=== PATIENT | female | born 1940 | race Caucasian/White ===

== ENCOUNTER 2019-12-07 05:31 | Observation (INO) | payer MEDICARE, BC, OTHER ==
[2019-12-07 06:17] LABS: Mean Corpuscular HGB CONC 30.4 g/dL (32.0-36.0); Mean Corpuscular Hemoglobin 21.5 pg (27.0-31.0); Mean Corpuscular Volume 70.9 fL (78.0-98.0); Mean Platelet Volume 9.7 fL (7.4-10.4); Platelet Count 390 thou/uL (130-400); Red Blood Cell (RBC) Count 4.65 mill/uL (4.20-5.40); White Blood Cell (WBC) Count 13.3 thou/uL (4.8-10.8)
[2019-12-07 06:26] LABS: #Eosinphils 0.1 thou/uL (0.0-0.7); #Lymphocytes 1.8 thou/uL (1.20-3.40); #Monocytes 0.6 thou/uL (0.11-0.59); #Neutrophils 10.7 thou/uL (1.40-6.50); %Basophils 0.3 % (0.0-1.0); %Lymphocytes 13.2 % (21.0-51.0); %Monocytes 4.7 % (0.0-10.0); %Neutrophils 80.8 % (42.0-75.0)
[2019-12-07 06:30] LABS: ALT (SGPT) 22 U/L (8-55); AST (SGOT) 28 U/L (5-34); Albumin 3.8 g/dL (3.4-4.8); Alkaline Phosphatase 87 U/L (40-110); Anion Gap 15 mmol/L (10-20); BUN (Urea Nitrogen) 20 mg/dL (9.8-20.1); Bilirubin, Total 0.4 mg/dL (0.2-1.2); Calc. Creatinine Clearance 0 mL/min (70-130); Carbon Dioxide 20 mmol/L (23-31); Chloride 107 mmol/L (98-107); Estimated GFR-MDRD 56; Globulin 3.4 g/dL (2.4-3.5); Glucose 108 mg/dL (83-110); Potassium 4.2 mmol/L (3.5-5.1); Protein, Total 7.2 g/dL (6.0-8.3); Sodium 138 mmol/L (136-145)
[2019-12-07] MEDS ORDERED: Aspirin 325 MG TAB ONE (06:52)
[2019-12-07 06:57] LABS: CKMB 7.9 ng/mL (0-6.6)
--- NOTE | 2019-12-07 07:49 | PDOC.HHP ---
Hospitalist HPI - History of Present Illness shortness of breath History of Present Illness: PCP: Nikki in [place] The patient is a 79-year-old female past medical history significant for COPD, diabetes and hypertension. She presents to the ER today for shortness of breath that woke her from her sleep at 3 AM. At that time she used her inhaler without any relief and then called 911. She is a current half pack per day smoker but she states she does not inhale. She denies any cough, fever cough chest pain, back pain, abdominal pain, contact with sick persons. She was given additional albuterol and Solu-Medrol by EMS. During her history and assessment she stated she was not able to take a deep breath in but she was able to speak in complete sentences and maintain her O2 saturation. After discussing pursed lip breathing she was able to calm her respirations and stated she felt much better. ED Course: VITAL SIGNS ThuDec 07, 2019 05:32 KITTY Guardado [place] BP: 166/88, MAP: 114, Pulse: 104, Resp: 20, Temp: 98.3 (Oral), Pain: 0, O2 sat: 94 on (Room Air), Time: 12/07/2019 05:32. VITAL SIGNS ThuDec 07, 2019 05:38 KITTY Guardado [place] Pulse: 67, Resp: 17, Pain: 0, O2 sat: 98 on (1L Oxygen), Time: 12/07/2019 05:38. VITAL SIGNS ThuDec 07, 2019 06:06 KITTY Guardado [place] O2 sat: 100 on (Room Air), Time: 12/07/2019 06:06. VITAL SIGNS ThuDec 07, 2019 06:33 KITTY Guardado [place] BP: 159/95, MAP: 116, Pulse: 65, Resp: 18, Temp: 99.2 (Oral), Pain: 2, O2 sat: 97 on (Room Air), Time: 12/07/2019 06:33. Today in the ER she had lab work, and EKG, and a chest x-ray completed. She was given aspirin 325 mg oral. Prior to arrival she had taken 2 puffs of her albuterol inhaler and EMS gave her 125 mg of Solu-Medrol. Hospitalist History - Past Medical History Source: patient Cardiac: reports: HTN Pulmonary: reports: COPD Endocrine: reports: Diabetes - Past Surgical History Past Surgical History: reports: Mastectomy (Left), Tubal Ligation - Family History Family History: reports: no pertinent history - Social History Smoking Status: Current every day smoker Alcohol: reports: None Drugs: reports: none Hospitalist Results - Labs Result Diagrams: 12/07/19 06:08 12/07/19 06:08 Lab results: WBC 13.3 thou/uL (4.8-10.8) H 12/07/19 06:08 Hgb 10.0 g/dL (12.0-16.0) L 12/07/19 06:08 Hct 33.0 % (36.0-47.0) L 12/07/19 06:08 MCV 70.9 fL (78.0-98.0) L 12/07/19 06:08 Plt Count 390 thou/uL (130-400) 12/07/19 06:08 Neutrophils % 80.8 % (42.0-75.0) H 12/07/19 06:08 Sodium 138 mmol/L (136-145) 12/07/19 06:08 Potassium 4.2 mmol/L (3.5-5.1) 12/07/19 06:08 Chloride 107 mmol/L (98-107) 12/07/19 06:08 Carbon Dioxide 20 mmol/L (23-31) L 12/07/19 06:08 BUN 20 mg/dL (9.8-20.1) 12/07/19 06:08 Creatinine 0.97 mg/dL (0.6-1.1) 12/07/19 06:08 Glucose 108 mg/dL (83-110) 12/07/19 06:08 Calcium 9.0 mg/dL (7.8-10.44) 12/07/19 06:08 Total Bilirubin 0.4 mg/dL (0.2-1.2) 12/07/19 06:08 AST 28 U/L (5-34) 12/07/19 06:08 ALT 22 U/L (8-55) 12/07/19 06:08 Alkaline Phosphatase 87 U/L (40-110) 12/07/19 06:08 CK-MB (CK-2) 7.9 ng/mL (0-6.6) H* 12/07/19 06:08 Troponin I 0.035 ng/mL (< 0.028) H 12/07/19 06:08 B-Natriuretic Peptide 273.4 pg/mL (0-100) H 12/07/19 06:08 Serum Total Protein 7.2 g/dL (6.0-8.3) 12/07/19 06:08 Albumin 3.8 g/dL (3.4-4.8) 12/07/19 06:08 - EKG Interpretation EKG: Sinus rhythm 66 bpm with PACs Hospitalist H&P A/P - Plan Plan: COPD exacerbation Scheduled nebs and IV steroids ordered at this time As needed antianxiety medications available if necessary Pursed lip breathing discussed, patient states this helps her greatly Covid swab negative Elevated troponin level Denies chest pain Monitoring on telemetry Continue to trend troponins Hypertension Restart home medications Have as needed antihypertensives available if necessary Leukocytosis No evidence of infection on x-ray, patient afebrile Possibly from steroids that were administered prior to arrival Continue to monitor for signs of infection Diabetes mellitus type 2 Monitor Accu-Cheks AC at bedtime Moderate sliding scale insulin Hyperglycemic currently, possibly exacerbated by steroid use Hyperlipidemia Restart home medications Anemia No reports of blood loss Patient at same hemoglobin and hematocrit level from previous admissions VTE prophylaxis in place with SCDs CODE STATUS: Full Surrogate decision-maker is her son, Artis
--- NOTE | 2019-12-07 08:45 | RAD ---
CHEST 1 VIEW: Date: 12/07/2019 COMPARISON: 09/09/2019, 09/11/2019. HISTORY: Dyspnea. FINDINGS: Cardiomegaly and atherosclerosis. Pulmonary vessels and hilum are normal. Costophrenic angles are wu ar. Chronic changes, without consolidation or mass. There is hyperinflation. No pneumothorax. There a re multiple surgical clips projecting over the left hemithorax. Chronic changes involving the proxima l right humerus. IMPRESSION: 1. Atherosclerosis. 2. Cardiomegaly. 3. No evidence of congestive heart failure. POS: OFF
[2019-12-07 09:09] LABS: SARS-CoV-2 NAA Rapid Test Not Detected (NotDetected)
[2019-12-07 09:50] LABS: Troponin I 0.056 ng/mL (< 0.028)
[2019-12-07] MEDS ORDERED: Dextrose 5% in Water 1,000 ML IV PRN (10:13)
[2019-12-07] MEDS ORDERED: HumaLOG 300 UNITS/3 ML VIAL SC PRN ×2 (10:13)
[2019-12-07] MEDS ORDERED: Acetaminophen 325 MG TAB PO PRN (10:13)
[2019-12-07] MEDS ORDERED: Dextrose 50% Abboject 50 ML SYRINGE SLOW IVP PRN (10:13)
[2019-12-07 10:33] VITALS: BMI 26.9
[2019-12-07] MEDS: methylPREDNISolone Sod Succ 40 MG VIAL IVP SCH ×2 (10:54→17:24)
[2019-12-07] MEDS ORDERED: Albuterol Sulfate 2.5 mg/3 ml Neb NEB PRN (12:20)
[2019-12-07 12:51] LABS: Troponin I 0.044 ng/mL (< 0.028)
[2019-12-07] MEDS: Lorazepam 2 MG/ML VIAL SLOW IVP PRN (13:14)
[2019-12-07] MEDS: metFORMIN 500 MG TAB PO SCH (16:08)
[2019-12-07] MEDS ORDERED: Labetalol HCl 100 MG/20 ML VIAL SLOW IVP PRN (16:16)
[2019-12-07] MEDS ORDERED: Lisinopril 5 MG TAB PO SCH (16:30)
[2019-12-07] MEDS: HumaLOG 300 UNITS/3 ML VIAL SC PRN (17:23)
[2019-12-07] MEDS: Mometasone 200 MCG/Formoterol 5 MCG 120 PUFF INHALER INH SCH (18:21)
[2019-12-07] MEDS: Atorvastatin Calcium 40 MG TAB PO SCH (19:49)
[2019-12-07] MEDS: Insulin Glargine 32 UNITS in Pre-Filled Syringe 1 EACH SC SCH (19:49)
[2019-12-07] MEDS ORDERED: Non-Formulary Item 1 EACH (Insulin Glargine,Hum.Rec.Anlog [Toujeo Solostar] 300 UNIT/ML I SQ SCH (21:00)
[2019-12-08] MEDS: methylPREDNISolone Sod Succ 40 MG VIAL IVP SCH ×3 (00:03→11:51)
[2019-12-08 05:19] LABS: #Lymphocytes 0.7 thou/uL (1.20-3.40); #Monocytes 0.2 thou/uL (0.11-0.59); #Neutrophils 10.6 thou/uL (1.40-6.50); %Basophils 0.3 % (0.0-1.0); %Eosinophils 0.1 % (0.0-10.0); %Lymphocytes 5.7 % (21.0-51.0); Hemoglobin 9.2 g/dL (12.0-16.0); Mean Corpuscular HGB CONC 30.8 g/dL (32.0-36.0); Mean Corpuscular Volume 71.4 fL (78.0-98.0); Platelet Count 384 thou/uL (130-400); RBC Distribution Width 16.9 % (11.5-14.5); Red Blood Cell (RBC) Count 4.19 mill/uL (4.20-5.40); White Blood Cell (WBC) Count 11.5 thou/uL (4.8-10.8)
[2019-12-08 05:40] LABS: Anion Gap 16 mmol/L (10-20); BUN (Urea Nitrogen) 27 mg/dL (9.8-20.1); Calc. Creatinine Clearance 60 mL/min (70-130); Calcium 8.5 mg/dL (7.8-10.44); Carbon Dioxide 24 mmol/L (23-31); Chloride 101 mmol/L (98-107); Estimated GFR-MDRD 56; Glucose 228 mg/dL (83-110); Potassium 4.5 mmol/L (3.5-5.1); Sodium 136 mmol/L (136-145)
[2019-12-08] MEDS: Levothyroxine Sodium 125 MCG TAB PO SCH (05:47)
[2019-12-08] MEDS: HumaLOG 300 UNITS/3 ML VIAL SC PRN ×3 (05:48→17:29)
[2019-12-08] MEDS: Mometasone 200 MCG/Formoterol 5 MCG 120 PUFF INHALER INH SCH ×2 (06:54→18:49)
[2019-12-08] MEDS: Lisinopril 5 MG TAB PO SCH (08:24)
[2019-12-08] MEDS: metFORMIN 500 MG TAB PO SCH ×2 (08:24→17:29)
[2019-12-08] MEDS ORDERED: Cepastat Lozenges 1 LOZ PO PRN (10:21)
--- NOTE | 2019-12-08 10:51 | PDOC.HOSPP ---
- Subjective Encounter Date: 12/08/19 Encounter Time: 10:30 Subjective: Patient is seen for follow-up today for COPD exacerbation and hypertension. Upon entry to room she was sleeping and in no acute distress. Upon awakening she said that she had a good night and was feeling well. When discussing upcoming discharge she stated she was not feeling good and had a new cough along with a headache. Discussed plan of care with her son, Artis. - Objective Vital Signs & Weight: Vital Signs (12 hours) Temp Pulse Resp BP Pulse Ox 12/08/19 08:00 98.1 F 82 23 H 161/75 H 97 12/08/19 04:35 98.3 F 66 23 H 163/72 H 95 Weight Admit Weight 172 lb Weight 172 lb I&O: 12/07/19 12/08/19 12/09/19 06:59 06:59 06:59 Intake Total 1240 Output Total 1950 Balance -710 Result Diagrams: 12/08/19 04:22 12/08/19 04:22 Additional Labs: Accuchecks 12/07/19 12/07/19 19:35 16:34 POC Glucose 291 H 390 H Hospitalist ROS - Medication Medications: Active Medications Generic Name Dose Route Start Last Admin Trade Name Freq PRN Reason Stop Dose Admin Atorvastatin Calcium 40 mg 12/07/19 21:00 12/07/19 19:49 Atorvastatin Calcium 40 Mg Tab PO 40 mg HS CANDY Administration Insulin Glargine 32 units/ 0.32 mls @ 0 mls/hr 12/07/19 21:00 12/07/19 19:49 Miscellaneous Medication SC 0.32 mls HS CANDY Administration Insulin Human Lispro 0 units 12/07/19 11:59 12/08/19 05:48 Humalog 300 Units/3 Ml Vial SC 4 unit .MODERATE SLIDING SC PRN Administration Moderate Correctional Scale Levothyroxine Sodium 125 mcg 12/08/19 06:00 12/08/19 05:47 Levothyroxine Sodium 125 Mcg Tab PO 125 mcg 0600 CANDY Administration Lisinopril 5 mg 12/08/19 09:00 12/08/19 08:24 Lisinopril 5 Mg Tab PO 5 mg DAILY CANDY Administration Lorazepam 0.25 mg 12/07/19 10:45 12/07/19 13:14 Lorazepam 2 Mg/Ml Vial SLOW IVP 0.25 mg Q6H PRN Administration Anxiety/Agitation Metformin HCl 1,000 mg 12/07/19 17:00 12/08/19 08:24 Metformin 500 Mg Tab PO 1,000 mg BID-WM CANDY Administration Methylprednisolone Sodium Succinate 40 mg 12/07/19 12:00 12/08/19 05:49 Methylprednisolone Sod Succ 40 Mg Vial IVP 40 mg Q6HR CANDY Administration Mometasone Furoate/Formoterol Fumar 2 puff 12/07/19 18:30 12/08/19 06:54 Mometasone 200 Mcg/Formoterol 5 Mcg 120 Puff Inhaler INH 2 puff BID-RT CANDY Administration - Exam General Appearance: NAD, awake alert Heart: RRR, no murmur, no gallops, no rubs, normal peripheral pulses Respiratory - other findings: Expiratory wheezes, not as tight sounding as yesterday Gastrointestinal: soft, non-tender, non-distended, normal bowel sounds Extremities: no cyanosis, no edema Psychiatric - other findings: Anxious Hosp A/P - Plan COPD exacerbation Continue home inhalers and IV steroids, will transition to oral steroids soon Only on 1 L O2 nasal cannula, will trial room air today Patient requesting a shower, will see how she maintains her oxygen levels and feels with the increased activity Hypertension Blood pressure slightly elevated throughout the evening however did not require as needed medications Received home dose of lisinopril this morning, we will continue to monitor blood pressures Continue monitor vital signs every 4 hours Leukocytosis Slight decrease in white blood cells, still receiving steroids Remains afebrile Diabetes mellitus type 2 Continue Accu-Cheks and sliding scale insulin Discussed with patient going home soon and she became slightly anxious at that idea. Talked with nursing about trialing patient on room air and seeing how she feels ambulating as she lives independently and is not home oxygen dependent.
[2019-12-08] MEDS: Insulin Glargine 32 UNITS in Pre-Filled Syringe 1 EACH SC SCH (20:43)
[2019-12-08] MEDS: Lorazepam 2 MG/ML VIAL SLOW IVP PRN (20:43)
[2019-12-08] MEDS: Atorvastatin Calcium 40 MG TAB PO SCH (20:43)
[2019-12-09 05:09] LABS: #Lymphocytes 2.2 thou/uL (1.20-3.40); #Monocytes 1.2 thou/uL (0.11-0.59); #Neutrophils 13.9 thou/uL (1.40-6.50); %Basophils 0.2 % (0.0-1.0); %Eosinophils 0.1 % (0.0-10.0); %Lymphocytes 12.5 % (21.0-51.0); %Monocytes 6.9 % (0.0-10.0); %Neutrophils 80.2 % (42.0-75.0); Hemoglobin 9.9 g/dL (12.0-16.0); Mean Corpuscular HGB CONC 30.6 g/dL (32.0-36.0); Mean Corpuscular Hemoglobin 22.1 pg (27.0-31.0); Mean Corpuscular Volume 72.2 fL (78.0-98.0); Mean Platelet Volume 8.9 fL (7.4-10.4); Platelet Count 440 thou/uL (130-400); RBC Distribution Width 16.9 % (11.5-14.5); Red Blood Cell (RBC) Count 4.49 mill/uL (4.20-5.40); White Blood Cell (WBC) Count 17.4 thou/uL (4.8-10.8)
[2019-12-09] MEDS: Levothyroxine Sodium 125 MCG TAB PO SCH (05:28)
[2019-12-09 05:48] LABS: Anion Gap 11 mmol/L (10-20); BUN (Urea Nitrogen) 24 mg/dL (9.8-20.1); Calc. Creatinine Clearance 67 mL/min (70-130); Calcium 8.5 mg/dL (7.8-10.44); Carbon Dioxide 30 mmol/L (23-31); Chloride 103 mmol/L (98-107); Estimated GFR-MDRD 64; Glucose 86 mg/dL (83-110); Potassium 3.7 mmol/L (3.5-5.1); Sodium 140 mmol/L (136-145)
[2019-12-09] MEDS: metFORMIN 500 MG TAB PO SCH (08:12)
[2019-12-09] MEDS: Lisinopril 5 MG TAB PO SCH (08:12)
[2019-12-09] MEDS ORDERED: predniSONE 20 MG TAB PO SCH (09:00)
[2019-12-09] MEDS: HumaLOG 300 UNITS/3 ML VIAL SC PRN (11:28)
[2019-12-09 12:18] VITALS: BP 137/78; TEMP 98.2
[2019-12-09] MEDS: Mometasone 200 MCG/Formoterol 5 MCG 120 PUFF INHALER INH SCH (14:28)
--- NOTE | 2019-12-10 01:55 | DIS ---
DATE OF ADMISSION: 12/07/2019 DATE OF DISCHARGE: 12/09/2019 DISCHARGE DIAGNOSES: 1. Chronic obstructive pulmonary disease exacerbation, improved. 2. Hypertension, stable. 3. Leukocytosis secondary to steroids. 4. Diabetes mellitus type 2, insulin requiring. 5. Anxiety. CONSULTATIONS: None. PERTINENT LABORATORY AND X-RAY FINDINGS: Troponin I ranged between 0.035 to 0.056. BNP 273. CBC showed a white blood cell count ranging between 11.5 to 17.4, hemoglobin ranged between 9.2 to 10.0. COVID-19 PCR not detected, 12/07/2019. Portable chest x-ray dated 12/07/2019 showed no acute cardiopulmonary process. HOSPITAL COURSE: The patient was initially evaluated due to increased shortness of breath in the context of known chronic obstructive pulmonary disease with chest imaging showing no acute infiltrates. The patient was initially treated with bronchodilator therapy and IV Solu-Medrol and placed on oxygen supplementation. The patient received general pulmonary supportive management including bronchodilator therapy and prednisone and clinically stabilized, weaning off oxygen supplementation, maintaining O2 saturations in the upper 90% range on room air. The patient also noted with significant anxiety associated with presentation with initiation of Xanax 0.25 mg daily. I have examined the patient at the time of discharge and discussed followup instructions. The patient verbalized understanding and agreement, ready for discharge on 12/09/2019. DISCHARGE MEDICATIONS: 1. Lipitor 40 mg p.o. at bedtime. 2. Lisinopril 5 mg p.o. daily. 3. Metformin 1000 mg p.o. b.i.d. 4. Levothyroxine 125 mcg p.o. daily. 5. Glargine insulin 40 units subcutaneously at bedtime. 6. Trulicity 1.5 mg subcutaneously q.7 days. 7. Symbicort 160/4.5 two puffs inhaled b.i.d. 8. Prednisone 20 mg take 2 tablets p.o. daily x3 days, followed by 1 tablet p.o. daily x3 days, followed by half a tablet p.o. daily x3 days. 9. Ventolin HFA 2 puffs inhaled q.6 hours p.r.n. 10. Xanax 0.25 mg p.o. daily. FOLLOWUP: The patient will follow up with Dr. Lana Priest. CONDITION ON DISCHARGE: Stable. ACTIVITY: Ad gigi. DIET: ADA. CODE STATUS: Full. DISPOSITION: To home, 12/09/2019. Job ID: [id number]
== END 2019-12-09 16:21 | disposition home or self-care (01) ==
LOC: ERS 05:31 → 2SW 07:17
PROVIDERS: ADMIT Internal Medicine; ATTEND Internal Medicine
DX: J44.1 Chronic obstructive pulmonary disease with (acute) exacerbation (principal); I10 Essential (primary) hypertension; D72.828 Other elevated white blood cell count; T38.0X5A Adverse effect of glucocorticoids and synthetic analogues, initial encounter; E11.9 Type 2 diabetes mellitus without complications; F41.9 Anxiety disorder, unspecified; R77.8 Other specified abnormalities of plasma proteins; E78.5 Hyperlipidemia, unspecified; D64.9 Anemia, unspecified; F17.210 Nicotine dependence, cigarettes, uncomplicated; Z79.4 Long term (current) use of insulin; Z79.899 Other long term (current) drug therapy; Z20.828 Contact with and (suspected) exposure to other viral communicable diseases
CPT/HCPCS: 71045; 80048 ×2; 80053; 82553; 82962 ×3; 83880; 84484 ×2; 85025 ×3; 93005; 94640 ×6; 99285; U0002; 36415; 36416; 96374; 96375; 96376; G0378; J1815; J2060; J2920; J7512; J7611; J7620

== ENCOUNTER 2020-01-09 11:56 | Inpatient (IN) | payer MEDICARE, BC ==
[2020-01-09] MEDS ORDERED: Iopamidol-370 76% 500 ML 1 ML ONE (12:20)
[2020-01-09 12:37] LABS: #Eosinphils 0.1 thou/uL (0.0-0.7); #Lymphocytes 1.1 thou/uL (1.20-3.40); #Monocytes 1.3 thou/uL (0.11-0.59); #Neutrophils 12.9 thou/uL (1.40-6.50); %Basophils 0.3 % (0.0-1.0); %Eosinophils 0.4 % (0.0-10.0); %Lymphocytes 7.2 % (21.0-51.0); %Monocytes 8.4 % (0.0-10.0); %Neutrophils 83.7 % (42.0-75.0); Hemoglobin 10.3 g/dL (12.0-16.0); Mean Corpuscular HGB CONC 30.8 g/dL (32.0-36.0); Mean Corpuscular Volume 71.6 fL (78.0-98.0); Mean Platelet Volume 9.2 fL (7.4-10.4); Platelet Count 354 thou/uL (130-400); RBC Distribution Width 17.7 % (11.5-14.5); Red Blood Cell (RBC) Count 4.66 mill/uL (4.20-5.40); White Blood Cell (WBC) Count 15.5 thou/uL (4.8-10.8)
[2020-01-09 12:52] LABS: ALT (SGPT) 16 U/L (8-55); AST (SGOT) 21 U/L (5-34); Alkaline Phosphatase 77 U/L (40-110); Anion Gap 16 mmol/L (10-20); BUN (Urea Nitrogen) 15 mg/dL (9.8-20.1); Bilirubin, Total 0.6 mg/dL (0.2-1.2); Calc. Creatinine Clearance 0 mL/min (70-130); Calcium 9.4 mg/dL (7.8-10.44); Carbon Dioxide 23 mmol/L (23-31); Chloride 101 mmol/L (98-107); Globulin 3.1 g/dL (2.4-3.5); Glucose 205 mg/dL (83-110); Potassium 4.9 mmol/L (3.5-5.1); Protein, Total 7.1 g/dL (6.0-8.3); Sodium 135 mmol/L (136-145)
[2020-01-09] MEDS ORDERED: Albuterol 200 PUFF (6.7GM INHALER) ONE (13:08)
[2020-01-09 13:14] LABS: CKMB 6.2 ng/mL (0-6.6)
--- NOTE | 2020-01-09 13:29 | RAD ---
PORTABLE CHEST: Date: 01/09/2020 HISTORY: Shortness of breath. Chest pain. COMPARISON: 12/07/2019. FINDINGS: Mild cardiomegaly is stable. Mild vascular engorgement is stable. No focal infiltrate or significant effusion. No interval change. Stranding in the left lung base. IMPRESSION: No acute process. POS: AGW
[2020-01-09] MEDS ORDERED: Morphine 4 MG/ML VIAL ONE (13:47)
--- NOTE | 2020-01-09 14:09 | CT ---
CT ANGIO OF CHEST PERFORMED WITH IV CONTRAST ENHANCEMENT WITH 3D RECONSTRUCTIONS: Date: 01/09/2020 HISTORY: Substernal chest pain that started this morning, worse with inspiration. Nonproductive cough for [place]in[place] ral days. Difficulty breathing. Hypertensive and tachycardic. COMPARISON: 09/09/2019 exam. FINDINGS: The lungs are clear of any infiltrative process. A pleural based left upper lobe pulmonary nodule see n on axial image 54 measuring 7.0 mm in size is a stable finding. There are parenchymal changes in th e left lung base which have an appearance more suggestive of some scarring and atelectasis. Also, lucía e linear scarring in the right base. No significant mediastinal or hilar adenopathy. There is fair pulmonary artery opacification obtained . There is no CT evidence for pulmonary embolus. Right breast implant with calcification and evidence for a capsular rupture is a stable finding. Thoracic aorta is normal in caliber. Visualized liver parenchyma shows no focal findings. IMPRESSION: 1. No CT evidence for pulmonary embolus. 2. Stable left upper lobe pleural based pulmonary nodule. POS: AH
[2020-01-09 15:47] LABS: Troponin I 0.025 ng/mL (< 0.028)
--- NOTE | 2020-01-09 17:16 | PDOC.HHP ---
Hospitalist HPI - History of Present Illness chest pain History of Present Illness: PCP: Dr. Priest The patient is a 79-year-old female with a past medical history significant for COPD, DM 2, HLD, HTN that presents to the emergency department via EMS for the above complaint. Patient was actually discharged from our hospital on 12/10/2019, for a COPD exacerbation. She reports that this morning she awoke, feeling chest pressure that originated in her throat and radiated down to her chest bilaterally, described as chest pressure, constant, exacerbated with inhalation and relieved by nothing. She reports some associated dyspnea on exertion. She denies any heart palpitations, lightheadedness or swelling to her lower extremities. She has a history of COPD. Denies any history of PE/DVT. She denies any cough or wheezing. She denies any illicit drug use. She had no abdominal pain, nausea, vomiting, diarrhea. No dysuria or hematuria. No known sick contacts. Denies any recent illness or fever. EMS was called, upon arrival the patient was found to have stable vital signs. She was given 1 inch of nitro on her chest and a full aspirin along with 3 sublingual sprays of nitroglycerin. She was taken to the hospital for further evaluation. ED Course: VITAL SIGNS ThuJan 09, 2020 12:09 KITTY Franco Brandi BP: 160/81, MAP: 107, Pulse: 103, Resp: 22, Temp: 99.0 (Oral), Pain: 9, O2 sat: 98 on (Room Air), Time: 01/09/2020 12:09. VITAL SIGNS ThuJan 09, 2020 14:06 KITTY Franco Brandi BP: 136/72, MAP: 93, Pulse: 87, Resp: 16, Temp: 98.8 (Oral), Pain: 7, O2 sat: 96 on (Room Air), Time: 01/09/2020 14:06. Medications: DuoNeb 3 mL Nebulize Canceled 13:01 01/09/2020 \ morphine injection 4 mg IV Push Given 14:06 01/09/2020 Proventil HFA 4 puff(s) Inhaler-MDI Given 13:13 01/09/2020 Hospitalist ROS - Review of Systems All other systems reviewed; all pertinent +/- noted in HPI/Subj - Medication Medications: 1. Metformin 1000 mg p.o. twice daily 2. Alprazolam 0.25 mg p.o. daily 3. Atorvastatin 40 mg p.o. nightly 4. Budesonideformoterol 160-4.52 puffs inhaled twice daily 5. Trulicity 0.5 mils subcu q. 7 days 6. Toujeo 40 units subcu at bedtime 7. Levothyroxine 125 mics p.o. every morning 8. Lisinopril 5 mg p.o. daily 9. Prednisone 20 mg p.o. daily 10. Ventolin HFA inhaler 2 puffs inhalation every 6 hours as needed shortness of breath or wheezing Allergies: No Known Drug Allergies Hospitalist History - Past Medical History Source: patient, RN notes reviewed Cardiac: reports: HTN, Hyperlipidemia Pulmonary: reports: COPD Heme/Onc: reports: Other (Breast cancer) Endocrine: reports: Diabetes (Type II) - Past Surgical History Past Surgical History: reports: Mastectomy (Left), Tubal Ligation, Other (Tracheostomy removal greater than 20 years ago) - Family History Family History: reports: cardiac disorder (Mother) - Social History Smoking Status: Current every day smoker (Half pack per day x60 years) Tobacco Type: cigarettes Alcohol: reports: None Drugs: reports: none Living Situation: Alone Occupation: Retired Activity level: independent ambulation - Exam General Appearance: NAD, awake alert. negative: ill appearing Eye: PERRL, anicteric sclera ENT: normocephalic atraumatic Neck: supple, symmetric Heart: RRR, no murmur, no gallops, no rubs, normal peripheral pulses Respiratory: CTAB, no wheezes, no rales, no ronchi, normal chest expansion, no tachypnea Gastrointestinal: soft, non-tender, normal bowel sounds, no guarding, no rigidity Extremities: no cyanosis, no edema Skin: no rashes Neurological: no focal deficits Psychiatric: normal affect, A&O x 3 Hospitalist Results - Labs Result Diagrams: 01/09/20 12:27 01/09/20 12:27 Lab results: WBC 15.5 thou/uL (4.8-10.8) H 01/09/20 12:27 Hgb 10.3 g/dL (12.0-16.0) L 01/09/20 12:27 Hct 33.4 % (36.0-47.0) L 01/09/20 12:27 MCV 71.6 fL (78.0-98.0) L 01/09/20 12:27 Plt Count 354 thou/uL (130-400) 01/09/20 12:27 Neutrophils % 83.7 % (42.0-75.0) H 01/09/20 12:27 Sodium 135 mmol/L (136-145) L 01/09/20 12:27 Potassium 4.9 mmol/L (3.5-5.1) 01/09/20 12:27 Chloride 101 mmol/L (98-107) 01/09/20 12:27 Carbon Dioxide 23 mmol/L (23-31) 01/09/20 12:27 BUN 15 mg/dL (9.8-20.1) 01/09/20 12:27 Creatinine 1.07 mg/dL (0.6-1.1) 01/09/20 12:27 Glucose 205 mg/dL (83-110) H 01/09/20 12:27 Calcium 9.4 mg/dL (7.8-10.44) 01/09/20 12:27 Total Bilirubin 0.6 mg/dL (0.2-1.2) 01/09/20 12: AST 21 U/L (5-34) 01/09/20 12:27 ALT 16 U/L (8-55) 01/09/20 12:27 Alkaline Phosphatase 77 U/L (40-110) 01/09/20 12:27 CK-MB (CK-2) 6.2 ng/mL (0-6.6) 01/09/20 12:27 Troponin I 0.025 ng/mL (< 0.028) 01/09/20 15:21 B-Natriuretic Peptide 225.5 pg/mL (0-100) H 01/09/20 12:27 Serum Total Protein 7.1 g/dL (6.0-8.3) 01/09/20 12:27 Albumin 4.0 g/dL (3.4-4.8) 01/09/20 12:27 - EKG Interpretation EK lead EKG interpreted by Emergency Department Physician at time of study, Heart rate 96, normal sinus rhythm with PVCs and PACs, nonspecific T wave changes, QTc prolonged at 475. - Radiology Interpretation Chest x-ray Status: report reviewed by me Additional Comment: Mild cardiomegaly is stable. Mild vascular engorgement is stable. No focal infiltrate or significant effusion. No interval change. Stranding in the left lung base. CT scan - chest Status: report reviewed by me Additional Comment: IMPRESSION: 1. No CT evidence for pulmonary embolus. 2. Stable left upper lobe pleural based pulmonary nodule Hospitalist H&P A/P - Problem (1) Chest pain Code(s): R07.9 - CHEST PAIN, UNSPECIFIED Status: Acute (2) COPD (chronic obstructive pulmonary disease) Status: Chronic (3) Leukocytosis Code(s): D72.829 - ELEVATED WHITE BLOOD CELL COUNT, UNSPECIFIED Status: Chronic (4) DMII (diabetes mellitus, type 2) Status: Chronic (5) HTN (hypertension) Code(s): I10 - ESSENTIAL (PRIMARY) HYPERTENSION Status: Chronic (6) HLD (hyperlipidemia) Code(s): E78.5 - HYPERLIPIDEMIA, UNSPECIFIED Status: Chronic (7) Breast CA Status: Chronic - Plan Plan: 79/F with PMH COPD, HTN, DM 2, HLD presents for chest pain. Admit to telemetry floor, observation status. Expected length of stay less than 2 midnights. Presented hypertensive, tachycardic, tachypneic, NL SPO2, afebrile. EKG normal sinus rhythm, PACs, PVCs, prolonged QT, no ST elevation. CXR mild vascular engorgement, cardiomegaly. Troponin 0.042, 0.025, CK-MB 6.2, BNP 225, DD 1.02 CTA chest negative for PE WBC 15.5 Given full dose aspirin by EMS. #Chest pain Heart score 4 Trend troponins, check TSH, mag, UA. Continue aspirin and statin and Nitropaste. Echocardiogram N.p.o. at midnight Nuc med cardiac stress test #COPD Appears stable. Takes LABA, Bina, prednisone at home. Restart home medications. #Leukocytosis appears chronic Likely d/t chronic steroid usage. #DM2 Takes Toujeo 45 units daily. Takes Trulicity and metformin at home. Hold Trulicity and metformin. Restart long-acting insulin. Moderate ISS. AC/at bedtime checks #HTN Presented hypertensive. Restart home dose lisinopril. Monitor BP. #HLD Recent FLP profile on 11/25 Continue home dose atorvastatin. #Breast cancer Chronic, stable History left mastectomy. SCDs for DVT prophylaxis. Pepcid for GI prophylaxis. Full code. Contact is Shane Sherwood, son at [phone]. Discussed case with Dr. Burgess
[2020-01-09] MEDS ORDERED: Calcium Carbonate 500 MG ChewTAB PO PRN (17:48)
[2020-01-09] MEDS ORDERED: Dextrose 50% Abboject 50 ML SYRINGE SLOW IVP PRN (17:48)
[2020-01-09] MEDS ORDERED: Dextrose 5% in Water 1,000 ML IV PRN (17:48)
[2020-01-09 18:56] LABS: Troponin I 0.042 ng/mL (< 0.028)
[2020-01-09] MEDS: PROVENTIL INHALER 6.7 G (200 INHALATIONS) INH PRN (20:40)
[2020-01-09] MEDS: Mometasone 200 MCG/Formoterol 5 MCG 120 PUFF INHALER INH SCH (20:41)
[2020-01-09] MEDS ORDERED: Non-Formulary Item 1 EACH (Insulin Glargine,Hum.Rec.Anlog [Toujeo Solostar] 300 UNIT/ML I SQ SCH (21:00)
[2020-01-09] MEDS ORDERED: Insulin Glargine 40 UNITS in Pre-Filled Syringe SC SCH ×2 (21:00→23:30)
[2020-01-09] MEDS ORDERED: Insulin Glargine 40 UNITS in Pre-Filled Syringe 1 EACH SC SCH (21:00)
[2020-01-09] MEDS: Famotidine 20 MG TAB PO SCH (22:25)
[2020-01-09] MEDS: Atorvastatin Calcium 40 MG TAB PO SCH (22:26)
[2020-01-09] MEDS: Nicotine 14 MG PATCH TD SCH (22:26)
[2020-01-09 22:47] VITALS: BMI 26.6
[2020-01-09] MEDS: Nitroglycerin 2% Ointment 1 INCH/1 GM Packet TOP SCH (23:29)
[2020-01-10 00:28] LABS: Bacteria/HPF None Seen HPF (None Seen); Bilirubin Negative (Negative); Blood, Urine Negative (Negative); Clarity Clear (Clear); Glucose, Urine (Dipstick) 300 mg/dL (Negative); Ketone, Urine Negative (Negative); Leukocyte Negative Leu/uL (Negative); Nitrite Negative (Negative); Protein, Urine (Dipstick) 100 mg/dL (Neg-Trace); RBC/HPF 0-3 HPF (0-3); Specific Gravity, Urine 1.038 (1.002-1.036); Squamous Epithelial 0-3 HPF (0-3); Urobilinogen Normal mg/dL (Less than 2); WBC/HPF 0-3 HPF (0-3); pH, Urine 5.5 (5.0-9.0)
[2020-01-10] MEDS ORDERED: Magnesium 2 GM/50 ML 2 GM in Premix Bag 1 BAG IVPB SCH (00:30)
[2020-01-10 04:31] LABS: Anion Gap 16 mmol/L (10-20); BUN (Urea Nitrogen) 19 mg/dL (9.8-20.1); Calc. Creatinine Clearance 48 mL/min (70-130); Calcium 8.8 mg/dL (7.8-10.44); Carbon Dioxide 22 mmol/L (23-31); Chloride 99 mmol/L (98-107); Glucose 286 mg/dL (83-110); Potassium 3.9 mmol/L (3.5-5.1); Sodium 133 mmol/L (136-145)
[2020-01-10 04:49] LABS: #Eosinphils 0.1 thou/uL (0.0-0.7); #Lymphocytes 1.9 thou/uL (1.20-3.40); #Monocytes 1.4 thou/uL (0.11-0.59); #Neutrophils 8.1 thou/uL (1.40-6.50); %Basophils 0.1 % (0.0-1.0); %Eosinophils 1.2 % (0.0-10.0); %Lymphocytes 16.4 % (21.0-51.0); %Monocytes 12.2 % (0.0-10.0); Hemoglobin 9.1 g/dL (12.0-16.0); Mean Corpuscular HGB CONC 31.2 g/dL (32.0-36.0); Mean Corpuscular Hemoglobin 22.2 pg (27.0-31.0); Mean Corpuscular Volume 71.2 fL (78.0-98.0); Mean Platelet Volume 10.3 fL (7.4-10.4); Platelet Count 335 thou/uL (130-400); Red Blood Cell (RBC) Count 4.12 mill/uL (4.20-5.40); White Blood Cell (WBC) Count 11.6 thou/uL (4.8-10.8)
[2020-01-10] MEDS: Levothyroxine Sodium 125 MCG TAB PO SCH (05:27)
[2020-01-10] MEDS: Nitroglycerin 2% Ointment 1 INCH/1 GM Packet TOP SCH ×3 (05:31→21:35)
[2020-01-10] MEDS: Mometasone 200 MCG/Formoterol 5 MCG 120 PUFF INHALER INH SCH ×2 (07:24→19:02)
[2020-01-10 07:39] LABS: SARS-CoV-2 MS2 Positive; SARS-CoV-2 N Gene Negative; SARS-CoV-2 S Gene Negative; SARS-CoV-2 by NAA Not Detected (NotDetected); SARS-CoV-2 orf1ab Negative
[2020-01-10] MEDS ORDERED: FLU VACC QS2020-21(65YR UP)/PF 240 MCG/0.7 ML SYRINGE IM ONE (09:00)
[2020-01-10] MEDS ORDERED: predniSONE 20 MG TAB PO SCH (09:00)
[2020-01-10] MEDS: Aspirin 81 mg Enteric Coated Tablet PO SCH (10:08)
[2020-01-10] MEDS: Famotidine 20 MG TAB PO SCH ×2 (10:08→21:16)
[2020-01-10] MEDS: Lisinopril 5 MG TAB PO SCH (10:08)
[2020-01-10] MEDS: ALPRAZolam 0.25 MG TAB PO SCH (10:09)
[2020-01-10] MEDS ORDERED: Diltiazem HCl 125 MG, Admixture Fee 1 EACH in Sodium Chloride 0.9% 100 ML IVPB SCH (10:15)
--- NOTE | 2020-01-10 12:25 | PDOC.HOSPP ---
- Subjective Encounter Date: 01/10/20 Encounter Time: 12:20 Subjective: This patient is a 79-year-old woman who presented to the hospital with chest pain that she described as a heavy sensation across the chest wall radiating to her neck and jawline. She was admitted due to concern for acute coronary syndrome. She had a troponin that was slightly elevated. Plan was made for her to have a stress test but she went into atrial fibrillation RVR and this was aborted. When I saw her she is chest pain-free. Her major risk factors includes ongoing tobacco dependence and a history of diabetes. She would likely benefit from emergency operator evaluation and I am going to ask our on-call emergency operator to see her - Objective Vital Signs & Weight: Vital Signs (12 hours) Temp Pulse Resp BP Pulse Ox 01/10/20 10:08 92 01/10/20 07:43 98.9 F 92 19 130/70 93 L 01/10/20 07:32 93 L 01/10/20 07:24 83 20 93 L 01/10/20 03:46 98.4 F 84 24 H 137/63 93 L Weight Weight 169 lb 6.4 oz I&O: 01/09/20 01/10/20 01/11/20 06:59 06:59 06:59 Intake Total 190 Output Total 500 Balance -310 Result Diagrams: 01/10/20 03:30 01/10/20 03:30 Additional Labs: Accuchecks 01/10/20 01/10/20 01/10/20 10:52 06:37 00:12 POC Glucose 190 H 157 H 277 H 01/09/20 20:49 POC Glucose 282 H Radiology Reviewed by me: Yes EKG Reviewed by me: Yes Hospitalist ROS - Review of Systems Constitutional: reports: weakness, malaise Cardiovascular: reports: chest pain, palpitations Gastrointestinal: reports: nausea - Medication Medications: Active Medications Generic Name Dose Route Start Last Admin Trade Name Freq PRN Reason Stop Dose Admin Albuterol Sulfate 2 puff 01/09/20 17:50 01/09/20 20:40 Proventil Inhaler 6.7 G (200 Inhalations) INH 2 puff Q6H PRN Administration SOB &/or Wheezing Alprazolam 0.25 mg 01/10/20 09:00 01/10/20 10:09 Alprazolam 0.25 Mg Tab PO 0.25 mg DAILY CANDY Administration Aspirin 81 mg 01/10/20 09:00 01/10/20 10:08 Aspirin 81 Mg Enteric Coated Tablet PO 81 mg DAILY CANDY Administration Atorvastatin Calcium 40 mg 01/09/20 21:00 01/09/20 22:26 Atorvastatin Calcium 40 Mg Tab PO 40 mg HS CANDY Administration Famotidine 20 mg 01/09/20 21:00 01/10/20 10:08 Famotidine 20 Mg Tab PO 20 mg BID CANDY Administration Diltiazem HCl 125 mg/ 125 mls @ 10 mls/hr 01/10/20 10:15 01/10/20 10:39 Miscellaneous Medication 1 IVPB 125 mls each/ Sodium Chloride INF CANDY Administration Protocol As Directed Levothyroxine Sodium 125 mcg 01/10/20 06:00 01/10/20 05:27 Levothyroxine Sodium 125 Mcg Tab PO 125 mcg 0600 CANDY Administration Lisinopril 5 mg 01/10/20 09:00 01/10/20 10:08 Lisinopril 5 Mg Tab PO 5 mg DAILY CANDY Administration Mometasone Furoate/Formoterol Fumar 2 puff 01/09/20 18:30 01/10/20 07:24 Mometasone 200 Mcg/Formoterol 5 Mcg 120 Puff Inhaler INH 2 puff BID-RT CANDY Administration Nicotine 14 mg 01/09/20 18:00 01/09/20 22:26 Nicotine 14 Mg Patch TD 14 mg Q24HR CANDY Administration Nitroglycerin 0.5 inch 01/09/20 22:00 01/10/20 05:31 Nitroglycerin 2% Ointment 1 Inch/1 Gm Packet TOP Not Given Q8HR CANDY - Exam General Appearance: awake alert, ill appearing Eye: PERRL, anicteric sclera ENT: normocephalic atraumatic, no oropharyngeal lesions, moist mucosa Neck: supple, symmetric, no JVD, no thyromegaly, no lymphadenopathy Heart: RRR, no murmur, no gallops, no rubs, normal peripheral pulses Respiratory: CTAB, no wheezes, no rales, no ronchi, normal chest expansion Gastrointestinal: soft, non-tender, non-distended, normal bowel sounds, no palpa ble masses, no bruit, no guarding Neurological: cranial nerve grossly intact, normal sensation to touch Musculoskeletal: normal tone, normal strength, no muscle wasting Psychiatric: normal affect, normal behavior, A&O x 3 Hosp A/P (1) NSTEMI (non-ST elevated myocardial infarction) Code(s): I21.4 - NON-ST ELEVATION (NSTEMI) MYOCARDIAL INFARCTION Status: Acute Plan: She will likely benefit from a emergency operator evaluation. I have some concern that she may really have acute coronary syndrome. Will defer to the car diologist about further recommendations. (2) DMII (diabetes mellitus, type 2) Status: Chronic Qualifiers: Diabetes mellitus jail insulin use: without jail use Diabetes mellitus complication status: with hyperglycemia Qualified Code(s): E11.65 - Type 2 diabetes mellitus with hyperglycemia (3) Tobacco dependence Code(s): F17.200 - NICOTINE DEPENDENCE, UNSPECIFIED, UNCOMPLICATED Status: Acute Plan: I counseled her about tobacco cessation. (4) Paroxysmal atrial fibrillation Code(s): I48.0 - PAROXYSMAL ATRIAL FIBRILLATION Status: Acute Plan: This appears to be a new onset. I have asked cardiology to see her in consult. - Plan plan discussed w/ family
[2020-01-10] MEDS ORDERED: Enoxaparin Sodium 80 MG/0.8 ML SYRINGE SC SCH (14:00)
--- NOTE | 2020-01-10 14:23 | CON ---
DATE OF CONSULTATION: 01/10/2020 REASON FOR CONSULTATION: Atrial fibrillation with a rapid rate, chest discomfort, indeterminate troponin. HISTORY OF PRESENT ILLNESS: Ms. Rima Sherwood is a 79-year-old woman. The patient came to the hospital yesterday with chest discomfort. The patient states it was to the sides of her chest and it seemed to her worse when she took a deep breath. Also, up under her throat. She has a history of COPD. The patient says she has a history of not feeling her heart racing, but she does feel it when it "stops." On talking to her, it sounds like she may be feeling pauses, but it is very difficult to get a precise description from her. The patient does not have typical angina in the past. She does have a history of difficulty breathing, what sounds like COPD. She continued to smoke. ALLERGIES: NONE KNOWN. MEDICATIONS: 1. Trulicity. 2. Atorvastatin. 3. Levothyroxine. 4. Lisinopril. 5. Prednisone for COPD. 6. Ventolin inhaler as well as other inhalers. REVIEW OF SYSTEMS: CONSTITUTIONAL: No significant weight gain or loss. VISION: No changes. HEARING: No changes. PULMONARY: Positive for shortness of breath. GASTROINTESTINAL: No nausea, vomiting, diarrhea. SKIN: No rashes. NEUROLOGIC: No unilateral weakness or numbness. PSYCHIATRIC: No unusual depression or anxiety. PHYSICAL EXAMINATION: GENERAL: This is a pleasant elderly woman, 79 years of age. VITAL SIGNS: Blood pressure is 130/70, pulse 90. EYES: Sclerae nonicteric. MOUTH: Mucous membranes moist. NECK: Supple. No lymphadenopathy. LUNGS: Clear. No wheezing, rales, or rhonchi. CARDIAC: Normal S1, normal S2. There is no murmur, rub, or gallop. ABDOMEN: Soft, nontender. EXTREMITIES: No clubbing or cyanosis. There is no edema. PERTINENT LABORATORY DATA: Creatinine is 1.19; estimated GFR is 44; blood sugar 282 earlier, then 190. Troponins were indeterminate, in the low-indeterminate range. The initial was actually normal range. The highest was 0.042, which puts her in the indeterminate range. EKG; the patient has some sinus rhythm, she also has had atrial fibrillation with a rapid rate up to 150 beats per minute. On EKG, the patient had T-wave inversions in V6 only. ASSESSMENT: 1. Chronic obstructive pulmonary disease. 2. Chest discomfort of unclear etiology. 3. Paroxysmal atrial fibrillation. 4. Anemia with a hemoglobin of 9.1. 5. Creatinine is 1.19 and estimated GFR is 44 that is stage 3 renal failure. 6. Diabetes. 7. Most recent cholesterol 141, LDL 57. 8. Smoking, continues to smoke. PLAN: 1. Advised smoking cessation. 2. We will order daily Cardizem. 3. Check iron levels. 4. Give her single dose of anticoagulation and see if her blood counts are stable to see whether she would be a candidate for anticoagulation long-term. 5. Stress testing tomorrow. Job ID: [id number]
[2020-01-10] MEDS: Nicotine 14 MG PATCH TD SCH (17:16)
[2020-01-10] MEDS ORDERED: Dronedarone HCl 400 MG TAB PO SCH (18:15)
[2020-01-10] MEDS: PROVENTIL INHALER 6.7 G (200 INHALATIONS) INH PRN (19:06)
[2020-01-10] MEDS ORDERED: Magnesium Sulfate 3 GM in Sodium Chloride 0.9% 100 ML IVPB SCH (20:00)
[2020-01-10] MEDS: Insulin Glargine 40 UNITS in Pre-Filled Syringe SC SCH (21:16)
[2020-01-10] MEDS: Atorvastatin Calcium 40 MG TAB PO SCH (21:16)
[2020-01-11] MEDS: Acetaminophen 325 MG TAB PO PRN (03:18)
[2020-01-11] MEDS: PROVENTIL INHALER 6.7 G (200 INHALATIONS) INH PRN ×3 (04:30→18:58)
[2020-01-11 05:27] LABS: Iron 9 ug/dL (50-170); Iron Binding Capacity, Total 355 mcg/dL (265-497)
[2020-01-11] MEDS: Nitroglycerin 2% Ointment 1 INCH/1 GM Packet TOP SCH (05:41)
[2020-01-11] MEDS: Levothyroxine Sodium 125 MCG TAB PO SCH (05:42)
[2020-01-11 05:47] LABS: #Eosinphils 0.3 thou/uL (0.0-0.7); #Lymphocytes 1.5 thou/uL (1.20-3.40); #Neutrophils 7.2 thou/uL (1.40-6.50); %Eosinophils 2.6 % (0.0-10.0); %Lymphocytes 15.2 % (21.0-51.0); %Monocytes 10.3 % (0.0-10.0); %Neutrophils 71.8 % (42.0-75.0); Elliptocytes SLIGHT = 2-5 cells (100X) (0-1/hpf); Hemoglobin 8.7 g/dL (12.0-16.0); Hypochromia SLIGHT = 6-15 cells (100X) (0-5/hpf); MDiff Complete? YES; Mean Corpuscular HGB CONC 29.8 g/dL (32.0-36.0); Mean Corpuscular Hemoglobin 21.4 pg (27.0-31.0); Mean Corpuscular Volume 71.7 fL (78.0-98.0); Mean Platelet Volume 9.9 fL (7.4-10.4); Microcytosis SLIGHT = 6-15 cells (100X) (0-5/hpf); Platelet Count 319 thou/uL (130-400); RBC Distribution Width 17.7 % (11.5-14.5); Red Blood Cell (RBC) Count 4.07 mill/uL (4.20-5.40)
[2020-01-11] MEDS ORDERED: Furosemide 20 MG/2 ML VIAL SLOW IVP SCH (06:00)
[2020-01-11] MEDS: Mometasone 200 MCG/Formoterol 5 MCG 120 PUFF INHALER INH SCH ×2 (07:31→18:58)
--- NOTE | 2020-01-11 08:38 | NM ---
Radionucleotide rest only myocardial perfusion scan HISTORY: Chest pain. Patient unable to tolerate stress exam. FINDINGS: Slightly heterogeneous uptake of radiotracer throughout the left ventricular myocardium. Po ssible dilatation. No focal perfusion defect. IMPRESSION : No evidence of infarct. Rest only exam.
[2020-01-11] MEDS ORDERED: Potassium Chloride 20 MEQ TAB PO SCH (09:00)
[2020-01-11] MEDS: Famotidine 20 MG TAB PO SCH ×2 (09:10→22:50)
[2020-01-11] MEDS: ALPRAZolam 0.25 MG TAB PO SCH (09:10)
[2020-01-11] MEDS: Aspirin 81 mg Enteric Coated Tablet PO SCH (09:16)
[2020-01-11] MEDS: Lisinopril 5 MG TAB PO SCH (09:16)
[2020-01-11] MEDS: Dronedarone HCl 400 MG TAB PO SCH ×2 (09:16→17:15)
--- NOTE | 2020-01-11 14:45 | PDOC.HOSPP ---
- Subjective Encounter Date: 01/11/20 Encounter Time: 14:42 Subjective: Patient attempted stress test but it appears that she went into atrial fib with RVR and this test was canceled. Cardiology plans to repeat this by tomorrow. The patient has not had any further chest pain here in the last 24 hours. She is asking about going home. I believe she needs to complete her evaluations prior to being discharged. I discussed this with the checker bak[employer] who is in agreement that the patient will need to have a formal stress test prior to discharge. - Objective Vital Signs & Weight: Vital Signs (12 hours) Temp Pulse Resp BP Pulse Ox 01/11/20 14:34 64 16 94 L 01/11/20 12:00 97.0 F L 60 18 124/61 93 L 01/11/20 09:16 60 01/11/20 08:00 96.5 F L 60 17 131/60 94 L 01/11/20 07:32 94 L 01/11/20 07:31 60 20 94 L 01/11/20 04:00 99.0 F 68 18 129/61 Weight Weight 171 lb I&O: 01/10/20 01/11/20 01/12/20 06:59 06:59 06:59 Intake Total 190 820 Output Total 500 Balance -310 820 Result Diagrams: 01/11/20 04:19 01/10/20 03:30 Additional Labs: Accuchecks 01/11/20 01/11/20 01/10/20 10:40 07:02 21:08 POC Glucose 232 H 118 H 218 H 01/10/20 16:36 POC Glucose 187 H Radiology Reviewed by me: Yes EKG Reviewed by me: Yes Hospitalist ROS - Review of Systems Constitutional: reports: weakness, malaise Cardiovascular: reports: chest pain - Medication Medications: Active Medications Generic Name Dose Route Start Last Admin Trade Name Freq PRN Reason Stop Dose Admin Acetaminophen 650 mg 01/09/20 17:48 01/11/20 03:18 Acetaminophen 325 Mg Tab PO 650 mg Q4H PRN Administration Headache/Fever/Mild Pain (1-3) Albuterol Sulfate 2 puff 01/09/20 17:50 01/11/20 14:34 Proventil Inhaler 6.7 G (200 Inhalations) INH 2 puff Q6H PRN Administration SOB &/or Wheezing Alprazolam 0.25 mg 01/10/20 09:00 01/11/20 09:10 Alprazolam 0.25 Mg Tab PO 0.25 mg DAILY CANDY Administration Aspirin 81 mg 01/10/20 09:00 01/11/20 09:16 Aspirin 81 Mg Enteric Coated Tablet PO 81 mg DAILY CANDY Administration Atorvastatin Calcium 40 mg 01/09/20 21:00 01/10/20 21:16 Atorvastatin Calcium 40 Mg Tab PO 40 mg HS CANDY Administration Diltiazem HCl 180 mg 01/11/20 09:00 01/11/20 09:16 Diltiazem Hcl Cd 180 Mg Capsule PO 180 mg DAILY CANDY Administration Dronedarone 400 mg 01/11/20 08:00 01/11/20 09:16 Dronedarone Hcl 400 Mg Tab PO 400 mg BID-WM CANDY Administration Famotidine 20 mg 01/09/20 21:00 01/11/20 09:10 Famotidine 20 Mg Tab PO 20 mg BID CANDY Administration Insulin Glargine 40 units/ 0.4 mls @ 0 mls/hr 01/10/20 21:00 01/10/20 21:16 Miscellaneous Medication SC 0.4 mls HS CANDY Administration Levothyroxine Sodium 125 mcg 01/10/20 06:00 01/11/20 05:42 Levothyroxine Sodium 125 Mcg Tab PO 125 mcg 0600 CANDY Administration Lisinopril 5 mg 01/10/20 09:00 01/11/20 09:16 Lisinopril 5 Mg Tab PO 5 mg DAILY CANDY Administration Mometasone Furoate/Formoterol Fumar 2 puff 01/09/20 18:30 01/11/20 07:31 Mometasone 200 Mcg/Formoterol 5 Mcg 120 Puff Inhaler INH 2 puff BID-RT ACNDY Administration Nicotine 14 mg 01/09/20 18:00 01/10/20 17:16 Nicotine 14 Mg Patch TD 14 mg Q24HR CANDY Administration - Exam General Appearance: awake alert, ill appearing ENT: normocephalic atraumatic, no oropharyngeal lesions Neck: supple, symmetric, no JVD Heart: RRR, no murmur, no gallops, no rubs, normal peripheral pulses Respiratory: CTAB, no wheezes, no rales, no ronchi, normal chest expansion Gastrointestinal: soft, non-tender, non-distended, normal bowel sounds, no palpable masses, no bruit, no guarding Psychiatric: normal affect, normal behavior, A&O x 3 Hosp A/P (1) NSTEMI (non-ST elevated myocardial infarction) Code(s): I21.4 - NON-ST ELEVATION (NSTEMI) MYOCARDIAL INFARCTION Status: Acute (2) DMII (diabetes mellitus, type 2) Status: Chronic Qualifiers: Diabetes mellitus intermediate insulin use: without termite exterminator use Diabetes mellitus complication status: with hyperglycemia Qualified Code(s): E11.65 - Type 2 diabetes mellitus with hyperglycemia (3) Tobacco dependence Code(s): F17.200 - NICOTINE DEPENDENCE, UNSPECIFIED, UNCOMPLICATED Status: Acute (4) Paroxysmal atrial fibrillation Code(s): I48.0 - PAROXYSMAL ATRIAL FIBRILLATION Status: Acute - Plan #1. Chest pain with an indeterminate elevation in troponin. Cardiology was consulted and the plan on doing a stress test. She does have significant risk factors for coronary artery disease including tobacco dependence, diabetes. 2. Paroxysmal atrial fibrillation. Patient has since went into atrial fib with RVR during this hospitalization. Cardiology evaluation is ongoing. The A. fib has unfortunately caused the stress test to be held for now. 3. Tobacco dependence. I counseled about smoking cessation. 4. Diabetes. Her blood sugar seems adequate.
[2020-01-11] MEDS: ALPRAZolam 0.25 MG TAB PO PRN (17:12)
[2020-01-11] MEDS: HumaLOG 300 UNITS/3 ML VIAL SC PRN ×2 (17:12→23:13)
[2020-01-11] MEDS: Nicotine 14 MG PATCH TD SCH (17:15)
--- NOTE | 2020-01-11 19:33 | PRG ---
DATE OF SERVICE: SUBJECTIVE: Ms. Sherwood is actually looking much better today. She is breathing better. She is not having fibrillation. OBJECTIVE: VITAL SIGNS: Her blood pressure 123/60; pulse 62, regular. LUNGS: Clear. CARDIAC: Normal S1, normal S2. ABDOMEN: Soft and nontender. EXTREMITIES: No edema. LABORATORY: Her hemoglobin, however, did drop to 8.7 after a single dose of Lovenox. She is also iron deficient with a low ferritin level of 37.74. I am concerned the patient had an episode of monomorphic ventricular tachycardia, 27 beats. Ejection fraction appeared to be 40% to 45%, but it is impossible to be precise due to the atrial fib with rapid rate. ASSESSMENT: 1. Probable underlying coronary artery disease. 2. Atrial fibrillation, paroxysmal. 3. Iron-deficiency anemia. 4. Ventricular tachycardia, monomorphic. 5. Chronic obstructive pulmonary disease with continued smoking. PLAN: 1. She is on Multaq. 2. She is on diltiazem. 3. Will likely need cardiac catheterization. 4. We will hold off on further anticoagulation since her blood counts drop with the enoxaparin. Dr. Waller to be seeing this week. Job ID: [id number]
[2020-01-11] MEDS: Iron, Sodium Ferric Gluconate 250 MG in Sodium Chloride 0.9% 100 ML IVPB SCH (22:36)
[2020-01-11] MEDS: Atorvastatin Calcium 40 MG TAB PO SCH (22:50)
[2020-01-11] MEDS: Insulin Glargine 40 UNITS in Pre-Filled Syringe SC SCH (22:50)
[2020-01-12] MEDS: ALPRAZolam 0.25 MG TAB PO PRN ×3 (01:02→20:58)
[2020-01-12] MEDS ORDERED: Morphine 2 MG/ML VIAL SLOW IVP SCH (01:30)
[2020-01-12 02:21] LABS: Troponin I 0.045 ng/mL (< 0.028)
[2020-01-12 04:53] LABS: #Eosinphils 0.2 thou/uL (0.0-0.7); #Lymphocytes 1.6 thou/uL (1.20-3.40); #Monocytes 1.1 thou/uL (0.11-0.59); #Neutrophils 7.6 thou/uL (1.40-6.50); %Basophils 0.1 % (0.0-1.0); %Eosinophils 2.1 % (0.0-10.0); %Lymphocytes 15.1 % (21.0-51.0); %Monocytes 10.2 % (0.0-10.0); %Neutrophils 72.5 % (42.0-75.0); Hemoglobin 8.4 g/dL (12.0-16.0); Mean Corpuscular HGB CONC 30.1 g/dL (32.0-36.0); Mean Corpuscular Hemoglobin 21.7 pg (27.0-31.0); Mean Corpuscular Volume 72.1 fL (78.0-98.0); Mean Platelet Volume 9.7 fL (7.4-10.4); Platelet Count 319 thou/uL (130-400); RBC Distribution Width 17.8 % (11.5-14.5); Red Blood Cell (RBC) Count 3.88 mill/uL (4.20-5.40); White Blood Cell (WBC) Count 10.5 thou/uL (4.8-10.8)
[2020-01-12 05:23] LABS: Anion Gap 13 mmol/L (10-20); BUN (Urea Nitrogen) 23 mg/dL (9.8-20.1); Calc. Creatinine Clearance 36 mL/min (70-130); Calcium 8.3 mg/dL (7.8-10.44); Carbon Dioxide 24 mmol/L (23-31); Chloride 99 mmol/L (98-107); Glucose 227 mg/dL (83-110); Magnesium 2.2 mg/dL (1.6-2.6); Potassium 4.8 mmol/L (3.5-5.1); Sodium 131 mmol/L (136-145)
[2020-01-12] MEDS: Levothyroxine Sodium 125 MCG TAB PO SCH (06:11)
[2020-01-12] MEDS: HumaLOG 300 UNITS/3 ML VIAL SC PRN ×4 (06:13→17:20)
[2020-01-12] MEDS: Mometasone 200 MCG/Formoterol 5 MCG 120 PUFF INHALER INH SCH ×2 (07:50→20:09)
[2020-01-12] MEDS: PROVENTIL INHALER 6.7 G (200 INHALATIONS) INH PRN (07:53)
[2020-01-12] MEDS: Iron, Sodium Ferric Gluconate 250 MG in Sodium Chloride 0.9% 100 ML IVPB SCH (09:18)
[2020-01-12] MEDS: Aspirin 81 mg Enteric Coated Tablet PO SCH (09:19)
[2020-01-12] MEDS: ALPRAZolam 0.25 MG TAB PO SCH (09:19)
[2020-01-12] MEDS: Famotidine 20 MG TAB PO SCH (09:19)
[2020-01-12] MEDS: Dronedarone HCl 400 MG TAB PO SCH ×2 (09:19→17:19)
[2020-01-12] MEDS: Nitroglycerin 2% Ointment 1 INCH/1 GM Packet TOP SCH ×2 (09:19→20:32)
[2020-01-12] MEDS ORDERED: Nitroglycerin 4.9 GM Bottle SL PRN (10:29)
[2020-01-12] MEDS: Morphine 2 MG/ML VIAL SLOW IVP PRN (10:45)
[2020-01-12] MEDS ORDERED: Nitroglycerin 0.4 MG TAB 1 EACH SL PRN (11:00)
[2020-01-12] MEDS ORDERED: Nitroglycerin 50 MG/250 ML BOT 250 ML IVPB SCH (11:15)
--- NOTE | 2020-01-12 13:21 | CON ---
DATE OF CONSULTATION: HISTORY OF PRESENT ILLNESS: Rima Sherwood is a 79-year-old female, who came to the hospital on 01/08 with chest pain, shortness of breath. She just a month ago was discharged from the hospital with COPD exacerbation. She has ongoing chest pain today. She was transferred to the ICU. She is scheduled for cardiac cath apparently tomorrow. She was given morphine on the floor. She is somewhat encephalopathic, but denies any difficulty breathing. PAST MEDICAL HISTORY: COPD, ongoing tobacco abuse, history of hypertension, diabetes, breast cancer, previous cardiac arrest from a horse injury. PREVIOUS SURGERIES: Left mastectomy, tubal ligation, previous trach, hypertension. SOCIAL HISTORY: Still smoking a half pack a day. No alcohol abuse. ALLERGIES: NONE. HOME MEDICATIONS: Includes 1. Metformin 1000. 2. Ventolin inhaler. 3. Lisinopril 5. 4. Synthroid 125. 5. Insulin. 6. Trulicity. 7. Symbicort inhaler. 8. Lipitor. 9. Xanax. 10. She is now on Dulera and DuoNeb inhaler. ALLERGIES: NONE. REVIEW OF SYSTEMS: Otherwise, unremarkable. PHYSICAL EXAMINATION: VITAL SIGNS: Temperature 98, pulse 60, saturations 90% on room air, blood pressure 130/80. CHEST: Decreased breath sounds. No wheezing. CARDIAC: Normal S1, S2. No gallops. ABDOMEN: Soft. LABORATORY DATA: White count 91499, H and H are 8 and 24, platelet count is normal. Creatinine is , BUN 23. IMPRESSION: 1. Chronic obstructive pulmonary disease exacerbation. 2. Chest pain syndrome. 3. Renal failure. 4. Atrial fibrillation. 5. Anemia. 6. Cardiac arrhythmias. Scheduled for catheterization tomorrow. I have added schedule neb treatment to her present regime. Low-dose steroids. Pulmonary is going to follow. Consultation note, 70 minutes, 50% direct patient care. Job ID: [id number]
[2020-01-12] MEDS ORDERED: Communication Order-Pharmacy FS SCH (13:30)
[2020-01-12] MEDS ORDERED: Sodium Chloride 0.45% 1,000 ML IV SCH (13:30)
[2020-01-12] MEDS ORDERED: Colchicine 0.6 MG TAB PO SCH (13:45)
[2020-01-12] MEDS: Acetaminophen 325 MG TAB PO PRN ×2 (13:50→20:57)
[2020-01-12] MEDS: Ondansetron PF 4 MG/2 ML Vial IVP PRN ×2 (13:50→20:58)
--- NOTE | 2020-01-12 16:20 | PDOC.HOSPP ---
- Subjective Encounter Date: 01/12/20 Encounter Time: 16:16 Subjective: Ms. Sherwood was seen and evaluated today. This is a 79-year-old who was admitted to the hospital for NSTEMI who had ongoing chest pain today prompting transfer to the intensive care unit. She is now on nitroglycerin drip. Repeat EKG did not show any significant changes. Cardiology plans to do a heart cath but tomorrow. - Objective Vital Signs & Weight: Vital Signs (12 hours) Temp Pulse Resp Pulse Ox 01/12/20 15:00 98.6 F 01/12/20 14:19 65 19 92 L 01/12/20 12:00 92 L 01/12/20 11:40 98.2 F 01/12/20 09:20 63 01/12/20 08:00 93 L 01/12/20 07:50 63 16 Weight Weight 177 lb Most Recent Monitor Data Heart Rate from ECG 62 NIBP 103/52 NIBP BP-Mean 69 Respiration from ECG 22 SpO2 91 I&O: 01/11/20 01/12/20 01/13/20 06:59 06:59 06:59 Intake Total 820 1120 100 Balance 820 1120 100 Result Diagrams: 01/12/20 04:19 01/12/20 04:19 Additional Labs: Accuchecks 01/12/20 01/12/20 01/11/20 11:54 05:15 20:37 POC Glucose 166 H 217 H 264 H 01/11/20 16:08 POC Glucose 274 H Radiology Reviewed by me: Yes EKG Reviewed by me: Yes Hospitalist ROS - Review of Systems ROS unobtainable: due to mental status Cardiovascular: reports: chest pain, palpitations Gastrointestinal: reports: nausea - Medication Medications: Active Medications Generic Name Dose Route Start Last Admin Trade Name Freq PRN Reason Stop Dose Admin Acetaminophen 650 mg 01/09/20 17:48 01/12/20 13:50 Acetaminophen 325 Mg Tab PO 650 mg Q4H PRN Administration Headache/Fever/Mild Pain (1-3) Albuterol Sulfate 2 puff 01/09/20 17:50 01/12/20 07:53 Proventil Inhaler 6.7 G (200 Inhalations) INH 2 puff Q6H PRN Administration SOB &/or Wheezing Albuterol/Ipratropium 3 ml 01/11/20 22:06 01/12/20 03:04 Ipratropium/Albuterol Sulfate 3 Ml Neb NEB 3 ml [id number] PRN Administration SOB &/or Wheezing Albuterol/Ipratropium 3 ml 01/12/20 13:00 01/12/20 14:19 Ipratropium/Albuterol Sulfate 3 Ml Neb NEB 3 ml [id number] CANDY Administration Alprazolam 0.25 mg 01/10/20 09:00 01/12/20 09:19 Alprazolam 0.25 Mg Tab PO 0.25 mg DAILY CANDY Administration Alprazolam 0.25 mg 01/11/20 16:38 01/12/20 14:55 Alprazolam 0.25 Mg Tab PO 0.25 mg TIDPRN PRN Administration Anxiety Aspirin 81 mg 01/10/20 09:00 01/12/20 09:19 Aspirin 81 Mg Enteric Coated Tablet PO 81 mg DAILY CANDY Administration Atorvastatin Calcium 40 mg 01/09/20 21:00 01/11/20 22:50 Atorvastatin Calcium 40 Mg Tab PO 40 mg HS CANDY Administration Diltiazem HCl 120 mg 01/12/20 09:00 01/12/20 09:20 Diltiazem Cd 120 Mg Cap PO 120 mg DAILY CANDY Administration Dronedarone 400 mg 01/11/20 08:00 01/12/20 09:19 Dronedarone Hcl 400 Mg Tab PO 400 mg BID-WM CANDY Administration Famotidine 20 mg 01/12/20 09:00 01/12/20 09:19 Famotidine 20 Mg Tab PO 20 mg DAILY CANDY Administration Insulin Glargine 40 units/ 0.4 mls @ 0 mls/hr 01/10/20 21:00 01/11/20 22:50 Miscellaneous Medication SC 0.4 mls HS CANDY Administration Nitroglycerin/Dextrose 250 mls @ 0 mls/hr 01/12/20 11:15 01/12/20 11:37 Nitroglycerin 50 Mg/250 Ml Bot IVPB 250 mls INF CANDY Administration Protocol Titrate Sodium Chloride 1,000 mls @ 50 mls/hr 01/12/20 13:30 01/12/20 13:52 1/2 Normal Saline IV 1,000 mls .Q20H CANDY Administration Insulin Human Lispro 0 units 01/09/20 17:48 01/12/20 12:35 Humalog 300 Units/3 Ml Vial SC 2 unit .MODERATE SLIDING SC PRN Administration Moderate Correctional Scale Insulin Human Lispro 0 units 01/09/20 17:48 01/11/20 23:13 Humalog 300 Units/3 Ml Vial SC 3 unit .BEDTIME SLIDING SC PRN Administration Bedtime Correctional Scale Levothyroxine Sodium 125 mcg 01/10/20 06:00 01/12/20 06:11 Levothyroxine Sodium 125 Mcg Tab PO 125 mcg 0600 CANDY Administration Mometasone Furoate/Formoterol Fumar 2 puff 01/09/20 18:30 01/12/20 07:50 Mometasone 200 Mcg/Formoterol 5 Mcg 120 Puff Inhaler INH 2 puff BID-RT CANDY Administration Morphine Sulfate 2 mg 01/12/20 10:30 01/12/20 10:45 Morphine 2 Mg/Ml Vial SLOW IVP 2 mg Q4H PRN Administration Chest Pain Nitroglycerin 0.5 inch 01/12/20 09:00 01/12/20 09:19 Nitroglycerin 2% Ointment 1 Inch/1 Gm Packet TOP 0.5 inch BID CANDY Administration Nitroglycerin 0.4 mg 01/12/20 11:00 01/12/20 10:57 Nitroglycerin 0.4 Mg Tab 1 Each SL 0.4 mg Q5MIN PRN Administration Angina Ondansetron HCl 4 mg 01/09/20 17:48 01/12/20 13:50 Ondansetron Pf 4 Mg/2 Ml Vial IVP 4 mg Q6H PRN Administration Nausea/Vomiting - Exam General Appearance: awake alert, ill appearing Eye: PERRL, anicteric sclera ENT: normocephalic atraumatic, no oropharyngeal lesions Neck: supple Heart: RRR, no murmur, no gallops, no rubs, normal peripheral pulses Respiratory: CTAB Gastrointestinal: non-tender, non-distended, normal bowel sounds, no palpable masses Neurological: cranial nerve grossly intact, normal sensation to touch Psychiatric: normal affect, normal behavior, A&O x 3, oriented to person Hosp A/P (1) NSTEMI (non-ST elevated myocardial infarction) Code(s): I21.4 - NON-ST ELEVATION (NSTEMI) MYOCARDIAL INFARCTION Status: Acute (2) DMII (diabetes mellitus, type 2) Status: Chronic Qualifiers: Diabetes mellitus machine learning intern insulin use: without mcfp use Diabetes mellitus complication status: with hyperglycemia Qualified Code(s): E11.65 - Type 2 diabetes mellitus with hyperglycemia (3) Tobacco dependence Code(s): F17.200 - NICOTINE DEPENDENCE, UNSPECIFIED, UNCOMPLICATED Status: Acute (4) Paroxysmal atrial fibrillation Code(s): I48.0 - PAROXYSMAL ATRIAL FIBRILLATION Status: Acute - Plan out of bed/ambulate, DVT proph w/lovenox #1. Chest pain with an indeterminate elevation in troponin. Cardiology was consulted and the plan on doing a stress test. She does have significant risk factors for coronary artery disease including t obacco dependence, diabetes. 01/12/2020. Patient had to be moved to the ICU this morning because of ongoing chest pain. Cardiology plans to do a heart cath by tomorrow. 2. Paroxysmal atrial fibrillation. Patient has since went into atrial fib with RVR during this hospitalization. Cardiology evaluation is ongoing. The A. fib has unfortunately caused the stress test to be held for now. 3. Tobacco dependence. I counseled about smoking cessation. 4. Diabetes. Her blood sugar seems adequate.
[2020-01-12] MEDS: Atorvastatin Calcium 40 MG TAB PO SCH (20:32)
[2020-01-12] MEDS: Colchicine 0.6 MG TAB PO SCH (20:32)
[2020-01-12] MEDS: Insulin Glargine 40 UNITS in Pre-Filled Syringe SC SCH (20:44)
[2020-01-13 04:00] LABS: #Eosinphils 0.3 thou/uL (0.0-0.7); #Lymphocytes 1.5 thou/uL (1.20-3.40); #Monocytes 1.3 thou/uL (0.11-0.59); #Neutrophils 7.4 thou/uL (1.40-6.50); %Basophils 0.4 % (0.0-1.0); %Eosinophils 2.9 % (0.0-10.0); %Lymphocytes 14.2 % (21.0-51.0); %Monocytes 12.5 % (0.0-10.0); Hemoglobin 8.1 g/dL (12.0-16.0); Mean Corpuscular HGB CONC 30.1 g/dL (32.0-36.0); Mean Corpuscular Hemoglobin 21.6 pg (27.0-31.0); Mean Corpuscular Volume 71.7 fL (78.0-98.0); Mean Platelet Volume 9.7 fL (7.4-10.4); Platelet Count 322 thou/uL (130-400); RBC Distribution Width 17.7 % (11.5-14.5); Red Blood Cell (RBC) Count 3.73 mill/uL (4.20-5.40); White Blood Cell (WBC) Count 10.5 thou/uL (4.8-10.8)
[2020-01-13 04:21] LABS: Anion Gap 15 mmol/L (10-20); BUN (Urea Nitrogen) 30 mg/dL (9.8-20.1); Calc. Creatinine Clearance 27 mL/min (70-130); Carbon Dioxide 20 mmol/L (23-31); Chloride 97 mmol/L (98-107); Glucose 266 mg/dL (83-110); Potassium 4.8 mmol/L (3.5-5.1); Sodium 127 mmol/L (136-145)
[2020-01-13] MEDS: Levothyroxine Sodium 125 MCG TAB PO SCH (05:40)
[2020-01-13] MEDS: Dronedarone HCl 400 MG TAB PO SCH (07:24)
[2020-01-13] MEDS: ALPRAZolam 0.25 MG TAB PO SCH (07:24)
[2020-01-13] MEDS: Aspirin 81 mg Enteric Coated Tablet PO SCH (07:25)
[2020-01-13] MEDS: Famotidine 20 MG TAB PO SCH (07:25)
[2020-01-13] MEDS: Colchicine 0.6 MG TAB PO SCH (07:26)
[2020-01-13] MEDS: Nitroglycerin 2% Ointment 1 INCH/1 GM Packet TOP SCH ×2 (07:26→20:58)
[2020-01-13] MEDS: Mometasone 200 MCG/Formoterol 5 MCG 120 PUFF INHALER INH SCH ×2 (08:13→18:45)
[2020-01-13] MEDS ORDERED: methylPREDNISolone Sod Succ 40 MG VIAL IVP SCH (09:00)
[2020-01-13] MEDS ORDERED: Sodium Bicarbonate 100 MEQ in Dextrose 5% in Water 1,000 ML IV SCH (10:30)
[2020-01-13] MEDS: HumaLOG 300 UNITS/3 ML VIAL SC PRN ×4 (11:22→23:53)
--- NOTE | 2020-01-13 11:48 | PRG ---
DATE OF SERVICE: 01/13/2020 SUBJECTIVE: This patient is doing well. She has been weaned off the Tridil drip. She is not having any chest pain at this time. Apparently, she is not going to cardiac catheterization lab because of her renal function. OBJECTIVE: VITAL SIGNS: Temperature 98.8, pulse 63, blood pressure 123/57, O2 saturation 97%. HEENT: Unremarkable. NECK: No adenopathy or JVD. CHEST: Clear. CARDIAC: S1, S2. Regular. ABDOMEN: Soft. EXTREMITIES: No edema. LABORATORY DATA: White blood cell count 10.5, hematocrit 26.7, and platelet count 322. Sodium 127, potassium 4.8, chloride 97, CO2 of 20, BUN 30, creatinine 2.1, glucose 266. ASSESSMENT: 1. Chest pain, thought to be from cardiac ischemia. 2. Chronic obstructive pulmonary disease. 3. Atrial fibrillation. PLAN: The patient will be transferred out to telemetry. Her sodium is low-her half-normal saline has been stopped that should help. Her breathing seems to be fine. Therefore, I would go ahead and stop the steroids. She can continue nebs as needed. Pulmonary is available as needed. Job ID: [id number]
--- NOTE | 2020-01-13 15:47 | PDOC.HOSPP ---
- Subjective Encounter Date: 01/13/20 Encounter Time: 15:45 Subjective: Ms. Sherwood was seen and evaluated today. She was transferred out of ICU this morning. She is a 79-year-old with NSTEMI who is pending heart cath. Unfortunately her renal function appears to have worsened slightly with an in crease in her creatinine. Nephrology was asked to evaluate her. We appreciate nephrology. - Objective Vital Signs & Weight: Vital Signs (12 hours) Temp Pulse Resp BP Pulse Ox 01/13/20 13:36 56 L 15 01/13/20 12:27 97.8 F 65 17 123/57 L 94 L 01/13/20 08:54 98.8 F 01/13/20 08:13 99 01/13/20 08:11 56 L 19 99 01/13/20 07:25 57 L 01/13/20 07:10 99 01/13/20 04:00 97.9 F Weight Weight 173 lb 11.588 oz Most Recent Monitor Data Heart Rate from ECG 63 NIBP 123/57 NIBP BP-Mean 79 Respiration from ECG 20 SpO2 97 I&O: 01/12/20 01/13/20 01/14/20 06:59 06:59 06:59 Intake Total 1120 1557.9 370.5 Output Total 120 60 Balance 1120 1437.9 310.5 Result Diagrams: 01/13/20 03:38 01/13/20 03:38 Additional Labs: Accuchecks 01/13/20 01/13/20 01/13/20 11:18 06:15 00:45 POC Glucose 251 H 242 H 269 H 01/12/20 01/12/20 20:43 16:51 POC Glucose 266 H 215 H Radiology Reviewed by me: Yes EKG Reviewed by me: Yes Hospitalist ROS - Review of Systems ROS unobtainable: due to mental status Constitutional: reports: weakness, malaise Gastrointestinal: reports: nausea, vomiting - Medication Medications: Active Medications Generic Name Dose Route Start Last Admin Trade Name Freq PRN Reason Stop Dose Admin Acetaminophen 650 mg 01/09/20 17:48 01/12/20 20:57 Acetaminophen 325 Mg Tab PO 650 mg Q4H PRN Administration Headache/Fever/Mild Pain (1-3) Albuterol Sulfate 2 puff 01/09/20 17:50 01/12/20 07:53 Proventil Inhaler 6.7 G (200 Inhalations) INH 2 puff Q6H PRN Administration SOB &/or Wheezing Albuterol/Ipratropium 3 ml 01/11/20 22:06 01/12/20 03:04 Ipratropium/Albuterol Sulfate 3 Ml Neb NEB 3 ml [id number] PRN Administration SOB &/or Wheezing Albuterol/Ipratropium 3 ml 01/12/20 13:00 01/13/20 13:36 Ipratropium/Albuterol Sulfate 3 Ml Neb NEB 3 ml [id number] CANDY Administration Alprazolam 0.25 mg 01/10/20 09:00 01/13/20 07:24 Alprazolam 0.25 Mg Tab PO 0.25 mg DAILY CANDY Administration Alprazolam 0.25 mg 01/11/20 16:38 01/12/20 20:58 Alprazolam 0.25 Mg Tab PO 0.25 mg TIDPRN PRN Administration Anxiety Aspirin 81 mg 01/10/20 09:00 01/13/20 07:25 Aspirin 81 Mg Enteric Coated Tablet PO 81 mg DAILY CANDY Administration Atorvastatin Calcium 40 mg 01/09/20 21:00 01/12/20 20:32 Atorvastatin Calcium 40 Mg Tab PO 40 mg HS CANDY Administration Diltiazem HCl 120 mg 01/12/20 09:00 01/13/20 07:25 Diltiazem Cd 120 Mg Cap PO 120 mg DAILY CANDY Administration Famotidine 20 mg 01/12/20 09:00 01/13/20 07:25 Famotidine 20 Mg Tab PO 20 mg DAILY CANDY Administration Insulin Glargine 40 units/ 0.4 mls @ 0 mls/hr 01/10/20 21:00 01/12/20 20:44 Miscellaneous Medication SC 0.4 mls HS CANDY Administration Insulin Human Lispro 0 units 01/09/20 17:48 01/13/20 11:22 Humalog 300 Units/3 Ml Vial SC 6 unit .MODERATE SLIDING SC PRN Administration Moderate Correctional Scale Insulin Human Lispro 0 units 01/09/20 17:48 01/11/20 23:13 Humalog 300 Units/3 Ml Vial SC 3 unit .BEDTIME SLIDING SC PRN Administration Bedtime Correctional Scale Levothyroxine Sodium 125 mcg 01/10/20 06:00 01/13/20 05:40 Levothyroxine Sodium 125 Mcg Tab PO 125 mcg 0600 CANDY Administration Mometasone Furoate/Formoterol Fumar 2 puff 01/09/20 18:30 01/13/20 08:13 Mometasone 200 Mcg/Formoterol 5 Mcg 120 Puff Inhaler INH 2 puff BID-RT CANDY Administration Morphine Sulfate 2 mg 01/12/20 10:30 01/12/20 10:45 Morphine 2 Mg/Ml Vial SLOW IVP 2 mg Q4H PRN Administration Chest Pain Nitroglycerin 0.5 inch 01/12/20 09:00 01/13/20 07:26 Nitroglycerin 2% Ointment 1 Inch/1 Gm Packet TOP Not Given BID [facility] Nitroglycerin 0.4 mg 01/12/20 11:00 01/12/20 10:57 Nitroglycerin 0.4 Mg Tab 1 Each SL 0.4 mg Q5MIN PRN Administration Angina Ondansetron HCl 4 mg 01/09/20 17:48 01/12/20 20:58 Ondansetron Pf 4 Mg/2 Ml Vial IVP 4 mg Q6H PRN Administration Nausea/Vomiting - Exam General Appearance: awake alert, ill appearing Eye: PERRL ENT: normocephalic atraumatic, no oropharyngeal lesions, moist mucosa Neck: supple, symmetric, no JVD, no thyromegaly, no lymphadenopathy Heart: RRR, no murmur, no gallops, no rubs, normal peripheral pulses Respiratory: CTAB Gastrointestinal: soft, non-tender, non-distended, normal bowel sounds Neurological: cranial nerve grossly intact, normal sensation to touch, no weakness Musculoskeletal: normal tone, normal strength, no muscle wasting Psychiatric: normal affect, normal behavior, A&O x 3, oriented to person Hosp A/P (1) NSTEMI (non-ST elevated myocardial infarction) Code(s): I21.4 - NON-ST ELEVATION (NSTEMI) MYOCARDIAL INFARCTION Status: Acute (2) DMII (diabetes mellitus, type 2) Status: Chronic Qualifiers: Diabetes mellitus nursing home insulin use: without nursing home use Diabetes mellitus complication status: with hyperglycemia Qualified Code(s): E11.65 - Type 2 diabetes mellitus with hyperglycemia (3) Tobacco dependence Code(s): F17.200 - NICOTINE DEPENDENCE, UNSPECIFIED, UNCOMPLICATED Status: Acute (4) Paroxysmal atrial fibrillation Code(s): I48.0 - PAROXYSMAL ATRIAL FIBRILLATION Status: Acute - Plan old records reviewed/req, plan discussed w/ family, PT/OT, DVT proph w/lovenox #1. Chest pain with an indeterminate elevation in troponin. Cardiology was consulted and the plan on doing a stress test. She does have significant risk factors for coronary artery disease including tobacco dependence, diabetes. 01/12/2020. Patient had to be moved to the ICU this morning because of ongoing chest pain. Cardiology plans to do a heart cath by tomorrow. 2. Paroxysmal atrial fibrillation. Patient has since went into atrial fib with RVR during this hospitalization. Cardiology evaluation is ongoing. The A. fib has unfortunately caused the s tress test to be held for now. 3. Tobacco dependence. I counseled about smoking cessation. 4. Diabetes. Her blood sugar seems adequate. #5. Acute kidney injury. Nephrology has been asked to evaluate her. Will defer to them about adjustment of fluid. 6. Hyponatremia. Nephrology to adjust the fluid.
--- NOTE | 2020-01-13 17:41 | CON ---
DATE OF CONSULTATION: 01/13/2020 REQUESTING PHYSICIAN: Juventino Waller MD REASON FOR CONSULTATION: Iron deficiency anemia. HISTORY OF PRESENT ILLNESS: Rima Sherwood is a 79-year-old woman, who was admitted to the hospital 4 days ago with chest pain radiating to the neck and jaw. She was found to have indeterminate troponin. Admission hemoglobin was 10.3. She subsequently went into new-onset atrial fibrillation with rapid ventricular response and was started on Cardizem. She had a single dose of Lovenox and hemoglobin declined, in fact over the past 4 days since admission, it has dropped from 10.3, slowly down to 8.1. This is in the absence of any noted overt bleeding. It is a microcytic anemia and iron studies did demonstrate iron deficiency with ferritin 37.7 by iron 9, only 3% saturation. The patient takes no other anticoagulation. CT imaging of the chest was negative for pulmonary embolus. She did have a single episode of monomorphic ventricular tachycardia lasting for 27 beats. She has been in and out of the atrial fibrillation. The chest pain also has been coming and going. Cardiac catheterization had been planned for earlier today, but she is having elevation of her creatinine up to 2.18, so this was canceled. We are requested to consider endoscopy for investigation of the iron deficiency anemia. REVIEW OF SYSTEMS: Full review of systems including constitutional, head, eyes, ears, nose, throat, GI, , cardiovascular, respiratory, musculoskeletal, and neurologic systems is negative except as noted in the HPI. PAST MEDICAL HISTORY: Diabetes; COPD; tobacco dependence; chronic kidney disease, stage 3; breast cancer; and colonoscopy 3 years ago, normal per the patient report. ALLERGIES: NO KNOWN DRUG ALLERGIES. OUTPATIENT MEDICATIONS: 1. Trulicity. 2. Albuterol. 3. Lipitor. 4. Metformin. 5. Xanax. 6. Synthroid. 7. Lisinopril. 8. Prednisone. SOCIAL HISTORY: No alcohol or drug use. She does smoke. FAMILY HISTORY: Noncontributory. PHYSICAL EXAMINATION: VITAL SIGNS: Temperature 97.8, pulse 56, blood pressure 123/57, and oxygen saturation 94% on 2 L nasal cannula. GENERAL: Pale 79-year-old woman, sitting up in bed comfortably, in mild distress from shortness of breath. SKIN: She is pale. No jaundice. No rashes were palpable. EYES: No scleral icterus. Extraocular movements intact. ENT: Mucous membranes moist. No oral lesions. LYMPH: No submandibular or supraclavicular lymphadenopathy. THYROID: Nontender to palpation. HEART: Irregular rhythm. LUNGS: Clear to auscultation bilaterally. ABDOMEN: Nondistended. Bowel sounds present. Soft, nontender to palpation throughout. EXTREMITIES: No peripheral edema. VESSELS: Radial pulses 2+ bilaterally. NEURO: Cranial nerves II through XII intact bilaterally. No focal deficits. LABORATORY STUDIES: WBC 10.5, hemoglobin 8.1, MCV low at 71.7, and platelets 322. Sodium 127, potassium 4.8, BUN 30, creatinine 2.18, glucose 251, and calcium 8.0. Ferritin 37.7, iron 9, TIBC 355, 3% iron saturation. COVID PCR is negative. IMAGING STUDIES: Admission CTA of the chest showed no evidence of pulmonary embolus. There is a stable left upper lobe nodule. On 01/09, nuclear medicine cardiac perfusion scan showed no evidence of infarct. On 01/09, echocardiogram showed estimated ejection fraction of 40% to 45%, though difficult to estimate due to atrial fibrillation with rapid ventricular rate. ASSESSMENT AND PLAN: 1. Iron deficiency anemia. There has been no overt bleeding. She is not chronically on any anticoagulation. She is not on any special diet. Occult gastrointestinal bleeding lesion would lead the differential. She reports having had a colonoscopy elsewhere about 3 years ago, which was normal. I do recommend we consider diagnostic EGD and colonoscopy to evaluate for occult gastrointestinal bleeding lesion. The patient has eaten solid food today, so we will have her on clear liquids tomorrow, tentatively plan for bowel preparation tomorrow evening and esophagogastroduodenoscopy/colonoscopy the following day. I have spoken with Dr. Waller of Cardiology, who feels that at this point, the patient should be at acceptable risk for endoscopic procedures. 2. New-onset atrial fibrillation. 3. Chest pain and shortness of breath, concern for possible coronary artery disease. Cardiology continues to follow. We will touch base with them tomorrow as well regarding clearance for endoscopic procedure. Job ID: [id number]
[2020-01-13 19:01] LABS: Glucose 579 mg/dL (83-110)
[2020-01-13] MEDS: Sodium Bicarbonate 150 MEQ in Dextrose 5% in Water 1,000 ML IV SCH (19:06)
[2020-01-13] MEDS: ALPRAZolam 0.25 MG TAB PO PRN (20:57)
[2020-01-13] MEDS: Insulin Glargine 10 UNITS in Pre-Filled Syringe 1 EACH SC SCH (20:57)
[2020-01-13] MEDS: Atorvastatin Calcium 40 MG TAB PO SCH (20:58)
[2020-01-13] MEDS: Amiodarone 200 MG TAB PO SCH (20:58)
[2020-01-14 04:29] LABS: #Lymphocytes 0.4 thou/uL (1.20-3.40); #Monocytes 1.1 thou/uL (0.11-0.59); #Neutrophils 10.2 thou/uL (1.40-6.50); %Basophils 0.4 % (0.0-1.0); %Eosinophils 0.3 % (0.0-10.0); %Lymphocytes 3.7 % (21.0-51.0); %Monocytes 9.3 % (0.0-10.0); %Neutrophils 86.4 % (42.0-75.0); Hemoglobin 7.7 g/dL (12.0-16.0); Mean Corpuscular HGB CONC 30.5 g/dL (32.0-36.0); Mean Corpuscular Hemoglobin 21.5 pg (27.0-31.0); Mean Corpuscular Volume 70.4 fL (78.0-98.0); Mean Platelet Volume 9.6 fL (7.4-10.4); Platelet Count 334 thou/uL (130-400); RBC Distribution Width 17.5 % (11.5-14.5); Red Blood Cell (RBC) Count 3.59 mill/uL (4.20-5.40); White Blood Cell (WBC) Count 11.9 thou/uL (4.8-10.8)
[2020-01-14 04:46] LABS: Albumin 3.2 g/dL (3.4-4.8); Anion Gap 14 mmol/L (10-20); BUN (Urea Nitrogen) 38 mg/dL (9.8-20.1); BUN/Creatinine Ratio 20.43; Calc. Creatinine Clearance 32 mL/min (70-130); Calcium 8.3 mg/dL (7.8-10.44); Carbon Dioxide 27 mmol/L (23-31); Chloride 93 mmol/L (98-107); Glucose 465 mg/dL (83-110); Iron 42 ug/dL (50-170); Iron Binding Capacity, Total 304 mcg/dL (265-497); Phosphorus 3.2 mg/dL (2.3-4.7); Potassium 5.2 mmol/L (3.5-5.1); Sodium 129 mmol/L (136-145)
--- NOTE | 2020-01-14 05:28 | CON ---
DATE OF CONSULTATION: REASON FOR CONSULTATION: 1. Acute on chronic kidney disease. The need for contrast exposure cardiac catheterization. 2. Baseline chronic kidney disease. 3. Mild metabolic acidosis. 4. Hyponatremia. PLAN: 1. The patient stands a significant risk of contrast nephropathy given the acute on chronic kidney disease. Will renally support the renal function to the point to improve GFR to be able to weather contrast exposure. Therefore, patient to be on IV fluid. Currently, the patient is on D5 with 100 mEq of sodium bicarbonate. Given the evidence of hyponatremia in this patient, we will try to maintain this fluid to be isotonic. Therefore, we will increase sodium bicarbonate to 150 mEq. 2. Urine sodium and urine osmolality to help evaluate the type of hyponatremia the patient is dealing with. 3. Further management will be dependent on the clinical course as well as further investigation . HISTORY OF PRESENT ILLNESS: A 79-year-old female patient who presented to the hospital with chest discomfort, radiating up to her throat, COPD as well as palpitation. The patient is being billed to undergo cardiac catheterization for further cardiac workup. However, the patient's creatinine is noted to be rising. The patient presented here with a creatinine of 1.07. At the time of admission, patient's creatinine was above 2. As a result of these findings, decision has been taken to involve Renal in the management of this case. The patient also noted with worsening hyponatremia with sodium down to 127. PAST MEDICAL HISTORY: Significant for dyslipidemia, hypothyroidism, hypertension, COPD, atrial fibrillation. PHYSICAL EXAMINATION: VITAL SIGNS: Afebrile, temperature 98.4, pulse 65, respiratory rate of 17, O2 saturation of 94% with blood pressure 126/64. HEENT EXAMINATION: Unremarkable. CARDIOVASCULAR SYSTEM: First and second heart sounds were heard. RESPIRATORY SYSTEM: Clear to auscultation. DIGESTIVE SYSTEM: Revealed an obese abdomen. EXTREMITIES: No peripheral edema. LABORATORY INVESTIGATION: Showed a creatinine of 2.18, BUN of 30, sodium 127, bicarb of 20. CBC showed a hemoglobin of 8.1. SUMMARY: A 79-year-old female patient who presented here with chest pain, now noted with deteriorating renal function, as well as hyponatremia. Thank you for this consultation. We will follow with you. Job ID: [id number]
[2020-01-14] MEDS: HumaLOG 300 UNITS/3 ML VIAL SC PRN ×4 (07:31→21:26)
[2020-01-14] MEDS: Levothyroxine Sodium 125 MCG TAB PO SCH (07:32)
[2020-01-14] MEDS: Mometasone 200 MCG/Formoterol 5 MCG 120 PUFF INHALER INH SCH ×2 (08:28→18:36)
[2020-01-14] MEDS: Famotidine 20 MG TAB PO SCH (09:03)
[2020-01-14] MEDS: Amiodarone 200 MG TAB PO SCH ×2 (09:03→21:00)
[2020-01-14] MEDS: ALPRAZolam 0.25 MG TAB PO SCH (09:03)
[2020-01-14] MEDS: Nitroglycerin 2% Ointment 1 INCH/1 GM Packet TOP SCH ×2 (09:04→20:59)
[2020-01-14] MEDS: Aspirin 81 mg Enteric Coated Tablet PO SCH (09:04)
[2020-01-14] MEDS: Insulin Glargine 30 UNITS in Pre-Filled Syringe 1 EACH SC SCH (09:09)
[2020-01-14] MEDS: Sodium Bicarbonate 150 MEQ in Dextrose 5% in Water 1,000 ML IV SCH (11:41)
--- NOTE | 2020-01-14 14:55 | PRG ---
DATE OF SERVICE: 01/14/2020 SUBJECTIVE: Ms. Sherwood is feeling a bit better today with improvement in shortness of breath and chest discomfort. She still feels a lot of palpitations intermittently. She had several good bowel movements, which were nonbloody and feels better after that. OBJECTIVE: VITAL SIGNS: Temperature 97.7, pulse 57, blood pressure 169/73, 93% oxygen saturation on 2 L by nasal cannula. GENERAL: Pale, no acute distress, sitting up in bed comfortably. HEART: Irregular rhythm. LUNGS: Clear to auscultation bilaterally. ABDOMEN: Nondistended. Bowel sounds present. Soft and nontender to palpation. EXTREMITIES: No peripheral edema. LABORATORY STUDIES: Hemoglobin 7.7, WBC 11.9, and platelets 334. Sodium 129, potassium 5.2, BUN 38, creatinine 1.86, and glucose 277. Ferritin elevated to 622.1, iron mildly low at 42, TIBC normal at 304, 14% iron saturation. ASSESSMENT AND PLAN: 1. Iron deficiency anemia. 2. New onset atrial fibrillation. 3. Chest pain. 4. Recent run of ventricular tachycardia. 5. Chronic obstructive pulmonary disease. The patient is going to need a diagnostic EGD and colonoscopy at some point for further investigation of this iron deficiency anemia, need to rule out occult GI bleeding lesion. On the other hand, given her recent arrhythmias and symptoms and ongoing concern for possible evolving acute coronary syndrome, I really do not feel comfortable performing endoscopy without more formal cardiac clearance. I have spoken with Dr. Biggs, who will be rounding on the patient later today. At this point, I am going to let the patient go ahead and have a diet for the rest of the day, can reassess tomorrow. When cleared from a cardiac perspective, then we can plan for bowel preparation and diagnostic endoscopy. GI will follow along. Hemoglobin is declining, but slowly, with no overt bleeding. Decisions on transfusion threshold to be left to the primary service. Job ID: [id number]
--- NOTE | 2020-01-14 16:01 | PDOC.HOSPP ---
- Subjective Encounter Date: 01/14/20 Encounter Time: 16:00 Subjective: Patient was seen and evaluated. This is a 79-year-old who is admitted with non- STEMI. She has been evaluated by cardiology with ongoing plans for left heart cath. 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 She also has been noted to be anemic with a hemoglobin that has been trending downwards. However patient has not had any occult bleeding. GI services were asked to evaluate her as well. - Objective Vital Signs & Weight: Vital Signs (12 hours) Temp Pulse Resp BP Pulse Ox 01/14/20 12:34 57 L 17 01/14/20 12:00 97.7 F 54 L 17 169/73 H 93 L 01/14/20 08:28 61 13 01/14/20 08:19 61 13 01/14/20 08:00 97.8 F 61 17 151/74 H 99 Weight Weight 174 lb 8 oz Most Recent Monitor Data Heart Rate from ECG 63 NIBP 123/57 NIBP BP-Mean 79 Respiration from ECG 20 SpO2 97 I&O: 01/13/20 01/14/20 01/15/20 06:59 06:59 06:59 Intake Total 1557.9 2290.5 Output Total 120 810 Balance 1437.9 1480.5 Result Diagrams: 01/14/20 03:57 01/14/20 03:57 Additional Labs: Accuchecks 01/14/20 01/14/20 01/13/20 11:07 05:41 23:29 POC Glucose 277 H 393 H 452 H 01/13/20 20:56 POC Glucose 471 H Radiology Reviewed by me: Yes EKG Reviewed by me: Yes Hospitalist ROS - Review of Systems ROS unobtainable: due to mental status Respiratory: reports: cough, shortness of breath, SOB with excertion Cardiovascular: reports: chest pain Gastrointestinal: reports: nausea, melena - Medication Medications: Active Medications Generic Name Dose Route Start Last Admin Trade Name Freq PRN Reason Stop Dose Admin Acetaminophen 650 mg 01/09/20 17:48 01/12/20 20:57 Acetaminophen 325 Mg Tab PO 650 mg Q4H PRN Administration Headache/Fever/Mild Pain (1-3) Albuterol Sulfate 2 puff 01/09/20 17:50 01/12/20 07:53 Proventil Inhaler 6.7 G (200 Inhalations) INH 2 puff Q6H PRN Administration SOB &/or Wheezing Albuterol/Ipratropium 3 ml 01/11/20 22:06 01/12/20 03:04 Ipratropium/Albuterol Sulfate 3 Ml Neb NEB 3 ml [id number] PRN Administration SOB &/or Wheezing Albuterol/Ipratropium 3 ml 01/12/20 13:00 01/14/20 12:34 Ipratropium/Albuterol Sulfate 3 Ml Neb NEB 3 ml [id number] CANDY Administration Alprazolam 0.25 mg 01/10/20 09:00 01/14/20 09:03 Alprazolam 0.25 Mg Tab PO 0.25 mg DAILY CANDY Administration Alprazolam 0.25 mg 01/11/20 16:38 01/13/20 20:57 Alprazolam 0.25 Mg Tab PO 0.25 mg TIDPRN PRN Administration Anxiety Amiodarone HCl 400 mg 01/13/20 21:00 01/14/20 09:03 Amiodarone 200 Mg Tab PO 400 mg BID CANDY Administration Aspirin 81 mg 01/10/20 09:00 01/14/20 09:04 Aspirin 81 Mg Enteric Coated Tablet PO 81 mg DAILY CANDY Administration Atorvastatin Calcium 40 mg 01/09/20 21:00 01/13/20 20:58 Atorvastatin Calcium 40 Mg Tab PO 40 mg HS CANDY Administration Diltiazem HCl 120 mg 01/12/20 09:00 01/14/20 09:03 Diltiazem Cd 120 Mg Cap PO 120 mg DAILY CANDY Administration Famotidine 20 mg 01/12/20 09:00 01/14/20 09:03 Famotidine 20 Mg Tab PO 20 mg DAILY CANDY Administration Sodium Bicarbonate 150 meq/ 1,150 mls @ 100 mls/hr 01/13/20 16:26 01/14/20 11:41 Dextrose/Water IV 1,150 mls INF CANDY Administration Insulin Glargine 10 units/ 0.1 mls @ 0 mls/hr 01/13/20 21:00 01/13/20 20:57 Miscellaneous Medication SC 0.1 mls HS CANDY Administration Insulin Glargine 30 units/ 0.3 mls @ 0 mls/hr 01/14/20 09:00 01/14/20 09:09 Miscellaneous Medication SC 0.3 mls QAM CANDY Administration Insulin Human Lispro 0 units 01/09/20 17:48 01/13/20 21:05 Humalog 300 Units/3 Ml Vial SC 5 unit .BEDTIME SLIDING SC PRN Administration Bedtime Correctional Scale Insulin Human Lispro 0 units 01/13/20 18:30 01/14/20 11:42 Humalog 300 Units/3 Ml Vial SC 9 unit .AGGRESSIVE SLIDING PRN Administration AGGRESSIVE SLIDING SCALE Protocol Levothyroxine Sodium 125 mcg 01/10/20 06:00 01/14/20 07:32 Levothyroxine Sodium 125 Mcg Tab PO 125 mcg 0600 CANDY Administration Mometasone Furoate/Formoterol Fumar 2 puff 01/09/20 18:30 01/14/20 08:28 Mometasone 200 Mcg/Formoterol 5 Mcg 120 Puff Inhaler INH 2 puff BID-RT CANDY Administration Morphine Sulfate 2 mg 01/12/20 10:30 01/12/20 10:45 Morphine 2 Mg/Ml Vial SLOW IVP 2 mg Q4H PRN Administration Chest Pain Nitroglycerin 0.5 inch 01/12/20 09:00 01/14/20 09:04 Nitroglycerin 2% Ointment 1 Inch/1 Gm Packet TOP 0.5 inch BID CANDY Administration Nitroglycerin 0.4 mg 01/12/20 11:00 01/12/20 10:57 Nitroglycerin 0.4 Mg Tab 1 Each SL 0.4 mg Q5MIN PRN Administration Angina Ondansetron HCl 4 mg 01/09/20 17:48 01/12/20 20:58 Ondansetron Pf 4 Mg/2 Ml Vial IVP 4 mg Q6H PRN Administration Nausea/Vomiting - Exam General Appearance: NAD, awake alert, ill appearing Eye: PERRL, anicteric sclera ENT: normocephalic atraumatic, no oropharyngeal lesions, moist mucosa Neck: supple, symmetric, no JVD, no thyromegaly, no lymphadenopathy Heart: RRR, no murmur, no gallops, no rubs, normal peripheral pulses Respiratory: CTAB, no wheezes, no rales, no ronchi Gastrointestinal: soft, non-tender, non-distended, normal bowel sounds Neurological: cranial nerve grossly intact, normal sensation to touch Psychiatric: normal affect, normal behavior, A&O x 3 Hosp A/P (1) NSTEMI (non-ST elevated myocardial infarction) Code(s): I21.4 - NON-ST ELEVATION (NSTEMI) MYOCARDIAL INFARCTION Status: Acute (2) DMII (diabetes mellitus, type 2) Status: Chronic Qualifiers: 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 Chest pain with an indeterminate elevation in troponin. Cardiology was consulted and the plan on doing a stress test. She does have significant risk factors for coronary artery disease including tobacco dependence, diabetes. 01/12/2020. Patient had to be moved to the ICU this morning because of ongoing chest pain. Cardiology plans to do a heart cath by tomorrow. 2. Paroxysmal atrial fibrillation. Patient has since went into atrial fib with RVR during this hospitalization. Cardiology evaluation is ongoing. The A. fib has unfortunately caused the stress test to be held for now. 3. Tobacco dependence. I counseled about smoking cessation. 4. Diabetes. Her blood sugar seems adequate. #5. Acute kidney injury. Nephrology has been asked to evaluate her. Will defer to them about adjustment of fluid. 6. Hyponatremia. Nephrology to adjust the fluid. #7. Anemia, normocytic. GI evaluation is ongoing.
[2020-01-14] MEDS ORDERED: hydrALAZINE 25 MG TAB PO SCH (16:45)
--- NOTE | 2020-01-14 18:21 | PRG ---
DATE OF SERVICE: 01/14/2020 SUBJECTIVE: The patient noted with the following vital signs. OBJECTIVE: VITAL SIGNS: Afebrile, temperature 97.7, pulse 64, respiratory rate of 17, O2 saturation of 93% with a blood pressure 169/73. HEENT: Unremarkable. CARDIOVASCULAR: First and second heart sounds were heard. RESPIRATORY SYSTEM: Clear to auscultation. DIGESTIVE SYSTEM: Revealed a benign abdomen with positive bowel sounds. EXTREMITIES: No peripheral edema. SKIN: No new gross rash. LYMPHATICS: No peripheral lymphadenopathy. LABORATORY INVESTIGATION: Significant for iron saturation of 14, creatinine down to 1.86. CBC showed a hemoglobin of 7.7. Serum iron surprisingly 42, but about 2 or 3 days ago was listed as 9. Sodium level 129 with a potassium of 5.2. IMPRESSION: 1. Acute on chronic kidney disease with symptoms showing some marginal improvement. 2. Hyponatremia, going by the urine chemistry this is suggestive of hypovolemic. There is a component of pseudohyponatremia given the blood sugar level of this patient of 465. If corrected, this patient's sodium level is above 130. 3. Mild hyperkalemia. 4. Likely iron deficiency anemia plus or minus anemia of chronic kidney disease. PLAN: 1. Continue current renal supportive measures. 2. As the creatinine improved, Cardiology will decide on when it is safe for them the patient undergo cardiac catheterization. 3. Monitor the potassium level. 4. The patient likely to benefit from iron supplementation. 5. Further management to be dependent on the clinical course. Job ID: [id number]
[2020-01-14] MEDS: Acetaminophen 325 MG TAB PO PRN (18:32)
[2020-01-14] MEDS: Atorvastatin Calcium 40 MG TAB PO SCH (21:00)
[2020-01-14] MEDS: ALPRAZolam 0.25 MG TAB PO PRN (21:13)
[2020-01-14] MEDS: Insulin Glargine 10 UNITS in Pre-Filled Syringe 1 EACH SC SCH (21:13)
[2020-01-15] MEDS ORDERED: Benzocaine (Dental) 7 GM TUBE TOP PRN (01:40)
[2020-01-15] MEDS ORDERED: BENZOCAINE TOP PRN (01:49)
[2020-01-15] MEDS: Morphine 2 MG/ML VIAL SLOW IVP PRN (02:00)
[2020-01-15 05:06] LABS: #Eosinphils 0.3 thou/uL (0.0-0.7); #Lymphocytes 1.5 thou/uL (1.20-3.40); #Monocytes 1.2 thou/uL (0.11-0.59); #Neutrophils 9.5 thou/uL (1.40-6.50); %Basophils 0.4 % (0.0-1.0); %Lymphocytes 11.9 % (21.0-51.0); %Monocytes 9.3 % (0.0-10.0); %Neutrophils 76.4 % (42.0-75.0); Hemoglobin 10.4 g/dL (12.0-16.0); Mean Corpuscular HGB CONC 29.8 g/dL (32.0-36.0); Mean Corpuscular Hemoglobin 21.9 pg (27.0-31.0); Mean Corpuscular Volume 73.5 fL (78.0-98.0); Mean Platelet Volume 9.3 fL (7.4-10.4); Platelet Count 379 thou/uL (130-400); RBC Distribution Width 18.3 % (11.5-14.5); Red Blood Cell (RBC) Count 4.73 mill/uL (4.20-5.40); White Blood Cell (WBC) Count 12.4 thou/uL (4.8-10.8)
[2020-01-15] MEDS: Levothyroxine Sodium 125 MCG TAB PO SCH (05:16)
[2020-01-15 05:24] LABS: Albumin 3.4 g/dL (3.4-4.8); Anion Gap 13 mmol/L (10-20); BUN (Urea Nitrogen) 27 mg/dL (9.8-20.1); Calc. Creatinine Clearance 44 mL/min (70-130); Calcium 8.5 mg/dL (7.8-10.44); Carbon Dioxide 30 mmol/L (23-31); Chloride 95 mmol/L (98-107); Glucose 221 mg/dL (83-110); Phosphorus 2.6 mg/dL (2.3-4.7); Potassium 4.3 mmol/L (3.5-5.1); Sodium 134 mmol/L (136-145)
[2020-01-15] MEDS: HumaLOG 300 UNITS/3 ML VIAL SC PRN ×4 (06:26→21:18)
[2020-01-15] MEDS: Mometasone 200 MCG/Formoterol 5 MCG 120 PUFF INHALER INH SCH ×2 (08:17→19:01)
[2020-01-15] MEDS: Amiodarone 200 MG TAB PO SCH ×2 (08:26→21:16)
[2020-01-15] MEDS: ALPRAZolam 0.25 MG TAB PO SCH (08:26)
[2020-01-15] MEDS: Aspirin 81 mg Enteric Coated Tablet PO SCH (08:27)
[2020-01-15] MEDS: Acetaminophen 325 MG TAB PO PRN ×3 (08:27→17:25)
[2020-01-15] MEDS: Nitroglycerin 2% Ointment 1 INCH/1 GM Packet TOP SCH ×2 (08:27→21:17)
[2020-01-15] MEDS: Famotidine 20 MG TAB PO SCH (08:27)
[2020-01-15] MEDS: Insulin Glargine 30 UNITS in Pre-Filled Syringe 1 EACH SC SCH (08:56)
[2020-01-15] MEDS ORDERED: hydrALAZINE 25 MG TAB PO SCH (09:00)
--- NOTE | 2020-01-15 09:40 | PDOC.CPN ---
- Subjective Date: 01/15/20 Time: 09:35 Interval history: No overnight events, patient states she is still having shortness of breath at rest this morning, she is wearing 2L O2 NC but takes it off often d/t discomfort. She also just had a PRN Nebulizer treatment with RT and states that it was helpful. She did say she slept well without any shortness of breath. She did receive 2 units of PRBC's yesterday, and her Hgb increased to 10.4 - Review of Systems General: denies: fever/chills, weight/appetite/sleep changes, night sweats, fatigue Respiratory: reports: shortness of breath. denies: cough, congestion, exercise intolerance Cardiovascular: denies: chest pain, palpitation, edema, paroxysmal nocturnal dyspnea, orthopnea Gastrointestinal: denies: nausea, vomiting, diarrhea, constipation, abd pain, GI bleeding Musculoskeletal: denies: pain, tenderness, stiffness, swelling, arthritis/arthralgias Neurological: denies: numbness, syncope, seizure, weakness - Objective Allergies/Adverse Reactions: Allergies Allergy/AdvReac Type Severity Reaction Status Date / Time No Known Drug Allergies Allergy Verified 01/10/20 04:29 Visit Medications: Current Medications Acetaminophen (Acetaminophen 325 Mg Tab) 650 mg PO Q4H PRN PRN Reason: Headache/Fever/Mild Pain (1-3) Last Admin: 01/15/20 08:27 Dose: 650 mg Documented by: Albuterol Sulfate (Proventil Inhaler 6.7 G (200 Inhalations)) 2 puff INH Q6H PRN PRN Reason: SOB &/or Wheezing Last Admin: 01/12/20 07:53 Dose: 2 puff Documented by: Albuterol/Ipratropium (Ipratropium/Albuterol Sulfate 3 Ml Neb) 3 ml NEB [id number] PRN PRN Reason: SOB &/or Wheezing Last Admin: 01/12/20 03:04 Dose: 3 ml Documented by: Albuterol/Ipratropium (Ipratropium/Albuterol Sulfate 3 Ml Neb) 3 ml NEB [id number] CANDY Last Admin: 01/15/20 08:07 Dose: 3 ml Documented by: Alprazolam (Alprazolam 0.25 Mg Tab) 0.25 mg PO DAILY CANDY Last Admin: 01/15/20 08:26 Dose: 0.25 mg Documented by: Alprazolam (Alprazolam 0.25 Mg Tab) 0.25 mg PO TIDPRN PRN PRN Reason: Anxiety Last Admin: 01/14/20 21:13 Dose: 0.25 mg Documented by: Amiodarone HCl (Amiodarone 200 Mg Tab) 400 mg PO BID [facility] Last Admin: 01/15/20 08:26 Dose: 400 mg Documented by: Aspirin (Aspirin 81 Mg Enteric Coated Tablet) 81 mg PO DAILY [facility] Last Admin: 01/15/20 08:27 Dose: 81 mg Documented by: Atorvastatin Calcium (Atorvastatin Calcium 40 Mg Tab) 40 mg PO [facility] Last Admin: 01/14/20 21:00 Dose: 40 mg Documented by: Calcium Carbonate (Calcium Carbonate 500 Mg Chewtab) 1,000 mg PO Q4H PRN PRN Reason: Heartburn or Indigestion Dextrose/Water (Dextrose 50% Abboject 50 Ml Syringe) 25 gm SLOW IVP PRN PRN PRN Reason: Hypoglycemia Diltiazem HCl (Diltiazem Cd 120 Mg Cap) 120 mg PO DAILY [facility] Last Admin: 01/15/20 08:27 Dose: 120 mg Documented by: Famotidine (Famotidine 20 Mg Tab) 20 mg PO DAILY [facility] Last Admin: 01/15/20 08:27 Dose: 20 mg Documented by: Glucagon (Glucagon 1 Mg/Ml Vial) 1 mg IM PRN PRN PRN Reason: Hypoglycemia Hydralazine HCl (Hydralazine 25 Mg Tab) 50 mg PO BID [facility] Last Admin: 01/15/20 08:27 Dose: 50 mg Documented by: Dextrose/Water (D5w) 1,000 mls @ 0 mls/hr IV .Q0M PRN PRN Reason: Hypoglycemia Insulin Glargine 10 units/ (Miscellaneous Medication) 0.1 mls @ 0 mls/hr SC HS [facility] Last Admin: 01/14/20 21:13 Dose: 0.1 mls Documented by: Insulin Glargine 30 units/ (Miscellaneous Medication) 0.3 mls @ 0 mls/hr SC QAM [facility] Last Admin: 01/15/20 08:56 Dose: 0.3 mls Documented by: Insulin Human Lispro (Humalog 300 Units/3 Ml Vial) 0 units SC .BEDTIME SLIDING SC PRN PRN Reason: Bedtime Correctional Scale Last Admin: 01/14/20 21:26 Dose: 3 unit Documented by: Insulin Human Lispro (Humalog 300 Units/3 Ml Vial) 0 units SC .AGGRESSIVE SLIDING PRN; Protocol PRN Reason: AGGRESSIVE SLIDING SCALE Last Admin: 01/15/20 06:26 Dose: 3 unit Documented by: Levothyroxine Sodium (Levothyroxine Sodium 125 Mcg Tab) 125 mcg PO 0600 [facility] Last Admin: 01/15/20 05:16 Dose: 125 mcg Documented by: Mometasone Furoate/Formoterol Fumar (Mometasone 200 Mcg/Formoterol 5 Mcg 120 Puff Inhaler) 2 puff INH BID-RT [facility] Last Admin: 01/15/20 08:17 Dose: 2 puff Documented by: Morphine Sulfate (Morphine 2 Mg/Ml Vial) 2 mg SLOW IVP Q4H PRN PRN Reason: Chest Pain Last Admin: 01/15/20 02:00 Dose: 2 mg Documented by: Nitroglycerin (Nitroglycerin 2% Ointment 1 Inch/1 Gm Packet) 0.5 inch TOP BID [facility] Last Admin: 01/15/20 08:27 Dose: 0.5 inch Documented by: Nitroglycerin (Nitroglycerin 0.4 Mg Tab 1 Each) 0.4 mg SL Q5MIN PRN PRN Reason: Angina Last Admin: 01/12/20 10:57 Dose: 0.4 mg Documented by: (Dulaglutide [ Trulicity] 1.5 Mg/0. 5 Ml Pen.Injctr) 0.5 ml SC Q7DAYS [facility] Orajel [Benzocaine ( Dental) 20%] 7 Gm Tube 0 each TOP DAILY PRN PRN Reason: Topical Anesthetic Last Admin: 01/15/20 02:16 Dose: 1 each Documented by: Ondansetron HCl (Ondansetron Pf 4 Mg/2 Ml Vial) 4 mg IVP Q6H PRN PRN Reason: Nausea/Vomiting Last Admin: 01/12/20 20:58 Dose: 4 mg Documented by: Sodium Chloride (Flush - Normal Saline 10 Ml Syringe) 10 ml IVF PRN PRN PRN Reason: Saline Flush Vital Signs & Weight: Vital Signs Temp Pulse Pulse Resp BP BP Pulse Ox 01/15/20 08:07 81 20 01/15/20 08:00 98.0 F 69 17 183/78 H 97 01/15/20 03:38 98.1 F 70 18 167/73 H 99 01/15/20 01:02 97.6 F 66 20 172/74 H 98 01/15/20 01:01 99 01/15/20 00:46 56 L 16 99 01/14/20 23:16 97.7 F 64 18 157/94 H Weight 157 lb 12.8 oz - Quality Measures CV meds: Beta Sharath: No (COPD), ALEXANDRO/ARB: No (Increased Cafeteria Monitor), Statin: Yes, ASA: Yes - Medication Contraindications No Beta Sharath reason: Medical contraindication (COPD) No ALEXANDRO/ARB reason: Medical contraindication (Decreased kidney function) - Physical Exam General: alert & oriented x3, appears well, other (slight shorntess of breath observed while patient sitting in bed) HEENT: mucus membranes moist, normocephaly Neck: supple neck, midline trachea, no JVD/HJR, no masses Cardiac: regular rate and rhythm, no murmur, S1/S2 Lungs: clear to auscultation, normal breath sounds, no wheeze, rales, rhonchi Neuro: grossly intact Abdomen: unremarkable, active bowel sounds, soft, non-tender Extremities: no cyanosis, no clubbing, no edema Skin: clear Musculoskeletal: normal range of motion, no pain - Labs Result Diagrams: 01/15/20 04:30 01/15/20 04:30 Troponin/CKMB CK-MB (CK-2) 6.2 ng/mL (0-6.6) 01/09/20 12:27 Troponin I 0.045 ng/mL (< 0.028) H 01/12/20 01:40 - EKG Interpretation EKG Method: Telemetry EKG: sinus rhythm - Assessment/Plan Assessment/Plan: 1. Dyspnea: Patient has increasing shortness of breath this A.M, received nebulizer treatment with RT prior to exam, this was helpful to her. 2. Paroxysmal Atrial fibrillation: no overnight episodes of A-fib per telemetry records, patient is in SR this morning, HR in the 60's-80's. 3. Increased cholesterol: LDL 57 11/2019: well controlled, continue Lipitor 40 m g PO HS 4. Hypertension: Patient's last few BP readings were elevated, this morning her BP was 183/78, we will increase her dose of Hydralazine 5. COPD: she is having increasing SOB this morning, her lung sounds are CTA bilaterally throughout. She has PRN Nebulizer treatments. 6. Iron deficiency anemia: She was transfused 2 units PRBC's yesterday, her Hgb increased from 7.7 to 10.4. She is planning on an EGD/ Colonoscopy, but will need cardiac catheterization first. No overt evidence of GI bleeding at this time. 7. Atypical pleurtic chest pain: denies any chest pain today. Plan for Dr. Aureliano quinn to cath patient on Thursday possibly. Hgb levels have increased, Cafeteria Monitor levels have decreased to 1.2. Will order NPO at midnight and consent for cardiac catheterization. 8. 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 Smoker:Strongly advised smoking cessation. We have discussed the pt. together and I agree with the A/P by the MOLD HOISTER. The Hgb. is better after 2 units of PRBC's. The renal function has improved and she is now stable for cardiac cath. Will recheck the H/H in AM. lenka
[2020-01-15] MEDS: ALPRAZolam 0.25 MG TAB PO PRN ×2 (11:24→21:16)
--- NOTE | 2020-01-15 13:04 | PRG ---
DATE OF SERVICE: 01/15/2020 SUBJECTIVE: Ms. Sherwood feeling okay. She was more short of breath this morning, but that has improved. No current chest pain or abdominal pain. Renal function has improved. She responded well to blood transfusion yesterday. My understanding is the cardiac catheterization is planned for tomorrow. OBJECTIVE: VITAL SIGNS: Temperature 97.9, pulse 73, blood pressure 158/70, and 96% oxygen saturation on 2 L nasal cannula. GENERAL: No acute distress. HEART: Regular rate and rhythm at this point. LUNGS: Clear to auscultation bilaterally. No wheezing appreciated. ABDOMEN: Soft and nontender. EXTREMITIES: No peripheral edema. LABORATORY STUDIES: Hemoglobin yesterday was 7.7, now up to 10.4 after 2 units RBC transfusion. WBC is 12.4 and platelets 379. Sodium 134, potassium 4.3, BUN 27, creatinine 1.20, glucose 221, and albumin 3.4. ASSESSMENT AND PLAN: 1. Iron deficiency anemia. 2. New onset atrial fibrillation, now back in sinus rhythm. 3. Chest pain, improved. 4. Recent run of ventricular tachycardia. 5. Chronic obstructive pulmonary disease. We are still planning on diagnostic EGD and colonoscopy at some point for further investigation of her iron deficiency anemia, but will await further cardiac evaluation including cardiac catheterization, which I understand is planned for tomorrow. Notably, her renal function has improved. GI will continue to follow along peripherally, but please call back anytime with questions or concerns. Please call back anytime with questions or concerns. Job ID: [id number]
--- NOTE | 2020-01-15 13:13 | PDOC.HOSPP ---
- Subjective Encounter Date: 01/15/20 Encounter Time: 13:12 Subjective: Ms. Sherwood is a 79-year-old female that I saw this morning at the bedside. She was admitted to the hospital for NSTEMI. She developed acute renal failure requiring nephrology evaluation and her renal function appears to have recovered. She also had anemia and GI services have seen her. They plan to do an endoscopic evaluation hopefully once her cardiac issues are sorted out. Patient is cleared to proceed to heart cath whenever cardiology is ready for her. - Objective Vital Signs & Weight: Vital Signs (12 hours) Temp Pulse Resp BP Pulse Ox 01/15/20 12:59 67 20 01/15/20 11:44 97.9 F 73 17 158/70 H 96 01/15/20 08:07 81 20 01/15/20 08:00 98.0 F 69 17 183/78 H 97 01/15/20 03:38 98.1 F 70 18 167/73 H 99 Weight Weight 157 lb 12.8 oz Most Recent Monitor Data Heart Rate from ECG 63 NIBP 123/57 NIBP BP-Mean 79 Respiration from ECG 20 SpO2 97 I&O: 01/14/20 01/15/20 01/16/20 06:59 06:59 06:59 Intake Total 2290.5 3710 Output Total 810 2400 Balance 1480.5 1310 Result Diagrams: 01/15/20 04:30 01/15/20 04:30 Additional Labs: Accuchecks 01/15/20 01/15/20 01/14/20 10:48 05:48 17:08 POC Glucose 221 H 175 H 248 H Radiology Reviewed by me: Yes EKG Reviewed by me: Yes Hospitalist ROS - Review of Systems ROS unobtainable: due to mental status Constitutional: reports: weakness, malaise Respiratory: reports: cough, shortness of breath, SOB with excertion, pleuritic pain Cardiovascular: reports: chest pain Neurological: reports: weakness - Medication Medications: Active Medications Generic Name Dose Route Start Last Admin Trade Name Freq PRN Reason Stop Dose Admin Acetaminophen 650 mg 01/09/20 17:48 01/15/20 08:27 Acetaminophen 325 Mg Tab PO 650 mg Q4H PRN Administration Headache/Fever/Mild Pain (1-3) Albuterol Sulfate 2 puff 01/09/20 17:50 01/12/20 07:53 Proventil Inhaler 6.7 G (200 Inhalations) INH 2 puff Q6H PRN Administration SOB &/or Wheezing Albuterol/Ipratropium 3 ml 01/11/20 22:06 01/12/20 03:04 Ipratropium/Albuterol Sulfate 3 Ml Neb NEB 3 ml [id number] PRN Administration SOB &/or Wheezing Albuterol/Ipratropium 3 ml 01/12/20 13:00 01/15/20 12:59 Ipratropium/Albuterol Sulfate 3 Ml Neb NEB 3 ml [id number] CANDY Administration Alprazolam 0.25 mg 01/10/20 09:00 01/15/20 08:26 Alprazolam 0.25 Mg Tab PO 0.25 mg DAILY CANDY Administration Alprazolam 0.25 mg 01/11/20 16:38 01/15/20 11:24 Alprazolam 0.25 Mg Tab PO 0.25 mg TIDPRN PRN Administration Anxiety Amiodarone HCl 400 mg 01/13/20 21:00 01/15/20 08:26 Amiodarone 200 Mg Tab PO 400 mg BID CANDY Administration Aspirin 81 mg 01/10/20 09:00 01/15/20 08:27 Aspirin 81 Mg Enteric Coated Tablet PO 81 mg DAILY CANDY Administration Atorvastatin Calcium 40 mg 01/09/20 21:00 01/14/20 21:00 Atorvastatin Calcium 40 Mg Tab PO 40 mg HS CANDY Administration Diltiazem HCl 120 mg 01/12/20 09:00 01/15/20 08:27 Diltiazem Cd 120 Mg Cap PO 120 mg DAILY CANDY Administration Famotidine 20 mg 01/12/20 09:00 01/15/20 08:27 Famotidine 20 Mg Tab PO 20 mg DAILY CANDY Administration Insulin Glargine 10 units/ 0.1 mls @ 0 mls/hr 01/13/20 21:00 01/14/20 21:13 Miscellaneous Medication SC 0.1 mls HS CANDY Administration Insulin Glargine 30 units/ 0.3 mls @ 0 mls/hr 01/14/20 09:00 01/15/20 08:56 Miscellaneous Medication SC 0.3 mls QAM CANDY Administration Insulin Human Lispro 0 units 01/09/20 17:48 01/14/20 21:26 Humalog 300 Units/3 Ml Vial SC 3 unit .BEDTIME SLIDING SC PRN Administration Bedtime Correctional Scale Insulin Human Lispro 0 units 01/13/20 18:30 01/15/20 11:23 Humalog 300 Units/3 Ml Vial SC 6 unit .AGGRESSIVE SLIDING PRN Administration AGGRESSIVE SLIDING SCALE Protocol Levothyroxine Sodium 125 mcg 01/10/20 06:00 01/15/20 05:16 Levothyroxine Sodium 125 Mcg Tab PO 125 mcg 0600 CANDY Administration Mometasone Furoate/Formoterol Fumar 2 puff 01/09/20 18:30 01/15/20 08:17 Mometasone 200 Mcg/Formoterol 5 Mcg 120 Puff Inhaler INH 2 puff BID-RT CANDY Administration Morphine Sulfate 2 mg 01/12/20 10:30 01/15/20 02:00 Morphine 2 Mg/Ml Vial SLOW IVP 2 mg Q4H PRN Administration Chest Pain Nitroglycerin 0.5 inch 01/12/20 09:00 01/15/20 08:27 Nitroglycerin 2% Ointment 1 Inch/1 Gm Packet TOP 0.5 inch BID CANDY Administration Nitroglycerin 0.4 mg 01/12/20 11:00 01/12/20 10:57 Nitroglycerin 0.4 Mg Tab 1 Each SL 0.4 mg Q5MIN PRN Administration Angina Orajel [Benzocaine ( 0 each 01/15/20 01:49 01/15/20 02:16 Dental) 20%] 7 Gm TOP 1 each Tube DAILY PRN Administration Topical Anesthetic Ondansetron HCl 4 mg 01/09/20 17:48 01/12/20 20:58 Ondansetron Pf 4 Mg/2 Ml Vial IVP 4 mg Q6H PRN Administration Nausea/Vomiting - Exam General Appearance: awake alert, ill appearing Eye: PERRL, anicteric sclera, scleral icterus ENT: normocephalic atraumatic, no oropharyngeal lesions, moist mucosa Neck: supple, symmetric, no JVD, no thyromegaly, no lymphadenopathy Heart: RRR, no murmur, no gallops, no rubs, normal peripheral pulses Respiratory: CTAB, no wheezes, no rales, no ronchi, normal chest expansion Gastrointestinal: soft, non-tender, non-distended, normal bowel sounds Neurological: cranial nerve grossly intact, normal sensation to touch Musculoskeletal: normal tone, normal strength, no muscle wasting Psychiatric: normal affect, normal behavior, A&O x 3 Hosp A/P (1) NSTEMI (non-ST elevated myocardial infarction) Code(s): I21.4 - NON-ST ELEVATION (NSTEMI) MYOCARDIAL INFARCTION Status: Acute (2) DMII (diabetes mellitus, type 2) Status: Chronic Qualifiers: 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 Chest pain with an indeterminate elevation in troponin. Cardiology was consulted and the plan on doing a stress test. She does have significant risk factors for coronary artery disease including tobacco dependence, diabetes. 01/12/2020. Patient had to be moved to the ICU this morning because of ongoing chest pain. Cardiology plans to do a heart cath by tomorrow. 01/15/2020. She is chest pain-free today. She is medically cleared to proceed to heart cath. I will defer to cardiology about the timing. 2. Paroxysmal atrial fibrillation. Patient has since went into atrial fib with RVR during this hospitalization. Cardiology evaluation is ongoing. The A. fib has unfortunately caused the stress test to be held for now. 3. Tobacco dependence. I counseled about smoking cessation. 4. Diabetes. Her blood sugar seems adequate. #5. Acute kidney injury. Nephrology has been asked to evaluate her. Will defer to them about adjustment of fluid. 01/15/2020. Her renal function appears to have recovered. 6. Hyponatremia. Nephrology to adjust the fluid. #7. Anemia, normocytic. GI evaluation is ongoing. 01/15/2020. She received 2 units of packed red cells and her hemoglobin has recovered.
[2020-01-15] MEDS: hydrALAZINE 25 MG TAB PO SCH ×2 (15:21→21:17)
[2020-01-15] MEDS: Atorvastatin Calcium 40 MG TAB PO SCH (21:16)
[2020-01-15] MEDS: Insulin Glargine 10 UNITS in Pre-Filled Syringe 1 EACH SC SCH (21:17)
[2020-01-16 04:38] LABS: #Eosinphils 0.3 thou/uL (0.0-0.7); #Lymphocytes 1.4 thou/uL (1.20-3.40); #Monocytes 1.2 thou/uL (0.11-0.59); #Neutrophils 8.5 thou/uL (1.40-6.50); %Basophils 0.4 % (0.0-1.0); %Eosinophils 2.8 % (0.0-10.0); %Lymphocytes 11.7 % (21.0-51.0); %Monocytes 10.7 % (0.0-10.0); %Neutrophils 74.4 % (42.0-75.0); Mean Corpuscular HGB CONC 30.5 g/dL (32.0-36.0); Mean Corpuscular Hemoglobin 22.8 pg (27.0-31.0); Mean Corpuscular Volume 74.8 fL (78.0-98.0); Mean Platelet Volume 9.4 fL (7.4-10.4); Platelet Count 361 thou/uL (130-400); RBC Distribution Width 18.8 % (11.5-14.5); White Blood Cell (WBC) Count 11.5 thou/uL (4.8-10.8)
[2020-01-16] MEDS ORDERED: Labetalol HCl 100 MG/20 ML VIAL SLOW IVP PRN (04:52)
[2020-01-16 05:10] LABS: Albumin 3.1 g/dL (3.4-4.8); Anion Gap 12 mmol/L (10-20); BUN (Urea Nitrogen) 18 mg/dL (9.8-20.1); BUN/Creatinine Ratio 18.37; Calc. Creatinine Clearance 62 mL/min (70-130); Calcium 8.5 mg/dL (7.8-10.44); Carbon Dioxide 32 mmol/L (23-31); Chloride 98 mmol/L (98-107); Glucose 239 mg/dL (83-110); Magnesium 1.8 mg/dL (1.6-2.6); Phosphorus 3.5 mg/dL (2.3-4.7); Sodium 138 mmol/L (136-145)
[2020-01-16] MEDS: Amiodarone 200 MG TAB PO SCH (05:13)
[2020-01-16] MEDS: ALPRAZolam 0.25 MG TAB PO SCH (05:13)
[2020-01-16] MEDS: Levothyroxine Sodium 125 MCG TAB PO SCH (05:14)
[2020-01-16] MEDS: hydrALAZINE 25 MG TAB PO SCH ×3 (05:14→21:31)
[2020-01-16] MEDS: Aspirin 81 mg Enteric Coated Tablet PO SCH (05:14)
[2020-01-16] MEDS: Famotidine 20 MG TAB PO SCH (05:14)
[2020-01-16] MEDS: Nitroglycerin 2% Ointment 1 INCH/1 GM Packet TOP SCH ×2 (05:15→21:31)
--- NOTE | 2020-01-16 06:06 | PRG ---
DATE OF SERVICE: 01/15/2020 SUBJECTIVE: The patient is seen and examined. No new complaint. Noted with the following vital signs. OBJECTIVE: VITAL SIGNS: Afebrile, temperature 97.8, pulse 60, respiratory rate of 16, and O2 saturation 97%. LABORATORY INVESTIGATION: Showed a creatinine down to 1.2. IMPRESSION: Acute on chronic kidney disease, which seems to Job ID: [id number]
[2020-01-16] MEDS: Mometasone 200 MCG/Formoterol 5 MCG 120 PUFF INHALER INH SCH ×2 (06:36→18:43)
[2020-01-16] MEDS ORDERED: Communication Order-Pharmacy FS SCH (08:30)
--- NOTE | 2020-01-16 08:38 | PRG ---
DATE OF SERVICE: 01/16/2020 Ms. Sherwood is resting comfortably. I did discuss cardiac catheterization with her. Discussed the procedure, the risks of the procedure including stroke, heart attack, loss of blood supply to the leg or kidney, stent thrombosis, myocardial infarction, stent occlusion. The patient understands and wishes to proceed. Job ID: [id number]
[2020-01-16] MEDS ORDERED: (Dulaglutide [Trulicity] 1.5 MG/0.5 ML Pen.Injctr) SC SCH (09:00)
[2020-01-16] MEDS ORDERED: Midazolam HCl 2 mg/2 ml Vial ONE (09:09)
[2020-01-16] MEDS ORDERED: Fentanyl 100 MCG/2 ML VIAL ONE (09:09)
[2020-01-16] MEDS ORDERED: Heparin 10,000 UNITS/ 10 ML VIAL ONE (09:38)
[2020-01-16] MEDS ORDERED: Nitroglycerin 100MG/250ML BOT 250 ML ONE (09:40)
[2020-01-16] MEDS ORDERED: Protamine Sulfate 50 MG/5 ML VIAL ONE (10:02)
[2020-01-16] MEDS ORDERED: Acetaminophen/Codeine 30-300mg Tablet PO PRN ×2 (10:12)
[2020-01-16] MEDS ORDERED: Sodium Chloride 0.9% 200 ML IV PRN (10:12)
[2020-01-16] MEDS ORDERED: Nitroglycerin 0.4 MG TAB (25 Tab Bottle) SL PRN (10:12)
[2020-01-16] MEDS ORDERED: Iopamidol 370 76% 100 ML VIAL ONE (11:10)
[2020-01-16] MEDS ORDERED: Iopamidol 370 76% 50 ML VIAL FS ONE ×2 (11:10)
[2020-01-16] MEDS ORDERED: Benzocaine (Dental) 7 GM TUBE TOP PRN (11:45)
[2020-01-16] MEDS: Acetaminophen 325 MG TAB PO PRN ×2 (12:52→21:31)
[2020-01-16] MEDS: hydrALAZINE 20 MG/ML VIAL SLOW IVP PRN ×2 (12:53→21:32)
[2020-01-16] MEDS: ALPRAZolam 0.25 MG TAB PO PRN (13:03)
[2020-01-16] MEDS: Sodium Chloride 0.9% 1,000 ML IV SCH ×3 (13:03→21:44)
[2020-01-16] MEDS: Insulin Glargine 30 UNITS in Pre-Filled Syringe 1 EACH SC SCH (13:03)
--- NOTE | 2020-01-16 13:29 | PRG ---
DATE OF SERVICE: 01/16/2020 SUBJECTIVE: Ms. Sherwood had her heart catheterization this morning. She has no abdominal pain or other acute complaints. OBJECTIVE: VITAL SIGNS: Temperature 98.0, pulse 57, blood pressure 163/72. GENERAL: She is in no acute distress. Alert and oriented x3. LUNGS: Clear to auscultation bilaterally. HEART: Regular rate and rhythm without murmur. ABDOMEN: Soft, nontender, and nondistended. Bowel sounds are present. EXTREMITIES: No lower extremity edema. LABORATORY DATA: White blood cell count 11.5, hemoglobin 10.0, platelets 361, MCV 74. IMPRESSION: 1. Iron deficiency anemia. We will plan for upper and lower endoscopy tomorrow. 2. Chest pain and new onset atrial fibrillation, currently resolved. Heart catheterization today showed nonobstructive disease. She did not require any type of coronary intervention with stent or balloon. 3. Chronic obstructive pulmonary disease. RECOMMENDATIONS: 1. We will give her a clear liquid diet today and a bowel prep this evening for EGD and colonoscopy tomorrow. 2. Dr. Monroy will be covering the service tomorrow. Job ID: [id number]
--- NOTE | 2020-01-16 15:50 | PDOC.HOSPP ---
- Subjective Encounter Date: 01/16/20 Encounter Time: 15:49 Subjective: Patient had a left heart cath today. She had no significant occlusive disease. Medical management has been recommended by cardiology. She will undergo upper and lower endoscopy tomorrow for anemia. Potentially she could be discharged tomorrow or the day after tomorrow. - Objective Vital Signs & Weight: Vital Signs (12 hours) Temp Pulse Resp BP Pulse Ox 01/16/20 12:08 57 L 16 95 01/16/20 07:50 96 01/16/20 07:46 98.0 F 76 16 163/72 H 96 01/16/20 06:40 95 01/16/20 06:39 73 20 95 01/16/20 06:36 73 20 95 01/16/20 05:46 71 164/72 H 01/16/20 05:14 76 01/16/20 05:13 76 01/16/20 04:00 98.6 F 83 24 H 187/74 H 92 L Weight Weight 178 lb 12.8 oz Most Recent Monitor Data Heart Rate from ECG 63 NIBP 123/57 NIBP BP-Mean 79 Respiration from ECG 20 SpO2 97 I&O: 01/15/20 01/16/20 01/17/20 06:59 06:59 06:59 Intake Total 3710 1680 Output Total 2400 1000 Balance 1310 680 Result Diagrams: 01/16/20 04:01 01/16/20 04:01 Additional Labs: Accuchecks 01/16/20 01/16/20 01/16/20 11:57 06:22 05:40 POC Glucose 145 H 180 H 194 H 01/15/20 01/15/20 01/14/20 21:10 17:13 20:16 POC Glucose 296 H 224 H 290 H 01/13/20 01/13/20 18:03 17:59 POC Glucose Greater than 500 H Greater than 500 H Radiology Reviewed by me: Yes EKG Reviewed by me: Yes Hospitalist ROS - Review of Systems Constitutional: reports: weakness, malaise Respiratory: reports: hemoptysis, SOB with excertion - Medication Medications: Active Medications Generic Name Dose Route Start Last Admin Trade Name Freq PRN Reason Stop Dose Admin Acetaminophen 650 mg 01/09/20 17:48 01/16/20 12:52 Acetaminophen 325 Mg Tab PO 650 mg Q4H PRN Administration Headache/Fever/Mild Pain (1-3) Albuterol Sulfate 2 puff 01/09/20 17:50 01/12/20 07:53 Proventil Inhaler 6.7 G (200 Inhalations) INH 2 puff Q6H PRN Administration SOB &/or Wheezing Albuterol/Ipratropium 3 ml 01/11/20 22:06 01/12/20 03:04 Ipratropium/Albuterol Sulfate 3 Ml Neb NEB 3 ml [id number] PRN Administration SOB &/or Wheezing Albuterol/Ipratropium 3 ml 01/12/20 13:00 01/16/20 12:08 Ipratropium/Albuterol Sulfate 3 Ml Neb NEB 3 ml [id number] CANDY Administration Alprazolam 0.25 mg 01/10/20 09:00 01/16/20 05:13 Alprazolam 0.25 Mg Tab PO 0.25 mg DAILY CANDY Administration Alprazolam 0.25 mg 01/11/20 16:38 01/16/20 13:03 Alprazolam 0.25 Mg Tab PO 0.25 mg TIDPRN PRN Administration Anxiety Aspirin 81 mg 01/10/20 09:00 01/16/20 05:14 Aspirin 81 Mg Enteric Coated Tablet PO 81 mg DAILY CANDY Administration Atorvastatin Calcium 40 mg 01/09/20 21:00 01/15/20 21:16 Atorvastatin Calcium 40 Mg Tab PO 40 mg HS CANDY Administration Diltiazem HCl 120 mg 01/12/20 09:00 01/16/20 05:13 Diltiazem Cd 120 Mg Cap PO 120 mg DAILY CANDY Administration Famotidine 20 mg 01/12/20 09:00 01/16/20 05:14 Famotidine 20 Mg Tab PO 20 mg DAILY CANDY Administration Hydralazine HCl 50 mg 01/15/20 15:00 01/16/20 13:59 Hydralazine 25 Mg Tab PO 50 mg TID CANDY Administration Hydralazine HCl 10 mg 01/16/20 04:52 01/16/20 12:53 Hydralazine 20 Mg/Ml Vial SLOW IVP 10 mg Q4H PRN Administration SBP Greater Than 180 Insulin Glargine 10 units/ 0.1 mls @ 0 mls/hr 01/13/20 21:00 01/15/20 21:17 Miscellaneous Medication SC 0.1 mls HS CANDY Administration Insulin Glargine 30 units/ 0.3 mls @ 0 mls/hr 01/14/20 09:00 01/16/20 13:03 Miscellaneous Medication SC Not Given QAM CANDY Sodium Chloride 1,000 mls @ 100 mls/hr 01/16/20 08:30 01/16/20 13:03 Normal Saline 0.9% IV 1,000 mls .Q10H CANDY Administration Insulin Human Lispro 0 units 01/09/20 17:48 01/15/20 21:18 Humalog 300 Units/3 Ml Vial SC 3 unit .BEDTIME SLIDING SC PRN Administration Bedtime Correctional Scale Insulin Human Lispro 0 units 01/13/20 18:30 01/15/20 17:26 Humalog 300 Units/3 Ml Vial SC 6 unit .AGGRESSIVE SLIDING PRN Administration AGGRESSIVE SLIDING SCALE Protocol Levothyroxine Sodium 125 mcg 01/10/20 06:00 01/16/20 05:14 Levothyroxine Sodium 125 Mcg Tab PO 125 mcg 0600 CANDY Administration Mometasone Furoate/Formoterol Fumar 2 puff 01/09/20 18:30 01/16/20 06:36 Mometasone 200 Mcg/Formoterol 5 Mcg 120 Puff Inhaler INH 2 puff BID-RT CANDY Administration Morphine Sulfate 2 mg 01/12/20 10:30 01/15/20 02:00 Morphine 2 Mg/Ml Vial SLOW IVP 2 mg Q4H PRN Administration Chest Pain Nitroglycerin 0.5 inch 01/12/20 09:00 01/16/20 05:15 Nitroglycerin 2% Ointment 1 Inch/1 Gm Packet TOP 0.5 inch BID CANDY Administration Ondansetron HCl 4 mg 01/09/20 17:48 01/12/20 20:58 Ondansetron Pf 4 Mg/2 Ml Vial IVP 4 mg Q6H PRN Administration Nausea/Vomiting - Exam General Appearance: NAD, awake alert Eye: PERRL, anicteric sclera ENT: normocephalic atraumatic, no oropharyngeal lesions, moist mucosa Neck: supple, no JVD, no thyromegaly, no lymphadenopathy Heart: RRR, no murmur, no gallops, no rubs, normal peripheral pulses Respiratory: CTAB, no wheezes, no rales, no ronchi, normal chest expansion Gastrointestinal: soft, non-tender, non-distended, normal bowel sounds Extremities: no cyanosis, no clubbing Neurological: cranial nerve grossly intact, normal sensation to touch, no weakness Musculoskeletal: normal tone, normal strength, no muscle wasting, generalized weakness Psychiatric: normal affect, normal behavior, A&O x 3, oriented to person, oriented to place Hosp A/P (1) NSTEMI (non-ST elevated myocardial infarction) Code(s): I21.4 - NON-ST ELEVATION (NSTEMI) MYOCARDIAL INFARCTION Status: Acute Plan: She had a heart cath earlier today and she has about 50% occlusion in the LAD. This was not enough to warrant a PCI. She is chest pain-free today. (2) DMII (diabetes mellitus, type 2) Status: Chronic Qualifiers: Diabetes mellitus long term acute care registered nurse insulin use: without long term acute care registered nurse use Diabetes mellitus complication status: without complication Qualified Code(s): E11.9 - Type 2 diabetes mellitus without complications (3) Tobacco dependence Code(s): F17.200 - NICOTINE DEPENDENCE, UNSPECIFIED, UNCOMPLICATED Status: Acute (4) Paroxysmal atrial fibrillation Code(s): I48.0 - PAROXYSMAL ATRIAL FIBRILLATION Status: Acute - Plan PT/OT #1. Chest pain with an indeterminate elevation in troponin. Cardiology was consulted and the plan on doing a stress test. She does have significant risk factors for coronary artery disease including tobacco dependence, diabetes. 01/12/2020. Patient had to be moved to the ICU this morning because of ongoing chest pain. Cardiology plans to do a heart cath by tomorrow. 01/15/2020. She is chest pain-free today. She is medically cleared to proceed to heart cath. I will defer to cardiology about the timing. 01/16/2020. She had a heart cath earlier today and she had about 50% occlusion in the LAD. She did not require any stenting. Continue medical therapy. 2. Paroxysmal atrial fibrillation. Patient has since went into atrial fib with RVR during this hospitalization. Cardiology evaluation is ongoing. The A. fib has unfortunately caused the stress test to be held for now. 3. Tobacco dependence. I counseled about smoking cessation. 4. Diabetes. Her blood sugar seems adequate. #5. Acute kidney injury. Nephrology has been asked to evaluate her. Will defer to them about adjustment of fluid. 01/15/2020. Her renal function appears to have recovered. 6. Hyponatremia. Nephrology to adjust the fluid. #7. Anemia, normocytic. GI evaluation is ongoing. 01/15/2020. She received 2 units of packed red cells and her hemoglobin has recovered.
[2020-01-16] MEDS ORDERED: GoLYTELY 4,000 ml Bottle PO SCH (17:00)
[2020-01-16] MEDS: HumaLOG 300 UNITS/3 ML VIAL SC PRN (19:28)
--- NOTE | 2020-01-16 19:29 | PRG ---
DATE OF SERVICE: 01/16/2020 SUBJECTIVE: The patient noted with the following vital signs. OBJECTIVE: VITAL SIGNS: Afebrile with 97.4, pulse 73, respiratory rate of 14, O2 saturations 93% to 95%, blood pressure 155/67. HEENT EXAMINATION: Unremarkable. CARDIOVASCULAR SYSTEM: First and second heart sounds were heard. RESPIRATORY SYSTEM: Clear to auscultation. DIGESTIVE SYSTEM: Revealed a benign abdomen with positive bowel sounds. EXTREMITIES: No peripheral edema. SKIN EXAMINATION: No new gross rash. LYMPHATICS: No peripheral lymphadenopathy. LABORATORY INVESTIGATION: Significant for creatinine that has gone down to 0.98. IMPRESSION: 1. Acute kidney injury seems to have improved status post renal supportive measures. 2. Obesity. PLAN: 1. Continue current renal supportive measures. 2. Contrast prophylaxis prior to exposure to contrast. 3. Further management to be dependent on the clinical course. Job ID: [id number]
[2020-01-16] MEDS ORDERED: Amiodarone 200 MG TAB PO SCH (21:00)
[2020-01-16] MEDS: PROVENTIL INHALER 6.7 G (200 INHALATIONS) INH PRN (21:29)
[2020-01-16] MEDS: Atorvastatin Calcium 40 MG TAB PO SCH (21:31)
[2020-01-16] MEDS: Insulin Glargine 10 UNITS in Pre-Filled Syringe 1 EACH SC SCH (21:40)
--- NOTE | 2020-01-17 00:29 | CON ---
DATE OF CONSULTATION: 01/16/2020 HISTORY OF PRESENT ILLNESS: I am seeing, Mrs. Sherwood at our [facility] telemetry floor for an Electrophysiology consultation. Her problems are: 1. Paroxysmal atrial fibrillation. a. Admission with atrial fibrillation, RVR with subsequent conversion back to sinus rhythm on Multaq and amiodarone therapy. b. Amiodarone was stopped this morning, has history of pulmonary disease. 2. Newly found cardiomyopathy. a. Reduced LVEF with echo on 01/10/2020 with EF at 40% to 45%. b. Left heart catheterization today on 01/16/2020 demonstrates LVEF 40% and 50% mid LAD lesion only. 3. A 27-beat nonsustained ventricular tachycardia on 01/10/2020. 4. History of COPD, prior smoking. 5. Acute renal insufficiency with creatinine up to 2.18, now normalizing at 0.98. 6. Iron deficiency anemia with hemoglobin low at 7.7, status post blood transfusion. 7. Atypical chest pains, possibly pericardial. 8. History of diabetes, hypertension and hypercholesteremia. ALLERGIES: NONE NOTED. MEDICATIONS: At home includin. Trulicity. 2. Lipitor. 3. Metformin. 4. Synthroid. 5. Lisinopril. 6. Insulin glargine. 7. Prednisone. 8. Xanax. 9. Budesonide. 10. Ventolin. SUBJECTIVE: Mrs. Sherwood was admitted on 01/08 with atypical chest pains. It seems to have been worse taking a deep breath and radiating to the throat area. She does occasionally have palpitation sensation very frequently, but it always stops. She does get dizzy, does not pass out. She denies stroke-like symptoms or obvious bleeding. There is no dysuria or hematuria. She denies acute abdominal pain, nausea, vomiting, or diarrhea. On evaluation in the hospital, she ruled out of PE with CT scan, but she was noted to have reduced LVEF in the 40% to 45% range. She was in atrial fibrillation which later was converted back to sinus rhythm. She was started on Multaq initially. Eventually that was changed to amiodarone after a run of nonsustained ventricular tachycardia. Dr. Johnson had consulted us for further management of her atrial and ventricular arrhythmias. REVIEW OF SYSTEMS: Currently the rest of 12-point review of system unremarkable. PAST MEDICAL HISTORY: As above. She has history of hypothyroidism, on replacement. She also has history of breast cancer status post left mastectomy, history of tubal ligation and a tracheostomy and later removal about 10 years ago. SOCIAL HISTORY: She is a chronic smoker, although reports no smoking for last two months. Denies EtOH or drug abuse. She lives alone and she is retired. She is ambulating independently. PHYSICAL EXAMINATION: VITAL SIGNS: Blood pressure is 155/67, heart rate 73, respirations 14, temperature 97.4 degrees Fahrenheit. GENERAL: Alert, oriented woman, elevated BMI. NECK: Supple. Jugular veins not distended. CHEST: Coarse without crackles. HEART: Heart sounds are regular to rate and rhythm. No murmur or gallop. ABDOMEN: Benign. Bowel sounds positive. EXTREMITIES: Lower extremities without edema, clubbing, or cyanosis. Pulses are adequate. NEUROLOGIC: The patient is nonfocal. MUSCULOSKELETAL: No joint swelling or deformity. SKIN: Without rash. DATABASE: Initial EKG from 01/08/2020 reveals sinus rhythm with PACs. Subsequent EKG on 01/10/2020 reveals atrial fibrillation with rapid rates up to 150 beats per minute. The QTc is mildly prolonged at 475 milliseconds. Frequent PVC is seen. Subsequent EKGs reveal occasional AFib with RVR, converting back to sinus rhythm. On 01/09, there was a 27-beat of wide-complex tachycardia consistent with ventricular tachycardia. Most recent EKG December 2025 reveals sinus rhythm, rate of 68 beats per minute. QTc is 444 milliseconds. LABORATORY DATA: White blood cell count is 9.5, hemoglobin is 10 and platelet count is 361. Sodium 138, potassium 4, BUN is 18, creatinine 0.98. The glucose level is 224, COVID serology was negative on the . The initial BNP was 225. Troponin I's were 0.042, 0.025, 0.042 and 0.019. IMAGING: The initial chest x-ray was unremarkable and CT scan was negative for PE. ASSESSMENT AND PLAN: Mrs. Sherwood is a pleasant 79-year-old woman with prior history of smoking-related chronic obstructive pulmonary disease, diabetes and hypertension, who is presenting with atypical pleuritic chest pains and presenting in sinus rhythm, developed paroxysmal atrial fibrillation with rapid rates. She also had a wide-complex nonsustained ventricular tachycardia up to 27 beats, which seems to have not recurred. She was placed on initially Multaq, then amiodarone, but is concerned about long-term amiodarone use in view of her advanced pulmonary disease. She is currently maintaining sinus rhythm after a couple of doses. She is also undergoing evaluation for anemia, possibly iron deficiency anemia with GI pending a scope tomorrow. We discussed these findings with her. Her transient renal dysfunction, pulmonary disease as well as cardiomyopathy will make antiarrhythmic choices difficult. Likely the most reasonable at the short term would be amiodarone, but in view of her pulmonary disease, likely it is not a long-term option. At this point, we could pursue rate controlling strategy and continue managing her with standard heart failure therapy, possibly including beta-blockers, if tolerated. Should she be a candidate for anticoagulation based on the GI evaluation, we may consider pulmonary venous isolation procedure at a later time. This will hopefully keep her out of atrial fibrillation which could potentially also contribute to her reduced LVEF. Also, repeated echocardiograms will be necessary in the future to assess her LVEF as well. Should there be more symptoms of worsening LVEF, she may become a candidate for ICD therapy, although at this point, has a newly found cardiomyopathy, I would recommend medical management. My plan is in short: 1. Consider oral anticoagulation, if okay with GI service after endoscopies. 2. Standard heart failure management for cardiomyopathy. 3. Continue rate controlling strategy for atrial fibrillation. Could consider adding amiodarone in the short term, if that is difficult. 4. Recheck echocardiogram in 3 months and consider prophylactic ICD, if LVEF less than or equal to 35%. 5. Consider pulmonary venous isolation as outpatient, if tolerates oral anticoagulation. Thank you again for allowing me to participate in care of this patient. Job ID: [id number]
[2020-01-17] MEDS: hydrALAZINE 20 MG/ML VIAL SLOW IVP PRN (03:47)
[2020-01-17] MEDS: Acetaminophen 325 MG TAB PO PRN ×3 (03:47→22:41)
[2020-01-17 04:54] LABS: #Eosinphils 0.2 thou/uL (0.0-0.7); #Lymphocytes 1.3 thou/uL (1.20-3.40); #Neutrophils 9.1 thou/uL (1.40-6.50); %Basophils 0.3 % (0.0-1.0); %Eosinophils 1.7 % (0.0-10.0); %Lymphocytes 11.1 % (21.0-51.0); %Monocytes 8.5 % (0.0-10.0); %Neutrophils 78.5 % (42.0-75.0); Hemoglobin 11.4 g/dL (12.0-16.0); Mean Corpuscular HGB CONC 30.9 g/dL (32.0-36.0); Mean Corpuscular Hemoglobin 23.1 pg (27.0-31.0); Mean Corpuscular Volume 74.8 fL (78.0-98.0); Mean Platelet Volume 9.1 fL (7.4-10.4); Platelet Count 410 thou/uL (130-400); RBC Distribution Width 19.4 % (11.5-14.5); Red Blood Cell (RBC) Count 4.93 mill/uL (4.20-5.40); White Blood Cell (WBC) Count 11.6 thou/uL (4.8-10.8)
[2020-01-17 05:19] LABS: Albumin 3.3 g/dL (3.4-4.8); Anion Gap 18 mmol/L (10-20); BUN (Urea Nitrogen) 10 mg/dL (9.8-20.1); BUN/Creatinine Ratio 12.66; Calc. Creatinine Clearance 76 mL/min (70-130); Carbon Dioxide 30 mmol/L (23-31); Chloride 99 mmol/L (98-107); Glucose 135 mg/dL (83-110); Potassium 3.5 mmol/L (3.5-5.1); Sodium 143 mmol/L (136-145)
[2020-01-17] MEDS: Levothyroxine Sodium 125 MCG TAB PO SCH (05:28)
[2020-01-17] MEDS: Mometasone 200 MCG/Formoterol 5 MCG 120 PUFF INHALER INH SCH ×2 (07:02→18:56)
[2020-01-17] MEDS: ALPRAZolam 0.25 MG TAB PO SCH (11:54)
[2020-01-17] MEDS: hydrALAZINE 25 MG TAB PO SCH ×3 (11:55→20:31)
[2020-01-17] MEDS: Nitroglycerin 2% Ointment 1 INCH/1 GM Packet TOP SCH ×2 (11:55→20:32)
[2020-01-17] MEDS: Aspirin 81 mg Enteric Coated Tablet PO SCH (11:56)
[2020-01-17] MEDS: Insulin Glargine 30 UNITS in Pre-Filled Syringe 1 EACH SC SCH (11:57)
[2020-01-17] MEDS: Famotidine 20 MG TAB PO SCH ×2 (12:04→20:31)
[2020-01-17] MEDS ORDERED: PROPOFOL 200 MG/20 ML VIAL ONE (12:37)
--- NOTE | 2020-01-17 12:52 | PDOC.HOSPP ---
- Subjective Encounter Date: 01/17/20 Encounter Time: 12:51 Subjective: Patient went to the GI lab today for upper and lower endoscopy. We will follow up on the results. She is chest pain-free. - Objective Vital Signs & Weight: Vital Signs (12 hours) Temp Pulse Resp BP BP Pulse Ox 01/17/20 12:44 80 20 96 01/17/20 12:10 97.7 F 84 18 143/74 H 94 L 01/17/20 11:55 83 189/84 H 01/17/20 08:05 97.3 F L 85 20 157/82 H 97 01/17/20 07:09 83 20 90 L 01/17/20 07:02 83 20 90 L 01/17/20 04:00 97.5 F L 84 18 180/89 H 92 L 01/17/20 03:47 69 01/17/20 01:02 69 16 88 L Weight Weight 173 lb 6.4 oz Most Recent Monitor Data Heart Rate from ECG 63 NIBP 123/57 NIBP BP-Mean 79 Respiration from ECG 20 SpO2 97 I&O: 01/16/20 01/17/20 01/18/20 06:59 06:59 06:59 Intake Total 1680 6420 Output Total 1000 2650 Balance 680 3770 Result Diagrams: 01/17/20 04:22 01/17/20 04:22 Additional Labs: Accuchecks 01/17/20 01/17/20 01/16/20 11:39 05:58 20:16 POC Glucose 157 H 141 H 129 H Radiology Reviewed by me: Yes EKG Reviewed by me: Yes Hospitalist ROS - Review of Systems Constitutional: reports: weakness, malaise - Medication Medications: Active Medications Generic Name Dose Route Start Last Admin Trade Name Freq PRN Reason Stop Dose Admin Acetaminophen 650 mg 01/09/20 17:48 01/17/20 03:47 Acetaminophen 325 Mg Tab PO 650 mg Q4H PRN Administration Headache/Fever/Mild Pain (1-3) Albuterol Sulfate 2 puff 01/09/20 17:50 01/16/20 21:29 Proventil Inhaler 6.7 G (200 Inhalations) INH 2 puff Q6H PRN Administration SOB &/or Wheezing Albuterol/Ipratropium 3 ml 01/11/20 22:06 01/12/20 03:04 Ipratropium/Albuterol Sulfate 3 Ml Neb NEB 3 ml [id number] PRN Administration SOB &/or Wheezing Albuterol/Ipratropium 3 ml 01/12/20 13:00 01/17/20 12:44 Ipratropium/Albuterol Sulfate 3 Ml Neb NEB 3 ml [id number] CANDY Administration Alprazolam 0.25 mg 01/10/20 09:00 01/17/20 11:54 Alprazolam 0.25 Mg Tab PO 0.25 mg DAILY CANDY Administration Alprazolam 0.25 mg 01/11/20 16:38 01/16/20 13:03 Alprazolam 0.25 Mg Tab PO 0.25 mg TIDPRN PRN Administration Anxiety Aspirin 81 mg 01/10/20 09:00 01/17/20 11:56 Aspirin 81 Mg Enteric Coated Tablet PO 81 mg DAILY CANDY Administration Atorvastatin Calcium 40 mg 01/09/20 21:00 01/16/20 21:31 Atorvastatin Calcium 40 Mg Tab PO 40 mg HS CANDY Administration Diltiazem HCl 120 mg 01/12/20 09:00 01/17/20 11:56 Diltiazem Cd 120 Mg Cap PO 120 mg DAILY CANDY Administration Hydralazine HCl 50 mg 01/15/20 15:00 01/17/20 11:55 Hydralazine 25 Mg Tab PO 50 mg TID CANDY Administration Hydralazine HCl 10 mg 01/16/20 04:52 01/17/20 03:47 Hydralazine 20 Mg/Ml Vial SLOW IVP 10 mg Q4H PRN Administration SBP Greater Than 180 Insulin Glargine 10 units/ 0.1 mls @ 0 mls/hr 01/13/20 21:00 01/16/20 21:40 Miscellaneous Medication SC Not Given HS CANDY Insulin Glargine 30 units/ 0.3 mls @ 0 mls/hr 01/14/20 09:00 01/17/20 11:57 Miscellaneous Medication SC 0.3 mls QAM CANDY Administration Insulin Human Lispro 0 units 01/09/20 17:48 01/15/20 21:18 Humalog 300 Units/3 Ml Vial SC 3 unit .BEDTIME SLIDING SC PRN Administration Bedtime Correctional Scale Insulin Human Lispro 0 units 01/13/20 18:30 01/16/20 19:28 Humalog 300 Units/3 Ml Vial SC 6 unit .AGGRESSIVE SLIDING PRN Administration AGGRESSIVE SLIDING SCALE Protocol Levothyroxine Sodium 125 mcg 01/10/20 06:00 01/17/20 05:28 Levothyroxine Sodium 125 Mcg Tab PO 125 mcg 0600 CANDY Administration Mometasone Furoate/Formoterol Fumar 2 puff 01/09/20 18:30 01/17/20 07:02 Mometasone 200 Mcg/Formoterol 5 Mcg 120 Puff Inhaler INH 2 puff BID-RT CANDY Administration Morphine Sulfate 2 mg 01/12/20 10:30 01/15/20 02:00 Morphine 2 Mg/Ml Vial SLOW IVP 2 mg Q4H PRN Administration Chest Pain Nitroglycerin 0.5 inch 01/12/20 09:00 01/17/20 11:55 Nitroglycerin 2% Ointment 1 Inch/1 Gm Packet TOP 0.5 inch BID CANDY Administration Ondansetron HCl 4 mg 01/09/20 17:48 01/12/20 20:58 Ondansetron Pf 4 Mg/2 Ml Vial IVP 4 mg Q6H PRN Administration Nausea/Vomiting - Exam General Appearance: NAD, awake alert Eye: PERRL, anicteric sclera ENT: normocephalic atraumatic, no oropharyngeal lesions Neck: supple, symmetric, no JVD, no thyromegaly Heart: RRR, no murmur, no gallops, no rubs, normal peripheral pulses Respiratory: CTAB, no wheezes, no rales, no ronchi, normal chest expansion Gastrointestinal: soft, non-tender, non-distended, normal bowel sounds Neurological: cranial nerve grossly intact, normal sensation to touch Musculoskeletal: normal tone, normal strength, no muscle wasting Psychiatric: normal affect, normal behavior, A&O x 3 Hosp A/P (1) NSTEMI (non-ST elevated myocardial infarction) Code(s): I21.4 - NON-ST ELEVATION (NSTEMI) MYOCARDIAL INFARCTION Status: Acute (2) DMII (diabetes mellitus, type 2) Status: Chronic Qualifiers: Diabetes mellitus fci insulin use: without technician terminal and repeater use Diabetes mellitus complication status: without complication Qualified Code(s): E11.9 - Type 2 diabetes mellitus without complications (3) Tobacco dependence Code(s): F17.200 - NICOTINE DEPENDENCE, UNSPECIFIED, UNCOMPLICATED Status: Acute (4) Paroxysmal atrial fibrillation Code(s): I48.0 - PAROXYSMAL ATRIAL FIBRILLATION Status: Acute - Plan #1. Chest pain with an indeterminate elevation in troponin. Cardiology was consulted and the plan on doing a stress test. She does have significant risk factors for coronary artery disease including tobacco dependence, diabetes. 01/12/2020. Patient had to be moved to the ICU this morning because of ongoing chest pain. Cardiology plans to do a heart cath by tomorrow. 01/15/2020. She is chest pain-free today. She is medically cleared to proceed to heart cath. I will defer to cardiology about the timing. 01/16/2020. She had a heart cath earlier today and she had about 50% occlusion in the LAD. She did not require any stenting. Continue medical therapy. 2. Paroxysmal atrial fibrillation. Patient has since went into atrial fib with RVR during this hospitalization. Cardiology evaluation is ongoing. The A. fib has unfortunately caused the stress test to be held for now. 01/17/2020. She is now back in sinus rhythm. She will continue an amiodarone. 3. Tobacco dependence. I counseled about smoking cessation. 4. Diabetes. Her blood sugar seems adequate. #5. Acute kidney injury. Nephrology has been asked to evaluate her. Will defer to them about adjustment of fluid. 01/15/2020. Her renal function appears to have recovered. 6. Hyponatremia. Nephrology to adjust the fluid. #7. Anemia, normocytic. GI evaluation is ongoing. 01/15/2020. She received 2 units of packed red cells and her hemoglobin has recovered. 01/17/2020. She underwent upper and lower endoscopy today.
--- NOTE | 2020-01-17 13:08 | OP ---
DATE OF PROCEDURE: 01/17/2020 PROCEDURES PERFORMED: 1. Esophagogastroduodenoscopy with biopsy. 2. Colonoscopy with control of hemorrhage (prior colonoscopy 7 to 8 years ago with normal findings), no stated family history of colon polyps or colon cancer. DESCRIPTION OF PROCEDURE: After the risks and benefits of the procedure were explained to the patient including risks of bleeding, infection, perforation, reactions to anesthesia, aspiration, and/or pain, informed consent was obtained. The patient was then taken to the endoscopy suite where she was maneuvered into the left lateral decubitus position, followed by introduction of deep sedation via propofol and anesthesia support. Once adequate sedation was achieved, the standard gastroscope was introduced into the mouth with intubation of the esophagus, stomach, and the proximal small intestines with the findings listed below. On conclusion of this portion of the procedure, all equipment was then removed from the patient and the bed was rotated 180 degrees in anticipation of a colonoscopy. After a digital rectal examination was performed, the standard colonoscope was then introduced into the rectum and advanced to the terminal ileum with some difficulty due to tortuosity and redundancy of the colon that required manual abdominal pressure to facilitate passage of the scope. The quality of the prep was fair to good. The patient tolerated the procedure well with no immediate perioperative complications. On conclusion of the procedure, all equipment was removed from the patient and she was transferred to PACU in satisfactory condition. ESOPHAGOGASTRODUODENOSCOPY FINDINGS: Esophagus: Normal-appearing mucosa was seen in the proximal, mid, and distal esophagus. There was no evidence of erosions, ulcerations, mass lesions, or active/recent bleeding. Stomach: Normal-appearing mucosa was seen in the gastric cardia, fundus, body, greater curvature, antrum, and incisura. There was no evidence of erosions, ulcerations, mass lesions, or active/recent bleeding. Duodenum: Normal-appearing mucosa was seen in both the duodenal bulb and second portion of the duodenum. There was no evidence of erosions, ulcerations, mass lesions, or active/recent bleeding. Random duodenal biopsies were taken for evaluation of possible celiac sprue. IMPRESSION: 1. Normal upper endoscopy. 2. No etiology for the patient's anemia was seen during this portion of the exam. COLONOSCOPY FINDINGS: Digital rectal examination: Small nonbleeding external hemorrhoids were seen on external examination. Colon findings: Normal-appearing mucosa was seen within the terminal ileum with no evidence of old or recent bleeding. However, upon entering into the cecum, a moderate amount of retained bright red blood was seen along one aspect of the colonic wall in the same line with the ileocecal valve and area of increased mucosal erythema as well as overlying adherent clot was seen. Upon clearing of the clot, a large nodular erythematous lesion was seen with some serpiginous vessels located on the top of the lesion. Just with irrigation and suctioning, it did prompt the lesion to start oozing blood. Given the characteristics of the lesion and possible malignant type process, a biopsy was then performed with significant bleeding of the lesion with this one biopsy. Hemostasis was then able to be achieved with deploying a hemoclip x1 with good hemostasis achieved. APC was then performed along this entire aspect of the lesion, which measured approximately 1.5 to 2 cm in diameter with increased bleeding in certain areas of the lesion. Another hemoclip x1 was employed given one of these bleeds again with good hemostasis achieved. Upon conclusion of this maneuver, the entire lesion measuring 1.5 to 2 cm underwent argon plasma coagulation in addition to the 2 hemoclips with no bleeding seen at the end of maneuver. Four polyps measuring 3 to 7 mm in size were then seen in the ascending colon, but not removed during this examination due to increased risk of bleeding with removal. Four additional polyps were seen in the proximal transverse colon measuring 3 to 8 mm in size and again were not removed during this examination due to increased risk of bleeding. Normal-appearing mucosa was then seen in the distal transverse and descending colons. Small scattered diverticula were seen in the sigmoid colon, but no evidence of active or recent bleeding. Normal-appearing mucosa was then seen in the rectum with small nonbleeding hemorrhoids seen on rectal retroflexion. IMPRESSION: 1. 1.5 to 2 cm nodular erythematous lesion with serpiginous vessels overlying the lesion itself was seen in the cecum with significant bleeding was noted with biopsy making this lesion more indicative of a large arteriovenous malformation. Hemostasis was achieved with employing argon plasma coagulation and hemoclip x2. 2. Four 3 to 7 mm ascending colon polyps not removed due to increased risk of bleeding. 3. Four 3 to 8 mm polyp seen in the proximal transverse colon, but not removed due to increased risk of bleeding. 4. Mild sigmoid diverticulosis with no evidence of active/recent bleeding. 5. Small nonbleeding internal and external hemorrhoids. RECOMMENDATIONS: 1. Would continue to trend the patient's H and H and transfuse as necessary to maintain an H and H of 7/21. 2. Continue to monitor clinically for signs of active GI bleeding. 3. We will place the patient on a clear liquid diet today and if showing signs of active bleeding, may consider repeat colonoscopy here in the future for re-evaluation of the cecal lesion. 4. We will avoid any anticoagulation for at least the next 48 to 72 hours given the significant bleeding noted on examination today. 5. The patient will need a repeat colonoscopy within the next 6 months for re-evaluation and removal of the colonic polyps (not removed today because if the patient continues to bleed, it would confuse the issue as to what exactly is bleeding). 6. Would ultimately recommend a higher fiber diet given the presence of diverticulosis and hemorrhoids, but this can be started as an outpatient. 7. Would follow up on the biopsy results for confirmation of AVM versus a possible malignant process. We will continue to follow. Please call with any questions. Job ID: [id number]
[2020-01-17] MEDS ORDERED: Amiodarone 200 MG TAB PO SCH (14:30)
[2020-01-17] MEDS ORDERED: Potassium Chloride 20 MEQ TAB PO SCH (14:30)
--- NOTE | 2020-01-17 16:55 | PRG ---
DATE OF SERVICE: 01/17/2020 SUBJECTIVE: The patient was noted with the following vital signs. OBJECTIVE: VITAL SIGNS: Afebrile, temperature 97.8, pulse 91, respiratory rate of 20, oxygen saturation of 94%, blood pressure 143/74. HEENT: Unremarkable. CARDIOVASCULAR SYSTEM: First and second heart sounds were heard. RESPIRATORY SYSTEM: Clear to auscultation. DIGESTIVE SYSTEM: Revealed a benign abdomen. EXTREMITIES: No peripheral edema. SKIN: No new gross rash. LYMPHATICS: No peripheral lymphadenopathy. LABORATORY INVESTIGATION: Showed unremarkable chemistry. IMPRESSION: 1. Acute on chronic kidney disease, resolved. 2. Coronary artery disease. PLAN: Continue current renal supportive measures. Job ID: [id number]
[2020-01-17] MEDS: HumaLOG 300 UNITS/3 ML VIAL SC PRN (17:19)
[2020-01-17] MEDS: PROVENTIL INHALER 6.7 G (200 INHALATIONS) INH PRN (17:58)
[2020-01-17] MEDS: Atorvastatin Calcium 40 MG TAB PO SCH (20:30)
[2020-01-17] MEDS: Insulin Glargine 10 UNITS in Pre-Filled Syringe 1 EACH SC SCH (20:32)
[2020-01-17] MEDS: ALPRAZolam 0.25 MG TAB PO PRN (22:41)
[2020-01-18 04:45] LABS: #Eosinphils 0.3 thou/uL (0.0-0.7); #Lymphocytes 1.6 thou/uL (1.20-3.40); #Monocytes 0.9 thou/uL (0.11-0.59); #Neutrophils 7.2 thou/uL (1.40-6.50); %Basophils 0.3 % (0.0-1.0); %Eosinophils 2.8 % (0.0-10.0); %Lymphocytes 15.5 % (21.0-51.0); %Monocytes 8.7 % (0.0-10.0); %Neutrophils 72.6 % (42.0-75.0); Hemoglobin 10.6 g/dL (12.0-16.0); Mean Corpuscular HGB CONC 31.1 g/dL (32.0-36.0); Mean Corpuscular Hemoglobin 23.3 pg (27.0-31.0); Mean Corpuscular Volume 74.8 fL (78.0-98.0); Mean Platelet Volume 9.1 fL (7.4-10.4); Platelet Count 372 thou/uL (130-400); RBC Distribution Width 19.7 % (11.5-14.5); Red Blood Cell (RBC) Count 4.55 mill/uL (4.20-5.40)
[2020-01-18 05:09] LABS: Anion Gap 14 mmol/L (10-20); BUN (Urea Nitrogen) 7 mg/dL (9.8-20.1); Calc. Creatinine Clearance 74 mL/min (70-130); Calcium 8.8 mg/dL (7.8-10.44); Carbon Dioxide 30 mmol/L (23-31); Chloride 100 mmol/L (98-107); Glucose 103 mg/dL (83-110); Potassium 3.8 mmol/L (3.5-5.1); Sodium 140 mmol/L (136-145)
[2020-01-18] MEDS: Levothyroxine Sodium 125 MCG TAB PO SCH (05:27)
[2020-01-18 07:49] VITALS: TEMP 98.2
[2020-01-18] MEDS: Mometasone 200 MCG/Formoterol 5 MCG 120 PUFF INHALER INH SCH (07:58)
[2020-01-18] MEDS: Aspirin 81 mg Enteric Coated Tablet PO SCH (08:44)
[2020-01-18] MEDS: Famotidine 20 MG TAB PO SCH (08:44)
[2020-01-18] MEDS: hydrALAZINE 25 MG TAB PO SCH (08:45)
[2020-01-18] MEDS: ALPRAZolam 0.25 MG TAB PO SCH (08:45)
[2020-01-18] MEDS: Nitroglycerin 2% Ointment 1 INCH/1 GM Packet TOP SCH (08:46)
[2020-01-18] MEDS ORDERED: Amlodipine 5 MG TAB PO SCH (09:00)
[2020-01-18] MEDS ORDERED: Lisinopril 5 MG TAB PO SCH ×2 (09:00)
[2020-01-18] MEDS ORDERED: Amiodarone 200 MG TAB PO SCH ×2 (09:00)
--- NOTE | 2020-01-18 09:39 | PRG ---
DATE OF SERVICE: SUBJECTIVE: Ms. Sherwood is feeling better today. Breathing is dramatically improved actually. She says she wants to go home. No chest pain. OBJECTIVE: VITAL SIGNS: Her blood pressure is high 187/81, pulse is 78 and regular. LUNGS: Clear. I do not hear any wheezing or rales. CARDIAC: Normal S1, normal S2. ABDOMEN: Soft, nontender. EXTREMITIES: Warm and dry. No clubbing or cyanosis. There is no edema. ASSESSMENT: 1. Atrial fibrillation, paroxysmal, maintaining sinus rhythm. 2. One episode of nonsustained ventricular tachycardia. 3. Chronic obstructive pulmonary disease/bronchitis, I think a lot of this was probably bronchitis as her lungs sound much better after a few days of not smoking and inhaled bronchodilators. 4. Hypertension. 5. Depressed left ventricular function. It looks like an apical hypokinesis and I think this may be related to Takotsubo's, but I am not certain. At any rate, her ejection fraction is 40%, but I suspect this will likely improve. 6. Coronary artery disease with 50% LAD stenosis. It is not flow-limiting as evidenced by a fractional flow wire reading over 90%, which indicated it is not hemodynamically significant. 7. Hypercholesterolemia. PLAN: 1. Amiodarone 200 mg twice a day for 1 month, then 200 mg a day for additional month if she is able to tolerate it. We will probably do another echocardiogram in about 6 weeks. Would not likely run amiodarone long-term. May change her to a beta johanna if her lungs have improved at that point. 2. Amlodipine 5 mg a day. 3. Lisinopril 10 mg a day. 4. Aspirin 81 mg a day. 5. Atorvastatin 40 mg a day. She has a history of hypercholesterolemia in the past with an LDL cholesterol of 129 in 2018. The patient will be released home to see us in office in a couple of weeks. I am hopeful her ejection fraction will improve. I really was suspicious for Takotsubo syndrome. She also did have an iron deficiency anemia here. She did undergo endoscopy. She has AVMs (arteriovenous malformations). She cannot be successfully anticoagulated at this time due to risk of bleeding, this is the reason she is not being anticoagulated. The patient was given a blood transfusion while she is here 2 units, and she is stable now. LABORATORY DATA: Today, hemoglobin is 10.6 which is stable, hematocrit 34. Sodium 140, potassium 3.8, BUN is 14, creatinine 0.7. Job ID: [id number]
[2020-01-18] MEDS: Insulin Glargine 30 UNITS in Pre-Filled Syringe 1 EACH SC SCH (09:44)
--- NOTE | 2020-01-18 10:13 | PDOC.EP ---
- Subjective Date: 01/18/20 Time: 10:11 Interval History: eager to go home. Feels fine but worried about certain family/social stressors. - Review of Systems Constitutional: denies: chills, fever, malaise, sweats, weakness, other Respiratory: denies: cough, dry, hemoptysis, pleuritic pain, shortness of breath, SOB with excertion, sputum, wheezing, other Cardiology: denies: chest pain, edema, heart racing, light headedness, paroxysmal noc. dyspnea, orthopnea, palpitations, passing out, pleuritic pain, pressure, swelling, other Gastrointestinal: denies: abdominal pain, constipation, diarrhea, hematochezia, melena, nausea, vomitting, other Musculoskeletal: denies: unstable gait, falls, neck pain, shoulder pain, arm pain, hand pain, leg pain, foot pain, other - Objective Allergies/Adverse Reactions: Allergies Allergy/AdvReac Type Severity Reaction Status Date / Time No Known Drug Allergies Allergy Verified 01/10/20 04:29 Current Medications Acetaminophen (Acetaminophen 325 Mg Tab) 650 mg PO Q4H PRN PRN Reason: Headache/Fever/Mild Pain (1-3) Last Admin: 01/17/20 22:41 Dose: 650 mg Documented by: Acetaminophen/Codeine Phosphate (Acetaminophen/Codeine 30-300mg Tablet) 1 tab PO Q4H PRN PRN Reason: Mild Pain (1-3) Acetaminophen/Codeine Phosphate (Acetaminophen/Codeine 30-300mg Tablet) 2 tab PO Q4H PRN PRN Reason: Moderate Pain (4-6) Albuterol Sulfate (Proventil Inhaler 6.7 G (200 Inhalations)) 2 puff INH Q6H PRN PRN Reason: SOB &/or Wheezing Last Admin: 01/17/20 17:58 Dose: 2 puff Documented by: Albuterol/Ipratropium (Ipratropium/Albuterol Sulfate 3 Ml Neb) 3 ml NEB Q 4HR-RT-WA PRN PRN Reason: SOB &/or Wheezing Last Admin: 01/12/20 03:04 Dose: 3 ml Documented by: Albuterol/Ipratropium (Ipratropium/Albuterol Sulfate 3 Ml Neb) 3 ml NEB [id number] CANDY Last Admin: 01/18/20 07:58 Dose: 3 ml Documented by: Alprazolam (Alprazolam 0.25 Mg Tab) 0.25 mg PO DAILY [facility] Last Admin: 01/18/20 08:45 Dose: 0.25 mg Documented by: Alprazolam (Alprazolam 0.25 Mg Tab) 0.25 mg PO TIDPRN PRN PRN Reason: Anxiety Last Admin: 01/17/20 22:41 Dose: 0.25 mg Documented by: Amiodarone HCl (Amiodarone 200 Mg Tab) 200 mg PO BID [facility] Last Admin: 01/18/20 08:44 Dose: 200 mg Documented by: Amlodipine Besylate (Amlodipine 5 Mg Tab) 5 mg PO DAILY [facility] Last Admin: 01/18/20 08:44 Dose: 5 mg Documented by: Aspirin (Aspirin 81 Mg Enteric Coated Tablet) 81 mg PO DAILY [facility] Last Admin: 01/18/20 08:44 Dose: 81 mg Documented by: Atorvastatin Calcium (Atorvastatin Calcium 40 Mg Tab) 40 mg PO HS [facility] Last Admin: 01/17/20 20:30 Dose: 40 mg Documented by: Benzocaine (Benzocaine (Dental) 7 Gm Tube) 0 gm TOP DAILYPRN PRN PRN Reason: Topical Anesthetic Last Admin: 01/17/20 15:32 Dose: 7 gm Documented by: Calcium Carbonate (Calcium Carbonate 500 Mg Chewtab) 1,000 mg PO Q4H PRN PRN Reason: Heartburn or Indigestion Dextrose/Water (Dextrose 50% Abboject 50 Ml Syringe) 25 gm SLOW IVP PRN PRN PRN Reason: Hypoglycemia Famotidine (Famotidine 20 Mg Tab) 20 mg PO BID [facility] Last Admin: 01/18/20 08:44 Dose: 20 mg Documented by: Glucagon (Glucagon 1 Mg/Ml Vial) 1 mg IM PRN PRN PRN Reason: Hypoglycemia Hydralazine HCl (Hydralazine 25 Mg Tab) 50 mg PO TID [facility] Last Admin: 01/18/20 08:45 Dose: 50 mg Documented by: Hydralazine HCl (Hydralazine 20 Mg/Ml Vial) 10 mg SLOW IVP Q4H PRN PRN Reason: SBP Greater Than 180 Last Admin: 01/17/20 03:47 Dose: 10 mg Documented by: Dextrose/Water (D5w) 1,000 mls @ 0 mls/hr IV .Q0M PRN PRN Reason: Hypoglycemia Insulin Glargine 10 units/ (Miscellaneous Medication) 0.1 mls @ 0 mls/hr SC HS [facility] Last Admin: 01/17/20 20:32 Dose: 0.1 mls Documented by: Insulin Glargine 30 units/ (Miscellaneous Medication) 0.3 mls @ 0 mls/hr SC QAM [facility] Last Admin: 01/18/20 09:44 Dose: 0.3 mls Documented by: Insulin Human Lispro (Humalog 300 Units/3 Ml Vial) 0 units SC .BEDTIME SLIDING SC PRN PRN Reason: Bedtime Correctional Scale Last Admin: 01/15/20 21:18 Dose: 3 unit Documented by: Insulin Human Lispro (Humalog 300 Units/3 Ml Vial) 0 units SC .AGGRESSIVE SLIDING PRN; Protocol PRN Reason: AGGRESSIVE SLIDING SCALE Last Admin: 01/17/20 17:19 Dose: 9 unit Documented by: Labetalol HCl (Labetalol Hcl 100 Mg/20 Ml Vial) 20 mg SLOW IVP Q4H PRN PRN Reason: SBP > 180 Levothyroxine Sodium (Levothyroxine Sodium 125 Mcg Tab) 125 mcg PO 0600 [facility] Last Admin: 01/18/20 05:27 Dose: 125 mcg Documented by: Lisinopril (Lisinopril 5 Mg Tab) 10 mg PO DAILY [facility] Last Admin: 01/18/20 08:44 Dose: 10 mg Documented by: Mometasone Furoate/Formoterol Fumar (Mometasone 200 Mcg/Formoterol 5 Mcg 120 Puff Inhaler) 2 puff INH BID-RT [facility] Last Admin: 01/18/20 07:58 Dose: 2 puff Documented by: Morphine Sulfate (Morphine 2 Mg/Ml Vial) 2 mg SLOW IVP Q4H PRN PRN Reason: Chest Pain Last Admin: 01/15/20 02:00 Dose: 2 mg Documented by: Nitroglycerin (Nitroglycerin 2% Ointment 1 Inch/1 Gm Packet) 0.5 inch TOP BID [facility] Last Admin: 01/18/20 08:46 Dose: Not Given Documented by: Nitroglycerin (Nitroglycerin 0.4 Mg Tab (25 Tab Bottle)) 0.4 mg SL Q5MIN PRN PRN Reason: Chest Pain (Dulaglutide [ Trulicity] 1.5 Mg/0. 5 Ml Pen.Injctr) 0.5 ml SC Q7DAYS CAND[facility] Ondansetron HCl (Ondansetron Pf 4 Mg/2 Ml Vial) 4 mg IVP Q6H PRN PRN Reason: Nausea/Vomiting Last Admin: 01/12/20 20:58 Dose: 4 mg Documented by: Sodium Chloride (Flush - Normal Saline 10 Ml Syringe) 10 ml IVF PRN PRN PRN Reason: Saline Flush Vital Signs & Weight: Vital Signs Temp Pulse Resp BP BP Pulse Ox 01/18/20 07:59 92 L 01/18/20 07:58 78 18 92 L 01/18/20 07:21 98.2 F 79 16 187/81 H 96 01/18/20 03:15 97.5 F L 72 22 H 183/77 H 97 01/18/20 00:16 71 20 94 L 01/18/20 00:00 70 180/77 H Weight 173 lb I/O: I/O 01/17/20 01/18/20 01/19/20 06:59 06:59 06:59 Intake Total 6420 2080 Output Total 2650 2450 Balance 3770 -370 - Quality Measures Condition: Atrial Fibrillation/Flutter (hx or current) - Medication Contraindications No Anticoagulant reason: Medical contraindication (bleeding AVM) - Physical Exam General: alert & oriented x3, no apparent distress, speech clear. negative: appears well, affect appropriate HEENT: mucus membranes moist, normocephaly Neck: supple neck, midline trachea, no JVD/HJR Cardiology: regular rate and rhythm, no murmur Lungs: clear to auscultation, decreased breath sounds Neurology: cranial nerve 2-12 intact, grossly intact, coordination normal Abdomen: unremarkable, active bowel sounds, HJR negative Extremities: dry, strong pulses, warm - Chadsvasc Risk factors Congestive heart failure: 1 Age >75: 2 Diabetes mellitus: 1 Female: 1 Risk Score: 5 - Labs Result Diagrams: 01/18/20 04:00 01/18/20 04:00 - EKG Interpretation EKG Method: Telemetry EKG shows: Sinus rhythm - Assessment/Plan Assessment/Plan: 1. Paroxysmal atrial fibrillation - newly found. RVR --> SR with IV amio - currently in SR - cannot anticoagulate due to GIB/bleeding AVM - started on amiodarone gentle loading taper - Tikosyn/dofetilide is an alternative but can be expensive, also national shortage ongoing 2. Cardiomyopathy, non ischemic -newly found - LVEF 40-45% 3. Non sustained VT 4. COPD 5. JAMES, recovered - Creat 0.79 6. A/C anemia - chronic iron deficiency - Acute GIB s/p 2 PRBC transfused. Endoscopy 01/17/20 found bleeding AVM, Biopsy pending. Recommended follow up scope. OAC contraindicated for now. Will need GI clearance Maintaining SR. Gentle amiodarone taper started to suppress AF as she cannot be anticoagulated at this time. Idealy short term therapy d/t COPD. Limited to medical therapy until OAC can be started. If able to take OAC, PVAI could be considered but this seems to be a long way off with the GI endoscopy results. OK for DC by EP.
--- NOTE | 2020-01-18 11:13 | PDOC.DS.DS ---
Provider - Provider Date of Admission: 01/10/20 13:51 Date of Discharge: 01/18/20 Admitting Provider: Lucien Burgess MD Consultations: Cardiology, Gastroentrology, Nephrology Primary Care Physician: Lana Priest MD Course - Hospital Course Hospital Course: Ms. Sherwood is a 79-year-old woman whose medical history includes diabetes, ongoing tobacco dependence, likely COPD who presented to the hospital with a substernal chest pain. She had elevated troponin. She was promptly admitted to the hospital for further evaluation. Cardiology was asked to evaluate her and initially plan was for her to undergo a stress test and discharge home if it was negative. Unfortunately she went into atrial dysrhythmia prompting the stress has been put on hold. Decision was made to take her to the Community [facility] Officer to undergo a heart cath instead of a stress test. Unfortunately prior to the testing the patient was noted to be not only anemic but also acute kidney injury. This delayed the test for a few more days. She was seen by the gun stock maker and the nephrology. Her renal function improved with the manager respiratory input and she ultimately underwent a heart cath. Surprisingly her heart cath was without any significant finding as she only had mid LAD stenosis less than 50%. She was noted to have cardiomyopathy with an EF around 40%. Once her heart cath was done she was seen by the GI service and she underwent upper and lower endoscopy. Her upper endoscopy was benign but her colonoscopy did show evidence of multiple polyps that were unable to biopsy due to ongoing bleeding. The bleeding stopped with argon photocoagulation. Over the course of her stay she has improved enough to be stable to go home today. Other pertinent findings wer e that she was seen by the EPS stem shaper with high atrial flutter/fibrillation. At this time the plan is for her to continue rate and rhythm control without any anticoagulation due to the bleeding noted on the endoscopic evaluation. At any rate Ms. Sherwood has done very well and she will be discharged home today. She has follow-up scheduled with cardiology, gastroenterology and her family doctor. Procedures: She had a left heart cath but did not need any stent. She had upper and lower endoscopy. Her upper endoscopy did not show any significant finding. The lower endoscopy did show multiple polyps but were not biopsied due to ongoing bleeding. Resuscitation Status: 01/09/20 17:48 Resuscitation Status Routine Co-Sign Provider: Resuscitation Status: FULL: Full Resuscitation Discussed with: Patient - Labs Lab Results: 01/18/20 04:00 01/18/20 04:00 Abnormal Lab Results - Last 48 hrs 01/17/20 04:22: Albumin 3.3 L 01/17/20 04:22: WBC 11.6 H, Hgb 11.4 L, MCV 74.8 L, MCH 23.1 L, MCHC 30.9 L, RDW 19.4 H, Plt Count 410 H, Neutrophils % 78.5 H, Lymphocytes % 11.1 L, Neutrophils # 9.1 H, Monocytes # 1.0 H 01/18/20 04:00: Hgb 10.6 L, Hct 34.0 L, MCV 74.8 L, MCH 23.3 L, MCHC 31.1 L, RDW 19.7 H, Lymphocytes % 15.5 L, Neutrophils # 7.2 H, Monocytes # 0.9 H 01/18/20 04:00: BUN 7 L - Physical Exam Vitals: Vital Signs (12 hours) Temp Pulse Pulse Pulse Resp BP BP 01/18/20 09:40 82 88 167/80 H 177/77 H 01/18/20 07:59 01/18/20 07:58 78 18 01/18/20 07:21 98.2 F 79 16 01/18/20 03:15 97.5 F L 72 22 H 01/18/20 00:16 71 20 01/18/20 00:00 70 BP BP Pulse Ox 01/18/20 09:40 01/18/20 07:59 92 L 01/18/20 07:58 92 L 01/18/20 07:21 187/81 H 96 01/18/20 03:15 183/77 H 97 01/18/20 00:16 94 L 01/18/20 00:00 180/77 H Weight Weight 173 lb Most Recent Monitor Data Heart Rate from ECG 63 NIBP 123/57 NIBP BP-Mean 79 Respiration from ECG 20 SpO2 97 Physical Exam: The patient was seen and examined on the day of discharge. Problem - Problem (1) NSTEMI (non-ST elevated myocardial infarction) Code(s): I21.4 - NON-ST ELEVATION (NSTEMI) MYOCARDIAL INFARCTION Status: Acute (2) DMII (diabetes mellitus, type 2) Status: Chronic Qualifiers: Diabetes mellitus senior living insulin use: without management expert use Diabetes mellitus complication status: without complication Qualified Code(s): E11.9 - Type 2 diabetes mellitus without complications (3) Tobacco dependence Code(s): F17.200 - NICOTINE DEPENDENCE, UNSPECIFIED, UNCOMPLICATED Status: Acute (4) Paroxysmal atrial fibrillation Code(s): I48.0 - PAROXYSMAL ATRIAL FIBRILLATION Status: Acute Plan - Discharge Medications Prescriptions: Amiodarone [Cordarone] 200 mg PO BID #60 tab hydrALAZINE HCl [Hydralazine HCl] 50 mg PO TID #90 tablet Amlodipine [Norvasc] 5 mg PO DAILY #30 tab Lisinopril [Prinivil] 10 mg PO DAILY #30 tablet Home Medications: Medication Instructions Recorded Confirmed Type Atorvastatin Calcium [Lipitor] 40 mg PO HS 09/09/19 01/10/20 History Dulaglutide [Trulicity] 0.5 ml SQ Q7DAYS 09/09/19 01/10/20 History Levothyroxine Sodium [Synthroid] 125 mcg PO QAM 09/09/19 01/10/20 History metFORMIN HCl [Metformin HCl] 1,000 mg PO BID-WM 09/09/19 01/10/20 History Insulin Glargine,Hum.Rec.Anlog 40 units SQ HS 12/07/19 01/10/20 History [Tomartin Solkegeanar] ALPRAZolam [Xanax] 0.25 mg PO DAILY #30 tab 12/09/19 01/10/20 Rx Budesonide/Formoterol Fumarate 2 puff INH BID #1 12/09/19 01/10/20 Rx [Budesonide-Formoterol 160-4.5] Ventolin HFA Inhaler 2 puff INH Q6HR PRN #1 12/09/19 01/10/20 Rx ALPRAZolam [Xanax] 0.25 mg PO TIDPRN PRN tab 01/18/20 Rx Amiodarone [Cordarone] 200 mg PO BID #60 tab 01/18/20 Rx Amlodipine [Norvasc] 5 mg PO DAILY #30 tab 01/18/20 Rx Lisinopril [Prinivil] 10 mg PO DAILY #30 tablet 01/18/20 Rx hydrALAZINE HCl [Hydralazine HCl] 50 mg PO TID #90 tablet 01/18/20 Rx Allergies: No Known Drug Allergies Allergy (Verified 01/10/20 04:29) - Discharge Instructions Activity:: Activity as Tolerated Nourishment:: Diabetic Diet Therapies:: Not Applicable Equipment/Supplies:: Not Applicable - Follow up Plan Referrals: Cardiac Rehab - [place] [Outside] - 7 Days (Your doctor has ordered outpatient cardiac rehab for you to begin within 1-2 weeks after you go home from the hospital. The location nearest to you is the [facility] [facility]. The front office in [place] will call you in 3-5 days to get you scheduled for your evaluation. If you do not receive a call, please reach out to them at [phone] and request an appointment. Should you have any trouble or need assistance, please call the cardiac rehab main line in [place] at [phone]) Yessica Pena PA-C [MD Not on Staff] - 01/23/20 11:45 am ( APPOINTMENT 01/22 @114[facility] ) Garcia Johnson MD [Active] - 2-3 Weeks (Please call office to schedule a follow up appointment with Florina Flores in 2 weeks.) Disposition: HOME Quality - Care Measures CORE MEASURES:: N/A
[2020-01-18] MEDS: HumaLOG 300 UNITS/3 ML VIAL SC PRN (11:29)
[2020-01-18 12:42] VITALS: BP 177/78
--- NOTE | 2020-01-18 13:00 | PQF ---
CLINICAL DOCUMENTATION CLARIFICATION FORM: Dear Dr. Jones Date: 01/18/20 Please exercise your independent, professional judgment in responding to the clarification form. Clinical indicators are provided on the bottom of this form for your review. Please check appropriate box(es) to clarify if the following diagnosis has been ruled in our ruled out: NSTEMI [ x ] Ruled in diagnosis [ ] Continue to treat [x ] Resolved [ ] Ruled out diagnosis [ ] Improving [ ] Cannot rule out diagnosis [ ] Other diagnosis [ ] Unable to determine In addition, please specify: Present on Admission (POA): [ ] Yes [ ] No [ ] Unable to determine For continuity of documentation, please document condition throughout progress notes and discharge summary. Thank You. To be completed by CDI/Coding staff for physician review: CLINICAL INDICATORS - SIGNS / SYMPTOMS / LABS / RESULTS AND LOCATION IN MR PN 01/09 ([facility]): "NSTEMI" CONSULTATION NOTE 01/09 ([facility]): "CHEST DISCOMFORT OF UNKNOWN ETIOLOGY" PN 01/12 ([facility]): "NSTEMI" "MOVED TO ICU FOR ONGOING CHEST PAIN" PN 01/17 ([facility]): "AFIB, NONSUSTAINED VTACH...DEPRESSED LEFT VENTRICULAR FUNCTION. IT LOOKS LIKE AN APICAL HYPOKINESIS AND I THINK THIS MAY BE RELATED TO TAKOTSUBO'S, BUT I AM NOT CERTAIN." "CAD WITH 50% LAD STENOSIS." TROPONIN 0.042 / 0.025 / 0.042 / 0.019 RISK FACTORS / RESULTS AND LOCATION IN MR RISKS: TOBACCO DEPENDENCE (PN 01/12- [facility]) AFIB (PN 01/12-[facility]) DIABETES (PN 01/12-[facility]) 50 % STENOSIS TO LAD (PER CATH REPORT) LV FUNCTION ASSESSED : ABNORMAL" (CATH REPORT) TREATMENTS / RESULTS AND LOCATION IN MR TELEMETRY MONITORING CARDIAC CATH 01/09 (SEE CATH REPORT) AMIODARONE (START 01/17) NITROPASTE (01/11-PRESENT) NORVASC (START 01/17) ECOTRIN (01/09-PRESENT) LISINOPRIL (START 01/17) CARDIZEM CD (01/11-01/16) CARDIOLOGY CONSULT CDS Signature: Cassie Tanner RN Phone #: [phone] Date: 01/18/20 This is a permanent part of the Medical Record [facility]
--- NOTE | 2020-01-20 13:04 | EKG ---
Test Reason : CP Blood Pressure : / mmHG Vent. Rate : 068 BPM Atrial Rate : 068 BPM P-R Int : 160 ms QRS Dur : 102 ms QT Int : 426 ms P-R-T Axes : 059 -34 053 degrees QTc Int : 452 ms Normal sinus rhythm Left axis deviation Abnormal ECG When compared with ECG of 09-JAN-2020 12:03, (Unconfirmed) Premature ventricular complexes are no longer Present Premature atrial complexes are no longer Present Confirmed by ALBA CASTANEDA (2) on 01/20/2020 1:04:16 PM Referred By: [facility] Confirmed By:ALBA CASTANEDA
--- NOTE | 2020-01-20 13:05 | EKG ---
Test Reason : C/O CHEST PAIN Blood Pressure : / mmHG Vent. Rate : 068 BPM Atrial Rate : 068 BPM P-R Int : 166 ms QRS Dur : 104 ms QT Int : 418 ms P-R-T Axes : 064 -34 055 degrees QTc Int : 444 ms Normal sinus rhythm Left axis deviation Nonspecific T wave abnormality Abnormal ECG When compared with ECG of 12-JAN-2020 01:22, (Unconfirmed) No significant change was found Confirmed by ALBA CASTANEDA (2) on 01/20/2020 1:04:48 PM Referred By: [facility] Confirmed By:ALBA CASTANEDA
== END 2020-01-18 12:42 | disposition home health service (06) | DRG 281 ==
LOC: ERS 11:56 → ERHOLD 14:57 → 2NO 20:27 → OBSVTOIN 01-10 13:51 → CCU 01-12 11:33 → 2NO 01-13 12:25
PROVIDERS: ADMIT Internal Medicine; ATTEND Hospitalist
PROC: 30230N1 Transfusion of Nonautologous Red Blood Cells into Peripheral Vein, Open Approach (ICD-10-PCS; 2020-01-14)
PROC: B2111ZZ Fluoroscopy of Multiple Coronary Arteries using Low Osmolar Contrast (ICD-10-PCS; principal; 2020-01-16)
PROC: B2151ZZ Fluoroscopy of Left Heart using Low Osmolar Contrast (ICD-10-PCS; 2020-01-16)
PROC: 4A023N7 Measurement of Cardiac Sampling and Pressure, Left Heart, Percutaneous Approach (ICD-10-PCS; 2020-01-16)
PROC: 0DB98ZX Excision of Duodenum, Via Natural or Artificial Opening Endoscopic, Diagnostic (ICD-10-PCS; 2020-01-17)
PROC: 0W3P8ZZ Control Bleeding in Gastrointestinal Tract, Via Natural or Artificial Opening Endoscopic (ICD-10-PCS; 2020-01-17)
DX: I21.4 Non-ST elevation (NSTEMI) myocardial infarction (principal); I47.2 Ventricular tachycardia; J44.1 Chronic obstructive pulmonary disease with (acute) exacerbation; E87.1 Hypo-osmolality and hyponatremia; N17.9 Acute kidney failure, unspecified; I42.9 Cardiomyopathy, unspecified; E87.2 Acidosis; F17.210 Nicotine dependence, cigarettes, uncomplicated; E78.5 Hyperlipidemia, unspecified; D72.829 Elevated white blood cell count, unspecified; I48.0 Paroxysmal atrial fibrillation; E11.65 Type 2 diabetes mellitus with hyperglycemia; E66.9 Obesity, unspecified; E87.5 Hyperkalemia; K64.4 Residual hemorrhoidal skin tags; K57.30 Diverticulosis of large intestine without perforation or abscess without bleeding; Z20.828 Contact with and (suspected) exposure to other viral communicable diseases; N18.30 Chronic kidney disease, stage 3 unspecified; I12.9 Hypertensive chronic kidney disease with stage 1 through stage 4 chronic kidney disease, or unspecified chronic kidney disease; E11.22 Type 2 diabetes mellitus with diabetic chronic kidney disease; D50.9 Iron deficiency anemia, unspecified; Z98.51 Tubal ligation status; Z90.89 Acquired absence of other organs; Z90.12 Acquired absence of left breast and nipple; Z85.3 Personal history of malignant neoplasm of breast; Z79.899 Other long term (current) drug therapy; Z79.51 Long term (current) use of inhaled steroids; Z79.84 Long term (current) use of oral hypoglycemic drugs; Z79.890 Hormone replacement therapy; Z79.2 Long term (current) use of antibiotics; Z93.0 Tracheostomy status; Z68.27 Body mass index [BMI] 27.0-27.9, adult
CPT/HCPCS: 36415; 36416; 36430; 71045; 71275; 76942; 78451; 80048; 80053; 80069; 81001; 82553; 82728; 83540; 83550; 83735; 83880; 83935; 84300; 84443; 84484; 85025; 85347; 85379; 86850; 86900; 86901; 87635; 88305; 93005; 93010; 93306; 93458; 93571; 93798; 94640; 94664; 94760; 96374; 96375; 99152; 99153; A9500; C1769; G0378; J0153; J0360; J1644; J1650; J1815; J2250; J2270; J2405; J2704; J2720; J2916; J2920; J3010; J3475; J3490; J7050; J7070; J7620; P9016; Q9967; U0003

== ENCOUNTER 2020-01-23 12:44 | Inpatient (IN) | payer MEDICARE, BC ==
[2020-01-23] MEDS ORDERED: Iopamidol-370 76% 500 ML 1 ML ONE (13:08)
[2020-01-23 14:01] LABS: #Lymphocytes 0.5 thou/uL (1.20-3.40); #Monocytes 1.1 thou/uL (0.11-0.59); #Neutrophils 17.6 thou/uL (1.40-6.50); %Eosinophils 0.1 % (0.0-10.0); %Lymphocytes 2.5 % (21.0-51.0); %Monocytes 5.8 % (0.0-10.0); %Neutrophils 91.5 % (42.0-75.0); Hemoglobin 10.7 g/dL (12.0-16.0); Mean Corpuscular HGB CONC 30.3 g/dL (32.0-36.0); Mean Corpuscular Hemoglobin 23.5 pg (27.0-31.0); Mean Corpuscular Volume 77.7 fL (78.0-98.0); Mean Platelet Volume 9.7 fL (7.4-10.4); Platelet Count 421 thou/uL (130-400); RBC Distribution Width 21.3 % (11.5-14.5); Red Blood Cell (RBC) Count 4.56 mill/uL (4.20-5.40); White Blood Cell (WBC) Count 19.3 thou/uL (4.8-10.8)
[2020-01-23 14:06] LABS: ALT (SGPT) 15 U/L (8-55); AST (SGOT) 23 U/L (5-34); Albumin 3.3 g/dL (3.4-4.8); Alkaline Phosphatase 111 U/L (40-110); Anion Gap 18 mmol/L (10-20); BUN (Urea Nitrogen) 22 mg/dL (9.8-20.1); Bilirubin, Total 0.6 mg/dL (0.2-1.2); Calc. Creatinine Clearance 0 mL/min (70-130); Calcium 8.4 mg/dL (7.8-10.44); Carbon Dioxide 23 mmol/L (23-31); Chloride 97 mmol/L (98-107); Globulin 2.9 g/dL (2.4-3.5); Glucose 138 mg/dL (83-110); Potassium 5.2 mmol/L (3.5-5.1); Protein, Total 6.2 g/dL (6.0-8.3); Sodium 133 mmol/L (136-145)
[2020-01-23] MEDS ORDERED: Cefepime 2 GM VIAL ONE (14:16)
[2020-01-23] MEDS ORDERED: Furosemide 40 MG/4 ML VIAL ONE (14:16)
--- NOTE | 2020-01-23 14:16 | CT ---
CT ANGIO OF CHEST PERFORMED WITH IV CONTRAST ENHANCEMENT WITH 3D RECONSTRUCTIONS: Date: 01/23/2020 HISTORY: Shortness of breath. COMPARISON: 01/09/2020 exam. FINDINGS: There has been development of moderate bilateral pleural effusions, left larger than right, with fair ly pronounced bibasilar atelectatic lung change. No significant mediastinal or hilar adenopathy present. There is a moderate pericardial effusion pres ent. The thoracic aorta is normal in caliber. There is good pulmonary artery opacification. I do not visua lize any other definitive emboli. Liver parenchyma shows no focal findings. Right and left adrenal glands are normal. IMPRESSION: 1. Moderate bilateral pleural effusions, left larger than right, with bibasilar atelectasis. 2. Moderate pericardial effusion. 3. Left upper lobe pulmonary embolus. This involves two of the left upper lobe pulmonary arteries. POS: [facility]ESSICA
[2020-01-23 14:23] LABS: Anisocytosis SLIGHT = 6-15 cells (100X) (0-5/hpf); Hypochromia SLIGHT = 6-15 cells (100X) (0-5/hpf); MDiff Complete? YES; Microcytosis SLIGHT = 6-15 cells (100X) (0-5/hpf); Ovalocytes SLIGHT = 2-5 cells (100X) (0-1/hpf); Platelet Morphology Comment Appears Increased; Poikilocytosis SLIGHT = 6-15 cells (100X) (0-5/hpf); Polychromasia SLIGHT = 2-3 cells (100X) (0-2/hpf); Schistocytes SLIGHT = 2-5 cells (100X) (0-1/hpf); Target Cells SLIGHT = 2-5 cells (100X) (0-1/hpf)
--- NOTE | 2020-01-23 14:30 | RAD ---
PORTABLE CHEST: Date: 01/23/2020 HISTORY: Shortness of breath. Low O2 sats. FINDINGS: Heart size is enlarged. Pulmonary vessels appear mildly engorged. There are bilateral pleural effusio ns, left larger than right. No confluent infiltrative process seen. Surgical clips are seen in the le ft axillary region. IMPRESSION: 1. Cardiomegaly with bilateral pleural effusions, left larger than right, and bibasilar atelectatic lung change. 2. Diffuse bony demineralization. POS: JESSICA
--- NOTE | 2020-01-23 15:50 | PDOC.HHP ---
Hospitalist HPI - History of Present Illness Shortness of breath History of Present Illness: Ms. Sherwood is a 79-year-old female with past medical history of COPD not on home O2, type 2 diabetes mellitus on insulin, hyperlipidemia, atrial fibrillation on amiodarone, who presented to the emergency room for worsening shortness of breath. Of note patient was recently admitted and discharged from the hospital on January 18, 2020 for chest pain found who underwent cardiac cath with no stenting, complicated by GI bleed and JAMES. Today she reports worsening shortness of breath over the past 2 days and increased swelling to her bilateral lower extremities. She denies chest pain, but reports that her abdomen is bloated and that she has not urinated in 8 days. Patient denies cough or known Covid exposure. Emergency initial vital signs 136/57, 90, 99.1, 97% on 3 L nasal cannula. EKG showed normal sinus rhythm, however patient converted into atrial fibrillation on monitors. Initial troponin negative. H/H 10.7/35.4. WBC 19.3. BUN/CR 22/1.52. Sodium 133, potassium 5.2. Glucose 138. D-dimer elevated at 3.86. Patient underwent CT PE protocol which showed pulmonary embolism to the left upper lobe as well as a moderate pericardial effusion and moderate bilateral effusions. Patient was started on heparin drip in the emergency room, vancomycin, cefepime and 80 mg of IV furosemide. Hospitalist ROS - Review of Systems Constitutional: reports: malaise. denies: fever, chills, sweats, weakness, other Eyes: denies: pain, vision change, conjunctivae inflammation, eyelid inflammation, redness, other ENT: denies: ear pain, ear discharge, nose pain, nose discharge, nose congestio n, mouth pain, mouth swelling, throat pain, throat swelling, other Respiratory: reports: shortness of breath, SOB with excertion. denies: cough, dry, hemoptysis, pleuritic pain, sputum, wheezing, other Cardiovascular: denies: chest pain, palpitations, orthopnea, paroxysmal noc. dyspnea, edema, light headedness, other Gastrointestinal: denies: nausea, vomiting, abdominal pain, diarrhea, constipation, melena, hematochezia, other Genitourinary: reports: retention. denies: dysuria, frequency, incontinence, hematuria, other Musculoskeletal: denies: neck pain, shoulder pain, arm pain, back pain, hand pain, leg pain, foot pain, other Skin: denies: rash, lesions, gavin, bruising, other Neurological: denies: weakness, numbness, incoordination, change in speech, confusion, seizures, other - Medication Medications: Her medications include Amiodarone Hydralazine Amlodipine Alprazolam Lisinopril Trulicity Atorvastatin Metformin Levothyroxine Insulin Budesonide/formoterol Ventolin No known drug allergies Hospitalist History - Past Medical History Heme/Onc: reports: Other (Breast cancer) Other Medical History: Past medical history significant for COPD not on home O2 Type 2 diabetes mellitus insulin-dependent Hyperlipidemia Hypertension Congestive heart failure with a EF of 40 to 45% Atrial fibrillation on amiodarone GI bleed History of cardiac arrest 20 years ago after a horse riding accident Breast cancer in remission 15 years ago - Past Surgical History Past Surgical History: reports: Mastectomy (Left), Tubal Ligation, Other (Tracheostomy removal greater than 20 years ago) Other Surgical History: Past surgical history involves Cardiac catheterization Tubal ligation Left mastectomy Tonsillectomy - Family History Other Family History: Denies family history of cancer, cardiac disease. - Social History Alcohol: reports: None Drugs: reports: none Living Situation: Alone Occupation: Retired - Exam General Appearance: NAD, awake alert Eye: PERRL, anicteric sclera ENT: normocephalic atraumatic, no oropharyngeal lesions, moist mucosa Neck: supple, symmetric, no thyromegaly, no lymphadenopathy, no carotid bruit, JVD Neck - other findings: Mild JVD Heart: RRR, no murmur, no gallops, no rubs, normal peripheral pulses Respiratory - other findings: Crackles at bilateral bases Gastrointestinal: soft, non-tender, non-distended, normal bowel sounds, no palpable masses, no hepatomegaly, no splenomegaly, no bruit Extremities: no cyanosis, no clubbing, 2+ LE edema Skin: normal turgor, no lesions, no rashes Neurological: cranial nerve grossly intact, normal sensation to touch, no weakness, no focal deficits, no new deficit Musculoskeletal: normal tone, normal strength, no muscle wasting Psychiatric: normal affect, normal behavior, A&O x 3 Hospitalist Results - Labs Result Diagrams: 01/23/20 13:37 01/23/20 13:37 Lab results: WBC 19.3 thou/uL (4.8-10.8) H 01/23/20 13:37 Hgb 10.7 g/dL (12.0-16.0) L 01/23/20 13:37 Hct 35.4 % (36.0-47.0) L 01/23/20 13:37 MCV 77.7 fL (78.0-98.0) L 01/23/20 13:37 Plt Count 421 thou/uL (130-400) H 01/23/20 13:37 Neutrophils % 91.5 % (42.0-75.0) H 01/23/20 13:37 Sodium 133 mmol/L (136-145) L 01/23/20 13:37 Potassium 5.2 mmol/L (3.5-5.1) H 01/23/20 13:37 Chloride 97 mmol/L (98-107) L 01/23/20 13:37 Carbon Dioxide 23 mmol/L (23-31) 01/23/20 13:37 BUN 22 mg/dL (9.8-20.1) H 01/23/20 13:37 Creatinine 1.52 mg/dL (0.6-1.1) H 01/23/20 13:37 Glucose 138 mg/dL (83-110) H 01/23/20 13:37 Calcium 8.4 mg/dL (7.8-10.44) 01/23/20 13:37 Total Bilirubin 0.6 mg/dL (0.2-1.2) 01/23/20 13:37 AST 23 U/L (5-34) 01/23/20 13:37 ALT 15 U/L (8-55) 01/23/20 13:37 Alkaline Phosphatase 111 U/L (40-110) H 01/23/20 13:37 Troponin I 0.018 ng/mL (< 0.028) 01/23/20 13:37 B-Natriuretic Peptide 72.6 pg/mL (0-100) 01/23/20 13:37 Serum Total Protein 6.2 g/dL (6.0-8.3) 01/23/20 13:37 Albumin 3.3 g/dL (3.4-4.8) L 12/07/20 13:37 Hospitalist H&P A/P - Plan Plan: 79-year-old female past medical history of COPD not on home O2, type 2 diabetes mellitus, hyperlipidemia, hypertension, congestive heart failure with EF of 40 to 45%, atrial fibrillation on amiodarone presents for worsening shortness of breath found to have pulmonary embolism and pericardial effusion. Course complicated by patient's JAMES and oliguria. Pulmonary embolism Pulmonary embolism identified on CTA. Of left lobe. Will start patient on heparin drip since patient has JAMES and not candidate for Lovenox. Patient has new oxygen requirement of 3 L nasal cannula. She is currently not in respiratory distress and maintaining her O2 sat while on 3 L nasal cannula. Plan Heparin drip Supplemental oxygen Close monitor respiratory status Pericardial effusion New onset shortness of breath patient also notes worsening lower extremity edema. CT chest revealed moderate pericardial effusion. Patient has only been no electrical alternans on EKG. Very mild JVD on exam, no respiratory distress. No signs of tamponade clinically. Will pursue stat echo to evaluate for RV strain and consult CT surgery as needed. Question if this is malignant effusion since patient has history of breast cancer although this is remote over 15 years ago. Plan Stat echocardiogram Closely monitor respiratory status Consider CT surgery consult CHF exacerbation Patient in acute CHF exacerbation with worsening bilateral pedal edema, pleural effusions and pericardial effusions on CT scan. EF 40-45%. Patient received 80 mg of IV Lasix in ED, however patient is currently oliguric. We will BladderScan patient and attempt straight cath. If patient not producing urine will consult nephrology for urgent dialysis. Plan IV Lasix BID Bladder scan/straight cath Consider urgent nephrology consult Atrial fibrillation History of atrial fibrillation on amiodarone. Patient in and out of atrial fibrillation during stay. Patient did receive Cardizem in the emergency room. Plan Consult cardiology Continue home amiodarone Telemetry monitoring TSH, magnesium COPD History of COPD not on home O2. Now requiring 3 L. We will continue home inhalers and make duo nebs available. Plan Continue supplemental oxygen DuoNebs as needed Oliguria with JAMES Patient reports she has not urinated for the past 8 days. However on further questioning patient has been producing small amount of urine. On exam abdomen tender and distended. Will stop bladder scan patient and place Corbin catheter. BUN/CR 22/1.52. Potassium 5.2. On review of records patient had similar problems during last admission. Will obtain UA if we can get urine and consult nephrology for further recommendations. Plan Bladder scan stat, Corbin catheter Trend kidney function Calcium gluconate for hyperkalemia and UA Nephrology consult Hyperkalemia Patient hyperkalemic to 5.2 no EKG changes. Patient did receive IV Lasix, however has not urinated yet. Suspect likely to urinary retention. Will a dminister calcium gluconate and consult nephrology for further recommendations. We will also place on telemetry monitoring for hyperkalemia. Plan Telemetry monitoring Calcium gluconate Trend potassium Sepsis without septic shock Patient meets sepsis criteria with elevated white blood cell count of 19.3, tachycardia to 109, tachypnea on presentation. Patient received vancomycin and cefepime in the emergency room. Blood pressure stable. Blood cultures drawn. Will hold off on IV fluids given patient's fluid overload status and pericardial/pleural effusions. Plan IV antibiotics Follow blood cultures Trend WBC, fever curve History of GIB Patient with history of GIB, which was clipped on recent admission. Patient needs to be heparinized due to PE. Discussed risks vs benefits of AC with patient. She denies melena or hematochezia. We will start on heparin drip and carefully monitor H/H, and stools for blood. Plan -Trend H/H -Carefully monitor stools for blood Type 2 DM Will hold home metformin in setting of JAMES. ISS, q6hr glucose checks. Plan -ISS -Hold home oral meds -NPO, q6hr glucose checks Hypothyroidism Continue home levothyroxine. Hyperlipidemia Continue home statin. Hypertension Hold home BP meds in setting of sepsis. DVT prophylaxisHeparin drip DNR, j luisay to intubate Case discussed with attending physician, Dr. Brown who is in agreement with plan above.
[2020-01-23] MEDS ORDERED: Vancomycin 1.5 GRAM/300 ML BAG 1.5 GM in Premix Bag 1 BAG IVPB SCH (16:00)
[2020-01-23] MEDS ORDERED: Acetaminophen 650 MG Suppository PR PRN (16:12)
[2020-01-23] MEDS ORDERED: Heparin 10,000 UNITS/ 10 ML VIAL ONE (16:18)
[2020-01-23] MEDS ORDERED: Dextrose 5% in Water 1,000 ML IV PRN (16:19)
[2020-01-23] MEDS ORDERED: Dextrose 50% Abboject 50 ML SYRINGE SLOW IVP PRN (16:19)
[2020-01-23] MEDS ORDERED: Heparin 10,000 UNITS/ 10 ML VIAL SLOW IVP SCH (16:30)
[2020-01-23] MEDS ORDERED: Heparin 25,000 units/D5W 500 ML IVPB SCH (16:30)
[2020-01-23 16:51] LABS: Hemoglobin 10.5 g/dL (12.0-16.0); Platelet Count 399 thou/uL (130-400)
[2020-01-23] MEDS ORDERED: Calcium Gluconate 4.6 MEQ in Sodium Chloride 0.9% 100 ML IVPB SCH (17:15)
[2020-01-23 17:19] LABS: Troponin I 0.022 ng/mL (< 0.028)
[2020-01-23 18:20] LABS: Bacteria/HPF 2+ HPF (None Seen); Bilirubin Negative (Negative); Blood, Urine Trace (Negative); Clarity Turbid (Clear); Glucose, Urine (Dipstick) Normal (Negative); Ketone, Urine Negative (Negative); Leukocyte 500 Leu/uL (Negative); Nitrite Negative (Negative); Protein, Urine (Dipstick) 30 mg/dL (Neg-Trace); Specific Gravity, Urine 1.014 (1.002-1.036); Squamous Epithelial None Seen HPF (0-3); Urobilinogen Normal mg/dL (Less than 2); WBC/HPF Greater than 50 HPF (0-3)
[2020-01-23 20:05] LABS: Troponin I 0.015 ng/mL (< 0.028)
[2020-01-23] MEDS ORDERED: Magnesium 2 GM/50 ML 2 GM in Premix Bag 1 BAG IVPB SCH (20:30)
[2020-01-23] MEDS ORDERED: Cefepime 2 GM in Sodium Chloride 0.9% 100 ML IVPB SCH (21:00)
[2020-01-23] MEDS: Amiodarone 200 MG TAB PO SCH (21:40)
[2020-01-23] MEDS: Atorvastatin Calcium 40 MG TAB PO SCH (21:40)
[2020-01-23 21:49] LABS: Anion Gap 18 mmol/L (10-20); BUN (Urea Nitrogen) 24 mg/dL (9.8-20.1); Calc. Creatinine Clearance 37 mL/min (70-130); Calcium 8.7 mg/dL (7.8-10.44); Carbon Dioxide 23 mmol/L (23-31); Chloride 98 mmol/L (98-107); Glucose 275 mg/dL (83-110); Potassium 4.9 mmol/L (3.5-5.1); Sodium 134 mmol/L (136-145)
[2020-01-23 22:11] LABS: Hemoglobin 10.4 g/dL (12.0-16.0)
[2020-01-24 02:15] LABS: SARS-CoV-2 MS2 Positive; SARS-CoV-2 N Gene Negative; SARS-CoV-2 S Gene Negative; SARS-CoV-2 by NAA Not Detected (NotDetected); SARS-CoV-2 orf1ab Negative
[2020-01-24] MEDS: Levothyroxine Sodium 125 MCG TAB PO SCH (06:42)
[2020-01-24] MEDS: Furosemide 40 MG/4 ML VIAL SLOW IVP SCH ×2 (06:42→14:06)
[2020-01-24 07:18] LABS: Hemoglobin 10.4 g/dL (12.0-16.0); Mean Corpuscular Hemoglobin 23.6 pg (27.0-31.0); Mean Corpuscular Volume 76.1 fL (78.0-98.0); Mean Platelet Volume 9.5 fL (7.4-10.4); Platelet Count 474 thou/uL (130-400); RBC Distribution Width 21.1 % (11.5-14.5); White Blood Cell (WBC) Count 15.5 thou/uL (4.8-10.8)
[2020-01-24 07:43] LABS: Anion Gap 16 mmol/L (10-20); BUN (Urea Nitrogen) 30 mg/dL (9.8-20.1); Calc. Creatinine Clearance 37 mL/min (70-130); Calcium 8.6 mg/dL (7.8-10.44); Carbon Dioxide 26 mmol/L (23-31); Chloride 96 mmol/L (98-107); Glucose 350 mg/dL (83-110); Potassium 4.4 mmol/L (3.5-5.1); Sodium 134 mmol/L (136-145)
[2020-01-24 07:46] LABS: PTT 195.4 sec (22.9-36.1)
[2020-01-24 08:06] LABS: Band 2 % (5-11); Burr Cells SLIGHT = 2-5 cells (100X) (0-1/hpf); Elliptocytes SLIGHT = 2-5 cells (100X) (0-1/hpf); Lymphocytes 3 % (21-51); MDiff Complete? YES; Monocytes 5 % (0-10); Neutrophil 90 % (42-75); Ovalocytes SLIGHT = 2-5 cells (100X) (0-1/hpf); Platelet Morphology Comment Appears Increased; Polychromasia SLIGHT = 2-3 cells (100X) (0-2/hpf)
--- NOTE | 2020-01-24 11:02 | CON ---
DATE OF CONSULTATION: HISTORY PRESENT ILLNESS: Ms. Sherwood presented to the Emergency Department yesterday with increasing levels of shortness of breath. She had a chest x-ray and CT angio of the chest was performed, which showed a left upper lobe pulmonary embolus and a small pericardial and pleural effusion. She underwent an echocardiogram today showing a [id number] pericardial effusion with no evidence of tamponade. Currently, she is resting comfortably in her bed, actually sleeping on my arrival with a heart rate of 60 and a blood pressure of 140/72. Oxygen saturations are 96% on 2 L. PAST MEDICAL HISTORY: 1. COPD. 2. Diabetes mellitus - insulin dependent. 3. Dyslipidemia. 4. Hypertension. 5. Congestive heart failure with chronic ejection fraction of 40% to 45%. 6. Chronic atrial fibrillation on amiodarone. 7. History of previous GI bleed. 8. History of cardiac arrest 20 years ago after a horse riding accident. 9. Breast cancer. PAST SURGICAL HISTORY: 1. Left mastectomy. 2. Tubal ligation. 3. Tracheostomy. 4. Tonsillectomy. SOCIAL HISTORY: She does not use alcohol or tobacco. PHYSICAL EXAMINATION: GENERAL: This is a well-developed woman, resting comfortably in bed. VITAL SIGNS: As above. HEART: Rhythm is irregularly irregular. ABDOMEN: Soft and nontender. LUNGS: Fairly clear bilaterally. NECK: She has no JVD. EXTREMITIES: There is minimal edema. ASSESSMENT AND PLAN: This is a 79-year-old woman with [id number] pericardial effusion. If there is concern over this being a malignant effusion, we can certainly do a window for diagnostic purposes. I would not perform window at this point, as she is not in tamponade and has a reason to be short of breath with pulmonary embolus. Her pleural effusion is also too small to be causing her any symptomatology. I will follow along with you. Job ID: [id number]
--- NOTE | 2020-01-24 11:16 | CON ---
DATE OF CONSULTATION: HISTORY OF PRESENT ILLNESS: Rima Sherwood is a 79-year-old white female, who was recently evaluated by Dr. Johnson in the hospital. She was admitted on December 06 with chest discomfort. She was to undergo cardiac catheterization, however, she had a significant drop in her hemoglobin and also her creatinine increased. She then underwent evaluation by Gastroenterology. This revealed a 1.5 to 2 cm nodular erythematous lesion in the cecum with significant bleeding. This was biopsied and hemostasis was achieved with plasma coagulation and placement of two clips. It was felt by GI that she could be anticoagulated after 48 to 72 hours. During the admission, she was in atrial fibrillation and then converted to sinus rhythm. She also had an episode of nonsustained ventricular tachycardia of 27 beats. She ultimately underwent cardiac catheterization by Dr. Johnson and was found to have apical akinesis. There was a 50% proximal LAD lesion and with flow wire, the fractional flow reserve was found to be 0.92. It was felt that she probably had Takotsubo cardiomyopathy. She was discharged on January 17 on tapering dose of amiodarone. She now presents again complaining of increased shortness of breath. She denied any significant chest discomfort. She has been found to have a left pulmonary emboli. She also had bilateral pleural effusions on chest CT as well as moderate pericardial effusion. She has been diuresed and breathing has improved. She also has been placed on intravenous heparin. PAST MEDICAL HISTORY: Atrial fibrillation with fast ventricular response, Takotsubo cardiomyopathy, hypertension, hypercholesterolemia, hypothyroidism, COPD. MEDICATIONS: Include, 1. Alprazolam 0.25 daily. 2. Amiodarone 200 mg b.i.d. 3. Amlodipine 5 mg daily. 4. Atorvastatin 40 mg at bedtime. 5. Trulicity 0.5 subcu q.7 days. 6. Hydralazine 50 t.i.d. 7. Insulin. 8. Levothyroxine 125 mcg q.a.m. 9. Lisinopril 10 mg daily. 10. Metformin 1000 b.i.d. 11. Ventolin inhaler two puffs q.6 hours p.r.n. ALLERGIES: SULFA. PHYSICAL EXAMINATION: VITAL SIGNS: Blood pressure 125/59, pulse of 66. HEENT: PERRL. NECK: Supple. CHEST: Clear. CARDIAC: S1 and S2 normal without any S3, S4, or murmurs. ABDOMEN: Normal bowel sounds without tenderness. EXTREMITIES: Revealed 1+ pretibial edema. NEUROLOGIC: Grossly intact. LABORATORY DATA: EKG reveals normal sinus rhythm with mildly prolonged QT interval. Hemoglobin 10.4, hematocrit 33.5, white count 15,500, platelets 474,000. PTT 127.0. D-dimer 3.86. Sodium 134, potassium 4.4, chloride 96, carbon dioxide 26, BUN 30, and creatinine 1.58. Troponin I 0.022. COVID negative. Chest CTA revealed bilateral pleural effusions, moderate pericardial effusion, left upper lobe pulmonary embolism. Echocardiogram today revealed moderate pericardial effusion with ejection fraction of 40% to 45% with apical akinesis. Mild mitral regurgitation and mild tricuspid regurgitation. IMPRESSION: 1. Left upper lobe pulmonary embolus. 2. Recent episode of probable Takotsubo cardiomyopathy. 3. Mild coronary artery disease with 50% mid LAD stenosis with fractional flow reserve of 0.92. 4. Chronic obstructive pulmonary disease. 5. Hypertension. 6. Hypercholesterolemia. 7. Diabetes. 8. Obesity. 9. Acute kidney injury on chronic kidney disease. 10. atrial fibrillation last admission. 11. Nonsustained v tach last admission RECOMMENDATIONS: Gastroenterology felt that she could be anticoagulated 48 to 72 hours after the procedure, which was one week ago. She currently is on intravenous heparin and eventually will need to be transitioned over to an oral anticoagulant. She also has received intravenous diuretics and this will be continued. Her renal function will need to be watched closely. Job ID: [id number] [facility]
[2020-01-24] MEDS: Amiodarone 200 MG TAB PO SCH ×2 (11:19→20:04)
[2020-01-24] MEDS: HumaLOG 300 UNITS/3 ML VIAL SC PRN ×2 (14:07→18:29)
[2020-01-24] MEDS: Cefepime 2 GM in Sodium Chloride 0.9% 100 ML IVPB SCH (14:10)
[2020-01-24] MEDS ORDERED: ALPRAZolam 0.25 MG TAB PO SCH (16:00)
[2020-01-24] MEDS: Vancomycin HCl 750 MG in Sodium Chloride 0.9% 250 ML 250 ML IVPB SCH (16:04)
--- NOTE | 2020-01-24 18:28 | PDOC.HOSPP ---
- Subjective Subjective: c/o dyspnea. no fever. denies of chest pain. attempted to call pt's son, Shane, but unable to reach - Objective Vital Signs & Weight: Vital Signs (12 hours) Temp Pulse Resp Pulse Ox 01/24/20 15:49 98.6 F 01/24/20 15:14 81 20 100 01/24/20 11:52 98.0 F 01/24/20 11:31 72 29 H 100 01/24/20 08:53 100 01/24/20 08:00 98 01/24/20 07:30 97.8 F Weight Weight 173 lb 9.6 oz Most Recent Monitor Data Heart Rate from ECG 72 NIBP 127/65 NIBP BP-Mean 85 Respiration from ECG 21 SpO2 94 I&O: 01/23/20 01/24/20 01/25/20 06:59 06:59 06:59 Intake Total 250 Output Total 700 Balance -450 Result Diagrams: 01/24/20 06:54 01/24/20 06:54 Additional Labs: Accuchecks 01/24/20 01/24/20 01/24/20 17:08 12:24 07:39 POC Glucose 270 H 292 H 342 H 01/23/20 20:53 POC Glucose 347 H Radiology Reviewed by me: Yes EKG Reviewed by me: Yes Hospitalist ROS - Medication Medications: Active Medications Generic Name Dose Route Start Last Admin Trade Name Freq PRN Reason Stop Dose Admin Albuterol/Ipratropium 3 ml 01/24/20 15:00 01/24/20 15:14 Ipratropium/Albuterol Sulfate 3 Ml Neb NEB 3 ml [id number] CANDY Administration Amiodarone HCl 200 mg 01/23/20 21:00 01/24/20 11:19 Amiodarone 200 Mg Tab PO 200 mg BID CANDY Administration Atorvastatin Calcium 40 mg 01/23/20 21:00 01/23/20 21:40 Atorvastatin Calcium 40 Mg Tab PO 40 mg HS CANDY Administration Furosemide 40 mg 01/24/20 06:00 01/24/20 14:06 Furosemide 40 Mg/4 Ml Vial SLOW IVP 40 mg 0600,1400 CANDY Administration Heparin Sodium (Porcine) 0 units 01/23/20 16:30 01/23/20 23:45 Heparin 10,000 Units/ 10 Ml Vial SLOW IVP 6,312 unit ASDIR CANDY Administration Protocol Vancomycin HCl 750 mg/ Sodium 250 mls @ 250 mls/hr 01/24/20 17:00 01/24/20 16:04 Chloride IVPB 250 mls 1700 CANDY Administration Cefepime HCl 2 gm/ Sodium 100 mls @ 200 mls/hr 01/24/20 15:00 01/24/20 14:10 Chloride IVPB 100 mls 1500 CANDY Administration Insulin Human Lispro 0 units 01/23/20 16:19 01/24/20 14:07 Humalog 300 Units/3 Ml Vial SC 4 unit .MILD SLIDING SCALE PRN Administration Mild Correctional Scale Levothyroxine Sodium 125 mcg 01/24/20 06:00 01/24/20 06:42 Levothyroxine Sodium 125 Mcg Tab PO 125 mcg 0600 [facility] Administration - Exam General Appearance: NAD Eye: PERRL ENT: normocephalic atraumatic Neck: supple, symmetric Heart: RRR Respiratory: CTAB, no wheezes Gastrointestinal: soft, non-tender Extremities: no cyanosis, 1+ LE edema Skin: normal turgor Neurological: cranial nerve grossly intact Musculoskeletal: normal tone, normal strength Psychiatric: normal affect, normal behavior, A&O x 3 Hosp A/P - Plan 79-year-old female past medical history of COPD not on home O2, type 2 diabetes mellitus, hyperlipidemia, hypertension, congestive heart failure with EF of 40 to 45%, atrial fibrillation on amiodarone presents for worsening shortness of breath found to have pulmonary embolism and pericardial effusion. Course complicated by patient's JAMES and oliguria. Acute Pulmonary embolism --will transition to oral AC, Eliquis. Follow CBC --check Venous doppler. Echo reviewed --wean O2 as nellie Pericardial effusion --small, no evidence of cardiac temponade --appreciate CTS input. CHF exacerbation --acute on chronic systolic HF --cont IV Lasix, Echo showed EF 45% --appreciate cardiology input, monitor I&O, and daily weight Atrial fibrillation --paroxysmal. NSR. cont amio. start AC as above COPD --History of COPD not on home O2. Now requiring 3 L. We will continue home inhalers and make duo nebs available. JAMES on CKD3 --Cr stable with diuresis Hyperkalemia --resolved. Sepsis without septic shock --unclear source, presumed sepsis on admission. I think noninfectious SIRS rat her. will follow cultures. cont IV abx empirically for now. History of GIB --H/H stable. Type 2 DM --Will hold home metformin in setting of JAMES. ISS, q6hr glucose checks. Hypothyroidism --Continue home levothyroxine. Hyperlipidemia --Continue home statin. Hypertension --resume home meds
--- NOTE | 2020-01-24 18:40 | CON ---
DATE OF CONSULTATION: 01/24/2020 HISTORY OF PRESENT ILLNESS: A 79-year-old female who presented with shortness of breath. She says she is feeling better. She had no chest pain with this. CT pulmonary angiogram done yesterday after lunch in the emergency department showed bilateral pleural effusions, pericardial effusion, and left upper lobe pulmonary embolus. She subsequently has been admitted to intermediate care. PAST MEDICAL HISTORY: Remarkable for, 1. Takotsubo cardiomyopathy. 2. History of GI bleed. 3. COPD. 4. Diabetes. 5. Lipid disorder. 6. Hypertension. 7. History of systolic cardiomyopathy. 8. Chronic atrial fibrillation. 9. History of cardiac arrest after a horseback riding accident 20 years ago. 10. History of breast cancer leading to a left mastectomy. 11. History of tubal ligation. 12. History of tracheostomy and tonsillectomy. 13. History of 50% LAD coronary lesion. MEDICATIONS: Reviewed. FAMILY HISTORY: Negative for lung disease in early age. ALLERGIES: SHE REPORTS AN ALLERGY TO SULFA. PHYSICAL EXAMINATION: GENERAL: She is in no distress. She wanted to talk about her social situation more than she did her health. She was very pleasant. VITAL SIGNS: She is afebrile, heart rate 72, respiratory rates in the 20s, oximetry is 100% on 3 L, blood pressure 133/53. HEAD AND NECK: Unremarkable. LUNGS: Remarkable for decreased breath sounds at her bases. HEART: Regular rhythm. Distant S1 and S2. ABDOMEN: Soft and nontender. EXTREMITIES: Without asymmetry. NEUROLOGIC: Grossly nonfocal. IMPRESSION AND PLAN: Shortness of breath, most likely related to her bilateral effusions and her cardiomyopathy. I am not sure her pulmonary embolus involving just her left upper lobe really explains her dyspnea. She has relatively little perfusion to the upper lobes when she is in the upright position. I think that this is more of an incidental finding, but does warrant anticoagulation. We will have to be careful with anticoagulation given that she has pericardial effusion. We will be happy to follow the other physicians caring for. At this point in time, no window is planned. We will follow the other physicians. This is a 50 min consult with greater than 50% of the time spent on the unit with coordination of care. Job ID: [id number] [facility] NETWORKDelmar
[2020-01-24] MEDS: Insulin Glargine 32 UNITS in Pre-Filled Syringe 1 EACH SC SCH (20:03)
[2020-01-24] MEDS: hydrALAZINE 25 MG TAB PO SCH (20:04)
[2020-01-24] MEDS: Apixaban 5 MG TAB PO SCH (20:04)
[2020-01-24] MEDS: Atorvastatin Calcium 40 MG TAB PO SCH (20:05)
[2020-01-24] MEDS ORDERED: Non-Formulary Item 1 EACH (Insulin Glargine,Hum.Rec.Anlog [Toujeo Solostar] 300 UNIT/ML I SQ SCH (21:00)
--- NOTE | 2020-01-24 21:02 | CON ---
DATE OF CONSULTATION: 01/24/2020 CONSULTING PHYSICIAN: Catherine Walter PA-C. REASON FOR CONSULTATION: Acute kidney injury. REASON FOR ADMISSION: Shortness of breath. HISTORY OF PRESENT ILLNESS: A 79-year-old female with history of COPD, type 2 diabetes, hyperlipidemia, atrial fibrillation, came to the hospital with shortness of breath and was started on diuretic therapy, but she did not have much urine output initially and was found to have CKD, and Nephrology was consulted. When I saw her, the patient started making urine, at least 70 mL/h. She is still on Lasix. She is feeling better. Shortness of breath was better. No chest pain, palpitation. No nausea or vomiting reported. PAST MEDICAL HISTORY: Positive for COPD, type 2 diabetes, hyperlipidemia, hypertension, CHF, atrial fibrillation, GI bleed, cardiac arrest, and breast cancer. PAST SURGICAL HISTORY: Mastectomy, tracheostomy, cardiac cath, and tubal ligation. HOME MEDICATIONS: Reviewed. ALLERGIES: TO SULFA. SOCIAL HISTORY: No smoking, alcohol, or drug abuse. FAMILY HISTORY: No history of kidney disease. REVIEW OF SYSTEMS: The following complete review of systems was negative, unless otherwise mentioned in the HPI or below: Constitutional: Weight loss or gain, ability to conduct usual activities. Skin: Rash, itching. Eyes: Double vision, pain. ENT/Mouth: Nose bleeding, neck stiffness, pain, tenderness. Cardiovascular: Palpitations, dyspnea on exertion, orthopnea. Respiratory: Shortness of breath, wheezing, cough, hemoptysis, fever or night sweats. Gastrointestinal: Poor appetite, abdominal pain, heartburn, nausea, vomiting, constipation, or diarrhea. Genitourinary: Urgency, frequency, dysuria, nocturia. Musculoskeletal: Pain, swelling. Neurologic/Psychiatric: Anxiety, depression. Allergy/Immunologic: Skin rash, bleeding tendency. PHYSICAL EXAMINATION: GENERAL: This is a well-built female, in no apparent distress. VITAL SIGNS: Temperature 98.6, pulse 81, respiratory rate 18, blood pressure 127/61. HEENT: Atraumatic, normocephalic. Oral mucosa moist. NECK: Supple. CV: S1, S2 heard. Rate and rhythm regular. RESPIRATORY: Clear. GI: Abdomen is obese, soft. MUSCULOSKELETAL: 1+ edema. DERMATOLOGIC: Denies. NEUROLOGIC: Alert and awake. PSYCHIATRIC: Mood and affect normal. LABORATORY DATA: Hemoglobin is 10.4, potassium 4.4, BUN is 30, and creatinine is 1.58. Baseline creatinine is around 0.7-1.2. ASSESSMENT AND PLAN: 1. Acute kidney injury on chronic kidney stage 3, most likely cardiorenal syndrome. Agree with Dima. We will continue to monitor electrolytes and renal function closely. The patient is having good urine output when I saw her. Continue to monitor. Avoid dehydration. Avoid nephrotoxins and renally dose the medications. We will follow. Recommend cautious use of diuretics with close monitoring of renal function and electrolytes. 2. Hyponatremia, most likely secondary to fluid overload. We will monitor. 3. Hyperglycemia with history of type 2 diabetes. 4. Anemia of chronic disease. 5. History of hypertension. 6. Cardiorenal syndrome. 7. History of congestive heart failure. 8. History of atrial fibrillation. 9. Mild hypoalbuminemia. Plan is to continue on diuretic therapy with monitoring of Is and Os and daily weight and electrolytes and renal function. Continue current management for now, and we will add a diuretic therapy based on the renal labs. We will recommend holding the lisinopril while we are doing the diuresis, and I have ordered to stop the lisinopril. We will continue to follow. Thank you for the consult. Job ID: [id number]
--- NOTE | 2020-01-24 23:36 | ULT ---
US Venous Doppler Bilat History: Pulmonary embolism Comparison: None. Findings: Real-time grayscale color Doppler and spectral analysis bilateral lower extremity venous sy stem was performed. The common femoral, femoral, proximal portions greater saphenous and deep femoral veins as well as the popliteal and posterior tibial veins were interrogated. Normal flow, augmentation and compression. Impression: No deep venous thrombosis.
[2020-01-24] MEDS: ALPRAZolam 0.25 MG TAB PO PRN (23:42)
[2020-01-25 04:20] LABS: Phosphorus 3.6 mg/dL (2.3-4.7)
[2020-01-25 04:23] LABS: Anion Gap 16 mmol/L (10-20); BUN (Urea Nitrogen) 34 mg/dL (9.8-20.1); Calc. Creatinine Clearance 42 mL/min (70-130); Calcium 8.2 mg/dL (7.8-10.44); Carbon Dioxide 26 mmol/L (23-31); Chloride 97 mmol/L (98-107); Glucose 187 mg/dL (83-110); Magnesium 1.6 mg/dL (1.6-2.6); Potassium 3.8 mmol/L (3.5-5.1); Sodium 135 mmol/L (136-145)
[2020-01-25 05:38] LABS: #Basophils 0.1 thou/uL (0.0-0.2); #Lymphocytes 1.3 thou/uL (1.20-3.40); #Monocytes 1.5 thou/uL (0.11-0.59); #Neutrophils 13.5 thou/uL (1.40-6.50); %Basophils 0.4 % (0.0-1.0); %Eosinophils 0.3 % (0.0-10.0); %Lymphocytes 7.9 % (21.0-51.0); %Monocytes 8.9 % (0.0-10.0); %Neutrophils 82.6 % (42.0-75.0); Anisocytosis SLIGHT = 6-15 cells (100X) (0-5/hpf); Elliptocytes SLIGHT = 2-5 cells (100X) (0-1/hpf); Hemoglobin 9.4 g/dL (12.0-16.0); Hypochromia SLIGHT = 6-15 cells (100X) (0-5/hpf); MDiff Complete? YES; Mean Corpuscular HGB CONC 29.9 g/dL (32.0-36.0); Mean Corpuscular Hemoglobin 22.8 pg (27.0-31.0); Mean Corpuscular Volume 76.4 fL (78.0-98.0); Mean Platelet Volume 8.8 fL (7.4-10.4); Platelet Count 539 thou/uL (130-400); Platelet Morphology Comment Appears Increased; White Blood Cell (WBC) Count 16.4 thou/uL (4.8-10.8)
[2020-01-25] MEDS: Furosemide 40 MG/4 ML VIAL SLOW IVP SCH ×2 (06:12→14:28)
[2020-01-25] MEDS: Levothyroxine Sodium 125 MCG TAB PO SCH (06:12)
[2020-01-25] MEDS: Mometasone 200 MCG/Formoterol 5 MCG 120 PUFF INHALER INH SCH ×3 (07:02→18:55)
[2020-01-25] MEDS ORDERED: ALPRAZolam 0.25 MG TAB PO SCH (09:00)
[2020-01-25] MEDS ORDERED: Lisinopril 10 MG TAB PO SCH (09:00)
[2020-01-25] MEDS: hydrALAZINE 25 MG TAB PO SCH ×2 (10:01→14:28)
[2020-01-25] MEDS: Apixaban 5 MG TAB PO SCH ×2 (10:01→22:34)
[2020-01-25] MEDS: Amlodipine 5 MG TAB PO SCH (10:02)
[2020-01-25] MEDS: Amiodarone 200 MG TAB PO SCH ×2 (10:02→22:34)
[2020-01-25] MEDS: ALPRAZolam 0.25 MG TAB PO PRN ×3 (10:02→22:33)
[2020-01-25] MEDS ORDERED: Potassium Chloride 20 MEQ TAB PO SCH (11:15)
[2020-01-25] MEDS ORDERED: Magnesium 2 GM/50 ML 2 GM in Premix Bag 1 BAG IVPB SCH (11:30)
--- NOTE | 2020-01-25 11:52 | PRG ---
DATE OF SERVICE: 01/25/2020 SUBJECTIVE: Patient was seen and examined at bedside and overnight events noted. Patient denies any shortness of breath or chest pain or palpitation. No history of nausea or vomiting or diarrhea or fever or chills or cramps. OBJECTIVE: GENERAL: This is a well-built female, in no apparent distress. VITAL SIGNS: Temperature 97.5, pulse 73, respiratory rate 18, and blood pressure 137/46. HEENT: Atraumatic, normocephalic. Oral mucosa is moist. NECK: Supple. CARDIOVASCULAR: S1, S2 heard. Rate and rhythm regular. RESPIRATORY: Clear to auscultation. GASTROINTESTINAL: Abdomen is soft. MUSCULOSKELETAL: No tenderness. No edema. DERMATOLOGIC: No skin rash. NEUROLOGIC: Alert and awake and oriented x3. No focal neurologic deficits. Moving all the extremities. PSYCHIATRIC: Mood and affect normal. LABORATORY DATA: Potassium 3.8, BUN is 34, and creatinine is 1.4. ASSESSMENT AND PLAN: 1. Acute kidney injury on chronic kidney disease, stage 3 with slight improvement in labs and she is making urine. Currently, on Lasix. I would recommend cautious use of diuretics with close monitoring of renal function and electrolytes. 2. Hypernatremia, seems to be stable, slightly better at 135 today. 3. Hyperglycemia with history of type 2 diabetes. 4. Anemia of chronic disease. 5. Hypertension. 6. Cardiorenal syndrome. 7. Atrial fibrillation. 8. Hypoalbuminemia. Labs are stable. Recommend caution with diuretics. Replace magnesium and potassium today, and the patient is requesting intermediate placement closer to [place] where her son leaves. We will have Case Management consult. Bedside nurse also being updated about her request. We will follow. Job ID: [id number]
[2020-01-25] MEDS: HumaLOG 300 UNITS/3 ML VIAL SC PRN ×2 (12:19→19:05)
[2020-01-25] MEDS: Cefepime 2 GM in Sodium Chloride 0.9% 100 ML IVPB SCH (16:02)
[2020-01-25] MEDS: Vancomycin HCl 750 MG in Sodium Chloride 0.9% 250 ML 250 ML IVPB SCH (17:18)
--- NOTE | 2020-01-25 17:26 | PDOC.HOSPP ---
- Subjective Subjective: Pt was seen and examined. no acute event overnight. still dyspneic with exertion - Objective Vital Signs & Weight: Vital Signs (12 hours) Temp Pulse Resp BP Pulse Ox 01/25/20 16:00 78 19 118/49 L 93 L 01/25/20 14:28 76 01/25/20 14:05 76 18 01/25/20 12:00 97.6 F 01/25/20 10:33 73 16 01/25/20 10:02 73 01/25/20 10:01 73 01/25/20 07:17 97.5 F L 01/25/20 07:04 73 20 Weight Weight 173 lb 9.6 oz Most Recent Monitor Data Heart Rate from ECG 78 NIBP 125/49 NIBP BP-Mean 74 Respiration from ECG 20 SpO2 95 I&O: 01/24/20 01/25/20 01/26/20 06:59 06:59 06:59 Intake Total 250 480 Output Total 700 850 Balance -450 -370 Result Diagrams: 01/25/20 03:16 01/25/20 03:16 Additional Labs: Accuchecks 01/25/20 01/25/20 01/24/20 10:39 06:17 20:02 POC Glucose 266 H 149 H 304 H Radiology Reviewed by me: Yes EKG Reviewed by me: Yes Hospitalist ROS - Medication Medications: Active Medications Generic Name Dose Route Start Last Admin Trade Name Freq PRN Reason Stop Dose Admin Albuterol/Ipratropium 3 ml 01/24/20 15:00 01/25/20 14:05 Ipratropium/Albuterol Sulfate 3 Ml Neb NEB 3 ml [id number] CANDY Administration Alprazolam 0.25 mg 01/24/20 18:31 01/25/20 10:02 Alprazolam 0.25 Mg Tab PO 0.25 mg QID PRN Administration Anxiety Amiodarone HCl 200 mg 01/23/20 21:00 01/25/20 10:02 Amiodarone 200 Mg Tab PO 200 mg BID CANDY Administration Amlodipine Besylate 5 mg 01/25/20 09:00 01/25/20 10:02 Amlodipine 5 Mg Tab PO 5 mg DAILY CANDY Administration Apixaban 10 mg 01/24/20 21:00 01/25/20 10:01 Apixaban 5 Mg Tab PO 10 mg BID CANDY Administration Atorvastatin Calcium 40 mg 01/23/20 21:00 01/24/20 20:05 Atorvastatin Calcium 40 Mg Tab PO 40 mg HS CANDY Administration Furosemide 40 mg 01/24/20 06:00 01/25/20 14:28 Furosemide 40 Mg/4 Ml Vial SLOW IVP 40 mg 0600,1400 CANDY Administration Hydralazine HCl 50 mg 01/24/20 21:00 01/25/20 14:28 Hydralazine 25 Mg Tab PO 50 mg TID CANDY Administration Vancomycin HCl 750 mg/ Sodium 250 mls @ 250 mls/hr 01/24/20 17:00 01/24/20 16:04 Chloride IVPB 250 mls 1700 CANDY Administration Cefepime HCl 2 gm/ Sodium 100 mls @ 200 mls/hr 01/24/20 15:00 01/24/20 14:10 Chloride IVPB 100 mls 1500 CANDY Administration Insulin Glargine 32 units/ 0.32 mls @ 0 mls/hr 01/24/20 21:00 01/24/20 20:03 Miscellaneous Medication SC 0.32 mls HS CANDY Administration Insulin Human Lispro 0 units 01/23/20 16:19 01/25/20 12:19 Humalog 300 Units/3 Ml Vial SC 4 unit .MILD SLIDING SCALE PRN Administration Mild Correctional Scale Levothyroxine Sodium 125 mcg 01/24/20 06:00 01/25/20 06:12 Levothyroxine Sodium 125 Mcg Tab PO 125 mcg 0600 CANDY Administration Mometasone Furoate/Formoterol Fumar 2 puff 01/24/20 18:30 01/25/20 07:05 Mometasone 200 Mcg/Formoterol 5 Mcg 120 Puff Inhaler INH Not Given BID-RT CANDY - Exam General Appearance: NAD Eye: PERRL ENT: normocephalic atraumatic Neck: supple Heart: RRR Respiratory: CTAB Gastrointestinal: soft Extremities: no cyanosis Skin: normal turgor Neurological: cranial nerve grossly intact Psychiatric: normal affect, normal behavior Hosp A/P - Plan 79-year-old female past medical history of COPD not on home O2, type 2 diabetes mellitus, hyperlipidemia, hypertension, congestive heart failure with EF of 40 to 45%, atrial fibrillation on amiodarone presents for worsening shortness of breath found to have pulmonary embolism and pericardial effusion. Course complicated by patient's JAMES and oliguria. Acute Pulmonary embolism --will transition to oral AC, Eliquis. Follow CBC --Venous doppler - pending. Echo reviewed --wean O2 as nellie. Transfer to tele. PT eval Pericardial effusion --small, no evidence of cardiac temponade --appreciate CTS input. CHF exacerbation --acute on chronic systolic HF --cont IV Lasix, Echo showed EF 45% --appreciate cardiology input, monitor I&O, and daily weight Atrial fibrillation --paroxysmal. NSR. cont amio. start AC as above COPD --History of COPD not on home O2. Now requiring 3 L. We will continue home inhalers and make duo nebs available. JAMES on CKD3 --Cr stable with diuresis Hyperkalemia --resolved. Sepsis without septic shock --unclear source, presumed sepsis on admission. I think noninfectious SIRS rather. will follow cultures. cont IV abx empirically for now. History of GIB --H/H stable. Type 2 DM --Will hold home metformin in setting of JAMES. ISS, q6hr glucose checks. Hypothyroidism --Continue home levothyroxine. Hyperlipidemia --Continue home statin. Hypertension --resume home meds
[2020-01-25] MEDS: Acetaminophen 325 MG TAB PO PRN (17:42)
--- NOTE | 2020-01-25 18:53 | PRG ---
DATE OF SERVICE: 01/25/2020 SUBJECTIVE: Rima Sherwood is clinically unchanged. OBJECTIVE: VITAL SIGNS: Heart rate is in the 70s, respiratory rate is 18, blood pressure 125/49. LUNGS: Distant clear. HEART: Regular rhythm. ABDOMEN: Soft. LABORATORY DATA: White count 16.4, hemoglobin 9.4, and platelets 539. Sodium 135, potassium 3.8, chloride 97, bicarb 26, BUN 34, creatinine 1.4, and glucose 187. IMPRESSION: Multiple medical problems, overall that are reasonably stable. I would think she can move out of the intermediate care unit. Job ID: [id number]
[2020-01-25 19:08] LABS: Hemoglobin 10.4 g/dL (12.0-16.0); Platelet Count 592 thou/uL (130-400)
[2020-01-25 19:47] LABS: Vancomycin, Trough 32.1 ug/mL
[2020-01-25] MEDS: Atorvastatin Calcium 40 MG TAB PO SCH (22:34)
[2020-01-26] MEDS: hydrALAZINE 25 MG TAB PO SCH ×4 (02:49→21:02)
[2020-01-26] MEDS: Insulin Glargine 32 UNITS in Pre-Filled Syringe 1 EACH SC SCH ×2 (02:50→21:22)
[2020-01-26 04:08] LABS: #Eosinphils 0.1 thou/uL (0.0-0.7); #Lymphocytes 1.6 thou/uL (1.20-3.40); #Monocytes 1.7 thou/uL (0.11-0.59); #Neutrophils 11.9 thou/uL (1.40-6.50); %Basophils 0.2 % (0.0-1.0); %Eosinophils 0.8 % (0.0-10.0); %Lymphocytes 10.6 % (21.0-51.0); %Monocytes 11.1 % (0.0-10.0); %Neutrophils 77.3 % (42.0-75.0); Hemoglobin 10.3 g/dL (12.0-16.0); Mean Corpuscular HGB CONC 30.6 g/dL (32.0-36.0); Mean Corpuscular Volume 78.2 fL (78.0-98.0); Mean Platelet Volume 8.1 fL (7.4-10.4); Platelet Count 594 thou/uL (130-400); RBC Distribution Width 20.9 % (11.5-14.5); Red Blood Cell (RBC) Count 4.31 mill/uL (4.20-5.40); White Blood Cell (WBC) Count 15.4 thou/uL (4.8-10.8)
[2020-01-26 04:44] LABS: Anion Gap 15 mmol/L (10-20); BUN (Urea Nitrogen) 29 mg/dL (9.8-20.1); Calc. Creatinine Clearance 39 mL/min (70-130); Calcium 8.4 mg/dL (7.8-10.44); Carbon Dioxide 28 mmol/L (23-31); Chloride 98 mmol/L (98-107); Glucose 177 mg/dL (83-110); Magnesium 1.8 mg/dL (1.6-2.6); Potassium 4.6 mmol/L (3.5-5.1); Sodium 136 mmol/L (136-145)
[2020-01-26] MEDS: Furosemide 40 MG/4 ML VIAL SLOW IVP SCH ×2 (06:12→13:57)
[2020-01-26] MEDS: Levothyroxine Sodium 125 MCG TAB PO SCH (06:13)
[2020-01-26] MEDS: Acetaminophen 325 MG TAB PO PRN ×3 (06:13→21:01)
[2020-01-26] MEDS: ALPRAZolam 0.25 MG TAB PO PRN ×3 (06:13→21:01)
[2020-01-26] MEDS: Amlodipine 5 MG TAB PO SCH (08:03)
[2020-01-26] MEDS: Apixaban 5 MG TAB PO SCH ×2 (08:03→21:02)
[2020-01-26] MEDS: Amiodarone 200 MG TAB PO SCH ×2 (08:04→21:03)
[2020-01-26] MEDS: Mometasone 200 MCG/Formoterol 5 MCG 120 PUFF INHALER INH SCH ×2 (09:06→17:04)
--- NOTE | 2020-01-26 11:48 | PRG ---
DATE OF SERVICE: 01/26/2020 SUBJECTIVE: Patient was seen and examined at bedside and overnight events noted. Patient denies any shortness of breath or chest pain or palpitation. No history of nausea or vomiting or diarrhea or fever or chills or cramps. OBJECTIVE: GENERAL: This is a well-built female, in no apparent distress. VITAL SIGNS: Temperature 97.8. Heart rate 73. Respiratory rate 22. Blood pressure 145/64. HEENT: Atraumatic, normocephalic. Oral mucosa is moist NECK: Supple. CARDIOVASCULAR: S1, S2 heard. Rate and rhythm regular. RESPIRATORY: Scattered crackles present. GASTROINTESTINAL: Abdomen is soft. MUSCULOSKELETAL: No tenderness. 1+ edema. DERMATOLOGIC: No skin rash. NEUROLOGIC: Alert and awake and oriented X3. No focal neurologic deficits. Moving all the extremities. PSYCHIATRIC: Mood and affect normal. LABORATORY DATA: Potassium is 4.6, BUN is 29 from 34 yesterday, and creatinine is 1.52 from 1.4 yesterday. ASSESSMENT AND PLAN: 1. Acute kidney injury on chronic kidney disease stage 3 was stable with slight bump in creatinine. The patient currently on Lasix and she remains fluid overloaded and it is deemed that she needs IV diuresis to improve her fluid status and cardiac status and cardiorespiratory status. 2. Hyponatremia, seems to be better. Limit fluid intake. 3. Hyperglycemia. 4. Anemia of chronic disease. 5. Hypertension. 6. Cardiorenal syndrome. 7. Atrial fibrillation. 8. Hypoalbuminemia. Plan is to continue diuretics at this point to improve respiratory status and oxygenation status and we will monitor renal function and electrolytes, so far staying stable. All the above findings were discussed with the patient. Job ID: [id number]
[2020-01-26] MEDS: HumaLOG 300 UNITS/3 ML VIAL SC PRN ×2 (12:38→18:27)
[2020-01-26] MEDS: Cefepime 2 GM in Sodium Chloride 0.9% 100 ML IVPB SCH (14:00)
[2020-01-26 16:17] LABS: Vancomycin, Trough 8.3 ug/mL
--- NOTE | 2020-01-26 16:41 | PRG ---
DATE OF SERVICE: 01/26/2020 SUBJECTIVE: Ms. Sherwood does not really clinically changed at all. She is on room air now. OBJECTIVE: VITAL SIGNS: Oximetry is in the mid 90s, she is afebrile, blood pressure 133/92, heart rate is in 70s. LUNGS: Unchanged. HEART: Unchanged. ABDOMEN: Unchanged. IMPRESSION: 1. Pulmonary embolism, likely not accounting for shortness of breath. 2. Pleural and pericardial effusions, likely causing her shortness of breath. 3. Acute on chronic kidney disease. 4. History of cardiomyopathy. 5. History of chronic obstructive pulmonary disease. 6. History of gastrointestinal bleed. 7. History of atrial fibrillation. It is my opinion she is stable. I really do not see a reason to keep her on broad-spectrum antimicrobial therapy intravenously. Cultures are negative. I do not see anything radiographically or clinically suggestive of pneumonia. In my opinion, her antimicrobial therapy could be discontinued and she could be watched. Job ID: [id number]
--- NOTE | 2020-01-26 16:41 | PDOC.HOSPP ---
- Subjective Subjective: Pt was seen and examined. c/o chest wall pain, attribute to coughs. no fever. Hb stable. pending tele bed. - Objective Vital Signs & Weight: Vital Signs (12 hours) Temp Pulse Pulse Pulse Resp BP BP 01/26/20 16:31 96.6 F L 01/26/20 16:00 98.3 F 20 01/26/20 14:07 77 01/26/20 12:00 97 F L 77 20 01/26/20 10:11 01/26/20 10:08 73 18 01/26/20 08:46 78 77 128/78 136/76 01/26/20 08:06 78 01/26/20 08:03 78 01/26/20 08:00 01/26/20 07:11 97.8 F Pulse Ox Pulse Ox Pulse Ox 01/26/20 16:31 01/26/20 16:00 95 01/26/20 14:07 01/26/20 12:00 94 L 01/26/20 10:11 96 01/26/20 10:08 96 01/26/20 08:46 95 95 01/26/20 08:06 01/26/20 08:03 01/26/20 08:00 93 L 01/26/20 07:11 Weight Weight 173 lb 9.6 oz Most Recent Monitor Data Heart Rate from ECG 74 NIBP 133/92 NIBP BP-Mean 105 Respiration from ECG 29 SpO2 96 I&O: 01/25/20 01/26/20 01/27/20 06:59 06:59 06:59 Intake Total 480 1850 Output Total 850 1575 150 Balance -370 275 -150 Result Diagrams: 01/26/20 03:24 01/26/20 03:24 Additional Labs: Accuchecks 01/26/20 01/26/20 01/26/20 15:35 10:17 06:18 POC Glucose 230 H 255 H 162 H 01/25/20 01/25/20 23:08 17:20 POC Glucose 244 H 190 H Hospitalist ROS - Medication Medications: Active Medications Generic Name Dose Route Start Last Admin Trade Name Freq PRN Reason Stop Dose Admin Acetaminophen 650 mg 01/23/20 16:12 01/26/20 15:09 Acetaminophen 325 Mg Tab PO 650 mg Q4H PRN Administration Headache/Fever/Mild Pain (1-3) Albuterol/Ipratropium 3 ml 01/24/20 15:00 01/26/20 16:12 Ipratropium/Albuterol Sulfate 3 Ml Neb NEB Not Given [id number] CANDY Alprazolam 0.25 mg 01/24/20 18:31 01/26/20 15:09 Alprazolam 0.25 Mg Tab PO 0.25 mg QID PRN Administration Anxiety Amiodarone HCl 200 mg 01/23/20 21:00 01/26/20 08:04 Amiodarone 200 Mg Tab PO 200 mg BID CANDY Administration Amlodipine Besylate 5 mg 01/25/20 09:00 01/26/20 08:03 Amlodipine 5 Mg Tab PO 5 mg DAILY CANDY Administration Apixaban 10 mg 01/24/20 21:00 01/26/20 08:03 Apixaban 5 Mg Tab PO 10 mg BID CANDY Administration Atorvastatin Calcium 40 mg 01/23/20 21:00 01/25/20 22:34 Atorvastatin Calcium 40 Mg Tab PO 40 mg HS CANDY Administration Furosemide 40 mg 01/24/20 06:00 01/26/20 13:57 Furosemide 40 Mg/4 Ml Vial SLOW IVP 40 mg 0600,1400 CANDY Administration Hydralazine HCl 50 mg 01/24/20 21:00 01/26/20 14:07 Hydralazine 25 Mg Tab PO 50 mg TID CANDY Administration Cefepime HCl 2 gm/ Sodium 100 mls @ 200 mls/hr 01/24/20 15:00 01/26/20 14:00 Chloride IVPB 100 mls 1500 CANDY Administration Insulin Glargine 32 units/ 0.32 mls @ 0 mls/hr 01/24/20 21:00 01/26/20 02:50 Miscellaneous Medication SC Not Given HS CANDY Insulin Human Lispro 0 units 01/23/20 16:19 01/26/20 12:38 Humalog 300 Units/3 Ml Vial SC 4 unit .MILD SLIDING SCALE PRN Administration Mild Correctional Scale Levothyroxine Sodium 125 mcg 01/24/20 06:00 01/26/20 06:13 Levothyroxine Sodium 125 Mcg Tab PO 125 mcg 0600 CANDY Administration Mometasone Furoate/Formoterol Fumar 2 puff 01/24/20 18:30 12/10/20 09:06 Mometasone 200 Mcg/Formoterol 5 Mcg 120 Puff Inhaler INH Not Given BID-RT CANDY - Exam General Appearance: NAD Eye: PERRL ENT: normocephalic atraumatic Neck: supple Heart: RRR Respiratory: CTAB Gastrointestinal: soft Extremities: no cyanosis Skin: normal turgor Neurological: cranial nerve grossly intact Musculoskeletal: normal tone Hosp A/P - Plan 79-year-old female past medical history of COPD not on home O2, type 2 diabetes mellitus, hyperlipidemia, hypertension, congestive heart failure with EF of 40 to 45%, atrial fibrillation on amiodarone presents for worsening shortness of breath found to have pulmonary embolism and pericardial effusion. Course complicated by patient's JAMES and oliguria. Acute Pulmonary embolism --pt is tolerating Eliquis. Hb stable. --pending tele bed, pt requests to go to SNF, concern about going home as she lives by herself. CM consult Pericardial effusion --small, no evidence of cardiac temponade --appreciate CTS input. CHF exacerbation --acute on chronic systolic HF --cont IV Lasix, Echo showed EF 45% --appreciate cardiology input, monitor I&O, and daily weight Atrial fibrillation --paroxysmal. NSR. cont amio. start AC as above COPD --History of COPD not on home O2. Now requiring 3 L. We will continue home inhalers and make duo nebs available. JAMES on CKD3 --Cr stable with diuresis Hyperkalemia --resolved. Sepsis without septic shock --unclear source, presumed sepsis on admission. I think noninfectious SIRS rather. will follow cultures. cont IV abx empirically for now. History of GIB --H/H stable. Type 2 DM --Will hold home metformin in setting of JAMES. ISS, q6hr glucose checks. Hypothyroidism --Continue home levothyroxine. Hyperlipidemia --Continue home statin. Hypertension --resume home meds
--- NOTE | 2020-01-26 18:46 | PRG ---
DATE OF SERVICE: 01/26/2020 SUBJECTIVE: Ms. Sherwood is doing well. No chest pain or pressure. She is maintaining sinus rhythm. OBJECTIVE: VITAL SIGNS: Her blood pressure is 143/69, pulse was 76, sinus on the monitor. LUNGS: Clear. CARDIAC: Normal S1, normal S2. ABDOMEN: Soft, nontender. ASSESSMENT: 1. Paroxysmal atrial fibrillation. 2. Recent gastrointestinal bleed. 3. Pulmonary embolism. PLAN: She is on Eliquis 10 mg twice a day, dose to be reduced. I suspect soon. No other recommendations at this point. Job ID: [id number]
[2020-01-26] MEDS: Atorvastatin Calcium 40 MG TAB PO SCH (21:03)
[2020-01-27] MEDS: HYDROcodone/Acetaminophen 5/325 mg Tablet PO PRN ×3 (01:31→14:30)
[2020-01-27 04:36] LABS: #Eosinphils 0.2 thou/uL (0.0-0.7); #Lymphocytes 1.4 thou/uL (1.20-3.40); #Monocytes 1.7 thou/uL (0.11-0.59); %Basophils 0.2 % (0.0-1.0); %Eosinophils 1.1 % (0.0-10.0); %Lymphocytes 9.6 % (21.0-51.0); %Monocytes 11.9 % (0.0-10.0); %Neutrophils 77.2 % (42.0-75.0); Hemoglobin 10.4 g/dL (12.0-16.0); Mean Corpuscular HGB CONC 30.2 g/dL (32.0-36.0); Mean Corpuscular Hemoglobin 23.6 pg (27.0-31.0); Mean Corpuscular Volume 78.4 fL (78.0-98.0); Mean Platelet Volume 8.3 fL (7.4-10.4); Platelet Count 598 thou/uL (130-400); RBC Distribution Width 20.8 % (11.5-14.5); Red Blood Cell (RBC) Count 4.38 mill/uL (4.20-5.40); White Blood Cell (WBC) Count 14.2 thou/uL (4.8-10.8)
[2020-01-27 04:52] LABS: Anion Gap 15 mmol/L (10-20); BUN (Urea Nitrogen) 29 mg/dL (9.8-20.1); Calc. Creatinine Clearance 44 mL/min (70-130); Calcium 8.5 mg/dL (7.8-10.44); Carbon Dioxide 25 mmol/L (23-31); Chloride 98 mmol/L (98-107); Glucose 163 mg/dL (83-110); Magnesium 1.6 mg/dL (1.6-2.6); Potassium 4.3 mmol/L (3.5-5.1); Sodium 134 mmol/L (136-145)
[2020-01-27] MEDS: Furosemide 40 MG/4 ML VIAL SLOW IVP SCH ×2 (06:08→14:11)
[2020-01-27] MEDS: Levothyroxine Sodium 125 MCG TAB PO SCH (06:09)
[2020-01-27] MEDS: HumaLOG 300 UNITS/3 ML VIAL SC PRN ×3 (06:11→20:17)
[2020-01-27] MEDS: hydrALAZINE 25 MG TAB PO SCH ×3 (08:18→20:15)
[2020-01-27] MEDS: Amiodarone 200 MG TAB PO SCH ×3 (08:18→20:15)
[2020-01-27] MEDS: Apixaban 5 MG TAB PO SCH ×2 (08:18→20:15)
[2020-01-27] MEDS: ALPRAZolam 0.25 MG TAB PO PRN (08:18)
[2020-01-27] MEDS: Amlodipine 5 MG TAB PO SCH (08:18)
[2020-01-27] MEDS: Mometasone 200 MCG/Formoterol 5 MCG 120 PUFF INHALER INH SCH ×2 (08:20→18:35)
--- NOTE | 2020-01-27 10:21 | PRG ---
DATE OF SERVICE: SUBJECTIVE: Ms. Sherwood states she does not feel well. She aches all over. She feels tired. She feels discouraged. No chest pain or pressure. Her breathing is okay. OBJECTIVE: VITAL SIGNS: Blood pressure 134/56, pulse is 90, but apparently she is still having some occasional episodes of tachycardia looking at the monitor, it looks like there are just brief episodes of atrial arrhythmias, some atrial flutter, some atrial fibrillation. LUNGS: Clear. CARDIAC: Normal S1, normal S2. ABDOMEN: Soft and nontender. ASSESSMENT: 1. Congestive heart failure, stable. 2. Atrial arrhythmias, improving. 3. Pericardial effusion, medium, but not hemodynamically significant. 4. Pulmonary emboli. 5. Recent GI bleed. PLAN: 1. Continue anticoagulation. 2. Increase amiodarone to 600 mg a day while she is here, then go to 400 mg a day when she goes home. 3. Increase ambulation. 4. Could not take the [place] catheter out. She is up ambulatory now. Need to try to avoid bladder infection if at all possible. Job ID: [id number]
--- NOTE | 2020-01-27 14:18 | PDOC.HOSPP ---
- Subjective Subjective: Nursing staff reported patient has suicidal ideation, but no specific plan. Patient stated still feeling discouraged, and tired. Sitter is at bedside. - Objective Vital Signs & Weight: Vital Signs (12 hours) Temp Pulse Resp BP BP Pulse Ox 01/27/20 11:40 99.0 F 82 19 145/62 H 96 01/27/20 11:16 81 20 01/27/20 08:36 114 H 14 01/27/20 08:20 114 H 14 01/27/20 08:15 96 01/27/20 08:10 97.6 F 91 18 134/56 L 96 01/27/20 03:31 98.3 F 113 H 20 135/69 91 L Weight Weight 173 lb 14.4 oz Most Recent Monitor Data Heart Rate from ECG 73 NIBP 132/72 NIBP BP-Mean 92 Respiration from ECG 23 SpO2 96 I&O: 01/26/20 01/27/20 01/28/20 06:59 06:59 06:59 Intake Total 1850 494 Output Total 1575 850 Balance 275 -356 Result Diagrams: 01/27/20 04:08 01/27/20 04:08 Additional Labs: Accuchecks 01/27/20 01/27/20 01/26/20 11:09 06:09 19:57 POC Glucose 167 H 164 H 252 H 01/26/20 01/26/20 01/26/20 18:20 15:35 12:36 POC Glucose 219 H 230 H 293 H Radiology Reviewed by me: Yes EKG Reviewed by me: Yes Hospitalist ROS - Medication Medications: Active Medications Generic Name Dose Route Start Last Admin Trade Name Freq PRN Reason Stop Dose Admin Acetaminophen 650 mg 01/26/20 16:40 01/26/20 21:01 Acetaminophen 325 Mg Tab PO 650 mg Q6H PRN Administration Mild-Moderate Pain (1-5) Hydrocodone Bitart/Acetaminophen 1 tab 01/26/20 16:40 01/27/20 08:16 Hydrocodone/Acetaminophen 5/325 Mg Tablet PO 1 tab Q4H PRN Administration Moderate to Severe Pain (6-10) Albuterol/Ipratropium 3 ml 01/24/20 15:00 01/27/20 11:16 Ipratropium/Albuterol Sulfate 3 Ml Neb NEB 3 ml [id number] CANDY Administration Alprazolam 0.25 mg 01/24/20 18:31 01/27/20 08:18 Alprazolam 0.25 Mg Tab PO 0.25 mg QID PRN Administration Anxiety Amlodipine Besylate 5 mg 01/25/20 09:00 01/27/20 08:18 Amlodipine 5 Mg Tab PO 5 mg DAILY CANDY Administration Apixaban 10 mg 01/24/20 21:00 01/27/20 08:18 Apixaban 5 Mg Tab PO 10 mg BID CANDY Administration Atorvastatin Calcium 40 mg 01/23/20 21:00 01/26/20 21:03 Atorvastatin Calcium 40 Mg Tab PO 40 mg HS CANDY Administration Furosemide 40 mg 01/24/20 06:00 01/27/20 14:11 Furosemide 40 Mg/4 Ml Vial SLOW IVP 40 mg 0600,1400 CANDY Administration Hydralazine HCl 50 mg 01/24/20 21:00 01/27/20 08:18 Hydralazine 25 Mg Tab PO 50 mg TID CANDY Administration Insulin Glargine 32 units/ 0.32 mls @ 0 mls/hr 01/24/20 21:00 01/26/20 21:22 Miscellaneous Medication SC 0.32 mls HS CANDY Administration Insulin Human Lispro 0 units 01/23/20 16:19 01/27/20 06:11 Humalog 300 Units/3 Ml Vial SC 2 unit .MILD SLIDING SCALE PRN Administration Mild Correctional Scale Levothyroxine Sodium 125 mcg 01/24/20 06:00 01/27/20 06:09 Levothyroxine Sodium 125 Mcg Tab PO 125 mcg 0600 CANDY Administration Mometasone Furoate/Formoterol Fumar 2 puff 01/24/20 18:30 01/27/20 08:20 Mometasone 200 Mcg/Formoterol 5 Mcg 120 Puff Inhaler INH 2 puff BID-RT CANDY Administration - Exam General Appearance: NAD Eye: PERRL ENT: normocephalic atraumatic Neck: supple Heart: RRR Respiratory: CTAB Gastrointestinal: soft Extremities: no cyanosis Skin: normal turgor Neurological: cranial nerve grossly intact Musculoskeletal: normal tone, normal strength Psychiatric: normal affect, normal behavior, A&O x 3 Hosp A/P - Plan 79-year-old female past medical history of COPD not on home O2, type 2 diabetes mellitus, hyperlipidemia, hypertension, congestive heart failure with EF of 40 to 45%, atrial fibrillation on amiodarone presents for worsening shortness of breath found to have pulmonary embolism and pericardial effusion. Course complicated by patient's JAMES and oliguria. Acute Pulmonary embolism --pt is tolerating Eliquis. Hb stable. Cont Eliquis 10 mg BID until 01/30; then 5 mg BID thereafter. --PT eval. CM consult for SNF placement Pericardial effusion --small, no evidence of cardiac temponade --appreciate CTS input. CHF exacerbation --acute on chronic systolic HF --cont IV Lasix, Echo showed EF 45% --appreciate cardiology input, monitor I&O, and daily weight Atrial fibrillation --paroxysmal. NSR. cont amio. start AC as above. cont Amio as recommended by cardiology COPD --History of COPD not on home O2. wean O2 as nellie. cont nebs. JAMES on CKD3 --Cr stable with diuresis Hyperkalemia --resolved. Sepsis without septic shock - ruled out --presumed sepsis on admission. I think noninfectious SIRS rather. Cultures no growth. D/C Abx History of GIB --H/H stable. Type 2 DM --Will hold home metformin in setting of JAMES. ISS, q6hr glucose checks. Hypothyroidism --Continue home levothyroxine. Hyperlipidemia --Continue home statin. Hypertension --resume home meds Suicidal Ideation --cont sitter. start Klonopin for anxiety/depression --MHMR when stable
[2020-01-27 16:30] LABS: Hemoglobin 10.3 g/dL (12.0-16.0); Platelet Count 614 thou/uL (130-400)
--- NOTE | 2020-01-27 17:56 | PRG ---
DATE OF SERVICE: 01/27/2020 SUBJECTIVE: Patient was seen and examined at bedside and overnight events noted. Patient denies any shortness of breath or chest pain or palpitation. No history of nausea or vomiting or diarrhea or fever or chills or cramps. OBJECTIVE: GENERAL: This is well-built female in no apparent distress. VITAL SIGNS: Temperature 98.0. Heart Rate 82. Respiratory rate 20. Blood pressure 138/65. HEENT: Atraumatic, normocephalic. Oral mucosa is moist. NECK: Supple. CARDIOVASCULAR: S1, S2 heard. Rate and rhythm regular. RESPIRATORY: Clear to auscultation. GASTROINTESTINAL: Abdomen is soft. MUSCULOSKELETAL: No tenderness. No edema. DERMATOLOGIC: No skin rash. NEUROLOGIC: Alert and awake and oriented x3. No focal neurologic deficits. Moving all the extremities. PSYCHIATRIC: Mood and affect normal. LABORATORY DATA: Potassium 4.3, BUN is 29, and creatinine is 1.3. ASSESSMENT AND PLAN: 1. Acute kidney injury on chronic kidney disease, stage 3, stable. 2. Hyponatremia. 3. Hyperglycemia. 4. Anemia of chronic disease. 5. Hypertension. 6. Cardiorenal syndrome. 7. Atrial fibrillation. Labs are stable. We will monitor. Job ID: [id number]
[2020-01-27] MEDS: clonazePAM 0.5 MG TAB PO SCH (20:15)
[2020-01-27] MEDS: Atorvastatin Calcium 40 MG TAB PO SCH (20:15)
[2020-01-27] MEDS: Insulin Glargine 32 UNITS in Pre-Filled Syringe 1 EACH SC SCH (20:16)
[2020-01-27] MEDS ORDERED: Fluticasone Propionate Nasal Spray 16 gm Bottle NASAL SCH (23:00)
--- NOTE | 2020-01-27 23:33 | PDOC.EVN ---
Event Note - Event Note Event Note: Nurse called to report patient having runs of bradycardia; asymptomatic, was sleeping and was woken up and denied complaints.
[2020-01-28] MEDS: ALPRAZolam 0.25 MG TAB PO PRN ×3 (00:40→17:42)
[2020-01-28] MEDS: Acetaminophen 325 MG TAB PO PRN ×2 (01:00→20:55)
[2020-01-28 02:32] LABS: Troponin I 0.014 ng/mL (< 0.028)
[2020-01-28 04:47] LABS: #Eosinphils 0.2 thou/uL (0.0-0.7); #Lymphocytes 1.4 thou/uL (1.20-3.40); #Monocytes 1.4 thou/uL (0.11-0.59); #Neutrophils 11.1 thou/uL (1.40-6.50); %Basophils 0.1 % (0.0-1.0); %Eosinophils 1.2 % (0.0-10.0); %Lymphocytes 9.7 % (21.0-51.0); %Monocytes 10.1 % (0.0-10.0); %Neutrophils 78.9 % (42.0-75.0); Mean Corpuscular HGB CONC 29.7 g/dL (32.0-36.0); Mean Corpuscular Hemoglobin 22.9 pg (27.0-31.0); Mean Corpuscular Volume 77.2 fL (78.0-98.0); Platelet Count 579 thou/uL (130-400); RBC Distribution Width 20.9 % (11.5-14.5); Red Blood Cell (RBC) Count 3.92 mill/uL (4.20-5.40)
[2020-01-28 05:08] LABS: Anion Gap 15 mmol/L (10-20); BUN (Urea Nitrogen) 32 mg/dL (9.8-20.1); Calc. Creatinine Clearance 49 mL/min (70-130); Calcium 8.5 mg/dL (7.8-10.44); Carbon Dioxide 25 mmol/L (23-31); Chloride 96 mmol/L (98-107); Glucose 173 mg/dL (83-110); Magnesium 1.6 mg/dL (1.6-2.6); Potassium 4.3 mmol/L (3.5-5.1); Sodium 132 mmol/L (136-145)
[2020-01-28] MEDS: Levothyroxine Sodium 125 MCG TAB PO SCH (06:01)
[2020-01-28] MEDS: Furosemide 40 MG/4 ML VIAL SLOW IVP SCH (06:01)
[2020-01-28] MEDS ORDERED: Sodium Chloride 0.9% 1,000 ML IV SCH (06:30)
[2020-01-28] MEDS: Mometasone 200 MCG/Formoterol 5 MCG 120 PUFF INHALER INH SCH ×2 (08:15→18:14)
--- NOTE | 2020-01-28 08:40 | RAD ---
PORTABLE CHEST 1 VIEW: Date: 01/28/2020 Time: 1332 hours HISTORY: Hypoxia. FINDINGS/IMPRESSION: Comparison made with exam of 01/23/2020. The heart is enlarged. There is obscuration of the left hemidiaphragm. There is consolidation in the left lower lobe with accompanying left effusion. Right lung is clear. No pneumothoraces are seen. The re are postop changes in the left axilla. Old fracture deformity of the right proximal humerus is pre sent. POS: OFF
[2020-01-28] MEDS: Amlodipine 5 MG TAB PO SCH (09:04)
[2020-01-28] MEDS: Apixaban 5 MG TAB PO SCH ×2 (09:04→20:40)
[2020-01-28] MEDS: hydrALAZINE 25 MG TAB PO SCH ×3 (09:04→20:41)
[2020-01-28] MEDS: clonazePAM 0.5 MG TAB PO SCH ×2 (09:04→20:40)
[2020-01-28] MEDS: Amiodarone 200 MG TAB PO SCH ×3 (09:04→20:41)
[2020-01-28] MEDS: Fluticasone Propionate Nasal Spray 16 gm Bottle NASAL SCH (09:05)
[2020-01-28] MEDS: HYDROcodone/Acetaminophen 5/325 mg Tablet PO PRN (09:06)
[2020-01-28] MEDS: HumaLOG 300 UNITS/3 ML VIAL SC PRN ×3 (12:06→20:42)
--- NOTE | 2020-01-28 13:26 | PDOC.BPN ---
- Brief Progress Note Patient seen and examined this morning. She is alert oriented x3. Even though she looks quite fatigued. She is able to give brief history. Her son Shane lives nearby. She lives alone for the most part and not able to take care of herself. Sitter at bedside for admission diagnosis of suicidal ideation. Patient is medically stable and cleared to be evaluated by mental health.
--- NOTE | 2020-01-28 13:28 | PDOC.HOSPP ---
- Subjective Encounter Date: 01/28/20 Encounter Time: 10:10 Subjective: Patient seen and examined this morning she is alert oriented x3. Sitter is nearby. She got up for for voiding x2. She had a breakfast. No sign of confusion or agitation; discussed with RN. Medically stable and cleared to be evaluated by mental health.. - Objective Vital Signs & Weight: Vital Signs (12 hours) Temp Pulse Resp BP Pulse Ox 01/28/20 11:10 98.8 F 74 20 134/62 93 L 01/28/20 10:46 94 16 01/28/20 09:15 93 L 01/28/20 09:04 92 01/28/20 08:03 92 19 01/28/20 07:08 97.4 F L 70 19 138/63 93 L 01/28/20 04:00 98.6 F 71 20 137/62 95 01/28/20 02:49 95 Weight Weight 173 lb 14.4 oz Most Recent Monitor Data Heart Rate from ECG 73 NIBP 132/72 NIBP BP-Mean 92 Respiration from ECG 23 SpO2 96 I&O: 01/27/20 01/28/20 01/29/20 06:59 06:59 06:59 Intake Total 494 1100 Output Total 850 1350 Balance -356 -250 Result Diagrams: 01/28/20 04:27 01/28/20 04:27 Additional Labs: Accuchecks 01/28/20 01/28/20 01/27/20 11:04 05:54 19:56 POC Glucose 234 H 163 H 225 H 01/27/20 16:39 POC Glucose 262 H Hospitalist ROS - Medication Medications: Active Medications Generic Name Dose Route Start Last Admin Trade Name Freq PRN Reason Stop Dose Admin Acetaminophen 650 mg 01/26/20 16:40 01/28/20 01:00 Acetaminophen 325 Mg Tab PO 650 mg Q6H PRN Administration Mild-Moderate Pain (1-5) Hydrocodone Bitart/Acetaminophen 1 tab 01/26/20 16:40 01/28/20 09:06 Hydrocodone/Acetaminophen 5/325 Mg Tablet PO 1 tab Q4H PRN Administration Moderate to Severe Pain (6-10) Albuterol/Ipratropium 3 ml 01/24/20 15:00 01/28/20 10:46 Ipratropium/Albuterol Sulfate 3 Ml Neb NEB 3 ml [id number] Administration Alprazolam 0.25 mg 01/24/20 18:31 01/28/20 00:40 Alprazolam 0.25 Mg Tab PO 0.25 mg QID PRN Administration Anxiety Amiodarone HCl 200 mg 01/27/20 15:00 01/28/20 09:04 Amiodarone 200 Mg Tab PO 200 mg TID CANDY Administration Amlodipine Besylate 5 mg 01/25/20 09:00 01/28/20 09:04 Amlodipine 5 Mg Tab PO 5 mg DAILY CANDY Administration Apixaban 10 mg 01/24/20 21:00 01/28/20 09:04 Apixaban 5 Mg Tab PO 10 mg BID CANDY Administration Atorvastatin Calcium 40 mg 01/23/20 21:00 01/27/20 20:15 Atorvastatin Calcium 40 Mg Tab PO 40 mg HS CANDY Administration Clonazepam 0.5 mg 01/27/20 21:00 01/28/20 09:04 Clonazepam 0.5 Mg Tab PO 0.5 mg BID CANDY Administration Fluticasone Propionate 0 gm 01/28/20 09:00 01/28/20 09:05 Fluticasone Propionate Nasal [place] 16 Gm Bottle NASAL 2 spr DAILY CANDY Administration Furosemide 40 mg 01/24/20 06:00 01/28/20 06:01 Furosemide 40 Mg/4 Ml Vial SLOW IVP 40 mg 0600,1400 CANDY Administration Hydralazine HCl 50 mg 01/24/20 21:00 01/28/20 09:04 Hydralazine 25 Mg Tab PO 50 mg TID CANDY Administration Insulin Glargine 32 units/ 0.32 mls @ 0 mls/hr 01/24/20 21:00 01/27/20 20:16 Miscellaneous Medication SC 0.32 mls HS CANDY Administration Insulin Human Lispro 0 units 01/23/20 16:19 01/28/20 12:06 Humalog 300 Units/3 Ml Vial SC 3 unit .MILD SLIDING SCALE PRN Administration Mild Correctional Scale Insulin Human Lispro 0 units 01/23/20 16:19 01/27/20 20:17 Humalog 300 Units/3 Ml Vial SC 2 unit .BEDTIME SLIDING SC PRN Administration Bedtime Correctional Scale Levothyroxine Sodium 125 mcg 01/24/20 06:00 01/28/20 06:01 Levothyroxine Sodium 125 Mcg Tab PO 125 mcg 0600 CANDY Administration Mometasone Furoate/Formoterol Fumar 2 puff 01/24/20 18:30 01/28/20 08:15 Mometasone 200 Mcg/Formoterol 5 Mcg 120 Puff Inhaler INH 2 puff BID-RT CANDY Administration - Exam General Appearance: NAD, awake alert Eye: PERRL ENT: normocephalic atraumatic Neck: supple Heart: RRR, normal peripheral pulses Respiratory: CTAB, normal chest expansion Gastrointestinal: soft, normal bowel sounds Neurological: no focal deficits Musculoskeletal: generalized weakness Psychiatric: A&O x 3 Hosp A/P - Plan 79-year-old female past medical history of COPD not on home O2, type 2 diabetes mellitus, hyperlipidemia, hypertension, congestive heart failure with EF of 40 to 45%, atrial fibrillation on amiodarone presents for worsening shortness of breath found to have pulmonary embolism and pericardial effusion. Course complicated by patient's JAMES and oliguria. Acute Pulmonary embolism --pt is tolerating Eliquis. Hb stable. Cont Eliquis 10 mg BID until 01/30; then 5 mg BID thereafter. --PT eval. CM consult for SNF placement Pericardial effusion --small, no evidence of cardiac temponade --appreciate CTS input. CHF exacerbation --acute on chronic systolic HF --cont IV Lasix, Echo showed EF 45% --appreciate cardiology input, monitor I&O, and daily weight Atrial fibrillation --paroxysmal. NSR. cont amio. start AC as above. cont Amio as recommended by cardiology COPD --History of COPD not on home O2. wean O2 as nellie. cont nebs. JAMES on CKD3 --Cr stable with diuresis Hyperkalemia --resolved. Sepsis without septic shock - ruled out --presumed sepsis on admission. I think noninfectious SIRS rather. Cultures no growth. D/C Abx History of GIB --H/H stable. Type 2 DM --Will hold home metformin in setting of JAMES. ISS, Hypothyroidism --Continue home levothyroxine. Hyperlipidemia --Continue home statin. Hypertension --resume home meds Suicidal Ideation --cont sitter. start Klonopin for anxiety/depression Sitter at bedside for admission diagnosis of suicidal ideation. Patient is medically stable and cleared to be evaluated by mental health.
[2020-01-28] MEDS: Furosemide 40 MG TAB PO SCH (13:44)
--- NOTE | 2020-01-28 17:05 | PRG ---
DATE OF SERVICE: 01/28/2020 SUBJECTIVE: Patient was seen and examined at bedside and overnight events noted. Patient denies any shortness of breath or chest pain or palpitation. No history of nausea or vomiting or diarrhea or fever or chills or cramps. OBJECTIVE: GENERAL: This is a well-built female, in no apparent distress. VITAL SIGNS: Temperature 98. Heart rate 74. Respiratory rate 20. Blood pressure 134/62. HEENT: Atraumatic, normocephalic. Oral mucosa is moist NECK: Supple. CARDIOVASCULAR: S1, S2 heard. Rate and rhythm regular. RESPIRATORY: Clear to auscultation. GASTROINTESTINAL: Abdomen is soft. MUSCULOSKELETAL: No tenderness. No edema. DERMATOLOGIC: No skin rash. NEUROLOGIC: Alert and awake and oriented X3. No focal neurologic deficits. Moving all the extremities. PSYCHIATRIC: Mood and affect normal. LABORATORY DATA: Potassium 4.3, BUN is 32, creatinine is 1.19. ASSESSMENT AND PLAN: 1. Acute kidney injury on chronic kidney disease, stage 3, stable. 2. Edema. 3. History of cardiorenal syndrome. 4. Hyperglycemia. 5. Anemia of chronic disease. 6. Hyponatremia. 7. Atrial fibrillation. Labs are better. We will monitor. Job ID: [id number]
[2020-01-28] MEDS: Atorvastatin Calcium 40 MG TAB PO SCH (20:40)
[2020-01-28] MEDS: Insulin Glargine 32 UNITS in Pre-Filled Syringe 1 EACH SC SCH (20:42)
[2020-01-29] MEDS: Cepastat Lozenges 1 LOZ PO PRN ×2 (02:23→19:54)
[2020-01-29] MEDS: Acetaminophen 325 MG TAB PO PRN ×2 (03:46→19:56)
[2020-01-29 05:10] LABS: Band 7 % (5-11); Burr Cells SLIGHT = 2-5 cells (100X) (0-1/hpf); Lymphocytes 8 % (21-51); MDiff Complete? YES; Mean Corpuscular HGB CONC 30.5 g/dL (32.0-36.0); Mean Corpuscular Hemoglobin 23.3 pg (27.0-31.0); Mean Corpuscular Volume 76.4 fL (78.0-98.0); Mean Platelet Volume 8.2 fL (7.4-10.4); Monocytes 6 % (0-10); Neutrophil 79 % (42-75); Ovalocytes SLIGHT = 2-5 cells (100X) (0-1/hpf); Platelet Count 607 thou/uL (130-400); Platelet Morphology Comment Appears Increased; RBC Distribution Width 20.6 % (11.5-14.5); Red Blood Cell (RBC) Count 3.88 mill/uL (4.20-5.40)
[2020-01-29] MEDS: Levothyroxine Sodium 125 MCG TAB PO SCH (05:10)
[2020-01-29] MEDS: Mometasone 200 MCG/Formoterol 5 MCG 120 PUFF INHALER INH SCH ×2 (07:52→19:01)
[2020-01-29] MEDS: Amiodarone 200 MG TAB PO SCH ×3 (09:18→19:52)
[2020-01-29] MEDS: Apixaban 5 MG TAB PO SCH ×2 (09:18→19:52)
[2020-01-29] MEDS: clonazePAM 0.5 MG TAB PO SCH ×2 (09:18→19:53)
[2020-01-29] MEDS: Amlodipine 5 MG TAB PO SCH (09:18)
[2020-01-29] MEDS: hydrALAZINE 25 MG TAB PO SCH ×3 (09:19→19:53)
[2020-01-29] MEDS: Furosemide 40 MG TAB PO SCH ×2 (09:19→14:01)
[2020-01-29] MEDS: Fluticasone Propionate Nasal Spray 16 gm Bottle NASAL SCH (09:19)
[2020-01-29] MEDS: Potassium Chloride 10 MEQ TAB PO SCH (09:20)
[2020-01-29] MEDS: HumaLOG 300 UNITS/3 ML VIAL SC PRN ×2 (11:51→16:37)
--- NOTE | 2020-01-29 13:38 | PDOC.HOSPP ---
- Subjective Encounter Date: 01/29/20 Encounter Time: 10:30 Subjective: Patient sitting in the chair. Sitter at bedside. Patient states that she has some throat discomfort. she is able to swallow the food but sometimes it gets stuck. And has a very abnormal sensation. No sticky sensation in the throat for the most part. Chest x-ray done yesterday showed some left lower lobe consolidation with accompanying pleural effusion. She also has elevated white count this morning around 16,000. Starting her on empiric ceftriaxone. She also states that she is tight in her chest area. And feels that she wants to scream or ran out and she is not sure which one to follow-up with. - Objective Vital Signs & Weight: Vital Signs (12 hours) Temp Pulse Resp BP Pulse Ox 01/29/20 12:00 94 L 01/29/20 11:50 97.9 F 73 20 127/71 95 01/29/20 10:13 80 16 94 L 01/29/20 09:19 79 01/29/20 09:18 79 01/29/20 08:00 92 L 01/29/20 07:45 79 20 01/29/20 07:25 98.3 F 77 18 141/65 H 92 L 01/29/20 05:10 98.8 F 77 20 140/63 93 L 01/29/20 02:00 96.6 F L 76 22 H 146/64 H 91 L Weight Weight 173 lb 14.4 oz Most Recent Monitor Data Heart Rate from ECG 73 NIBP 132/72 NIBP BP-Mean 92 Respiration from ECG 23 SpO2 96 I&O: 01/28/20 01/29/20 01/30/20 06:59 06:59 06:59 Intake Total 1100 1920 Output Total 1350 1550 Balance -250 370 Result Diagrams: 01/29/20 04:03 01/28/20 04:27 Additional Labs: Accuchecks 01/29/20 01/28/20 01/28/20 05:09 19:42 16:09 POC Glucose 138 H 343 H 271 H Hospitalist ROS - Medication Medications: Active Medications Generic Name Dose Route Start Last Admin Trade Name Freq PRN Reason Stop Dose Admin Acetaminophen 650 mg 01/26/20 16:40 01/29/20 03:46 Acetaminophen 325 Mg Tab PO 650 mg Q6H PRN Administration Mild-Moderate Pain (1-5) Hydrocodone Bitart/Acetaminophen 1 tab 01/26/20 16:40 01/28/20 09:06 Hydrocodone/Acetaminophen 5/325 Mg Tablet PO 1 tab Q4H PRN Administration Moderate to Severe Pain (6-10) Albuterol/Ipratropium 3 ml 01/24/20 15:00 01/29/20 10:13 Ipratropium/Albuterol Sulfate 3 Ml Neb NEB 3 ml [id number] CANDY Administration Alprazolam 0.25 mg 01/24/20 18:31 01/28/20 17:42 Alprazolam 0.25 Mg Tab PO 0.25 mg QID PRN Administration Anxiety Amiodarone HCl 200 mg 01/27/20 15:00 01/29/20 09:18 Amiodarone 200 Mg Tab PO 200 mg TID CANDY Administration Amlodipine Besylate 5 mg 01/25/20 09:00 01/29/20 09:18 Amlodipine 5 Mg Tab PO 5 mg DAILY CANDY Administration Apixaban 10 mg 01/24/20 21:00 01/29/20 09:18 Apixaban 5 Mg Tab PO 10 mg BID CANDY Administration Atorvastatin Calcium 40 mg 01/23/20 21:00 01/28/20 20:40 Atorvastatin Calcium 40 Mg Tab PO 40 mg HS CANDY Administration Clonazepam 0.5 mg 01/27/20 21:00 01/29/20 09:18 Clonazepam 0.5 Mg Tab PO 0.5 mg BID CANDY Administration Fluticasone Propionate 0 gm 01/28/20 09:00 01/29/20 09:19 Fluticasone Propionate Nasal [place] 16 Gm Bottle NASAL 2 spr DAILY CANDY Administration Furosemide 40 mg 01/28/20 14:00 01/29/20 09:19 Furosemide 40 Mg Tab PO 40 mg 0900,1400 CANDY Administration Hydralazine HCl 50 mg 01/24/20 21:00 01/29/20 09:19 Hydralazine 25 Mg Tab PO 50 mg TID CANDY Administration Insulin Glargine 32 units/ 0.32 mls @ 0 mls/hr 01/24/20 21:00 01/28/20 20:42 Miscellaneous Medication SC 0.32 mls HS CANDY Administration Insulin Human Lispro 0 units 01/23/20 16:19 01/29/20 11:51 Humalog 300 Units/3 Ml Vial SC 3 unit .MILD SLIDING SCALE PRN Administration Mild Correctional Scale Insulin Human Lispro 0 units 01/23/20 16:19 01/28/20 20:42 Humalog 300 Units/3 Ml Vial SC 4 unit .BEDTIME SLIDING SC PRN Administration Bedtime Correctional Scale Levothyroxine Sodium 125 mcg 01/24/20 06:00 01/29/20 05:10 Levothyroxine Sodium 125 Mcg Tab PO 125 mcg 0600 CANDY Administration Mometasone Furoate/Formoterol Fumar 2 puff 01/24/20 18:30 01/29/20 07:52 Mometasone 200 Mcg/Formoterol 5 Mcg 120 Puff Inhaler INH 2 puff BID-RT CANDY Administration Potassium Chloride 10 meq 01/29/20 09:00 01/29/20 09:20 Potassium Chloride 10 Meq Tab PO 10 meq DAILY CANDY Administration Throat Lozenges 1 laura 01/29/20 02:08 01/29/20 02:23 Cepastat Lozenges 1 Laura PO 1 laura Q2H PRN Administration Sore Throat - Exam General Appearance: NAD, awake alert Eye: PERRL ENT: normocephalic atraumatic Neck: supple Heart: RRR, normal peripheral pulses Respiratory: CTAB, normal chest expansion Gastrointestinal: soft, normal bowel sounds Neurological: cranial nerve grossly intact, no focal deficits Musculoskeletal: generalized weakness Psychiatric: A&O x 3 Hosp A/P - Plan 79-year-old female past medical history of COPD not on home O2, type 2 diabetes mellitus, hyperlipidemia, hypertension, congestive heart failure with EF of 40 to 45%, atrial fibrillation on amiodarone presents for worsening shortness of breath found to have pulmonary embolism and pericardial effusion. Course complicated by patient's JAMES and oliguria. Acute Pulmonary embolism --pt is tolerating Eliquis. Hb stable. Cont Eliquis 10 mg BID until 01/30; then 5 mg BID thereafter. --PT eval. CM consult for SNF placement Pericardial effusion --small, no evidence of cardiac temponade --appreciate CTS input. CHF exacerbation --acute on chronic systolic HF --cont IV Lasix, Echo showed EF 45% --appreciate cardiology input, monitor I&O, and daily weight Atrial fibrillation --paroxysmal. NSR. cont amio. start AC as above. cont Amio as recommended by cardiology COPD --History of COPD not on home O2. wean O2 as nellie. cont nebs. JAMES on CKD3 --Cr stable with diuresis Hyperkalemia --resolved. Sepsis without septic shock - ruled out --presumed sepsis on admission. I think noninfectious SIRS rather. Cultures no growth. D/C Abx History of GIB --H/H stable. Type 2 DM --Will hold home metformin in setting of JAMES. ISS, Hypothyroidism --Continue home levothyroxine. Hyperlipidemia --Continue home statin. Hypertension --resume home meds Suicidal Ideation --cont sitter. start Klonopin for anxiety/depression Sitter at bedside for admission diagnosis of suicidal ideation. Patient is medically stable and cleared to be evaluated by mental health. 13th Possible dysphagia she is able to swallow the food but sometimes it gets stuck. -We will request the speech therapy to follow-up. Leukocytosis Chest x-ray done yesterday showed some left lower lobe consolidation with accompanying pleural effusion. She also has elevated white count this morning around 16,000. Starting her on empiric ceftriaxone.
[2020-01-29] MEDS: cefTRIAXone\\ROCEPHIN 1 GM in Sodium Chloride 0.9% 100 ML IVPB SCH (14:01)
[2020-01-29] MEDS: ALPRAZolam 0.25 MG TAB PO PRN (16:05)
--- NOTE | 2020-01-29 16:18 | PRG ---
DATE OF SERVICE: 01/29/2020 SUBJECTIVE: Patient was seen and examined at bedside and overnight events noted. Patient denies any shortness of breath or chest pain or palpitation. No history of nausea or vomiting or diarrhea or fever or chills or cramps. OBJECTIVE: GENERAL: This is a well-built female, in no apparent distress. VITAL SIGNS: Temperature 97.9. Heart rate 73. Respiratory rate 18. Blood pressure 127/71. HEENT: Atraumatic, normocephalic. Oral mucosa is moist. NECK: Supple. CARDIOVASCULAR: S1, S2 heard. Rate and rhythm regular. RESPIRATORY: Clear to auscultation. GASTROINTESTINAL: Abdomen is soft. MUSCULOSKELETAL: No tenderness. No edema. DERMATOLOGIC: No skin rash. NEUROLOGIC: Alert and awake and oriented x3. No focal neurologic deficits. Moving all the extremities. PSYCHIATRIC: Mood and affect normal. LABORATORY DATA: Not done today. ASSESSMENT AND PLAN: 1. Acute kidney injury on chronic kidney disease, stage 3. Recheck labs. 2. Edema, controlled. 3. Cardiorenal syndrome. 4. Anemia of chronic disease. 5. Hyponatremia. Limit fluid intake. Recheck labs. Job ID: [id number]
[2020-01-29] MEDS: Atorvastatin Calcium 40 MG TAB PO SCH (19:53)
[2020-01-29] MEDS: Insulin Glargine 32 UNITS in Pre-Filled Syringe 1 EACH SC SCH (19:54)
[2020-01-30] MEDS: HYDROcodone/Acetaminophen 5/325 mg Tablet PO PRN (04:08)
[2020-01-30] MEDS ORDERED: Vicks VapoRub 50 gm Jar TOP PRN (04:35)
[2020-01-30 05:07] LABS: Anion Gap 16 mmol/L (10-20); BUN (Urea Nitrogen) 31 mg/dL (9.8-20.1); Calc. Creatinine Clearance 47 mL/min (70-130); Calcium 8.9 mg/dL (7.8-10.44); Carbon Dioxide 29 mmol/L (23-31); Chloride 94 mmol/L (98-107); Glucose 193 mg/dL (83-110); Potassium 4.5 mmol/L (3.5-5.1); Sodium 134 mmol/L (136-145)
[2020-01-30] MEDS: Levothyroxine Sodium 125 MCG TAB PO SCH (05:15)
[2020-01-30] MEDS: Mometasone 200 MCG/Formoterol 5 MCG 120 PUFF INHALER INH SCH ×2 (07:52→19:39)
--- NOTE | 2020-01-30 08:32 | PRG ---
DATE OF SERVICE: 01/30/2020 SUBJECTIVE: A 79-year-old female being seen for CKD. The patient denied nausea or chest pain. PHYSICAL EXAMINATION: General: The patient is awake and alert. Vital Signs: Afebrile, pulse 68, breathing at 16, blood pressure 125/67. HEENT: Head normocephalic and atraumatic. Eyes intact, no ulcers. Nose intact, no ulcers. Ears intact, no ulcers. Neck: Supple. No JVD. Chest: Symmetrical and clear. Cardiovascular: Shows S1 and S2, no rub, no murmur. Gastrointestinal: Abdomen is soft, bowel sounds positive. Extremities: Show no edema or ulcers. Skin: Shows no rash or petechiae. Musculoskeletal: Shows no joint swelling or stiffness. Genitourinary: Shows no Corbin or CVA tenderness. Neurologic: Motor intact. Cranial nerves intact. LABORATORY DATA: Hemoglobin 9. Creatinine 1.2. ASSESSMENT AND PLAN: 1. Acute kidney injury, improves. 2. Hypertension, stable. 3. Anemia, stable. 4. Medication based on GFR appropriate. 5. Hyponatremia, stable. 6. I will sign off on this patient. Please reconsult as needed. Job ID: [id number]
[2020-01-30] MEDS: clonazePAM 0.5 MG TAB PO SCH ×2 (08:45→22:00)
[2020-01-30] MEDS: Furosemide 40 MG TAB PO SCH ×2 (08:45→14:59)
[2020-01-30] MEDS: Amlodipine 5 MG TAB PO SCH (08:46)
[2020-01-30] MEDS: hydrALAZINE 25 MG TAB PO SCH ×3 (08:46→21:59)
[2020-01-30] MEDS: Apixaban 5 MG TAB PO SCH ×2 (08:46→22:00)
[2020-01-30] MEDS: Amiodarone 200 MG TAB PO SCH ×3 (08:46→22:00)
[2020-01-30] MEDS: Potassium Chloride 10 MEQ TAB PO SCH (08:46)
[2020-01-30] MEDS: Fluticasone Propionate Nasal Spray 16 gm Bottle NASAL SCH (08:47)
[2020-01-30] MEDS ORDERED: Iopamidol-370 76% 500 ML 1 ML ONE (09:30)
[2020-01-30 10:51] LABS: Hemoglobin 8.7 g/dL (12.0-16.0); Mean Corpuscular HGB CONC 30.5 g/dL (32.0-36.0); Mean Corpuscular Hemoglobin 23.4 pg (27.0-31.0); Mean Corpuscular Volume 76.8 fL (78.0-98.0); Mean Platelet Volume 7.8 fL (7.4-10.4); Platelet Count 659 thou/uL (130-400); Red Blood Cell (RBC) Count 3.72 mill/uL (4.20-5.40); White Blood Cell (WBC) Count 18.1 thou/uL (4.8-10.8)
[2020-01-30] MEDS: HumaLOG 300 UNITS/3 ML VIAL SC PRN (11:24)
[2020-01-30 11:56] LABS: Band 3 % (5-11); Hypochromia SLIGHT = 6-15 cells (100X) (0-5/hpf); Lymphocytes 3 % (21-51); MDiff Complete? YES; Microcytosis SLIGHT = 6-15 cells (100X) (0-5/hpf); Monocytes 7 % (0-10); Neutrophil 87 % (42-75); Platelet Morphology Comment Appears Increased; Polychromasia SLIGHT = 2-3 cells (100X) (0-2/hpf); Schistocytes SLIGHT = 2-5 cells (100X) (0-1/hpf)
--- NOTE | 2020-01-30 12:14 | PRG ---
DATE OF SERVICE: 01/30/2020 SUBJECTIVE: Ms. Sherwood continues to feel weak. She continues to have rapid heart rates and she also had some bradyarrhythmias, on the 12th, heart rate got down into the 45 range, it looked sinus with frequent PACs, non-conducted. OBJECTIVE: LUNGS: Clear. CARDIAC: Irregular. ABDOMEN: Soft, nontender. EXTREMITIES: No edema. ASSESSMENT: 1. Tachycardia bradycardia syndrome. 2. Chronic obstructive pulmonary disease. 3. Recent gastrointestinal bleed. 4. Recent pulmonary emboli. PLAN: 1. She will likely need pacemaker insertion for tachycardia bradycardia syndrome. 2. Reduce apixaban to 5 mg twice a day. She has been on this dose now for quite some time, the 10 twice a day, and her blood counts are dropping. 3. Check CBC, tomorrow. 4. In order to place the pacemaker, we will have to interrupt anticoagulation for at least for some time. Another option would be an IVC filter. Thank you. We will follow with you. Job ID: [id number]
--- NOTE | 2020-01-30 14:19 | PDOC.HOSPP ---
- Subjective Encounter Date: 01/30/20 Encounter Time: 10:40 Subjective: Patient is resting. Respiratory therapist nearby. She is medically stable for mental health to be evaluated . - Objective Vital Signs & Weight: Vital Signs (12 hours) Temp Pulse Pulse Pulse Resp BP BP 01/30/20 11:22 98.3 F 86 19 01/30/20 10:50 86 80 140/65 113/54 L 01/30/20 10:23 80 20 01/30/20 08:46 92 01/30/20 07:45 92 12 01/30/20 07:24 68 19 01/30/20 07:21 01/30/20 03:58 98.2 F 114 H 26 H BP Pulse Ox 01/30/20 11:22 150/65 H 93 L 01/30/20 10:50 01/30/20 10:23 01/30/20 08:46 01/30/20 07:45 01/30/20 07:24 125/87 92 L 01/30/20 07:21 92 L 01/30/20 03:58 133/65 92 L Weight Weight 173 lb 14.4 oz Most Recent Monitor Data Heart Rate from ECG 73 NIBP 132/72 NIBP BP-Mean 92 Respiration from ECG 23 SpO2 96 I&O: 01/29/20 01/30/20 01/31/20 06:59 06:59 06:59 Intake Total 1920 1550 Output Total 1550 350 Balance 370 1200 Result Diagrams: 01/30/20 10:27 01/30/20 04:15 Additional Labs: Accuchecks 01/30/20 01/30/20 01/29/20 10:57 05:44 19:57 POC Glucose 251 H 181 H 241 H 01/29/20 01/29/20 15:49 10:53 POC Glucose 195 H 229 H Hospitalist ROS - Medication Medications: Active Medications Generic Name Dose Route Start Last Admin Trade Name Freq PRN Reason Stop Dose Admin Acetaminophen 650 mg 01/26/20 16:40 01/29/20 19:56 Acetaminophen 325 Mg Tab PO 650 mg Q6H PRN Administration Mild-Moderate Pain (1-5) Hydrocodone Bitart/Acetaminophen 1 tab 01/26/20 16:40 01/30/20 04:08 Hydrocodone/Acetaminophen 5/325 Mg Tablet PO 1 tab Q4H PRN Administration Moderate to Severe Pain (6-10) Albuterol/Ipratropium 3 ml 01/24/20 15:00 01/30/20 10:23 Ipratropium/Albuterol Sulfate 3 Ml Neb NEB 3 ml [id number] CANDY Administration Alprazolam 0.25 mg 01/24/20 18:31 01/29/20 16:05 Alprazolam 0.25 Mg Tab PO 0.25 mg QID PRN Administration Anxiety Amiodarone HCl 200 mg 01/27/20 15:00 01/30/20 08:46 Amiodarone 200 Mg Tab PO 200 mg TID CANDY Administration Amlodipine Besylate 5 mg 01/25/20 09:00 01/30/20 08:46 Amlodipine 5 Mg Tab PO 5 mg DAILY CANDY Administration Atorvastatin Calcium 40 mg 01/23/20 21:00 01/29/20 19:53 Atorvastatin Calcium 40 Mg Tab PO 40 mg HS CANDY Administration Camphor/Menthol/Eucalyptus 0 gm 01/30/20 04:35 01/30/20 05:16 Vicks Vaporub 50 Gm Jar TOP 1 applic PRN PRN Administration Chest Congestion/Secretions Clonazepam 0.5 mg 01/27/20 21:00 01/30/20 08:45 Clonazepam 0.5 Mg Tab PO 0.5 mg BID CANDY Administration Fluticasone Propionate 0 gm 01/28/20 09:00 01/30/20 08:47 Fluticasone Propionate Nasal [place] 16 Gm Bottle NASAL 2 spr DAILY CANDY Administration Furosemide 40 mg 01/28/20 14:00 01/30/20 08:45 Furosemide 40 Mg Tab PO 40 mg 0900,1400 CANDY Administration Hydralazine HCl 50 mg 01/24/20 21:00 01/30/20 08:46 Hydralazine 25 Mg Tab PO 50 mg TID CANDY Administration Insulin Glargine 32 units/ 0.32 mls @ 0 mls/hr 01/24/20 21:00 01/29/20 19:54 Miscellaneous Medication SC 0.32 mls HS CANDY Administration Ceftriaxone Sodium 1 gm/ 100 mls @ 200 mls/hr 01/29/20 14:00 01/29/20 14:01 Sodium Chloride IVPB 100 mls Q24HR CANDY Administration Insulin Human Lispro 0 units 01/23/20 16:19 01/30/20 11:24 Humalog 300 Units/3 Ml Vial SC 4 unit .MILD SLIDING SCALE PRN Administration Mild Correctional Scale Insulin Human Lispro 0 units 01/23/20 16:19 01/28/20 20:42 Humalog 300 Units/3 Ml Vial SC 4 unit .BEDTIME SLIDING SC PRN Administration Bedtime Correctional Scale Levothyroxine Sodium 125 mcg 01/24/20 06:00 01/30/20 05:15 Levothyroxine Sodium 125 Mcg Tab PO 125 mcg 0600 CANDY Administration Mometasone Furoate/Formoterol Fumar 2 puff 01/24/20 18:30 01/30/20 07:52 Mometasone 200 Mcg/Formoterol 5 Mcg 120 Puff Inhaler INH 2 puff BID-RT CANDY Administration Potassium Chloride 10 meq 01/29/20 09:00 01/30/20 08:46 Potassium Chloride 10 Meq Tab PO 10 meq DAILY CANDY Administration Throat Lozenges 1 laura 01/29/20 02:08 01/29/20 19:54 Cepastat Lozenges 1 Laura PO 1 laura Q2H PRN Administration Sore Throat - Exam General Appearance: NAD, awake alert Eye: PERRL ENT: normocephalic atraumatic Neck: supple Heart: RRR Respiratory: CTAB, normal chest expansion Gastrointestinal: soft, normal bowel sounds Neurological: cranial nerve grossly intact, no focal deficits Psychiatric: normal affect, normal behavior, A&O x 3 Hosp A/P - Plan 79-year-old female past medical history of COPD not on home O2, type 2 diabetes mellitus, hyperlipidemia, hypertension, congestive heart failure with EF of 40 to 45%, atrial fibrillation on amiodarone presents for worsening shortness of breath found to have pulmonary embolism and pericardial effusion. Course complicated by patient's JAMES and oliguria. Acute Pulmonary embolism --pt is tolerating Eliquis. Hb stable. Started with Eliquis 10 mg twice a day and transition to 5 mg twice a day Pericardial effusion --small, no evidence of cardiac temponade --appreciate CTS input. CHF exacerbation --acute on chronic systolic HF --cont IV Lasix, Echo showed EF 45% --appreciate cardiology input, monitor I&O, and daily weight Atrial fibrillation --paroxysmal. NSR. cont amio. start AC as above. cont Amio as recommended by cardiology Recent GI bleed -No evidence of bleed during the last few days. Hemoglobin is stable. COPD --History of COPD not on home O2. wean O2 as nellie. cont nebs. JAMES on CKD3 --Cr stable with diuresis Sepsis without septic shock - ruled out --presumed sepsis on admission. I think noninfectious SIRS rather. Cultures no growth. D/C Abx Type 2 DM --Will hold home metformin in setting of JAMES. ISS, -Started scheduled insulin as her glucose is higher. -Follow-up with A1c. Hypothyroidism --Continue home levothyroxine. Hyperlipidemia --Continue home statin. Hypertension --resume home meds Suicidal Ideation --cont sitter. start Klonopin for anxiety/depression Sitter at bedside for admission diagnosis of suicidal ideation. Patient is medically stable and cleared to be evaluated by mental health. Possible dysphagia she is able to swallow the food but sometimes it gets stuck. -We will request the speech therapy to follow-up. Leukocytosis Chest x-ray done yesterday showed some left lower lobe consolidation with accompanying pleural effusion. She also has elevated white count this morning around 16,000. Will check her urine analysis as well. Urine analysis done on January 22 did not show any nitrite she did had bacteriuria. -We will follow with the urine culture as well. -She is on ceftriaxone Tachycardia/bradycardia syndrome -Pacemaker evaluation
[2020-01-30] MEDS ORDERED: Dextrose 50% Abboject 50 ML SYRINGE SLOW IVP PRN (14:22)
[2020-01-30] MEDS ORDERED: Dextrose 5% in Water 1,000 ML IV PRN (14:22)
[2020-01-30] MEDS: cefTRIAXone\\ROCEPHIN 1 GM in Sodium Chloride 0.9% 100 ML IVPB SCH (14:59)
--- NOTE | 2020-01-30 15:00 | RAD ---
EXAM: XR Ba Swallow W/Speech Therap PROVIDED CLINICAL HISTORY: Dysphagia, unspecified. Feeding difficulties. COMPARISON: None FINDINGS: This examination is performed in conjunction with speech pathology. Thin and thick liquid barium as w ell as barium soaked cracker were administered during the exam. The patient demonstrates normal formation of bolus into the posterior pharynx. There is suggestion of trace aspiration with a few swa llows. No georgie aspiration is seen, and there is no significant pooling in the vallecula or piriform sinuses. IMPRESSION: A few episodes of trace penetration, but no aspiration was noted during the exam.
[2020-01-30] MEDS: Acetaminophen 325 MG TAB PO PRN ×2 (15:04→22:11)
[2020-01-30] MEDS: ALPRAZolam 0.25 MG TAB PO PRN (15:05)
--- NOTE | 2020-01-30 17:46 | CT ---
Exam: CT angiogram of the chest HISTORY: Shortness of breath. Positive PE study on 01/23/2020 COMPARISON: 01/23/2020 TECHNIQUE: CT angiogram of the chest is performed in the axial plane. Three-dimensional reformatted i mages are submitted for interpretation FINDINGS: Mediastinum: No mass, lymphadenopathy or hematoma. HEART: Stable cardiomegaly and pericardial fluid Aorta: Unchanged. No aneurysm or dissection Upper solid abdominal viscera: No abnormality enhancement. Trachea and central bronchi: Patent Pleural spaces: Stable moderate bilateral pleural effusions Lung parenchyma: Stable bibasilar consolidation due to atelectasis. Aspiration and/or pneumonia canno t be excluded. Pneumothorax: None Osseous structures: No lytic or blastic lesions Pulmonary arteries:Adequate contrast opacification of the pulmonary arterial system to the level of t he lobar arteries. Previous noted filling defect in the left upper lobe has resolved. Currently, there are no pulmonary artery emboli to the level of the lobar arteries. IMPRESSION: 1. Interval resolution of previous noted left upper lobe pulmonary artery embolism. 2. Persistent bilateral pleural effusions with lung parenchymal consolidation. Bodies are presumed to be due to passive atelectasis. Superimposed pneumonia or aspiration cannot be excluded
--- NOTE | 2020-01-30 19:45 | PDOC.EVN ---
Event Note - Event Note Event Note: Notified by RN, patient cleared by [facility]. No need for sitter as patient determined to be low-risk.
[2020-01-30] MEDS: NPH, Human Insulin Isophane 300 UNIT/3 ML VIAL SC SCH (21:59)
[2020-01-30] MEDS: Atorvastatin Calcium 40 MG TAB PO SCH (22:00)
[2020-01-31] MEDS: HumaLOG 300 UNITS/3 ML VIAL SC PRN (00:35)
[2020-01-31] MEDS: Ondansetron ODT 4 MG TAB PO PRN (04:04)
[2020-01-31 04:49] LABS: Hemoglobin A1c 7.7 % (4.0-6.0)
[2020-01-31 04:56] LABS: #Basophils 0.1 thou/uL (0.0-0.2); #Eosinphils 0.1 thou/uL (0.0-0.7); #Lymphocytes 1.1 thou/uL (1.20-3.40); #Monocytes 1.7 thou/uL (0.11-0.59); #Neutrophils 10.9 thou/uL (1.40-6.50); %Basophils 0.4 % (0.0-1.0); %Eosinophils 0.6 % (0.0-10.0); %Lymphocytes 7.8 % (21.0-51.0); %Monocytes 12.3 % (0.0-10.0); %Neutrophils 78.9 % (42.0-75.0); Hemoglobin 8.8 g/dL (12.0-16.0); Mean Corpuscular HGB CONC 31.1 g/dL (32.0-36.0); Mean Corpuscular Hemoglobin 23.9 pg (27.0-31.0); Mean Corpuscular Volume 76.9 fL (78.0-98.0); Mean Platelet Volume 7.5 fL (7.4-10.4); Platelet Count 676 thou/uL (130-400); Red Blood Cell (RBC) Count 3.69 mill/uL (4.20-5.40); White Blood Cell (WBC) Count 13.9 thou/uL (4.8-10.8)
[2020-01-31 05:06] LABS: Anion Gap 13 mmol/L (10-20); BUN (Urea Nitrogen) 31 mg/dL (9.8-20.1); Calc. Creatinine Clearance 50 mL/min (70-130); Calcium 8.9 mg/dL (7.8-10.44); Carbon Dioxide 32 mmol/L (23-31); Chloride 95 mmol/L (98-107); Glucose 96 mg/dL (83-110); Potassium 4.3 mmol/L (3.5-5.1); Sodium 136 mmol/L (136-145)
[2020-01-31] MEDS: Mometasone 200 MCG/Formoterol 5 MCG 120 PUFF INHALER INH SCH ×2 (07:14→18:45)
[2020-01-31] MEDS: Levothyroxine Sodium 125 MCG TAB PO SCH (07:27)
[2020-01-31] MEDS ORDERED: DULAGLUTIDE 1.5 MG/0.5 ML SC SCH (09:00)
[2020-01-31] MEDS: Furosemide 40 MG TAB PO SCH ×2 (10:19→14:57)
[2020-01-31] MEDS: Apixaban 5 MG TAB PO SCH ×2 (10:19→20:44)
[2020-01-31] MEDS: Amlodipine 5 MG TAB PO SCH (10:19)
[2020-01-31] MEDS: Amiodarone 200 MG TAB PO SCH ×3 (10:19→20:44)
[2020-01-31] MEDS: Potassium Chloride 10 MEQ TAB PO SCH (10:19)
[2020-01-31] MEDS: clonazePAM 0.5 MG TAB PO SCH ×2 (10:19→20:45)
[2020-01-31] MEDS: hydrALAZINE 25 MG TAB PO SCH ×3 (10:19→20:45)
[2020-01-31] MEDS: NPH, Human Insulin Isophane 300 UNIT/3 ML VIAL SC SCH ×2 (10:20→20:45)
[2020-01-31] MEDS: Fluticasone Propionate Nasal Spray 16 gm Bottle NASAL SCH (10:33)
[2020-01-31] MEDS: HYDROcodone/Acetaminophen 5/325 mg Tablet PO PRN (11:42)
[2020-01-31] MEDS: Azithromycin 500 MG in Sodium Chloride 0.9% 250 ML 250 ML IVPB SCH (11:43)
--- NOTE | 2020-01-31 15:31 | PRG ---
DATE OF SERVICE: 01/31/2020 SUBJECTIVE: Ms. Sherwood states she is breathing somewhat better. She just feels anxious. She wants medicine for anxiety. When I went into the room, however, she was sleeping and it is about a quarter to 3. OBJECTIVE: VITAL SIGNS: Her blood pressure is 136/60, pulse is in the 80s and sinus today. LUNGS: Clear. CARDIAC: Normal S1 and S2. ABDOMEN: Soft and nontender. ASSESSMENT: 1. Paroxysmal atrial fibrillation and flutter, currently in sinus rhythm. 2. Recent pulmonary embolism. 3. Recent cardiac catheterization showing nonobstructive atherosclerotic heart disease. PLAN: Continue current medical regimen. Also GI bleeding seems to have stopped. Her hemoglobin has not dropped any further. Continue current regimen at the present time. Job ID: [id number]
--- NOTE | 2020-01-31 16:41 | PDOC.HOSPP ---
- Subjective Encounter Date: 01/31/20 Encounter Time: 11:30 Subjective: Patient still complaining of chest discomfort mostly from her throat area. Mental health cleared her. A. fib converted back to sinus rhythm. Stable hemoglobin. - Objective Vital Signs & Weight: Vital Signs (12 hours) Temp Pulse Pulse Pulse Resp BP BP 01/31/20 14:59 78 01/31/20 14:55 98.2 F 78 18 01/31/20 11:36 81 81 136/61 137/64 01/31/20 11:32 99.2 F 83 01/31/20 10:19 80 01/31/20 10:13 80 14 01/31/20 07:52 98.2 F 78 18 01/31/20 07:50 BP Pulse Ox Pulse Ox Pulse Ox 01/31/20 14:59 01/31/20 14:55 121/70 01/31/20 11:36 94 L 93 L 01/31/20 11:32 130/62 94 L 01/31/20 10:19 01/31/20 10:13 01/31/20 07:52 138/60 92 L 01/31/20 07:50 92 L Weight Weight 173 lb 14.4 oz Most Recent Monitor Data Heart Rate from ECG 73 NIBP 132/72 NIBP BP-Mean 92 Respiration from ECG 23 SpO2 96 I&O: 01/30/20 01/31/20 02/01/20 06:59 06:59 06:59 Intake Total 1550 960 Output Total 350 600 Balance 1200 360 Result Diagrams: 01/31/20 04:21 01/31/20 04:21 Additional Labs: Accuchecks 01/31/20 01/31/20 01/30/20 10:25 05:37 23:46 POC Glucose 130 H 81 370 H 01/30/20 01/30/20 20:26 16:46 POC Glucose 415 H 284 H Hospitalist ROS - Medication Medications: Active Medications Generic Name Dose Route Start Last Admin Trade Name Freq PRN Reason Stop Dose Admin Acetaminophen 650 mg 01/26/20 16:40 01/30/20 22:11 Acetaminophen 325 Mg Tab PO 650 mg Q6H PRN Administration Mild-Moderate Pain (1-5) Hydrocodone Bitart/Acetaminophen 1 tab 01/26/20 16:40 01/31/20 11:42 Hydrocodone/Acetaminophen 5/325 Mg Tablet PO 1 tab Q4H PRN Administration Moderate to Severe Pain (6-10) Albuterol/Ipratropium 3 ml 01/24/20 15:00 01/31/20 14:07 Ipratropium/Albuterol Sulfate 3 Ml Neb NEB 3 ml [id number] CANDY Administration Alprazolam 0.25 mg 01/24/20 18:31 01/30/20 15:05 Alprazolam 0.25 Mg Tab PO 0.25 mg QID PRN Administration Anxiety Amiodarone HCl 200 mg 01/27/20 15:00 01/31/20 14:58 Amiodarone 200 Mg Tab PO 200 mg TID CANDY Administration Amlodipine Besylate 5 mg 01/25/20 09:00 01/31/20 10:19 Amlodipine 5 Mg Tab PO 5 mg DAILY CANDY Administration Apixaban 5 mg 01/30/20 21:00 01/31/20 10:19 Apixaban 5 Mg Tab PO 5 mg BID CANDY Administration Atorvastatin Calcium 40 mg 01/23/20 21:00 01/30/20 22:00 Atorvastatin Calcium 40 Mg Tab PO 40 mg HS CANDY Administration Camphor/Menthol/Eucalyptus 0 gm 01/30/20 04:35 01/30/20 05:16 Vicks Vaporub 50 Gm Jar TOP 1 applic PRN PRN Administration Chest Congestion/Secretions Clonazepam 0.5 mg 01/27/20 21:00 01/31/20 10:19 Clonazepam 0.5 Mg Tab PO 0.5 mg BID CANDY Administration Fluticasone Propionate 0 gm 01/28/20 09:00 01/31/20 10:33 Fluticasone Propionate Nasal [place] 16 Gm Bottle NASAL 2 spr DAILY CANDY Administration Furosemide 40 mg 01/28/20 14:00 01/31/20 14:57 Furosemide 40 Mg Tab PO 40 mg 0900,1400 CANDY Administration Hydralazine HCl 50 mg 01/24/20 21:00 01/31/20 14:59 Hydralazine 25 Mg Tab PO 50 mg TID CANDY Administration Ceftriaxone Sodium 1 gm/ 100 mls @ 200 mls/hr 01/29/20 14:00 01/30/20 14:59 Sodium Chloride IVPB 100 mls Q24HR CANDY Administration Azithromycin 500 mg/ Sodium 250 mls @ 250 mls/hr 01/31/20 11:00 01/31/20 11:43 Chloride IVPB 250 mls Q24HR CANDY Administration Insulin Human Lispro 0 units 01/23/20 16:19 01/31/20 00:35 Humalog 300 Units/3 Ml Vial SC 5 unit .BEDTIME SLIDING SC PRN Administration Bedtime Correctional Scale Insulin Human NPH 30 unit 01/30/20 21:00 01/31/20 10:20 Nph, Human Insulin Isophane 300 Unit/3 Ml Vial SC 30 unit BID CANDY Administration Levothyroxine Sodium 125 mcg 01/24/20 06:00 01/31/20 07:27 Levothyroxine Sodium 125 Mcg Tab PO 125 mcg 0600 CANDY Administration Mometasone Furoate/Formoterol Fumar 2 puff 01/24/20 18:30 01/31/20 07:14 Mometasone 200 Mcg/Formoterol 5 Mcg 120 Puff Inhaler INH 2 puff BID-RT CANDY Administration Ondansetron HCl 4 mg 01/23/20 16:12 01/31/20 04:04 Ondansetron Odt 4 Mg Tab PO 4 mg Q6H PRN Administration Nausea/Vomiting Potassium Chloride 10 meq 01/29/20 09:00 01/31/20 10:19 Potassium Chloride 10 Meq Tab PO 10 meq DAILY CANDY Administration Throat Lozenges 1 laura 01/29/20 02:08 01/29/20 19:54 Cepastat Lozenges 1 Laura PO 1 laura Q2H PRN Administration Sore Throat - Exam General Appearance: NAD, awake alert Eye: PERRL ENT: normocephalic atraumatic Neck: supple Heart: RRR, normal peripheral pulses Respiratory: CTAB, normal chest expansion Gastrointestinal: soft, normal bowel sounds Skin: normal turgor Neurological: cranial nerve grossly intact, no focal deficits Psychiatric: A&O x 3 Hosp A/P - Plan 79-year-old female past medical history of COPD not on home O2, type 2 diabetes mellitus, hyperlipidemia, hypertension, congestive heart failure with EF of 40 to 45%, atrial fibrillation on amiodarone presents for worsening shortness of breath found to have pulmonary embolism and pericardial effusion. Course complicated by patient's JAMES and oliguria. Acute Pulmonary embolism --pt is tolerating Eliquis. Hb stable. Started with Eliquis 10 mg twice a day and transition to 5 mg twice a day Pericardial effusion --small, no evidence of cardiac temponade --appreciate CTS input. CHF exacerbation --acute on chronic systolic HF --cont IV Lasix, Echo showed EF 45%---------------> switch to p.o. --appreciate cardiology input, monitor I&O, and daily weight Atrial fibrillation --paroxysmal. NSR. cont amio. start AC as above. cont Amio as recommended by cardiology Recent GI bleed -No evidence of bleed during the last few days. Hemoglobin is stable. COPD --History of COPD not on home O2. wean O2 as nellie. cont nebs. JAMES on CKD3 --Cr stable with diuresis Sepsis without septic shock - ruled out --presumed sepsis on admission. I think noninfectious SIRS rather. Cultures no growth. D/C Abx Type 2 DM --Will hold home metformin in setting of JAMES. ISS, -Started scheduled insulin as her glucose is higher. -Follow-up with A1c. Hypothyroidism --Continue home levothyroxine. Hyperlipidemia --Continue home statin. Hypertension --resume home meds Suicidal Ideation --cont sitter. start Klonopin for anxiety/depression Sitter at bedside for admission diagnosis of suicidal ideation.- -----------------> cleared by mental health Patient is medically stable and cleared to be evaluated by mental health. Possible dysphagia she is able to swallow the food but sometimes it gets stuck. -We will request the speech therapy to follow-up. Leukocytosis Chest x-ray done yesterday showed some left lower lobe consolidation with accompanying pleural effusion. She also has elevated white count this morning around 16,000. Will check her urine analysis as well. Urine analysis done on January 22 did not show any nitrite she did had bacteriuria. -We will follow with the urine culture as well.---------------------> negative as well as blood culture -She is on ceftriaxone CT chest done on showed interval resolution of left upper lobe pulmonary artery embolism but has persistent bilateral pleural effusion as well as parenchymal consolidation -given The elevated leukocytosis concern for aspiration pneumonia cannot be ruled out -White count is trending down. Tachycardia/bradycardia syndrome [tachycardia/A. fib/a flutter converted back to sinus rhythm -Pacemaker evaluation - in progress -It appears that going to be a medical management. Once cardiology cleared her then possible jail facility placement
[2020-01-31] MEDS: cefTRIAXone\\ROCEPHIN 1 GM in Sodium Chloride 0.9% 100 ML IVPB SCH (16:45)
[2020-01-31 18:04] LABS: Bacteria/HPF None Seen HPF (None Seen); Bilirubin Negative (Negative); Blood, Urine Negative (Negative); Clarity Clear (Clear); Glucose, Urine (Dipstick) 70 mg/dL (Negative); Ketone, Urine Negative (Negative); Leukocyte Negative Leu/uL (Negative); Nitrite Negative (Negative); Protein, Urine (Dipstick) 30 mg/dL (Neg-Trace); RBC/HPF None Seen HPF (0-3); Specific Gravity, Urine 1.023 (1.002-1.036); Squamous Epithelial 0-3 HPF (0-3); Urobilinogen Normal mg/dL (Less than 2); WBC/HPF 0-3 HPF (0-3); pH, Urine 5.5 (5.0-9.0)
[2020-01-31] MEDS: Atorvastatin Calcium 40 MG TAB PO SCH (20:44)
[2020-01-31] MEDS: Acetaminophen 325 MG TAB PO PRN (22:24)
[2020-01-31] MEDS: clonazePAM 1 MG TAB PO SCH (22:24)
[2020-01-31] MEDS: Lorazepam 0.5 MG TAB PO PRN (22:25)
[2020-02-01] MEDS: Albuterol Sulfate 2.5 mg/3 ml Neb NEB PRN (02:02)
[2020-02-01 04:27] LABS: Anion Gap 14 mmol/L (10-20); BUN (Urea Nitrogen) 29 mg/dL (9.8-20.1); Calc. Creatinine Clearance 43 mL/min (70-130); Calcium 8.7 mg/dL (7.8-10.44); Carbon Dioxide 29 mmol/L (23-31); Chloride 92 mmol/L (98-107); Glucose 142 mg/dL (83-110); Potassium 5.4 mmol/L (3.5-5.1); Sodium 130 mmol/L (136-145)
[2020-02-01 04:31] LABS: #Eosinphils 0.1 thou/uL (0.0-0.7); #Lymphocytes 1.1 thou/uL (1.20-3.40); #Neutrophils 12.5 thou/uL (1.40-6.50); %Basophils 0.2 % (0.0-1.0); %Eosinophils 0.5 % (0.0-10.0); %Lymphocytes 6.9 % (21.0-51.0); %Monocytes 12.9 % (0.0-10.0); %Neutrophils 79.6 % (42.0-75.0); Mean Corpuscular HGB CONC 30.9 g/dL (32.0-36.0); Mean Corpuscular Hemoglobin 23.8 pg (27.0-31.0); Mean Corpuscular Volume 76.9 fL (78.0-98.0); Mean Platelet Volume 7.5 fL (7.4-10.4); Platelet Count 680 thou/uL (130-400); RBC Distribution Width 20.9 % (11.5-14.5); Red Blood Cell (RBC) Count 3.78 mill/uL (4.20-5.40); White Blood Cell (WBC) Count 15.7 thou/uL (4.8-10.8)
[2020-02-01] MEDS: Levothyroxine Sodium 125 MCG TAB PO SCH (05:32)
[2020-02-01] MEDS: ALPRAZolam 0.25 MG TAB PO PRN (06:27)
[2020-02-01] MEDS: Mometasone 200 MCG/Formoterol 5 MCG 120 PUFF INHALER INH SCH ×2 (07:20→19:03)
[2020-02-01] MEDS: Amlodipine 5 MG TAB PO SCH (09:27)
[2020-02-01] MEDS: hydrALAZINE 25 MG TAB PO SCH ×3 (09:28→22:18)
[2020-02-01] MEDS: Amiodarone 200 MG TAB PO SCH ×4 (09:28→21:02)
[2020-02-01] MEDS: Apixaban 5 MG TAB PO SCH ×2 (09:28→21:02)
[2020-02-01] MEDS: clonazePAM 1 MG TAB PO SCH ×2 (09:28→21:02)
[2020-02-01] MEDS: Furosemide 40 MG TAB PO SCH ×3 (09:28→15:12)
[2020-02-01] MEDS: Potassium Chloride 10 MEQ TAB PO SCH ×2 (09:29→10:53)
[2020-02-01] MEDS: Fluticasone Propionate Nasal Spray 16 gm Bottle NASAL SCH (09:29)
[2020-02-01] MEDS ORDERED: methylPREDNISolone Sod Succ/PF 125 MG/2 ML VIAL IVP SCH (09:45)
[2020-02-01 09:55] LABS: Actual Bicarbonate (HCO3a) 27.1 mEq/L (22-28); Base Excess (BEa) 0.9 mEq/L (-2.0 to +3.0); CO2 Tension 50.6 mmHg (35.0-45.0); Calcium, Ionized (arterial) 1.14 mmol/L (1.12-1.30); Carboxyhemoglobin (COHb) 0.8 gm% (0.0-3.0); Hemoglobin (Hb) 9.9 g/dL (12.0-16.0); O2 Tension (PaO2), arterial 60.1 mmHg (> 70.0); Potassium - ABG Lab 5.54 mmol/L (3.70-5.30); pH, Arterial 7.35 (7.35-7.45)
--- NOTE | 2020-02-01 09:55 | RAD ---
EXAM: Single view of the chest HISTORY: Shortness of breath COMPARISON: 01/23/2020 FINDINGS: Single view of the chest shows an enlarged but stable cardiomediastinal silhouette. A mode rate left and small right pleural effusion are seen. Adjacent atelectasis is present. Surgical clips are seen in the left axilla. Remodeling in the right humerus may be from prior healed fracture. IMPRESSION: Cardiomegaly and bilateral pleural effusions.
[2020-02-01 09:58] LABS: Puncture Site RRA
[2020-02-01] MEDS ORDERED: Furosemide 40 MG/4 ML VIAL SLOW IVP SCH ×2 (10:00→19:00)
--- NOTE | 2020-02-01 10:01 | PRG ---
DATE OF SERVICE: 02/01/2020 SUBJECTIVE: Ms. Sherwood is not doing well. OBJECTIVE: GENERAL/VITAL SINGS: She is sitting up, short of breath. Oxygen saturations are in the 80s, high 80s. She is breathing rapidly and shallow. Her heart rates are in the 120 range. It is atrial fibrillation. LUNGS: Breath sounds are shallow and rapid. CARDIAC: Tachycardic and irregular. ABDOMEN: Soft and nontender. ASSESSMENT: Respiratory insufficiency, probably multifactorial. History of pulmonary emboli, but this should have been markedly improved by now after being anticoagulated. History of atrial fibrillation, possible pneumonia. PLAN: 1. Recommend moving to IM. May need CPAP or BiPAP. 2. Give her intravenous diltiazem. 3. Give her intravenous Lasix. Job ID: [id number]
[2020-02-01] MEDS: Diltiazem 125 MG in Sodium Chloride 0.9% 100 ML IVPB SCH ×2 (10:08→20:48)
[2020-02-01] MEDS ORDERED: Lorazepam 2 MG/ML VIAL ONE (11:13)
[2020-02-01] MEDS: Azithromycin 500 MG in Sodium Chloride 0.9% 250 ML 250 ML IVPB SCH (11:57)
[2020-02-01] MEDS: NPH, Human Insulin Isophane 300 UNIT/3 ML VIAL SC SCH ×2 (11:57→20:58)
--- NOTE | 2020-02-01 12:03 | PRG ---
DATE OF SERVICE: 02/01/2020 35 minutes of critical care time. SUBJECTIVE: This patient is previous seen by Dr. Parikh this admission. We will sign off. This morning, a code roman was called because the patient was experiencing increasing shortness of breath. Tachycardia with atrial fibrillation with a rapid ventricular response. She was brought to the ICU, placed on BiPAP. She is receiving intravenous diltiazem and was given a dose of Lasix. She is very agitated to the point where I had to give her some Ativan. I have reviewed the medications on the chart. PHYSICAL EXAMINATION: VITAL SIGNS: Her heart rate is 114, O2 saturation is 97%, respiratory rate 25, blood pressure 125/92. HEENT: Unremarkable. NECK: No JVD. LUNGS: Coarse breath sounds. CARDIAC: S1, S2. Irregularly irregular and tachycardic. ABDOMEN: Soft. EXTREMITIES: No edema. IMAGING DATA: Her x-ray shows severe cardiomegaly. She has bilateral effusions consistent with heart failure. LABORATORY DATA: White blood cell count 15, hematocrit 29, platelet count 680, pH 7.35, pCO2 of 50, pO2 of 60 that was on 6 L. Sodium 130, potassium 5.4, chloride 92, CO2 of 29, BUN 29, creatinine 1.4, glucose 142. ASSESSMENT: 1. Atrial fibrillation with rapid ventricular response. 2. Flash pulmonary edema with diastolic congestive heart failure. 3. Previous pulmonary embolism, which had resolved on repeat CT scan done 2 days ago. Recommendation to ICU for BiPAP, diuresis, and Cardizem drip. Prognosis is very guarded at this time. Job ID: [id number]
[2020-02-01] MEDS: cefTRIAXone\\ROCEPHIN 1 GM in Sodium Chloride 0.9% 100 ML IVPB SCH (15:12)
--- NOTE | 2020-02-01 16:53 | PDOC.HOSPP ---
- Subjective Encounter Date: 02/01/20 Encounter Time: 08:30 Subjective: Patient is under a lot of distress including tachypneic. We did the blood gas. She is quite agitated. Her sats are dropping. She will be going to the [facility] shortly. - Objective Vital Signs & Weight: Vital Signs (12 hours) Temp Pulse Resp BP Pulse Ox 02/01/20 16:00 98.4 F 02/01/20 12:00 98.4 F 02/01/20 11:58 114 H 02/01/20 11:47 97 02/01/20 11:00 114 H 13 97 02/01/20 10:42 120 H 36 H 02/01/20 09:28 116 H 02/01/20 07:22 98.4 F 116 H 20 125/92 H 97 02/01/20 07:20 97 Weight Weight 173 lb 14.4 oz Most Recent Monitor Data Heart Rate from ECG 99 NIBP 135/76 NIBP BP-Mean 95 Respiration from ECG 28 SpO2 92 I&O: 01/31/20 02/01/20 02/02/20 06:59 06:59 06:59 Intake Total 960 800 Output Total 600 900 Balance 360 -100 Result Diagrams: 02/01/20 03:48 02/01/20 03:48 Additional Labs: Accuchecks 02/01/20 02/01/20 01/31/20 09:44 06:08 20:17 POC Glucose 194 H 145 H 168 H 01/31/20 01/31/20 17:33 16:51 POC Glucose 106 H 51 L* Hospitalist ROS - Medication Medications: Active Medications Generic Name Dose Route Start Last Admin Trade Name Freq PRN Reason Stop Dose Admin Acetaminophen 650 mg 01/26/20 16:40 01/31/20 22:24 Acetaminophen 325 Mg Tab PO 650 mg Q6H PRN Administration Mild-Moderate Pain (1-5) Hydrocodone Bitart/Acetaminophen 1 tab 01/26/20 16:40 01/31/20 11:42 Hydrocodone/Acetaminophen 5/325 Mg Tablet PO 1 tab Q4H PRN Administration Moderate to Severe Pain (6-10) Albuterol Sulfate 2.5 mg 01/24/20 15:14 02/01/20 02:02 Albuterol Sulfate 2.5 Mg/3 Ml Neb NEB 2.5 mg Q6H PRN Administration SOB &/or Wheezing Alprazolam 0.25 mg 01/24/20 18:31 02/01/20 06:27 Alprazolam 0.25 Mg Tab PO 0.25 mg QID PRN Administration Anxiety Amiodarone HCl 200 mg 01/27/20 15:00 02/01/20 15:11 Amiodarone 200 Mg Tab PO 200 mg TID CANDY Administration Amlodipine Besylate 5 mg 01/25/20 09:00 02/01/20 09:27 Amlodipine 5 Mg Tab PO 5 mg DAILY CANDY Administration Apixaban 5 mg 01/30/20 21:00 02/01/20 09:28 Apixaban 5 Mg Tab PO 5 mg BID CADNY Administration Atorvastatin Calcium 40 mg 01/23/20 21:00 01/31/20 20:44 Atorvastatin Calcium 40 Mg Tab PO 40 mg HS CANDY Administration Camphor/Menthol/Eucalyptus 0 gm 01/30/20 04:35 01/30/20 05:16 Vicks Vaporub 50 Gm Jar TOP 1 applic PRN PRN Administration Chest Congestion/Secretions Clonazepam 1 mg 01/31/20 21:00 02/01/20 09:28 Clonazepam 1 Mg Tab PO 1 mg BID CANDY Administration Fluticasone Propionate 0 gm 01/28/20 09:00 02/01/20 09:29 Fluticasone Propionate Nasal [place] 16 Gm Bottle NASAL 1 spr DAILY CANDY Administration Furosemide 40 mg 01/28/20 14:00 02/01/20 15:12 Furosemide 40 Mg Tab PO 40 mg 0900,1400 CANDY Administration Hydralazine HCl 50 mg 01/24/20 21:00 02/01/20 11:58 Hydralazine 25 Mg Tab PO Not Given TID CANDY Ceftriaxone Sodium 1 gm/ 100 mls @ 200 mls/hr 01/29/20 14:00 02/01/20 15:12 Sodium Chloride IVPB 100 mls Q24HR CANDY Administration Azithromycin 500 mg/ Sodium 250 mls @ 250 mls/hr 01/31/20 11:00 02/01/20 11:57 Chloride IVPB Not Given Q24HR CANDY Diltiazem HCl 125 mg/ Sodium 125 mls @ 5 mls/hr 02/01/20 09:45 02/01/20 10:08 Chloride IVPB 125 mls INF CANDY Administration Protocol 5 MG/HR Insulin Human Lispro 0 units 01/23/20 16:19 01/31/20 00:35 Humalog 300 Units/3 Ml Vial SC 5 unit .BEDTIME SLIDING SC PRN Administration Bedtime Correctional Scale Insulin Human NPH 30 unit 01/30/20 21:00 02/01/20 11:57 Nph, Human Insulin Isophane 300 Unit/3 Ml Vial SC Not Given BID CANDY Levothyroxine Sodium 125 mcg 01/24/20 06:00 02/01/20 05:32 Levothyroxine Sodium 125 Mcg Tab PO 125 mcg 0600 CANDY Administration Lorazepam 0.5 mg 01/31/20 21:09 01/31/20 22:25 Lorazepam 0.5 Mg Tab PO 0.5 mg TID PRN Administration Anxiety Mometasone Furoate/Formoterol Fumar 2 puff 01/24/20 18:30 02/01/20 07:20 Mometasone 200 Mcg/Formoterol 5 Mcg 120 Puff Inhaler INH 2 puff BID-RT CANDY Administration Ondansetron HCl 4 mg 01/23/20 16:12 01/31/20 04:04 Ondansetron Odt 4 Mg Tab PO 4 mg Q6H PRN Administration Nausea/Vomiting Potassium Chloride 10 meq 01/29/20 09:00 02/01/20 10:53 Potassium Chloride 10 Meq Tab PO Not Given DAILY CANDY Throat Lozenges 1 laura 01/29/20 02:08 01/29/20 19:54 Cepastat Lozenges 1 Laura PO 1 laura Q2H PRN Administration Sore Throat - Exam General Appearance: ill appearing General - other findings: Moderate respiratory distress Eye: PERRL ENT: normocephalic atraumatic Neck: supple Heart: RRR Respiratory: normal chest expansion, tachypneic, wheezes Gastrointestinal: soft, normal bowel sounds Neurological: cranial nerve grossly intact, no focal deficits Psychiatric: A&O x 3 Hosp A/P - Plan 79-year-old female past medical history of COPD not on home O2, type 2 diabetes mellitus, hyperlipidemia, hypertension, congestive heart failure with EF of 40 to 45%, atrial fibrillation on amiodarone presents for worsening shortness of breath found to have pulmonary embolism and pericardial effusion. Course complicated by patient's JAMES and oliguria. Acute Pulmonary embolism --pt is tolerating Eliquis. Hb stable. Started with Eliquis 10 mg twice a day and transition to 5 mg twice a day Pericardial effusion --small, no evidence of cardiac temponade --appreciate CTS input. CHF exacerbation --acute on chronic systolic HF --cont IV Lasix, Echo showed EF 45%---------------> switch to p.o. --appreciate cardiology input, monitor I&O, and daily weight Atrial fibrillation --paroxysmal. NSR. cont amio. start AC as above. cont Amio as recommended by ca rdiology Recent GI bleed -No evidence of bleed during the last few days. Hemoglobin is stable. COPD --History of COPD not on home O2. wean O2 as nellie. cont nebs. JAMES on CKD3 --Cr stable with diuresis Sepsis without septic shock - ruled out --presumed sepsis on admission. I think noninfectious SIRS rather. Cultures no growth. D/C Abx Type 2 DM --Will hold home metformin in setting of JAMES. ISS, -Started scheduled insulin as her glucose is higher. -Follow-up with A1c. Hypothyroidism --Continue home levothyroxine. Hyperlipidemia --Continue home statin. Hypertension --resume home meds Suicidal Ideation --cont sitter. start Klonopin for anxiety/depression Sitter at bedside for admission diagnosis of suicidal ideation.------------------> cleared by mental health Patient is medically stable and cleared to be evaluated by mental health. Possible dysphagia she is able to swallow the food but sometimes it gets stuck. -We will request the speech therapy to follow-up. Leukocytosis Chest x-ray done yesterday showed some left lower lobe consolidation with accompanying pleural effusion. She also has elevated white count this morning around 16,000. Will check her urine analysis as well. Urine analysis done on January 22 did not show any nitrite she did had bacteriuria. -We will follow with the urine culture as well.---------------------> negative as well as blood culture -She is on ceftriaxone CT chest done on showed interval resolution of left upper lobe pulmonary artery embolism but has persistent bilateral pleural effusion as well as parenchymal consolidation -given The elevated leukocytosis concern for aspiration pneumonia cannot be ruled out -White count is trending down. Tachycardia/bradycardia syndrome [tachycardia/A. fib/a flutter converted back to sinus rhythm -Pacemaker evaluation - in progress -It appears that going to be a medical management. 16th Possible worsening pneumonia Anxiety exacerbating her clinical condition. --Plan to move her to the [facility]. -Trial of CPAP. Continue with anticoagulation with Eliquis for PE and antibiotics with the ceftriaxone and Zithromax for pneumonia -A. fib-----she is on amiodarone but given her mentation status, cardiology recommended Cardizem IV. -We will follow closely in the [facility]
[2020-02-01] MEDS: Lorazepam 2 MG/ML VIAL SLOW IVP PRN (17:01)
[2020-02-01] MEDS: HumaLOG 300 UNITS/3 ML VIAL SC PRN ×2 (20:56→23:46)
[2020-02-01] MEDS: Atorvastatin Calcium 40 MG TAB PO SCH (21:02)
[2020-02-02] MEDS ORDERED: Furosemide 40 MG/4 ML VIAL SLOW IVP SCH (06:00)
[2020-02-02] MEDS: Levothyroxine Sodium 125 MCG TAB PO SCH (06:05)
[2020-02-02] MEDS: HumaLOG 300 UNITS/3 ML VIAL SC PRN ×4 (06:07→17:29)
[2020-02-02] MEDS: ALPRAZolam 0.25 MG TAB PO PRN ×2 (06:18→15:06)
[2020-02-02] MEDS: HYDROcodone/Acetaminophen 5/325 mg Tablet PO PRN ×2 (06:18→17:43)
[2020-02-02 07:47] LABS: #Lymphocytes 0.6 thou/uL (1.20-3.40); #Monocytes 0.5 thou/uL (0.11-0.59); #Neutrophils 12.5 thou/uL (1.40-6.50); %Eosinophils 0.2 % (0.0-10.0); %Lymphocytes 4.5 % (21.0-51.0); %Monocytes 3.7 % (0.0-10.0); %Neutrophils 91.6 % (42.0-75.0); Hemoglobin 8.4 g/dL (12.0-16.0); Mean Corpuscular HGB CONC 30.5 g/dL (32.0-36.0); Mean Corpuscular Hemoglobin 23.8 pg (27.0-31.0); Mean Corpuscular Volume 77.9 fL (78.0-98.0); Mean Platelet Volume 7.6 fL (7.4-10.4); Platelet Count 669 thou/uL (130-400); RBC Distribution Width 20.8 % (11.5-14.5); Red Blood Cell (RBC) Count 3.55 mill/uL (4.20-5.40); White Blood Cell (WBC) Count 13.7 thou/uL (4.8-10.8)
[2020-02-02] MEDS: Mometasone 200 MCG/Formoterol 5 MCG 120 PUFF INHALER INH SCH ×2 (07:47→19:14)
[2020-02-02 08:00] LABS: Anion Gap 19 mmol/L (10-20); BUN (Urea Nitrogen) 52 mg/dL (9.8-20.1); Calc. Creatinine Clearance 31 mL/min (70-130); Calcium 8.7 mg/dL (7.8-10.44); Carbon Dioxide 24 mmol/L (23-31); Chloride 93 mmol/L (98-107); Glucose 251 mg/dL (83-110); Potassium 5.7 mmol/L (3.5-5.1); Sodium 130 mmol/L (136-145)
[2020-02-02 08:35] LABS: Hypochromia SLIGHT = 6-15 cells (100X) (0-5/hpf); MDiff Complete? YES; Microcytosis SLIGHT = 6-15 cells (100X) (0-5/hpf); Polychromasia SLIGHT = 2-3 cells (100X) (0-2/hpf)
--- NOTE | 2020-02-02 08:48 | RAD ---
AP CHEST: Date: 02/02/2020 HISTORY: Pneumonia and CCU follow-up. COMPARISON: 02/01/2020. FINDINGS/IMPRESSION: Opacification of both lung bases, more pronounced on the left, consistent with bilateral effusions, l arger on the left. Associated bibasilar atelectasis and/or infiltrates. Cardiomegaly with mild vascul ar engorgement. No evidence of significant interval change from yesterday. POS: AGW
--- NOTE | 2020-02-02 08:49 | PRG ---
DATE OF SERVICE: 02/02/2020 SUBJECTIVE: Ms. Sherwood used BiPAP intermittently through the night. She is up and eating her breakfast this morning. OBJECTIVE: VITAL SIGNS: Temperature 97.9, pulse 60, blood pressure 130/49, and O2 saturation 95%. HEENT: Unremarkable. NECK: No adenopathy or JVD. LUNGS: Diminished breath sounds in the bases. CARDIAC: S1 and S2. Regular. ABDOMEN: Soft. EXTREMITIES: No edema. LABORATORY DATA: Sodium 130, potassium 5.7, chloride 93, CO2 of 24, BUN 52, creatinine 1.9, and glucose 251. White blood cell count 13.7, hematocrit 27.6, and platelet count 669. Her x-ray shows bilateral effusions. ASSESSMENT: 1. [id number] systolic heart failure/diastolic heart failure. 2. Atrial fibrillation with now controlled response. 3. Severe anxiety. 4. Acute hypoxic respiratory failure. PLAN: 1. She is at IMCU status right now. I would leave her in IMCU today. 2. Continue diuresis. 3. Stop the potassium and give one dose of Kayexalate given that her potassium level is now 5.7. Job ID: [id number]
[2020-02-02] MEDS: hydrALAZINE 25 MG TAB PO SCH ×3 (09:22→20:35)
[2020-02-02] MEDS: Amiodarone 200 MG TAB PO SCH ×3 (09:23→20:34)
[2020-02-02] MEDS: Apixaban 5 MG TAB PO SCH ×2 (09:23→20:34)
[2020-02-02] MEDS: Amlodipine 5 MG TAB PO SCH (09:36)
--- NOTE | 2020-02-02 09:40 | PRG ---
DATE OF SERVICE: 02/02/2020 SUBJECTIVE: Ms. Sherwood is sitting up in the chair. She feels much better today. OBJECTIVE: VITAL SIGNS: Her blood pressure 119/40, pulse rate 58, sinus. LUNGS: Clear on the right. Decreased breath sounds on the left. ASSESSMENT: 1. Paroxysmal atrial fibrillation, back in sinus rhythm. Also a paroxysmal atrial flutter. 2. Recent GI bleed. 3. Recent pulmonary embolism. 4. Large left pleural effusion. 5. Small pericardial effusion previously. PLAN: Repeat echocardiogram to evaluate pericardial effusion. Reduce furosemide. Creatinine is gone up to 1.92. PROGNOSIS: Guarded. Job ID: [id number]
[2020-02-02] MEDS: NPH, Human Insulin Isophane 300 UNIT/3 ML VIAL SC SCH ×2 (09:46→20:37)
[2020-02-02] MEDS: clonazePAM 1 MG TAB PO SCH ×2 (09:46→20:35)
[2020-02-02] MEDS: Fluticasone Propionate Nasal Spray 16 gm Bottle NASAL SCH (11:04)
[2020-02-02] MEDS: Azithromycin 500 MG in Sodium Chloride 0.9% 250 ML 250 ML IVPB SCH (11:05)
[2020-02-02] MEDS: cefTRIAXone\\ROCEPHIN 1 GM in Sodium Chloride 0.9% 100 ML IVPB SCH (13:35)
[2020-02-02] MEDS: Furosemide 40 MG/4 ML VIAL SLOW IVP SCH (13:37)
--- NOTE | 2020-02-02 14:23 | PDOC.HOSPP ---
- Subjective Encounter Date: 02/02/20 Encounter Time: 11:50 Subjective: Patient sitting in the chair. He is she is off the BiPAP. She is at her baseline functional status. She is nonstop talking. She still feels that she has a chest tightness mostly in the throat area. - Objective Vital Signs & Weight: Vital Signs (12 hours) Temp Pulse Resp BP Pulse Ox 02/02/20 09:36 57 L 119/39 L 02/02/20 09:22 57 L 119/39 L 02/02/20 08:00 97.9 F 02/02/20 07:47 60 20 94 L 02/02/20 07:43 94 L 02/02/20 04:00 97.5 F L 02/02/20 02:47 53 L 17 100 Weight Admit Weight 173 lb 14.4 oz Weight 173 lb 14.4 oz Most Recent Monitor Data Heart Rate from ECG 60 NIBP 130/49 NIBP BP-Mean 76 Respiration from ECG 21 SpO2 95 I&O: 02/01/20 02/02/20 02/03/20 06:59 06:59 06:59 Intake Total 800 722.5 50 Output Total 900 800 80 Balance -100 -77.5 -30 Result Diagrams: 02/02/20 07:06 02/02/20 07:06 Additional Labs: Accuchecks 02/02/20 02/02/20 02/01/20 12:57 06:08 23:41 POC Glucose 346 H 241 H 254 H 02/01/20 20:42 POC Glucose 247 H Hospitalist ROS - Medication Medications: Active Medications Generic Name Dose Route Start Last Admin Trade Name Cedq PRN Reason Stop Dose Admin Acetaminophen 650 mg 01/26/20 16:40 01/31/20 22:24 Acetaminophen 325 Mg Tab PO 650 mg Q6H PRN Administration Mild-Moderate Pain (1-5) Hydrocodone Bitart/Acetaminophen 1 tab 01/26/20 16:40 02/02/20 06:18 Hydrocodone/Acetaminophen 5/325 Mg Tablet PO 1 tab Q4H PRN Administration Moderate to Severe Pain (6-10) Albuterol Sulfate 2.5 mg 01/24/20 15:14 02/01/20 02:02 Albuterol Sulfate 2.5 Mg/3 Ml Neb NEB 2.5 mg Q6H PRN Administration SOB &/or Wheezing Alprazolam 0.25 mg 01/24/20 18:31 02/02/20 06:18 Alprazolam 0.25 Mg Tab PO 0.25 mg QID PRN Administration Anxiety Amiodarone HCl 200 mg 01/27/20 15:00 02/02/20 09:23 Amiodarone 200 Mg Tab PO 200 mg TID CANDY Administration Apixaban 5 mg 01/30/20 21:00 02/02/20 09:23 Apixaban 5 Mg Tab PO 5 mg BID CANDY Administration Atorvastatin Calcium 40 mg 01/23/20 21:00 02/01/20 21:02 Atorvastatin Calcium 40 Mg Tab PO 40 mg HS CANDY Administration Camphor/Menthol/Eucalyptus 0 gm 01/30/20 04:35 01/30/20 05:16 Vicks Vaporub 50 Gm Jar TOP 1 applic PRN PRN Administration Chest Congestion/Secretions Clonazepam 1 mg 01/31/20 21:00 02/02/20 09:46 Clonazepam 1 Mg Tab PO 1 mg BID CANDY Administration Fluticasone Propionate 0 gm 01/28/20 09:00 02/02/20 11:04 Fluticasone Propionate Nasal [place] 16 Gm Bottle NASAL 2 spr DAILY CANDY Administration Furosemide 20 mg 02/02/20 09:25 02/02/20 13:37 Furosemide 40 Mg/4 Ml Vial SLOW IVP 20 mg 0600,1400 CANDY Administration Hydralazine HCl 50 mg 01/24/20 21:00 02/02/20 09:22 Hydralazine 25 Mg Tab PO 50 mg TID CANDY Administration Ceftriaxone Sodium 1 gm/ 100 mls @ 200 mls/hr 01/29/20 14:00 02/02/20 13:35 Sodium Chloride IVPB 100 mls Q24HR CANDY Administration Azithromycin 500 mg/ Sodium 250 mls @ 250 mls/hr 01/31/20 11:00 02/02/20 11 :05 Chloride IVPB 250 mls Q24HR CANDY Administration Insulin Human Lispro 0 units 01/23/20 16:19 02/01/20 23:46 Humalog 300 Units/3 Ml Vial SC 3 unit .BEDTIME SLIDING SC PRN Administration Bedtime Correctional Scale Insulin Human Lispro 0 units 01/30/20 14:22 02/02/20 13:02 Humalog 300 Units/3 Ml Vial SC 8 unit .MODERATE SLIDING SC PRN Administration Moderate Correctional Scale Insulin Human NPH 30 unit 01/30/20 21:00 02/02/20 09:46 Nph, Human Insulin Isophane 300 Unit/3 Ml Vial SC 30 unit BID CANDY Administration Levothyroxine Sodium 125 mcg 01/24/20 06:00 02/02/20 06:05 Levothyroxine Sodium 125 Mcg Tab PO 125 mcg 0600 CANDY Administration Lorazepam 0.5 mg 01/31/20 21:09 01/31/20 22:25 Lorazepam 0.5 Mg Tab PO 0.5 mg TID PRN Administration Anxiety Lorazepam 2 mg 02/01/20 11:20 02/01/20 17:01 Lorazepam 2 Mg/Ml Vial SLOW IVP 2 mg Q6H PRN Administration Anxiety/Agitation Mometasone Furoate/Formoterol Fumar 2 puff 01/24/20 18:30 02/02/20 07:47 Mometasone 200 Mcg/Formoterol 5 Mcg 120 Puff Inhaler INH 2 puff BID-RT CANDY Administration Ondansetron HCl 4 mg 01/23/20 16:12 01/31/20 04:04 Ondansetron Odt 4 Mg Tab PO 4 mg Q6H PRN Administration Nausea/Vomiting Throat Lozenges 1 laura 01/29/20 02:08 01/29/20 19:54 Cepastat Lozenges 1 Laura PO 1 laura Q2H PRN Administration Sore Throat - Exam General Appearance: NAD, awake alert Eye: PERRL ENT: normocephalic atraumatic Neck: supple Heart: RRR, normal peripheral pulses Respiratory: CTAB, normal chest expansion Gastrointestinal: soft, normal bowel sounds Extremities: no cyanosis Skin: normal turgor Neurological: cranial nerve grossly intact, no focal deficits Psychiatric: A&O x 3 Hosp A/P - Plan 79-year-old female past medical history of COPD not on home O2, type 2 diabetes mellitus, hyperlipidemia, hypertension, congestive heart failure with EF of 40 to 45%, atrial fibrillation on amiodarone presents for worsening shortness of breath found to have pulmonary embolism and pericardial effusion. Course complicated by patient's JAMES and oliguria. Acute Pulmonary embolism --pt is tolerating Eliquis. Hb stable. Started with Eliquis 10 mg twice a day and transition to 5 mg twice a day Pericardial effusion --small, no evidence of cardiac temponade --appreciate CTS input. CHF exacerbation --acute on chronic systolic HF --cont IV Lasix, Echo showed EF 45%---------------> switch to p.o. --appreciate cardiology input, monitor I&O, and daily weight Atrial fibrillation --paroxysmal. NSR. cont amio. start AC as above. cont Amio as recommended by cardiology Recent GI bleed -No evidence of bleed during the last few days. Hemoglobin is stable. COPD --History of COPD not on home O2. wean O2 as nellie. cont nebs. JAMES on CKD3 --Cr stable with diuresis Sepsis without septic shock - ruled out --presumed sepsis on admission. I think noninfectious SIRS rather. Cultures no growth. D/C Abx Type 2 DM --Will hold home metformin in setting of JAMES. ISS, -Started scheduled insulin as her glucose is higher. -Follow-up with A1c. Hypothyroidism --Continue home levothyroxine. Hyperlipidemia --Continue home statin. Hypertension --resume home meds Suicidal Ideation --cont sitter. start Klonopin for anxiety/depression Sitter at bedside for admission diagnosis of suicidal ideation.------------------> cleared by mental health Patient is medically stable and cleared to be evaluated by mental health. Possible dysphagia she is able to swallow the food but sometimes it gets stuck. -We will request the speech therapy to follow-up. Leukocytosis Chest x-ray done yesterday showed some left lower lobe consolidation with accompanying pleural effusion. She also has elevated white count this morning a round 16,000. Will check her urine analysis as well. Urine analysis done on January 22 did not show any nitrite she did had bacteriuria. -We will follow with the urine culture as well.---------------------> negative as well as blood culture -She is on ceftriaxone CT chest done on showed interval resolution of left upper lobe pulmonary artery embolism but has persistent bilateral pleural effusion as well as parenchymal consolidation -given The elevated leukocytosis concern for aspiration pneumonia cannot be ruled out -White count is trending down. Tachycardia/bradycardia syndrome [tachycardia/A. fib/a flutter converted back to sinus rhythm -Pacemaker evaluation - in progress -It appears that going to be a medical management. 16th Possible worsening pneumonia Anxiety exacerbating her clinical condition. --Plan to move her to the [facility]. -Trial of CPAP. Continue with anticoagulation with Eliquis for PE and antibiotics with the ceftriaxone and Zithromax for pneumonia -A. fib-----she is on amiodarone but given her mentation status, cardiology recommended Cardizem IV. -We will follow closely in the [facility] 17th -Continue the current management in the [facility].
[2020-02-02] MEDS: Acetaminophen 325 MG TAB PO PRN (17:45)
[2020-02-02] MEDS: Atorvastatin Calcium 40 MG TAB PO SCH (20:34)
[2020-02-03] MEDS: ALPRAZolam 0.25 MG TAB PO PRN (00:17)
[2020-02-03] MEDS: Ondansetron ODT 4 MG TAB PO PRN (00:17)
[2020-02-03] MEDS: HumaLOG 300 UNITS/3 ML VIAL SC PRN ×2 (00:28→11:13)
[2020-02-03] MEDS: Acetaminophen 325 MG TAB PO PRN (02:32)
[2020-02-03 04:31] LABS: Anion Gap 16 mmol/L (10-20); BUN (Urea Nitrogen) 67 mg/dL (9.8-20.1); Calc. Creatinine Clearance 28 mL/min (70-130); Calcium 8.4 mg/dL (7.8-10.44); Carbon Dioxide 28 mmol/L (23-31); Chloride 93 mmol/L (98-107); Glucose 226 mg/dL (83-110); Potassium 4.7 mmol/L (3.5-5.1); Sodium 132 mmol/L (136-145)
[2020-02-03 05:17] LABS: Anisocytosis SLIGHT = 6-15 cells (100X) (0-5/hpf); Band 6 % (5-11); Hemoglobin 8.6 g/dL (12.0-16.0); Lymphocytes 7 % (21-51); MDiff Complete? YES; Mean Corpuscular HGB CONC 31.5 g/dL (32.0-36.0); Mean Corpuscular Hemoglobin 24.3 pg (27.0-31.0); Mean Corpuscular Volume 77.1 fL (78.0-98.0); Mean Platelet Volume 7.4 fL (7.4-10.4); Monocytes 6 % (0-10); Neutrophil 81 % (42-75); Platelet Count 720 thou/uL (130-400); Platelet Morphology Comment Appears Increased; Poikilocytosis SLIGHT = 6-15 cells (100X) (0-5/hpf); RBC Distribution Width 20.8 % (11.5-14.5); Red Blood Cell (RBC) Count 3.53 mill/uL (4.20-5.40); Schistocytes SLIGHT = 2-5 cells (100X) (0-1/hpf); White Blood Cell (WBC) Count 20.2 thou/uL (4.8-10.8)
[2020-02-03] MEDS: Levothyroxine Sodium 125 MCG TAB PO SCH (06:31)
[2020-02-03] MEDS: Furosemide 40 MG/4 ML VIAL SLOW IVP SCH ×2 (06:31→15:36)
[2020-02-03] MEDS: Mometasone 200 MCG/Formoterol 5 MCG 120 PUFF INHALER INH SCH ×2 (06:51→19:51)
--- NOTE | 2020-02-03 08:31 | RAD ---
PORTABLE CHEST: Date: 02/03/2020 HISTORY: Pneumonia follow-up. CCU follow-up. COMPARISON: 02/02/2020. FINDINGS: Bilateral effusions, larger on the left, with bibasilar atelectasis and infiltrate, more pronounced o n the left. There is opacification of the left mid and lower lung. Upper lung guo are clear. Cardi omegaly with mild vascular engorgement again noted. IMPRESSION: No significant change from yesterday. POS: AGW
[2020-02-03] MEDS: Apixaban 5 MG TAB PO SCH ×2 (09:18→20:06)
[2020-02-03] MEDS: Fluticasone Propionate Nasal Spray 16 gm Bottle NASAL SCH (09:18)
[2020-02-03] MEDS: hydrALAZINE 25 MG TAB PO SCH ×3 (09:18→20:06)
[2020-02-03] MEDS: clonazePAM 1 MG TAB PO SCH ×2 (09:19→20:12)
[2020-02-03] MEDS: Amiodarone 200 MG TAB PO SCH ×3 (09:19→20:06)
[2020-02-03] MEDS: NPH, Human Insulin Isophane 300 UNIT/3 ML VIAL SC SCH ×2 (09:21→21:24)
--- NOTE | 2020-02-03 09:26 | PRG ---
DATE OF SERVICE: 02/03/2020 SUBJECTIVE: Ms. Sherwood is looking better today. She looks weak. OBJECTIVE: VITAL SIGNS: Blood pressure 110/49, most recently 126/54. Pulse in the 60s and sinus. LUNGS: Decreased breath sounds, left base. CARDIAC: Normal S1, normal S2. ASSESSMENT: 1. Congestive heart failure, diastolic, ejection fraction 50%. 2. Paroxysmal atrial fibrillation, maintaining sinus rhythm. 3. Pleural effusion. 4. Pericardial effusion, does not look to be hemodynamically significant. 5. Renal failure with a creatinine of 2.12. 6. Recent pulmonary embolism. PLAN: 1. Continue diuretic. 2. Continue amiodarone. 3. Continue Eliquis. Job ID: [id number]
--- NOTE | 2020-02-03 10:04 | PRG ---
DATE OF SERVICE: 02/03/2020 SUBJECTIVE: The patient is doing extremely well compared to two days ago. OBJECTIVE: VITAL SIGNS: Temperature 97.7, pulse 61, blood pressure 126/54, saturation 100%. HEENT: Unremarkable. NECK: No JVD. LUNGS: Clear. CARDIAC: S1 and S2. Regular. ABDOMEN: Soft. EXTREMITIES: No edema. LABORATORY DATA: White blood cell count 20, hematocrit 27.2, and platelet count 720. Sodium 132, potassium 4.7, chloride 93, CO2 of 28, BUN 67, creatinine 2.1, glucose 226. ASSESSMENT: 1. Status post respiratory failure, requiring mechanical ventilation through BiPAP. 2. Bilateral pulmonary edema/pleural effusions. 3. Atrial fibrillation with controlled response. 4. Anxiety. PLAN: It is a difficult situation. I think her heart is causing most of her issues. I think she is stable enough to discontinue the BiPAP. Her kidney function is somewhat concerning, although I think she needs to be diurese more. She is stable for transfer to telemetry. Job ID: [id number]
[2020-02-03] MEDS: Azithromycin 500 MG in Sodium Chloride 0.9% 250 ML 250 ML IVPB SCH (11:12)
[2020-02-03 11:55] LABS: Actual Bicarbonate (HCO3a) 31.8 mEq/L (22-28); Base Excess (BEa) 4.6 mEq/L (-2.0 to +3.0); CO2 Tension 63.8 mmHg (35.0-45.0); Calcium, Ionized (arterial) 1.13 mmol/L (1.12-1.30); Carboxyhemoglobin (COHb) 0.6 gm% (0.0-3.0); Hemoglobin (Hb) 9.3 g/dL (12.0-16.0); O2 Tension (PaO2), arterial 62.8 mmHg (> 70.0); Potassium - ABG Lab 4.64 mmol/L (3.70-5.30); Puncture Site RBA; pH, Arterial 7.32 (7.35-7.45)
[2020-02-03] MEDS: Albuterol Sulfate 2.5 mg/3 ml Neb NEB PRN ×2 (12:57→19:54)
--- NOTE | 2020-02-03 14:16 | PDOC.HOSPP ---
- Subjective Encounter Date: 02/03/20 Encounter Time: 09:30 Subjective: Patient in her usual state of anxious condition. She is off BiPAP. Noted to have occult blood test positive last evening. Her hemoglobin is stable at 8.6 and she is on Eliquis. - Objective Vital Signs & Weight: Vital Signs (12 hours) Temp Pulse Pulse Pulse Resp BP BP 02/03/20 12:57 66 21 H 02/03/20 11:38 97.8 F 02/03/20 09:27 103 H 98 118/74 02/03/20 09:18 107 H 132/62 02/03/20 08:00 02/03/20 07:55 97.7 F 02/03/20 06:51 68 20 BP Pulse Ox Pulse Ox Pulse Ox 02/03/20 12:57 96 02/03/20 11:38 02/03/20 09:27 114/60 98 96 02/03/20 09:18 02/03/20 08:00 98 02/03/20 07:55 02/03/20 06:51 97 Weight Admit Weight 173 lb 14.4 oz Weight 173 lb 14.4 oz Most Recent Monitor Data Heart Rate from ECG 63 NIBP 127/60 NIBP BP-Mean 82 Respiration from ECG 18 SpO2 94 I&O: 02/02/20 02/03/20 02/04/20 06:59 06:59 06:59 Intake Total 722.5 1247 Output Total 800 918 Balance -77.5 329 Result Diagrams: 02/03/20 03:48 02/03/20 03:48 Additional Labs: Accuchecks 02/03/20 02/03/20 02/03/20 11:08 05:45 03:57 POC Glucose 228 H 170 H 213 H 02/02/20 02/02/20 02/02/20 23:36 17:17 10:25 POC Glucose 301 H 325 H 326 H Hospitalist ROS - Medication Medications: Active Medications Generic Name Dose Route Start Last Admin Trade Name Freq PRN Reason Stop Dose Admin Acetaminophen 650 mg 01/26/20 16:40 02/03/20 02:32 Acetaminophen 325 Mg Tab PO 650 mg Q6H PRN Administration Mild-Moderate Pain (1-5) Hydrocodone Bitart/Acetaminophen 1 tab 01/26/20 16:40 02/02/20 17:43 Hydrocodone/Acetaminophen 5/325 Mg Tablet PO 1 tab Q4H PRN Administration Moderate to Severe Pain (6-10) Albuterol Sulfate 2.5 mg 01/24/20 15:14 02/03/20 12:57 Albuterol Sulfate 2.5 Mg/3 Ml Neb NEB 2.5 mg Q6H PRN Administration SOB &/or Wheezing Alprazolam 0.25 mg 01/24/20 18:31 02/03/20 00:17 Alprazolam 0.25 Mg Tab PO 0.25 mg QID PRN Administration Anxiety Amiodarone HCl 200 mg 01/27/20 15:00 02/03/20 09:19 Amiodarone 200 Mg Tab PO 200 mg TID CANDY Administration Apixaban 5 mg 01/30/20 21:00 02/03/20 09:18 Apixaban 5 Mg Tab PO 5 mg BID CANDY Administration Atorvastatin Calcium 40 mg 01/23/20 21:00 02/02/20 20:34 Atorvastatin Calcium 40 Mg Tab PO 40 mg HS CANDY Administration Camphor/Menthol/Eucalyptus 0 gm 01/30/20 04:35 01/30/20 05:16 Vicks Vaporub 50 Gm Jar TOP 1 applic PRN PRN Administration Chest Congestion/Secretions Clonazepam 1 mg 01/31/20 21:00 02/03/20 09:19 Clonazepam 1 Mg Tab PO 1 mg BID CANDY Administration Fluticasone Propionate 0 gm 01/28/20 09:00 02/03/20 09:18 Fluticasone Propionate Nasal [place] 16 Gm Bottle NASAL 2 spr DAILY CANDY Administration Furosemide 20 mg 02/02/20 09:25 02/03/20 06:31 Furosemide 40 Mg/4 Ml Vial SLOW IVP 20 mg 0600,1400 CANDY Administration Hydralazine HCl 50 mg 01/24/20 21:00 02/03/20 09:18 Hydralazine 25 Mg Tab PO 50 mg TID CANDY Administration Ceftriaxone Sodium 1 gm/ 100 mls @ 200 mls/hr 01/29/20 14:00 02/02/20 13:35 Sodium Chloride IVPB 100 mls Q24HR CANDY Administration Azithromycin 500 mg/ Sodium 250 mls @ 250 mls/hr 01/31/20 11:00 02/03/20 11:12 Chloride IVPB 250 mls Q24HR CANDY Administration Insulin Human Lispro 0 units 01/23/20 16:19 02/01/20 23:46 Humalog 300 Units/3 Ml Vial SC 3 unit .BEDTIME SLIDING SC PRN Administration Bedtime Correctional Scale Insulin Human Lispro 0 units 01/30/20 14:22 02/03/20 11:13 Humalog 300 Units/3 Ml Vial SC 4 unit .MODERATE SLIDING SC PRN Administration Moderate Correctional Scale Insulin Human NPH 30 unit 01/30/20 21:00 02/03/20 09:21 Nph, Human Insulin Isophane 300 Unit/3 Ml Vial SC 30 unit BID CANDY Administration Levothyroxine Sodium 125 mcg 01/24/20 06:00 02/03/20 06:31 Levothyroxine Sodium 125 Mcg Tab PO 125 mcg 0600 CANDY Administration Lorazepam 0.5 mg 01/31/20 21:09 01/31/20 22:25 Lorazepam 0.5 Mg Tab PO 0.5 mg TID PRN Administration Anxiety Lorazepam 2 mg 02/01/20 11:20 02/01/20 17:01 Lorazepam 2 Mg/Ml Vial SLOW IVP 2 mg Q6H PRN Administration Anxiety/Agitation Mometasone Furoate/Formoterol Fumar 2 puff 01/24/20 18:30 02/03/20 06:51 Mometasone 200 Mcg/Formoterol 5 Mcg 120 Puff Inhaler INH 2 puff BID-RT CANDY Administration Ondansetron HCl 4 mg 01/23/20 16:12 02/03/20 00:17 Ondansetron Odt 4 Mg Tab PO 4 mg Q6H PRN Administration Nausea/Vomiting Throat Lozenges 1 laura 01/29/20 02:08 01/29/20 19:54 Cepastat Lozenges 1 Laura PO 1 laura Q2H PRN Administration Sore Throat - Exam General Appearance: NAD, awake alert Eye: PERRL ENT: normocephalic atraumatic Neck: supple Heart: RRR, normal peripheral pulses Respiratory: CTAB, normal chest expansion Gastrointestinal: soft, normal bowel sounds Extremities: 1+ LE edema Neurological: cranial nerve grossly intact, no focal deficits Psychiatric: A&O x 3 Hosp A/P - Plan 79-year-old female past medical history of COPD not on home O2, type 2 diabetes mellitus, hyperlipidemia, hypertension, congestive heart failure with EF of 40 to 45%, atrial fibrillation on amiodarone presents for worsening shortness of breath found to have pulmonary embolism and pericardial effusion. Course complicated by patient's JAMES and oliguria. Acute Pulmonary embolism --pt is tolerating Eliquis. Hb stable. Started with Eliquis 10 mg twice a day and transition to 5 mg twice a day Pericardial effusion --small, no evidence of cardiac temponade --appreciate CTS input. CHF exacerbation --acute on chronic systolic HF --cont IV Lasix, Echo showed EF 45%---------------> switch to p.o. --appreciate cardiology input, monitor I&O, and daily weight Atrial fibrillation --paroxysmal. NSR. cont amio. start AC as above. cont Amio as recommended by cardiology Recent GI bleed -No evidence of bleed during the last few days. Hemoglobin is stable. COPD --History of COPD not on home O2. wean O2 as nellie. cont nebs. JAMES on CKD3 --Cr stable with diuresis Sepsis without septic shock - ruled out --presumed sepsis on admission. I think noninfectious SIRS rather. Cultures no growth. D/C Abx Type 2 DM --Will hold home metformin in setting of JAMES. ISS, -Started scheduled insulin as her glucose is higher. -Follow-up with A1c. Hypothyroidism --Continue home levothyroxine. Hyperlipidemia --Continue home statin. Hypertension --resume home meds Suicidal Ideation --cont sitter. start Klonopin for anxiety/depression Sitter at bedside for admission diagnosis of suicidal ideation.------------------> cleared by mental health Patient is medically stable and cleared to be evaluated by mental health. Possible dysphagia she is able to swallow the food but sometimes it gets stuck. -We will request the speech therapy to follow-up. Leukocytosis Chest x-ray done yesterday showed some left lower lobe consolidation with accompanying pleural effusion. She also has elevated white count this morning around 16,000. Will check her urine analysis as well. Urine analysis done on January 22 did not show any nitrite she did had bacteriuria. -We will follow with the urine culture as well.---------------------> negative as well as blood culture -She is on ceftriaxone CT chest done on showed interval resolution of left upper lobe pulmonary artery embolism but has persistent bilateral pleural effusion as well as parenchymal consolidation -given The elevated leukocytosis concern for aspiration pneumonia cannot be ruled out -White count is trending down. Tachycardia/bradycardia syndrome [tachycardia/A. fib/a flutter converted back to sinus rhythm -It appears that going to be a medical management. Possible worsening pneumonia Anxiety exacerbating her clinical condition. Hypercapnia -escalated the care to IMCU for bipap - Continue with anticoagulation with Eliquis for PE and antibiotics with the c eftriaxone and Zithromax for pneumonia
[2020-02-03] MEDS: cefTRIAXone\\ROCEPHIN 1 GM in Sodium Chloride 0.9% 100 ML IVPB SCH (15:38)
[2020-02-03] MEDS: Atorvastatin Calcium 40 MG TAB PO SCH (20:07)
[2020-02-03] MEDS: Pantoprazole 40 MG VIAL IVP SCH (20:07)
[2020-02-04] MEDS: Acetaminophen 325 MG TAB PO PRN (03:08)
[2020-02-04 04:48] LABS: BUN (Urea Nitrogen) 52 mg/dL (9.8-20.1); Calc. Creatinine Clearance 35 mL/min (70-130); Carbon Dioxide 28 mmol/L (23-31)
[2020-02-04 04:49] LABS: Calcium 8.4 mg/dL (7.8-10.44); Glucose 109 mg/dL (83-110)
[2020-02-04 04:57] LABS: Anion Gap 17 mmol/L (10-20); Chloride 97 mmol/L (98-107); Sodium 136 mmol/L (136-145)
[2020-02-04 05:12] LABS: #Eosinphils 0.1 thou/uL (0.0-0.7); #Lymphocytes 1.7 thou/uL (1.20-3.40); #Neutrophils 9.7 thou/uL (1.40-6.50); %Eosinophils 0.5 % (0.0-10.0); %Lymphocytes 13.5 % (21.0-51.0); %Monocytes 8.2 % (0.0-10.0); %Neutrophils 77.8 % (42.0-75.0); MDiff Complete? YES; Mean Corpuscular HGB CONC 31.2 g/dL (32.0-36.0); Mean Corpuscular Hemoglobin 24.4 pg (27.0-31.0); Mean Corpuscular Volume 78.1 fL (78.0-98.0); Mean Platelet Volume 7.4 fL (7.4-10.4); Platelet Count 648 thou/uL (130-400); Platelet Morphology Comment Appears Increased; RBC Distribution Width 20.8 % (11.5-14.5); Red Blood Cell (RBC) Count 3.68 mill/uL (4.20-5.40); White Blood Cell (WBC) Count 12.5 thou/uL (4.8-10.8)
[2020-02-04] MEDS: Levothyroxine Sodium 125 MCG TAB PO SCH (06:31)
[2020-02-04] MEDS: Furosemide 40 MG/4 ML VIAL SLOW IVP SCH ×2 (06:31→13:45)
[2020-02-04] MEDS: Mometasone 200 MCG/Formoterol 5 MCG 120 PUFF INHALER INH SCH ×2 (06:51→19:18)
[2020-02-04] MEDS: Cholecalciferol 1,000 UNITS (25 MCG) TAB PO SCH (09:32)
[2020-02-04] MEDS: Pantoprazole 40 MG VIAL IVP SCH ×2 (09:32→20:11)
[2020-02-04] MEDS: Apixaban 5 MG TAB PO SCH ×2 (09:33→20:09)
[2020-02-04] MEDS: hydrALAZINE 25 MG TAB PO SCH ×3 (09:33→20:09)
[2020-02-04] MEDS: Amiodarone 200 MG TAB PO SCH ×3 (09:33→20:08)
[2020-02-04] MEDS: Fluticasone Propionate Nasal Spray 16 gm Bottle NASAL SCH (09:34)
[2020-02-04] MEDS: NPH, Human Insulin Isophane 300 UNIT/3 ML VIAL SC SCH ×2 (09:34→21:11)
--- NOTE | 2020-02-04 10:36 | EKG ---
Test Reason : SOB Blood Pressure : / mmHG Vent. Rate : 091 BPM Atrial Rate : 091 BPM P-R Int : 154 ms QRS Dur : 102 ms QT Int : 386 ms P-R-T Axes : 060 -29 076 degrees QTc Int : 474 ms Normal sinus rhythm Prolonged QT Abnormal ECG Confirmed by ERIKA GONGORA, PREMA Brady ([id number]), editor news KATE FORBES ([id number]) on 02/04/2020 10:35:58 AM Referred By: ERIKA Confirmed By:PREMA JAMES MD
[2020-02-04] MEDS: Azithromycin 500 MG in Sodium Chloride 0.9% 250 ML 250 ML IVPB SCH (10:41)
[2020-02-04] MEDS: clonazePAM 1 MG TAB PO SCH ×2 (10:41→20:10)
[2020-02-04] MEDS: Albuterol Sulfate 2.5 mg/3 ml Neb NEB PRN ×2 (11:36→15:38)
--- NOTE | 2020-02-04 11:52 | PRG ---
DATE OF SERVICE: 02/04/2020 SUBJECTIVE: The patient is complaining of shortness of breath and says she needs more breathing treatments. PHYSICAL EXAMINATION: VITAL SIGNS: Her last recorded temperature was 97.2, pulse 79, blood pressure 126/56, O2 saturation 96%. Intake 830, output 1750. HEENT: Unremarkable. NECK: No adenopathy or JVD. CHEST: Fairly clear anteriorly except for diminished breath sounds in the bases. CARDIAC: S1, S2, irregular. ABDOMEN: Soft. EXTREMITIES: No edema. LABORATORY DATA: White blood cell count 12.5, hematocrit 28.7, platelet count 648. Sodium 136, potassium 5, chloride 97, CO2 of 28, BUN 52, creatinine 1.7, glucose 109. ASSESSMENT: 1. Status post respiratory failure requiring mechanical ventilation through BiPAP. 2. Bilateral pulmonary edema/pleural effusion. 3. Atrial fibrillation with controlled response. 4. Anxiety. 5. Developing mild hyperkalemia. PLAN: 1. Go ahead and stop the azithromycin. 2. Continue rate control with amiodarone. 3. Continue diuretics. 4. Recheck chemistry tomorrow. Job ID: [id number]
[2020-02-04] MEDS: HumaLOG 300 UNITS/3 ML VIAL SC PRN ×2 (12:43→17:18)
[2020-02-04] MEDS: cefTRIAXone\\ROCEPHIN 1 GM in Sodium Chloride 0.9% 100 ML IVPB SCH (13:45)
--- NOTE | 2020-02-04 17:40 | PDOC.HOSPP ---
- Subjective Subjective: Seen examined at bedside. Patient quite anxious. I have update her son on the phone. She is comfortable on 3 L via nasal cannula. c/o sob, requesting for neb treatments. I think she is stable to be transferred to telemetry - Objective Vital Signs & Weight: Vital Signs (12 hours) Temp Pulse Resp BP Pulse Ox 02/04/20 15:38 73 20 02/04/20 15:34 98.3 F 76 20 145/67 H 98 02/04/20 11:36 73 23 H 97 02/04/20 08:20 94 L Weight Admit Weight 173 lb 14.4 oz Weight 173 lb 14.4 oz Most Recent Monitor Data Heart Rate from ECG 72 NIBP 137/61 NIBP BP-Mean 86 Respiration from ECG 20 SpO2 98 I&O: 02/03/20 02/04/20 02/05/20 06:59 06:59 06:59 Intake Total 3921 846 5941 Output Total 918 1750 2500 Balance 310 -638 -4131 Result Diagrams: 02/04/20 03:43 02/04/20 03:43 Additional Labs: Accuchecks 02/04/20 02/04/20 02/04/20 16:42 11:21 06:08 POC Glucose 213 H 247 H 174 H 02/03/20 21:12 POC Glucose 130 H Radiology Reviewed by me: Yes EKG Reviewed by me: Yes Hospitalist ROS - Medication Medications: Active Medications Generic Name Dose Route Start Last Admin Trade Name Freq PRN Reason Stop Dose Admin Acetaminophen 650 mg 01/26/20 16:40 02/04/20 03:08 Acetaminophen 325 Mg Tab PO 650 mg Q6H PRN Administration Mild-Moderate Pain (1-5) Hydrocodone Bitart/Acetaminophen 1 tab 01/26/20 16:40 02/02/20 17:43 Hydrocodone/Acetaminophen 5/325 Mg Tablet PO 1 tab Q4H PRN Administration Moderate to Severe Pain (6-10) Albuterol Sulfate 2.5 mg 01/24/20 15:14 02/04/20 15:38 Albuterol Sulfate 2.5 Mg/3 Ml Neb NEB 2.5 mg Q6H PRN Administration SOB &/or Wheezing Amiodarone HCl 200 mg 01/27/20 15:00 02/04/20 15:53 Amiodarone 200 Mg Tab PO 200 mg TID CANDY Administration Apixaban 5 mg 01/30/20 21:00 02/04/20 09:33 Apixaban 5 Mg Tab PO 5 mg BID CANDY Administration Atorvastatin Calcium 40 mg 01/23/20 21:00 02/03/20 20:07 Atorvastatin Calcium 40 Mg Tab PO 40 mg HS CANDY Administration Camphor/Menthol/Eucalyptus 0 gm 01/30/20 04:35 01/30/20 05:16 Vicks Vaporub 50 Gm Jar TOP 1 applic PRN PRN Administration Chest Congestion/Secretions Cholecalciferol 2,000 units 02/04/20 09:00 02/04/20 09:32 Cholecalciferol 1,000 Units (25 Mcg) Tab PO 2,000 units DAILY CANDY Administration Clonazepam 1 mg 01/31/20 21:00 02/04/20 10:41 Clonazepam 1 Mg Tab PO 1 mg BID CANDY Administration Fluticasone Propionate 0 gm 01/28/20 09:00 02/04/20 09:34 Fluticasone Propionate Nasal [place] 16 Gm Bottle NASAL 2 spr DAILY CANDY Administration Furosemide 20 mg 02/02/20 09:25 02/04/20 13:45 Furosemide 40 Mg/4 Ml Vial SLOW IVP 20 mg 0600,1400 CANDY Administration Hydralazine HCl 50 mg 01/24/20 21:00 02/04/20 15:53 Hydralazine 25 Mg Tab PO 50 mg TID CANDY Administration Ceftriaxone Sodium 1 gm/ 100 mls @ 200 mls/hr 01/29/20 14:00 02/04/20 13:45 Sodium Chloride IVPB 100 mls Q24HR CANDY Administration Insulin Human Lispro 0 units 01/23/20 16:19 02/01/20 23:46 Humalog 300 Units/3 Ml Vial SC 3 unit .BEDTIME SLIDING SC PRN Administration Bedtime Correctional Scale Insulin Human Lispro 0 units 01/30/20 14:22 02/04/20 17:18 Humalog 300 Units/3 Ml Vial SC 4 unit .MODERATE SLIDING SC PRN Administration Moderate Correctional Scale Insulin Human NPH 30 unit 01/30/20 21:00 02/04/20 09:34 Nph, Human Insulin Isophane 300 Unit/3 Ml Vial SC 30 unit BID CANDY Administration Levothyroxine Sodium 125 mcg 01/24/20 06:00 02/04/20 06:31 Levothyroxine Sodium 125 Mcg Tab PO 125 mcg 0600 CANDY Administration Lorazepam 0.5 mg 01/31/20 21:09 01/31/20 22:25 Lorazepam 0.5 Mg Tab PO 0.5 mg TID PRN Administration Anxiety Lorazepam 2 mg 02/01/20 11:20 02/01/20 17:01 Lorazepam 2 Mg/Ml Vial SLOW IVP 2 mg Q6H PRN Administration Anxiety/Agitation Mometasone Furoate/Formoterol Fumar 2 puff 01/24/20 18:30 02/04/20 06:51 Mometasone 200 Mcg/Formoterol 5 Mcg 120 Puff Inhaler INH 2 puff BID-RT CANDY Administration Ondansetron HCl 4 mg 01/23/20 16:12 02/03/20 00:17 Ondansetron Odt 4 Mg Tab PO 4 mg Q6H PRN Administration Nausea/Vomiting Pantoprazole Sodium 40 mg 02/03/20 21:00 02/04/20 09:32 Pantoprazole 40 Mg Vial IVP 40 mg BID CANDY Administration Throat Lozenges 1 laura 01/29/20 02:08 01/29/20 19:54 Cepastat Lozenges 1 Laura PO 1 laura Q2H PRN Administration Sore Throat - Exam General Appearance: NAD Eye: PERRL ENT: normocephalic atraumatic Neck: supple Heart: RRR Respiratory: CTAB Gastrointestinal: soft Extremities: no cyanosis Skin: normal turgor Neurological: cranial nerve grossly intact Musculoskeletal: normal tone Psychiatric: normal affect, normal behavior Hosp A/P - Plan 79-year-old female past medical history of COPD not on home O2, type 2 diabetes mellitus, hyperlipidemia, hypertension, congestive heart failure with EF of 40 to 45%, atrial fibrillation on amiodarone presents for worsening shortness of breath found to have pulmonary embolism and pericardial effusion. Course complicated by patient's JAMES and oliguria. Acute Pulmonary embolism --pt is tolerating Eliquis. Hb stable. Started with Eliquis 10 mg twice a day and transition to 5 mg twice a day Pericardial effusion --small, no evidence of cardiac temponade --appreciate CTS input. CHF exacerbation --acute on chronic systolic HF --transitioned to oral Lasix --appreciate cardiology input, monitor I&O, and daily weight Atrial fibrillation --paroxysmal. NSR. cont amio. start AC as above. cont Amio as recommended by cardiology Recent GI bleed --No evidence of bleed during the last few days. Hemoglobin is stable. follow CBC COPD --History of COPD not on home O2. wean O2 as nellie. cont nebs. Presumed PNA --Azithromycin by d/c by Pul. Cont Rocephin. Leukocytosis is improving. JAMES on CKD3 --Cr stable with diuresis Sepsis without septic shock - ruled out --presumed sepsis on admission. I think noninfectious SIRS rather. Cultures no growth. D/C Abx Type 2 DM --Will hold home metformin in setting of JAMES. ISS, --Cont NPH BID, ISS. A1C 7.7 Hypothyroidism --Continue home levothyroxine. Hyperlipidemia --Continue home statin. Hypertension --resume home meds Suicidal Ideation --pt started Klonopin for anxiety/depression --Evaluated by [facility], cleared.
[2020-02-04] MEDS: Atorvastatin Calcium 40 MG TAB PO SCH (20:08)
[2020-02-04] MEDS: Lorazepam 0.5 MG TAB PO PRN (20:10)
[2020-02-05 04:52] LABS: Anion Gap 14 mmol/L (10-20); BUN (Urea Nitrogen) 36 mg/dL (9.8-20.1); Calc. Creatinine Clearance 56 mL/min (70-130); Calcium 8.4 mg/dL (7.8-10.44); Carbon Dioxide 29 mmol/L (23-31); Chloride 99 mmol/L (98-107); Glucose 123 mg/dL (83-110); Magnesium 1.8 mg/dL (1.6-2.6); Potassium 4.2 mmol/L (3.5-5.1); Sodium 138 mmol/L (136-145)
[2020-02-05] MEDS: Levothyroxine Sodium 125 MCG TAB PO SCH (05:01)
[2020-02-05] MEDS: Lorazepam 0.5 MG TAB PO PRN ×3 (05:01→21:31)
[2020-02-05] MEDS: Furosemide 40 MG/4 ML VIAL SLOW IVP SCH ×2 (05:01→13:25)
[2020-02-05 05:16] LABS: #Eosinphils 0.2 thou/uL (0.0-0.7); #Lymphocytes 1.4 thou/uL (1.20-3.40); #Monocytes 1.3 thou/uL (0.11-0.59); #Neutrophils 9.2 thou/uL (1.40-6.50); %Eosinophils 1.9 % (0.0-10.0); %Lymphocytes 11.4 % (21.0-51.0); %Monocytes 10.5 % (0.0-10.0); %Neutrophils 76.2 % (42.0-75.0); Anisocytosis SLIGHT = 6-15 cells (100X) (0-5/hpf); Elliptocytes SLIGHT = 2-5 cells (100X) (0-1/hpf); Hemoglobin 8.9 g/dL (12.0-16.0); MDiff Complete? YES; Mean Corpuscular HGB CONC 31.3 g/dL (32.0-36.0); Mean Corpuscular Hemoglobin 24.5 pg (27.0-31.0); Mean Corpuscular Volume 78.2 fL (78.0-98.0); Mean Platelet Volume 7.7 fL (7.4-10.4); Platelet Count 582 thou/uL (130-400); RBC Distribution Width 21.2 % (11.5-14.5); Red Blood Cell (RBC) Count 3.62 mill/uL (4.20-5.40); Schistocytes SLIGHT = 2-5 cells (100X) (0-1/hpf); White Blood Cell (WBC) Count 12.1 thou/uL (4.8-10.8)
[2020-02-05] MEDS: Acetaminophen 325 MG TAB PO PRN ×3 (06:43→20:27)
[2020-02-05] MEDS: Mometasone 200 MCG/Formoterol 5 MCG 120 PUFF INHALER INH SCH ×2 (08:01→19:04)
[2020-02-05] MEDS: Apixaban 5 MG TAB PO SCH ×2 (08:36→20:27)
[2020-02-05] MEDS: Amiodarone 200 MG TAB PO SCH ×3 (08:36→20:28)
[2020-02-05] MEDS: Pantoprazole 40 MG VIAL IVP SCH ×2 (08:36→20:27)
[2020-02-05] MEDS: Cholecalciferol 1,000 UNITS (25 MCG) TAB PO SCH (08:36)
[2020-02-05] MEDS: clonazePAM 1 MG TAB PO SCH ×2 (08:36→20:28)
[2020-02-05] MEDS: hydrALAZINE 25 MG TAB PO SCH ×3 (08:36→20:27)
[2020-02-05] MEDS: Fluticasone Propionate Nasal Spray 16 gm Bottle NASAL SCH (08:37)
[2020-02-05] MEDS: NPH, Human Insulin Isophane 300 UNIT/3 ML VIAL SC SCH ×2 (10:55→21:28)
--- NOTE | 2020-02-05 13:13 | PDOC.HOSPP ---
- Subjective Subjective: Examined at bedside. Patient complained of some headaches. Her breathing is overall has been doing much better. Patient reported she did not sleep much last night. I have updated her son, Shane with regard to her clinical status. - Objective Vital Signs & Weight: Vital Signs (12 hours) Temp Pulse Resp BP Pulse Ox 02/05/20 12:53 97.9 F 82 18 161/70 H 99 02/05/20 08:36 80 02/05/20 07:54 98 F 80 18 131/82 95 02/05/20 04:00 97.7 F 79 16 167/71 H 95 Weight Admit Weight 173 lb 14.4 oz Weight 173 lb 14.4 oz Most Recent Monitor Data Heart Rate from ECG 72 NIBP 137/61 NIBP BP-Mean 86 Respiration from ECG 20 SpO2 98 I&O: 02/04/20 02/05/20 02/06/20 06:59 06:59 06:59 Intake Total 830 1900 Output Total 1750 4200 Balance -920 -2300 Result Diagrams: 02/05/20 03:44 02/05/20 03:44 Additional Labs: Accuchecks 02/05/20 02/05/20 02/04/20 10:33 05:14 21:07 POC Glucose 164 H 135 H 149 H 02/04/20 16:42 POC Glucose 213 H Radiology Reviewed by me: Yes EKG Reviewed by me: Yes Hospitalist ROS - Medication Medications: Active Medications Generic Name Dose Route Start Last Admin Trade Name Freq PRN Reason Stop Dose Admin Acetaminophen 650 mg 01/26/20 16:40 02/05/20 06:43 Acetaminophen 325 Mg Tab PO 650 mg Q6H PRN Administration Mild-Moderate Pain (1-5) Hydrocodone Bitart/Acetaminophen 1 tab 01/26/20 16:40 02/02/20 17:43 Hydrocodone/Acetaminophen 5/325 Mg Tablet PO 1 tab Q4H PRN Administration Moderate to Severe Pain (6-10) Albuterol Sulfate 2.5 mg 01/24/20 15:14 02/04/20 15:38 Albuterol Sulfate 2.5 Mg/3 Ml Neb NEB 2.5 mg Q6H PRN Administration SOB &/or Wheezing Albuterol/Ipratropium 3 ml 02/04/20 11:54 02/05/20 00:48 Ipratropium/Albuterol Sulfate 3 Ml Neb NEB 3 ml [id number] PRN Administration SOB &/or Wheezing Amiodarone HCl 200 mg 01/27/20 15:00 02/05/20 08:36 Amiodarone 200 Mg Tab PO 200 mg TID CANDY Administration Apixaban 5 mg 01/30/20 21:00 02/05/20 08:36 Apixaban 5 Mg Tab PO 5 mg BID CANDY Administration Atorvastatin Calcium 40 mg 01/23/20 21:00 02/04/20 20:08 Atorvastatin Calcium 40 Mg Tab PO 40 mg HS CANDY Administration Camphor/Menthol/Eucalyptus 0 gm 01/30/20 04:35 01/30/20 05:16 Vicks Vaporub 50 Gm Jar TOP 1 applic PRN PRN Administration Chest Congestion/Secretions Cholecalciferol 2,000 units 02/04/20 09:00 02/05/20 08:36 Cholecalciferol 1,000 Units (25 Mcg) Tab PO 2,000 units DAILY CANDY Administration Clonazepam 1 mg 01/31/20 21:00 02/05/20 08:36 Clonazepam 1 Mg Tab PO 1 mg BID CANDY Administration Fluticasone Propionate 0 gm 01/28/20 09:00 02/05/20 08:37 Fluticasone Propionate Nasal [place] 16 Gm Bottle NASAL 2 spr DAILY CANDY Administration Furosemide 20 mg 02/02/20 09:25 02/05/20 05:01 Furosemide 40 Mg/4 Ml Vial SLOW IVP 20 mg 0600,1400 CANDY Administration Hydralazine HCl 50 mg 01/24/20 21:00 02/05/20 08:36 Hydralazine 25 Mg Tab PO 50 mg TID CANDY Administration Ceftriaxone Sodium 1 gm/ 100 mls @ 200 mls/hr 01/29/20 14:00 02/04/20 13:45 Sodium Chloride IVPB 100 mls Q24HR CANDY Administration Insulin Human Lispro 0 units 01/23/20 16:19 02/01/20 23:46 Humalog 300 Units/3 Ml Vial SC 3 unit .BEDTIME SLIDING SC PRN Administration Bedtime Correctional Scale Insulin Human Lispro 0 units 01/30/20 14:22 02/04/20 17:18 Humalog 300 Units/3 Ml Vial SC 4 unit .MODERATE SLIDING SC PRN Administration Moderate Correctional Scale Insulin Human NPH 30 unit 01/30/20 21:00 02/05/20 10:55 Nph, Human Insulin Isophane 300 Unit/3 Ml Vial SC Not Given BID CANDY Levothyroxine Sodium 125 mcg 01/24/20 06:00 02/05/20 05:01 Levothyroxine Sodium 125 Mcg Tab PO 125 mcg 0600 CANDY Administration Lorazepam 0.5 mg 01/31/20 21:09 02/05/20 05:01 Lorazepam 0.5 Mg Tab PO 0.5 mg TID PRN Administration Anxiety Lorazepam 2 mg 02/01/20 11:20 02/01/20 17:01 Lorazepam 2 Mg/Ml Vial SLOW IVP 2 mg Q6H PRN Administration Anxiety/Agitation Mometasone Furoate/Formoterol Fumar 2 puff 01/24/20 18:30 02/05/20 08:01 Mometasone 200 Mcg/Formoterol 5 Mcg 120 Puff Inhaler INH 2 puff BID-RT CANDY Administration Ondansetron HCl 4 mg 01/23/20 16:12 02/03/20 00:17 Ondansetron Odt 4 Mg Tab PO 4 mg Q6H PRN Administration Nausea/Vomiting Pantoprazole Sodium 40 mg 02/03/20 21:00 02/05/20 08:36 Pantoprazole 40 Mg Vial IVP 40 mg BID CANDY Administration Throat Lozenges 1 laura 01/29/20 02:08 01/29/20 19:54 Cepastat Lozenges 1 Laura PO 1 laura Q2H PRN Administration Sore Throat - Exam General Appearance: NAD Eye: PERRL ENT: normocephalic atraumatic Neck: supple Heart: RRR Respiratory: CTAB, no wheezes Gastrointestinal: soft, non-tender Extremities: no cyanosis Skin: normal turgor Neurological: cranial nerve grossly intact Musculoskeletal: normal tone Psychiatric: normal affect, normal behavior, A&O x 3 Hosp A/P - Plan 79-year-old female past medical history of COPD not on home O2, type 2 diabetes mellitus, hyperlipidemia, hypertension, congestive heart failure with EF of 40 to 45%, atrial fibrillation on amiodarone presents for worsening shortness of breath found to have pulmonary embolism and pericardial effusion. Course complicated by patient's JAMES and oliguria. Acute Pulmonary embolism --pt is tolerating Eliquis. Hb stable. Started with Eliquis 10 mg twice a day and transition to 5 mg twice a day CHF exacerbation --acute on chronic systolic HF --cont IV diuretic as per cardiology --appreciate cardiology input, monitor I&O, and daily weight Pericardial effusion --small, no evidence of cardiac temponade --appreciate CTS input. Atrial fibrillation --paroxysmal. NSR. cont amio. start AC as above. cont Amio as recommended by cardiology Recent GI bleed --No evidence of bleed during the last few days. Hemoglobin is stable. follow CBC COPD --History of COPD not on home O2. wean O2 as nellie. cont nebs. Presumed PNA --Azithromycin by d/c by Pul. Cont Rocephin. Leukocytosis is improving. JAMES on CKD3 --Cr stable with diuresis Sepsis without septic shock - ruled out --presumed sepsis on admission. I think noninfectious SIRS rather. Cultures no growth. D/C Abx Type 2 DM --Will hold home metformin in setting of JAMES. ISS, --Cont NPH BID, ISS. A1C 7.7 Hypothyroidism --Continue home levothyroxine. Hyperlipidemia --Continue home statin. Hypertension --resume home meds Suicidal Ideation --pt started Klonopin for anxiety/depression --Evaluated by [facility], cleared. Dispo: pending SNF placement
[2020-02-05] MEDS: cefTRIAXone\\ROCEPHIN 1 GM in Sodium Chloride 0.9% 100 ML IVPB SCH (13:26)
[2020-02-05] MEDS: Atorvastatin Calcium 40 MG TAB PO SCH (20:27)
[2020-02-06] MEDS: Lorazepam 0.5 MG TAB PO PRN ×2 (00:43→17:54)
[2020-02-06 05:05] LABS: Anion Gap 14 mmol/L (10-20); BUN (Urea Nitrogen) 17 mg/dL (9.8-20.1); Calc. Creatinine Clearance 69 mL/min (70-130); Calcium 8.4 mg/dL (7.8-10.44); Carbon Dioxide 31 mmol/L (23-31); Chloride 99 mmol/L (98-107); Glucose 137 mg/dL (83-110); Magnesium 1.6 mg/dL (1.6-2.6); Sodium 140 mmol/L (136-145)
[2020-02-06 05:16] LABS: #Basophils 0.1 thou/uL (0.0-0.2); #Eosinphils 0.4 thou/uL (0.0-0.7); #Lymphocytes 1.4 thou/uL (1.20-3.40); #Neutrophils 7.3 thou/uL (1.40-6.50); %Basophils 0.6 % (0.0-1.0); %Eosinophils 3.6 % (0.0-10.0); %Lymphocytes 13.7 % (21.0-51.0); %Monocytes 9.9 % (0.0-10.0); %Neutrophils 72.4 % (42.0-75.0); Anisocytosis SLIGHT = 6-15 cells (100X) (0-5/hpf); Elliptocytes SLIGHT = 2-5 cells (100X) (0-1/hpf); Hemoglobin 9.1 g/dL (12.0-16.0); MDiff Complete? YES; Mean Corpuscular HGB CONC 30.1 g/dL (32.0-36.0); Mean Corpuscular Hemoglobin 23.4 pg (27.0-31.0); Mean Corpuscular Volume 77.8 fL (78.0-98.0); Mean Platelet Volume 7.7 fL (7.4-10.4); Platelet Count 615 thou/uL (130-400); Platelet Morphology Comment Appears Increased; Poikilocytosis SLIGHT = 6-15 cells (100X) (0-5/hpf); RBC Distribution Width 21.4 % (11.5-14.5); Red Blood Cell (RBC) Count 3.88 mill/uL (4.20-5.40); Schistocytes SLIGHT = 2-5 cells (100X) (0-1/hpf); White Blood Cell (WBC) Count 10.1 thou/uL (4.8-10.8)
[2020-02-06] MEDS: Levothyroxine Sodium 125 MCG TAB PO SCH (06:14)
[2020-02-06] MEDS: Furosemide 40 MG/4 ML VIAL SLOW IVP SCH (06:14)
[2020-02-06] MEDS: Mometasone 200 MCG/Formoterol 5 MCG 120 PUFF INHALER INH SCH ×2 (07:25→18:38)
--- NOTE | 2020-02-06 07:44 | PDOC.HOSPP ---
- Subjective Encounter Date: 02/06/20 Encounter Time: 09:30 Subjective: Patient without complaints. Awaiting SNF placement. - Objective Vital Signs & Weight: Vital Signs (12 hours) Temp Pulse Resp BP Pulse Ox 02/06/20 07:32 98.2 F 73 18 174/90 H 100 02/06/20 05:00 165/77 H 02/06/20 04:41 97.8 F 71 20 192/85 H 99 02/06/20 02:05 71 20 96 02/06/20 00:17 97 02/05/20 19:45 97.9 F 74 18 153/97 H 97 Weight Admit Weight 173 lb 14.4 oz Weight 173 lb 8 oz Most Recent Monitor Data Heart Rate from ECG 72 NIBP 137/61 NIBP BP-Mean 86 Respiration from ECG 20 SpO2 98 I&O: 02/05/20 02/06/20 02/07/20 06:59 06:59 06:59 Intake Total 1900 960 Output Total 4200 3750 Balance -2300 -2790 Result Diagrams: 02/06/20 03:45 02/06/20 03:45 Additional Labs: Accuchecks 02/06/20 02/05/20 02/05/20 05:40 20:45 16:19 POC Glucose 147 H 187 H 189 H 02/05/20 10:33 POC Glucose 164 H Hospitalist ROS - Review of Systems Constitutional: denies: fever, chills Respiratory: denies: cough, shortness of breath Cardiovascular: denies: chest pain, palpitations Gastrointestinal: denies: nausea, vomiting, abdominal pain - Medication Medications: Active Medications Generic Name Dose Route Start Last Admin Trade Name Freq PRN Reason Stop Dose Admin Acetaminophen 650 mg 01/26/20 16:40 02/05/20 20:27 Acetaminophen 325 Mg Tab PO 650 mg Q6H PRN Administration Mild-Moderate Pain (1-5) Albuterol Sulfate 2.5 mg 01/24/20 15:14 02/04/20 15:38 Albuterol Sulfate 2.5 Mg/3 Ml Neb NEB 2.5 mg Q6H PRN Administration SOB &/or Wheezing Albuterol/Ipratropium 3 ml 02/04/20 11:54 02/06/20 02:05 Ipratropium/Albuterol Sulfate 3 Ml Neb NEB 3 ml [id number] PRN Administration SOB &/or Wheezing Amiodarone HCl 200 mg 01/27/20 15:00 02/05/20 20:28 Amiodarone 200 Mg Tab PO 200 mg TID CANDY Administration Apixaban 5 mg 01/30/20 21:00 02/05/20 20:27 Apixaban 5 Mg Tab PO 5 mg BID CANDY Administration Atorvastatin Calcium 40 mg 01/23/20 21:00 02/05/20 20:27 Atorvastatin Calcium 40 Mg Tab PO 40 mg HS CANDY Administration Camphor/Menthol/Eucalyptus 0 gm 01/30/20 04:35 01/30/20 05:16 Vicks Vaporub 50 Gm Jar TOP 1 applic PRN PRN Administration Chest Congestion/Secretions Cholecalciferol 2,000 units 02/04/20 09:00 02/05/20 08:36 Cholecalciferol 1,000 Units (25 Mcg) Tab PO 2,000 units DAILY CANDY Administration Clonazepam 1 mg 01/31/20 21:00 02/05/20 20:28 Clonazepam 1 Mg Tab PO 1 mg BID CANDY Administration Fluticasone Propionate 0 gm 01/28/20 09:00 02/05/20 08:37 Fluticasone Propionate Nasal [place] 16 Gm Bottle NASAL 2 spr DAILY CANDY Administration Hydralazine HCl 50 mg 01/24/20 21:00 02/05/20 20:27 Hydralazine 25 Mg Tab PO 50 mg TID CANDY Administration Ceftriaxone Sodium 1 gm/ 100 mls @ 200 mls/hr 01/29/20 14:00 02/05/20 13:26 Sodium Chloride IVPB 100 mls Q24HR CANDY Administration Insulin Human Lispro 0 units 01/23/20 16:19 02/01/20 23:46 Humalog 300 Units/3 Ml Vial SC 3 unit .BEDTIME SLIDING SC PRN Administration Bedtime Correctional Scale Insulin Human Lispro 0 units 01/30/20 14:22 02/04/20 17:18 Humalog 300 Units/3 Ml Vial SC 4 unit .MODERATE SLIDING SC PRN Administration Moderate Correctional Scale Insulin Human NPH 30 unit 01/30/20 21:00 02/05/20 21:28 Nph, Human Insulin Isophane 300 Unit/3 Ml Vial SC Not Given BID CANDY Levothyroxine Sodium 125 mcg 01/24/20 06:00 02/06/20 06:14 Levothyroxine Sodium 125 Mcg Tab PO 125 mcg 0600 CANDY Administration Lorazepam 0.5 mg 01/31/20 21:09 02/06/20 00:43 Lorazepam 0.5 Mg Tab PO 0.5 mg TID PRN Administration Anxiety Lorazepam 2 mg 02/01/20 11:20 02/01/20 17:01 Lorazepam 2 Mg/Ml Vial SLOW IVP 2 mg Q6H PRN Administration Anxiety/Agitation Mometasone Furoate/Formoterol Fumar 2 puff 01/24/20 18:30 02/06/20 07:25 Mometasone 200 Mcg/Formoterol 5 Mcg 120 Puff Inhaler INH 2 puff BID-RT CANDY Administration Ondansetron HCl 4 mg 01/23/20 16:12 02/03/20 00:17 Ondansetron Odt 4 Mg Tab PO 4 mg Q6H PRN Administration Nausea/Vomiting Pantoprazole Sodium 40 mg 02/03/20 21:00 02/05/20 20:27 Pantoprazole 40 Mg Vial IVP 40 mg BID CANDY Administration Throat Lozenges 1 laura 01/29/20 02:08 01/29/20 19:54 Cepastat Lozenges 1 Laura PO 1 laura Q2H PRN Administration Sore Throat - Exam General Appearance: NAD, awake alert ENT: moist mucosa Heart: RRR, no murmur, no gallops, no rubs Respiratory: CTAB, no wheezes, no rales, no ronchi Gastrointestinal: soft, non-tender, non-distended, normal bowel sounds Extremities: no edema Psychiatric: normal affect, normal behavior Hosp A/P - Plan 79-year-old female past medical history of COPD not on home O2, type 2 diabetes mellitus, hyperlipidemia, hypertension, congestive heart failure with EF of 40 to 45%, atrial fibrillation on amiodarone presents for worsening shortness of breath found to have pulmonary embolism and pericardial effusion. Course complicated by patient's JAMES and oliguria. Acute Pulmonary embolism --pt is tolerating Eliquis. Hb stable. Started with Eliquis 10 mg twice a day and transitioned to 5 mg twice a day CHF exacerbation- Diastolic --acute on chronic HF --cont IV diuretic as per cardiology --appreciate cardiology input, monitor I&O, and daily weight --ECHO with EF 50%, presumably diastolic Pericardial effusion --small, no evidence of cardiac temponade --appreciate CTS input. Atrial fibrillation --paroxysmal. NSR. cont amio. start AC as above. cont Amio as recommended by cardiology Recent GI bleed --No evidence of bleed during the last few days. Hemoglobin is stable. follow CBC Anemia due to iron deficiency and blood loss --Microcytic, will supplement iron COPD --History of COPD not on home O2. wean O2 as nellie. cont nebs. Presumed PNA --Azithromycin by d/c by Pul. Cont Rocephin. Leukocytosis is improving. JAMES on CKD3 --Cr stable with diuresis Sepsis without septic shock - ruled out --presumed sepsis on admission. I think noninfectious SIRS rather. Cultures no growth. D/C Abx Type 2 DM --Will hold home metformin in setting of JAMES. ISS, --Cont NPH BID, ISS. A1C 7.7 Hypothyroidism --Continue home levothyroxine. Hyperlipidemia --Continue home statin. Hypertension --resume home meds Suicidal Ideation --pt started Klonopin for anxiety/depression --Evaluated by [facility], cleared. Dispo: pending SNF placement
[2020-02-06] MEDS: Cholecalciferol 1,000 UNITS (25 MCG) TAB PO SCH (09:14)
[2020-02-06] MEDS: clonazePAM 1 MG TAB PO SCH ×2 (09:14→21:49)
[2020-02-06] MEDS: hydrALAZINE 25 MG TAB PO SCH ×3 (09:15→21:49)
[2020-02-06] MEDS: Ferrous Sulfate 325 MG TAB PO SCH ×2 (09:15→17:54)
[2020-02-06] MEDS: Amiodarone 200 MG TAB PO SCH ×3 (09:15→21:49)
--- NOTE | 2020-02-06 09:15 | PRG ---
DATE OF SERVICE: 02/06/2020 SUBJECTIVE: Ms. Sherwood states she does not feel well. Her head feels uncomfortable. Her abdomen is uncomfortable with some mild abdominal pain. She states this does not feel well overall. She does not report shortness of breath. OBJECTIVE: VITAL SIGNS: Her blood pressure 160/70, 118/74, it is variable. Most recent blood pressure 174/90, pulse is 70, it is sinus. LUNGS: Decreased breath sounds on the left. CARDIAC: Normal S1, normal S2. ABDOMEN: Soft, nontender. EXTREMITIES: There is no edema. ASSESSMENT: 1. Hypertension. 2. Congestive heart failure systolic/diastolic mixed, mostly diastolic. 3. Hypertension. 4. Paroxysmal atrial fibrillation and flutter. 5. Recent gastrointestinal bleed. 6. Abdominal discomfort, probably related to medicines. PLAN: 1. We are going to stop oral iron. Check iron levels tomorrow, if they are low, we can give her intravenous iron. 2. Continue amiodarone for now. 3. Continue diuretics. 4. We will place her on low-dose ALEXANDRO inhibitors and monitor kidney function. 5. Continue ambulation. Job ID: [id number]
[2020-02-06] MEDS: Pantoprazole 40 MG VIAL IVP SCH (09:16)
[2020-02-06] MEDS: Fluticasone Propionate Nasal Spray 16 gm Bottle NASAL SCH (09:16)
[2020-02-06] MEDS: Apixaban 5 MG TAB PO SCH ×2 (09:16→21:49)
[2020-02-06] MEDS: NPH, Human Insulin Isophane 300 UNIT/3 ML VIAL SC SCH ×2 (09:16→23:02)
[2020-02-06] MEDS: Lisinopril 5 MG TAB PO SCH (10:06)
[2020-02-06] MEDS: cefTRIAXone\\ROCEPHIN 1 GM in Sodium Chloride 0.9% 100 ML IVPB SCH (15:47)
[2020-02-06] MEDS: Furosemide 20 MG/2 ML VIAL SLOW IVP SCH (15:47)
[2020-02-06] MEDS: HumaLOG 300 UNITS/3 ML VIAL SC PRN (17:54)
[2020-02-06] MEDS: Atorvastatin Calcium 40 MG TAB PO SCH (21:49)
[2020-02-06] MEDS: Acetaminophen 325 MG TAB PO PRN (21:49)
[2020-02-07] MEDS: Pantoprazole 40 MG VIAL IVP SCH ×3 (00:32→21:08)
[2020-02-07 04:53] LABS: Anion Gap 13 mmol/L (10-20); BUN (Urea Nitrogen) 8 mg/dL (9.8-20.1); Calc. Creatinine Clearance 74 mL/min (70-130); Calcium 8.2 mg/dL (7.8-10.44); Carbon Dioxide 33 mmol/L (23-31); Chloride 96 mmol/L (98-107); Glucose 139 mg/dL (83-110); Potassium 3.7 mmol/L (3.5-5.1); Sodium 138 mmol/L (136-145)
[2020-02-07 05:39] LABS: #Eosinphils 0.4 thou/uL (0.0-0.7); #Lymphocytes 1.5 thou/uL (1.20-3.40); #Monocytes 0.9 thou/uL (0.11-0.59); #Neutrophils 8.4 thou/uL (1.40-6.50); %Basophils 0.3 % (0.0-1.0); %Eosinophils 3.4 % (0.0-10.0); %Lymphocytes 13.4 % (21.0-51.0); %Monocytes 8.1 % (0.0-10.0); %Neutrophils 74.8 % (42.0-75.0); Band 2 % (5-11); Eosinophils 9 % (0-10); Hemoglobin 8.6 g/dL (12.0-16.0); Lymphocytes 12 % (21-51); MDiff Complete? YES; Mean Corpuscular HGB CONC 30.1 g/dL (32.0-36.0); Mean Corpuscular Hemoglobin 23.3 pg (27.0-31.0); Mean Corpuscular Volume 77.5 fL (78.0-98.0); Mean Platelet Volume 7.6 fL (7.4-10.4); Monocytes 3 % (0-10); Neutrophil 74 % (42-75); Platelet Count 569 thou/uL (130-400); RBC Distribution Width 21.1 % (11.5-14.5); Red Blood Cell (RBC) Count 3.69 mill/uL (4.20-5.40); White Blood Cell (WBC) Count 11.3 thou/uL (4.8-10.8)
[2020-02-07] MEDS: Furosemide 20 MG/2 ML VIAL SLOW IVP SCH ×2 (06:19→15:11)
[2020-02-07] MEDS: Levothyroxine Sodium 125 MCG TAB PO SCH (06:19)
[2020-02-07] MEDS: Mometasone 200 MCG/Formoterol 5 MCG 120 PUFF INHALER INH SCH ×2 (06:59→18:52)
--- NOTE | 2020-02-07 07:46 | PDOC.HOSPP ---
- Subjective Encounter Date: 02/07/20 Encounter Time: 09:20 Subjective: Patient reports feeling bad and can't breath well, though appears comfortable and 100% O2 sat on NC O2. Patient very anxious and likes to take her albuterol inhaler very frequently at home. Nurse had to take it away from her because she was using it too much. Just had neb and lungs are clear. - Objective Vital Signs & Weight: Vital Signs (12 hours) Temp Pulse Resp BP Pulse Ox 02/07/20 07:15 97.6 F 69 20 166/72 H 97 02/07/20 07:01 100 02/07/20 06:59 71 20 100 02/07/20 04:35 97.7 F 73 18 149/65 H 97 02/06/20 23:57 80 20 149/67 H 02/06/20 23:27 75 16 95 02/06/20 21:49 78 02/06/20 21:45 100 Weight Admit Weight 173 lb 14.4 oz Weight 173 lb 14.4 oz Most Recent Monitor Data Heart Rate from ECG 72 NIBP 137/61 NIBP BP-Mean 86 Respiration from ECG 20 SpO2 98 I&O: 02/06/20 02/07/20 02/08/20 06:59 06:59 06:59 Intake Total 960 1150 Output Total 3750 2850 Balance -2790 -1700 Result Diagrams: 02/07/20 03:50 02/07/20 03:50 Additional Labs: Accuchecks 02/07/20 02/06/20 02/06/20 06:04 20:47 17:44 POC Glucose 143 H 152 H 189 H 02/06/20 02/03/20 10:41 16:32 POC Glucose 152 H 138 H Hospitalist ROS - Review of Systems Constitutional: denies: fever, chills Respiratory: reports: shortness of breath. denies: cough Cardiovascular: denies: chest pain, palpitations Gastrointestinal: denies: nausea, vomiting, abdominal pain - Medication Medications: Active Medications Generic Name Dose Route Start Last Admin Trade Name Freq PRN Reason Stop Dose Admin Acetaminophen 650 mg 01/26/20 16:40 02/06/20 21:49 Acetaminophen 325 Mg Tab PO 650 mg Q6H PRN Administration Mild-Moderate Pain (1-5) Albuterol Sulfate 2.5 mg 01/24/20 15:14 02/04/20 15:38 Albuterol Sulfate 2.5 Mg/3 Ml Neb NEB 2.5 mg Q6H PRN Administration SOB &/or Wheezing Albuterol/Ipratropium 3 ml 02/04/20 11:54 02/06/20 23:27 Ipratropium/Albuterol Sulfate 3 Ml Neb NEB 3 ml [id number] PRN Administration SOB &/or Wheezing Amiodarone HCl 200 mg 01/27/20 15:00 02/06/20 21:49 Amiodarone 200 Mg Tab PO 200 mg TID CANDY Administration Apixaban 5 mg 01/30/20 21:00 02/06/20 21:49 Apixaban 5 Mg Tab PO 5 mg BID CANDY Administration Atorvastatin Calcium 40 mg 01/23/20 21:00 02/06/20 21:49 Atorvastatin Calcium 40 Mg Tab PO 40 mg HS CANDY Administration Camphor/Menthol/Eucalyptus 0 gm 01/30/20 04:35 01/30/20 05:16 Vicks Vaporub 50 Gm Jar TOP 1 applic PRN PRN Administration Chest Congestion/Secretions Cholecalciferol 2,000 units 02/04/20 09:00 02/06/20 09:14 Cholecalciferol 1,000 Units (25 Mcg) Tab PO 2,000 units DAILY CANDY Administration Clonazepam 1 mg 01/31/20 21:00 02/06/20 21:49 Clonazepam 1 Mg Tab PO 1 mg BID CANDY Administration Ferrous Sulfate 325 mg 02/06/20 08:00 02/06/20 17:54 Ferrous Sulfate 325 Mg Tab PO 325 mg BID-WM CANDY Administration Fluticasone Propionate 0 gm 01/28/20 09:00 02/06/20 09:16 Fluticasone Propionate Nasal [place] 16 Gm Bottle NASAL 1 spr DAILY CANDY Administration Furosemide 20 mg 02/06/20 14:00 02/07/20 06:19 Furosemide 20 Mg/2 Ml Vial SLOW IVP 20 mg 0600,1400 CANDY Administration Hydralazine HCl 50 mg 01/24/20 21:00 02/06/20 21:49 Hydralazine 25 Mg Tab PO 50 mg TID CANDY Administration Ceftriaxone Sodium 1 gm/ 100 mls @ 200 mls/hr 01/29/20 14:00 02/06/20 15:47 Sodium Chloride IVPB 100 mls Q24HR CANDY Administration Insulin Human Lispro 0 units 01/23/20 16:19 02/01/20 23:46 Humalog 300 Units/3 Ml Vial SC 3 unit .BEDTIME SLIDING SC PRN Administration Bedtime Correctional Scale Insulin Human Lispro 0 units 01/30/20 14:22 02/06/20 17:54 Humalog 300 Units/3 Ml Vial SC 2 unit .MODERATE SLIDING SC PRN Administration Moderate Correctional Scale Insulin Human NPH 30 unit 01/30/20 21:00 02/06/20 23:02 Nph, Human Insulin Isophane 300 Unit/3 Ml Vial SC Not Given BID CANDY Levothyroxine Sodium 125 mcg 01/24/20 06:00 02/07/20 06:19 Levothyroxine Sodium 125 Mcg Tab PO 125 mcg 0600 CANDY Administration Lisinopril 5 mg 02/06/20 09:00 02/06/20 10:06 Lisinopril 5 Mg Tab PO 5 mg DAILY CANDY Administration Lorazepam 0.5 mg 01/31/20 21:09 02/06/20 17:54 Lorazepam 0.5 Mg Tab PO 0.5 mg TID PRN Administration Anxiety Lorazepam 2 mg 02/01/20 11:20 02/01/20 17:01 Lorazepam 2 Mg/Ml Vial SLOW IVP 2 mg Q6H PRN Administration Anxiety/Agitation Mometasone Furoate/Formoterol Fumar 2 puff 01/24/20 18:30 02/07/20 06:59 Mometasone 200 Mcg/Formoterol 5 Mcg 120 Puff Inhaler INH 2 puff BID-RT CANDY Administration Ondansetron HCl 4 mg 01/23/20 16:12 02/03/20 00:17 Ondansetron Odt 4 Mg Tab PO 4 mg Q6H PRN Administration Nausea/Vomiting Pantoprazole Sodium 40 mg 02/03/20 21:00 02/07/20 00:32 Pantoprazole 40 Mg Vial IVP 40 mg BID CANDY Administration Throat Lozenges 1 laura 01/29/20 02:08 01/29/20 19:54 Cepastat Lozenges 1 Laura PO 1 laura Q2H PRN Administration Sore Throat - Exam General Appearance: NAD, awake alert ENT: moist mucosa Heart: RRR, no murmur, no gallops, no rubs Respiratory: CTAB, no wheezes, no rales, no ronchi Gastrointestinal: soft, non-tender, non-distended, normal bowel sounds Extremities: no edema Psychiatric: oriented to person, oriented to place, oriented to time Psychiatric - other findings: mildly anxious Hosp A/P - Plan 79-year-old female past medical history of COPD not on home O2, type 2 diabetes mellitus, hyperlipidemia, hypertension, congestive heart failure with EF of 40 to 45%, atrial fibrillation on amiodarone presents for worsening shortness of breath found to have pulmonary embolism and pericardial effusion. Course complicated by patient's JAMES and oliguria. Acute Pulmonary embolism --pt is tolerating Eliquis. Hb stable. Started with Eliquis 10 mg twice a day and transitioned to 5 mg twice a day CHF exacerbation- Diastolic --acute on chronic HF --cont IV diuretic as per cardiology --appreciate cardiology input, monitor I&O, and daily weight --ECHO with EF 50%, presumably diastolic Pericardial effusion --small, no evidence of cardiac temponade --appreciate CTS input. Atrial fibrillation --paroxysmal. NSR. cont amio. start AC as above. cont Amio as recommended by cardiology Recent GI bleed --No evidence of bleed during the last few days. Hemoglobin is stable. follow CBC Anemia due to iron deficiency and blood loss --Microcytic, patient not tolerating oral iron, Dr. Johnson considering IV supplementation COPD --History of COPD not on home O2. wean O2 as nellie. cont nebs. Presumed PNA --Azithromycin d/c by Pul. Cont Rocephin. Leukocytosis is improving. Will complete 10 days of Rocephin tomorrow and can likely d/c. JAMES on CKD3 --Cr stable with diuresis Sepsis without septic shock - ruled out --presumed sepsis on admission. I think noninfectious SIRS rather. Cultures no growth. Type 2 DM --Will hold home metformin in setting of JAMES. ISS, --Cont NPH BID, ISS. A1C 7.7 Hypothyroidism --Continue home levothyroxine. Hyperlipidemia --Continue home statin. Hypertension --resume home meds Suicidal Ideation --pt started Klonopin for anxiety/depression --Evaluated by [facility], cleared. Dispo: pending SNF placement
[2020-02-07] MEDS: clonazePAM 1 MG TAB PO SCH ×2 (08:37→21:08)
[2020-02-07] MEDS: Lisinopril 5 MG TAB PO SCH (08:37)
[2020-02-07] MEDS: Cholecalciferol 1,000 UNITS (25 MCG) TAB PO SCH (08:37)
[2020-02-07] MEDS: Apixaban 5 MG TAB PO SCH ×2 (08:37→21:08)
[2020-02-07] MEDS: hydrALAZINE 25 MG TAB PO SCH ×3 (08:38→21:08)
[2020-02-07] MEDS: Ferrous Sulfate 325 MG TAB PO SCH ×2 (08:38→15:11)
[2020-02-07] MEDS: Amiodarone 200 MG TAB PO SCH ×3 (08:38→21:08)
[2020-02-07] MEDS: Fluticasone Propionate Nasal Spray 16 gm Bottle NASAL SCH (08:49)
[2020-02-07] MEDS: NPH, Human Insulin Isophane 300 UNIT/3 ML VIAL SC SCH ×2 (08:50→21:27)
[2020-02-07] MEDS: cefTRIAXone\\ROCEPHIN 1 GM in Sodium Chloride 0.9% 100 ML IVPB SCH (15:10)
[2020-02-07] MEDS: HumaLOG 300 UNITS/3 ML VIAL SC PRN (17:56)
--- NOTE | 2020-02-07 18:20 | PRG ---
DATE OF SERVICE: 02/07/2020 SUBJECTIVE: Ms. Sherwood states she still feels short of breath. No chest pain. OBJECTIVE: VITAL SIGNS: Blood pressure 140/70, pulse 90. LUNGS: Clear. CARDIAC: Normal S1 and normal S2. ABDOMEN: Soft and nontender. Decreased breath sounds on the left. ASSESSMENT: 1. Continued shortness of breath. 2. Chronic obstructive pulmonary disease. 3. Diastolic heart failure. PLAN: 1. Check BNP tomorrow. 2. Repeat chest x-ray tomorrow. We will follow with you. Job ID: [id number]
[2020-02-07] MEDS: Atorvastatin Calcium 40 MG TAB PO SCH (21:08)
[2020-02-07] MEDS: Acetaminophen 325 MG TAB PO PRN (22:34)
[2020-02-07] MEDS: Lorazepam 0.5 MG TAB PO PRN (22:34)
[2020-02-08 05:13] LABS: Anion Gap 14 mmol/L (10-20); BUN (Urea Nitrogen) 8 mg/dL (9.8-20.1); Calc. Creatinine Clearance 70 mL/min (70-130); Calcium 8.3 mg/dL (7.8-10.44); Carbon Dioxide 35 mmol/L (23-31); Chloride 94 mmol/L (98-107); Glucose 74 mg/dL (83-110); Potassium 3.5 mmol/L (3.5-5.1); Sodium 139 mmol/L (136-145)
[2020-02-08 05:17] LABS: #Eosinphils 0.4 thou/uL (0.0-0.7); #Lymphocytes 1.4 thou/uL (1.20-3.40); #Monocytes 1.4 thou/uL (0.11-0.59); #Neutrophils 11.8 thou/uL (1.40-6.50); %Basophils 0.3 % (0.0-1.0); %Eosinophils 2.8 % (0.0-10.0); %Lymphocytes 9.2 % (21.0-51.0); %Monocytes 9.3 % (0.0-10.0); %Neutrophils 78.4 % (42.0-75.0); Elliptocytes SLIGHT = 2-5 cells (100X) (0-1/hpf); Hemoglobin 9.2 g/dL (12.0-16.0); MDiff Complete? YES; Mean Corpuscular HGB CONC 29.9 g/dL (32.0-36.0); Mean Corpuscular Hemoglobin 23.4 pg (27.0-31.0); Mean Corpuscular Volume 78.3 fL (78.0-98.0); Mean Platelet Volume 7.7 fL (7.4-10.4); Platelet Count 542 thou/uL (130-400); Platelet Morphology Comment Appears Increased; RBC Distribution Width 21.2 % (11.5-14.5); Red Blood Cell (RBC) Count 3.94 mill/uL (4.20-5.40); Schistocytes SLIGHT = 2-5 cells (100X) (0-1/hpf)
[2020-02-08] MEDS: Levothyroxine Sodium 125 MCG TAB PO SCH (06:20)
[2020-02-08] MEDS: Furosemide 20 MG/2 ML VIAL SLOW IVP SCH ×2 (06:20→12:55)
--- NOTE | 2020-02-08 06:36 | PDOC.HOSPP ---
- Subjective Encounter Date: 02/08/20 Subjective: Patient seen and examined this morning at bedside. Somewhat of a poor historian but able to tell me that there were no overnight events, denies any acute complaints. Initially presented to this admission with SOB which is still present although somewhat improved. She is noted to be on 3 L O2 via NC when at baseline patient wears no oxygen. Of note patient was recently admitted and discharged from the hospital on January 18, 2020 for chest pain for which underwent cardiac cath with no stenting, complicated by GI bleed and JAMES. Upon this admission CTA was positive for pulmonary embolism to the left upper lobe as well as a moderate pericardial effusion and moderate bilateral effusions. Patient was started on heparin drip, vancomycin, cefepime and IV Lasix. - Objective Vital Signs & Weight: Vital Signs (12 hours) Temp Pulse Resp BP Pulse Ox 02/08/20 04:57 97.5 F L 67 22 H 156/67 H 100 02/07/20 23:03 82 16 99 02/07/20 21:08 86 02/07/20 19:52 98.0 F 86 17 144/68 H 100 02/07/20 18:52 82 20 92 L Weight Admit Weight 173 lb 14.4 oz Weight 174 lb 6.4 oz Most Recent Monitor Data Heart Rate from ECG 72 NIBP 137/61 NIBP BP-Mean 86 Respiration from ECG 20 SpO2 98 I&O: 02/06/20 02/07/20 02/08/20 06:59 06:59 06:59 Intake Total 960 1150 252 Output Total 3750 2850 1300 Balance -4297 -7513 -8717 Result Diagrams: 02/08/20 03:57 02/08/20 03:57 Additional Labs: Accuchecks 02/08/20 02/07/20 02/07/20 05:57 19:59 16:21 POC Glucose 82 123 H 209 H 02/07/20 10:24 POC Glucose 136 H Hospitalist ROS - Review of Systems Constitutional: reports: weakness, malaise. denies: fever, chills Respiratory: reports: cough, shortness of breath, SOB with excertion Cardiovascular: reports: orthopnea. denies: chest pain, palpitations, paroxysmal noc. dyspnea, edema, light headedness, other Gastrointestinal: denies: nausea, vomiting, abdominal pain, diarrhea, constipation, melena, hematochezia, other Musculoskeletal: denies: neck pain, shoulder pain, arm pain, back pain, hand pain, leg pain, foot pain, other Neurological: reports: weakness. denies: numbness, incoordination, confusion - Medication Medications: Active Medications Generic Name Dose Route Start Last Admin Trade Name Freq PRN Reason Stop Dose Admin Acetaminophen 650 mg 01/26/20 16:40 02/07/20 22:34 Acetaminophen 325 Mg Tab PO 650 mg Q6H PRN Administration Mild-Moderate Pain (1-5) Albuterol Sulfate 2.5 mg 01/24/20 15:14 02/04/20 15:38 Albuterol Sulfate 2.5 Mg/3 Ml Neb NEB 2.5 mg Q6H PRN Administration SOB &/or Wheezing Albuterol/Ipratropium 3 ml 02/04/20 11:54 02/07/20 23:03 Ipratropium/Albuterol Sulfate 3 Ml Neb NEB 3 ml [id number] PRN Administration SOB &/or Wheezing Amiodarone HCl 200 mg 02/07/20 21:00 02/07/20 21:08 Amiodarone 200 Mg Tab PO 200 mg BID CANDY Administration Apixaban 5 mg 01/30/20 21:00 02/07/20 21:08 Apixaban 5 Mg Tab PO 5 mg BID CANDY Administration Atorvastatin Calcium 40 mg 01/23/20 21:00 02/07/20 21:08 Atorvastatin Calcium 40 Mg Tab PO 40 mg HS CANDY Administration Camphor/Menthol/Eucalyptus 0 gm 01/30/20 04:35 01/30/20 05:16 Vicks Vaporub 50 Gm Jar TOP 1 applic PRN PRN Administration Chest Congestion/Secretions Cholecalciferol 2,000 units 02/04/20 09:00 02/07/20 08:37 Cholecalciferol 1,000 Units (25 Mcg) Tab PO 2,000 units DAILY CANDY Administration Clonazepam 1 mg 01/31/20 21:00 02/07/20 21:08 Clonazepam 1 Mg Tab PO 1 mg BID CANDY Administration Ferrous Sulfate 325 mg 02/06/20 08:00 02/07/20 15:11 Ferrous Sulfate 325 Mg Tab PO 325 mg BID-WM CANDY Administration Fluticasone Propionate 0 gm 01/28/20 09:00 02/07/20 08:49 Fluticasone Propionate Nasal [place] 16 Gm Bottle NASAL Not Given DAILY CANDY Furosemide 20 mg 02/06/20 14:00 02/08/20 06:20 Furosemide 20 Mg/2 Ml Vial SLOW IVP 20 mg 0600,1400 CANDY Administration Hydralazine HCl 50 mg 01/24/20 21:00 02/07/20 21:08 Hydralazine 25 Mg Tab PO 50 mg TID CANDY Administration Ceftriaxone Sodium 1 gm/ 100 mls @ 200 mls/hr 01/29/20 14:00 02/07/20 15:10 Sodium Chloride IVPB 100 mls Q24HR CANDY Administration Insulin Human Lispro 0 units 01/23/20 16:19 02/01/20 23:46 Humalog 300 Units/3 Ml Vial SC 3 unit .BEDTIME SLIDING SC PRN Administration Bedtime Correctional Scale Insulin Human Lispro 0 units 01/30/20 14:22 02/07/20 17:56 Humalog 300 Units/3 Ml Vial SC 4 unit .MODERATE SLIDING SC PRN Administration Moderate Correctional Scale Insulin Human NPH 30 unit 01/30/20 21:00 02/07/20 21:27 Nph, Human Insulin Isophane 300 Unit/3 Ml Vial SC 30 unit BID CANDY Administration Levothyroxine Sodium 125 mcg 01/24/20 06:00 02/08/20 06:20 Levothyroxine Sodium 125 Mcg Tab PO 125 mcg 0600 CANDY Administration Lisinopril 5 mg 02/06/20 09:00 02/07/20 08:37 Lisinopril 5 Mg Tab PO 5 mg DAILY CANDY Administration Lorazepam 0.5 mg 01/31/20 21:09 02/07/20 22:34 Lorazepam 0.5 Mg Tab PO 0.5 mg TID PRN Administration Anxiety Lorazepam 2 mg 02/01/20 11:20 02/01/20 17:01 Lorazepam 2 Mg/Ml Vial SLOW IVP 2 mg Q6H PRN Administration Anxiety/Agitation Mometasone Furoate/Formoterol Fumar 2 puff 01/24/20 18:30 02/07/20 18:52 Mometasone 200 Mcg/Formoterol 5 Mcg 120 Puff Inhaler INH 2 puff BID-RT CANDY Administration Ondansetron HCl 4 mg 01/23/20 16:12 02/03/20 00:17 Ondansetron Odt 4 Mg Tab PO 4 mg Q6H PRN Administration Nausea/Vomiting Pantoprazole Sodium 40 mg 02/03/20 21:00 02/07/20 21:08 Pantoprazole 40 Mg Vial IVP 40 mg BID CANDY Administration Throat Lozenges 1 laura 01/29/20 02:08 01/29/20 19:54 Cepastat Lozenges 1 Laura PO 1 laura Q2H PRN Administration Sore Throat - Exam General Appearance: NAD, awake alert, ill appearing Eye: PERRL, anicteric sclera ENT: normocephalic atraumatic, no oropharyngeal lesions, moist mucosa Heart: RRR, no murmur, no gallops, no rubs, normal peripheral pulses Respiratory: no wheezes, no rales, no ronchi, normal chest expansion, no tachypnea, normal percussion, rales (Lateral crackles left greater than right) Gastrointestinal: soft, non-tender, non-distended, normal bowel sounds, no palpable masses, no hepatomegaly, no splenomegaly, no bruit Extremities: no cyanosis, no clubbing, no edema (No significant peripheral edema is detected) Neurological: cranial nerve grossly intact, normal sensation to touch, no weakness, no focal deficits, no new deficit Neurological - other findings: She appears tired non-lethargic Psychiatric: flat affect Hosp A/P - Plan old records reviewed/req A/P: Initially presented to this admission with SOB which is still present altho ugh somewhat improved. She is noted to be on 3 L O2 via NC when at baseline patient wears no oxygen. Of note patient was recently admitted and discharged from the hospital on January 18, 2020 for chest pain for which underwent cardiac cath with no stenting, complicated by GI bleed and JAMES. Upon this admission CTA was positive for pulmonary embolism to the left upper lobe as well as a moderate pericardial effusion and moderate bilateral effusions. Patient was started on heparin drip, vancomycin, cefepime and IV Lasix. CHF exacerbation: Repeat echocardiogram this admission with EF of 50%. Possible diastolic CHF. On exam without clear evidence of overt volume overload although she does have some bilateral lung crackles L>R. Remains on IV Lasix 20 mg BID. Repeat BNP this morning is 125 which is decreased from last checked of 160. Awaiting repeat chest x-ray. Cardiology follows. Pericardial effusion: Small non emo dynamically significant pericardial effusion. In setting of diastolic CHF. Continue with IV diuresis. Pulmonary embolism: Initially initiated on IV heparin now she has been transitioned to Eliquis therapeutic dose. Tolerating therapy without any evidence of bleeding. H&H remained stable between 89. Continue to monitor. Atrial fibrillation: Paroxysmal. Continue with amiodarone for rate/rhythm management and Eliquis for anticoagulation History of GI bleed: Chronic anemia. Tolerating anticoagulation without any evidence of bleeding. H&H remained stable between 89. Continue with iron supplements. Continue with PO PPI. COPD: Exam without evidence of acute exacerbation. PNA: Presumed PNA. Completed course of ceftriaxone plus azithromycin. Cultures remain negative. Diabetes mellitus: Continue with NPH twice daily plus insulin sliding scale. Glucose levels appear stable. Hypertension: Continue lisinopril. On IV Lasix 20 mg twice daily. Hypothyroidism: Continue with Synthroid. Acute kidney injury: Resolved. Possible JAMES on CKD. Monitor renal function. Anxiety/depression: Possible SI per review of EHR. Flat affect on exam. Continue with Klonopin. Needs outpatient follow up. DISPOSITION: Continue with IV diuresis. Awaiting repeat chest x-ray this morning. Cardiology follows for assistance on management of CHF. Based on today's assessment she may need rehab at time of discharge.
[2020-02-08] MEDS: Mometasone 200 MCG/Formoterol 5 MCG 120 PUFF INHALER INH SCH ×2 (07:16→19:30)
--- NOTE | 2020-02-08 09:17 | RAD ---
CHEST 1 VIEW: Date: 02/08/2020 INDICATION: History of shortness of breath. COMPARISON: Prior exam dated 02/03/2020. IMPRESSION: Cardiomegaly, pulmonary vascular congestion, central edema pattern, and pleural parenchymal opacities , left greater than right, persist. No pneumothorax is grossly evident. Chronic osseous change is sim ilar appearing. Surgical clips over the left axilla are stable. POS: BH
[2020-02-08] MEDS: Acetaminophen 325 MG TAB PO PRN ×2 (10:25→22:11)
[2020-02-08] MEDS: Pantoprazole 40 MG VIAL IVP SCH ×2 (10:26→22:13)
[2020-02-08] MEDS: NPH, Human Insulin Isophane 300 UNIT/3 ML VIAL SC SCH ×2 (10:28→22:15)
[2020-02-08] MEDS: Cholecalciferol 1,000 UNITS (25 MCG) TAB PO SCH (10:30)
[2020-02-08] MEDS: Amiodarone 200 MG TAB PO SCH ×2 (10:30→22:12)
[2020-02-08] MEDS: Apixaban 5 MG TAB PO SCH ×2 (10:30→22:12)
[2020-02-08] MEDS: hydrALAZINE 25 MG TAB PO SCH ×3 (10:30→22:12)
[2020-02-08] MEDS: Lisinopril 5 MG TAB PO SCH (10:30)
[2020-02-08] MEDS: Fluticasone Propionate Nasal Spray 16 gm Bottle NASAL SCH (10:31)
[2020-02-08] MEDS: Lorazepam 2 MG/ML VIAL SLOW IVP PRN ×2 (10:31→19:52)
[2020-02-08] MEDS: clonazePAM 1 MG TAB PO SCH ×2 (10:31→22:12)
[2020-02-08] MEDS: Ferrous Sulfate 325 MG TAB PO SCH ×2 (10:31→16:09)
[2020-02-08] MEDS ORDERED: Potassium Chloride 20 MEQ TAB PO SCH (12:00)
--- NOTE | 2020-02-08 12:57 | PRG ---
DATE OF SERVICE: 02/08/2020 SUBJECTIVE: Ms. Sherwood seems to be doing better. She has some chest pain, but it seems musculoskeletal, it is not anginal. Her breathing seems to be somewhat better. OBJECTIVE: VITAL SIGNS: Blood pressure is 156/67, oxygen saturation is 100% on 3 L nasal cannula, now she is on 2 L, and pulse 67. LUNGS: Decreased breath sounds at the bases, but it is really sounds better. ABDOMEN: Soft and nontender. ASSESSMENT: 1. Congestive heart failure, systolic, diastolic, mixed, mostly diastolic, now with most recent ejection fraction up to 50%. 2. Pleural effusions. 3. Atrial arrhythmias, improved. PLAN: Give her an extra dose of potassium today. Give her an extra dose of Lasix tonight. Continues to improve slowly from the heart failure standpoint. Fortunately, she is not having any GI bleeding, and fortunately, her kidney function is stable. Avoid spironolactone in view of recent renal failure. Continue lisinopril. Job ID: [id number]
[2020-02-08] MEDS: cefTRIAXone\\ROCEPHIN 1 GM in Sodium Chloride 0.9% 100 ML IVPB SCH (14:50)
[2020-02-08] MEDS: Albuterol Sulfate 2.5 mg/3 ml Neb NEB PRN (14:51)
[2020-02-08] MEDS: Lorazepam 0.5 MG TAB PO PRN (14:55)
[2020-02-08] MEDS ORDERED: Furosemide 20 MG/2 ML VIAL SLOW IVP SCH (22:00)
[2020-02-08] MEDS: Atorvastatin Calcium 40 MG TAB PO SCH (22:12)
--- NOTE | 2020-02-08 23:15 | PDOC.EVN ---
Event Note - Event Note Event Note: Nursing called, reported patient afib/flutter, had done previously in the past, has paroxsymal afib apparently, she is on anticoagulation for PE, BP 137/63, HR 120s, RR20s, 94% RA. Will get stat EKG, nursing just gave night dose of amiodarone, if sustains will give cardizem. Nursing to call back if HR sustains above 120 bpm.
[2020-02-09 04:50] LABS: Anion Gap 15 mmol/L (10-20); BUN (Urea Nitrogen) 10 mg/dL (9.8-20.1); Calc. Creatinine Clearance 53 mL/min (70-130); Calcium 8.3 mg/dL (7.8-10.44); Carbon Dioxide 35 mmol/L (23-31); Chloride 93 mmol/L (98-107); Magnesium 1.3 mg/dL (1.6-2.6); Potassium 3.5 mmol/L (3.5-5.1); Sodium 139 mmol/L (136-145)
[2020-02-09 04:52] LABS: #Eosinphils 0.2 thou/uL (0.0-0.7); #Lymphocytes 1.2 thou/uL (1.20-3.40); #Monocytes 1.9 thou/uL (0.11-0.59); #Neutrophils 15.7 thou/uL (1.40-6.50); %Eosinophils 0.9 % (0.0-10.0); %Lymphocytes 6.4 % (21.0-51.0); %Monocytes 10.2 % (0.0-10.0); %Neutrophils 82.5 % (42.0-75.0); Hemoglobin 9.9 g/dL (12.0-16.0); Mean Corpuscular HGB CONC 29.9 g/dL (32.0-36.0); Mean Corpuscular Hemoglobin 23.9 pg (27.0-31.0); Mean Corpuscular Volume 79.9 fL (78.0-98.0); Mean Platelet Volume 7.8 fL (7.4-10.4); Platelet Count 520 thou/uL (130-400); RBC Distribution Width 21.7 % (11.5-14.5); Red Blood Cell (RBC) Count 4.14 mill/uL (4.20-5.40); White Blood Cell (WBC) Count 19.1 thou/uL (4.8-10.8)
[2020-02-09 05:00] LABS: Glucose 38 mg/dL (83-110)
[2020-02-09] MEDS: Levothyroxine Sodium 125 MCG TAB PO SCH (06:27)
[2020-02-09] MEDS: Furosemide 20 MG/2 ML VIAL SLOW IVP SCH ×2 (06:38→15:07)
[2020-02-09] MEDS: hydrALAZINE 25 MG TAB PO SCH ×3 (08:37→20:27)
[2020-02-09] MEDS: Apixaban 5 MG TAB PO SCH ×2 (08:37→20:28)
[2020-02-09] MEDS: Cholecalciferol 1,000 UNITS (25 MCG) TAB PO SCH (08:37)
[2020-02-09] MEDS: Ferrous Sulfate 325 MG TAB PO SCH ×2 (08:37→18:43)
[2020-02-09] MEDS: Lisinopril 5 MG TAB PO SCH (08:37)
[2020-02-09] MEDS: Amiodarone 200 MG TAB PO SCH ×2 (08:38→20:28)
[2020-02-09] MEDS: Fluticasone Propionate Nasal Spray 16 gm Bottle NASAL SCH (08:38)
[2020-02-09] MEDS: clonazePAM 1 MG TAB PO SCH ×2 (08:38→20:51)
[2020-02-09] MEDS: Pantoprazole 40 MG VIAL IVP SCH ×2 (08:39→20:51)
[2020-02-09] MEDS: NPH, Human Insulin Isophane 300 UNIT/3 ML VIAL SC SCH (08:41)
[2020-02-09] MEDS ORDERED: Magnesium 2 GM/50 ML 2 GM in Premix Bag 1 BAG IVPB SCH (10:15)
[2020-02-09 11:12] VITALS: BMI 26.7
[2020-02-09] MEDS: Albuterol Sulfate 2.5 mg/3 ml Neb NEB PRN ×2 (11:31→20:50)
[2020-02-09] MEDS: Mometasone 200 MCG/Formoterol 5 MCG 120 PUFF INHALER INH SCH ×2 (11:33→19:23)
[2020-02-09 12:33] LABS: Hemoglobin 10.4 g/dL (12.0-16.0); Mean Corpuscular HGB CONC 29.7 g/dL (32.0-36.0); Mean Corpuscular Hemoglobin 23.9 pg (27.0-31.0); Mean Corpuscular Volume 80.4 fL (78.0-98.0); Mean Platelet Volume 7.9 fL (7.4-10.4); Platelet Count 516 thou/uL (130-400); RBC Distribution Width 21.3 % (11.5-14.5); Red Blood Cell (RBC) Count 4.37 mill/uL (4.20-5.40); White Blood Cell (WBC) Count 19.1 thou/uL (4.8-10.8)
[2020-02-09] MEDS: Lorazepam 0.5 MG TAB PO PRN (15:07)
--- NOTE | 2020-02-09 18:02 | PDOC.HOSPP ---
- Subjective Encounter Date: 02/09/20 Encounter Time: 11:00 Subjective: F/u: pulmonary edema The patient states she still feels short of breath and states she could feel better. She was still unsteady walking today. She is pending placement , three places have denied her per case management - Objective Vital Signs & Weight: Vital Signs (12 hours) Temp Pulse Pulse Resp BP BP Pulse Ox 02/09/20 15:07 77 02/09/20 15:05 98.1 F 78 26 H 135/60 93 L 02/09/20 12:08 98.7 F 77 122/60 96 02/09/20 10:39 82 125/60 02/09/20 08:50 93 L 02/09/20 08:00 97.5 F L 72 24 H 122/59 L 93 L Weight Admit Weight 173 lb 14.4 oz Weight 170 lb 14.4 oz Most Recent Monitor Data Heart Rate from ECG 72 NIBP 137/61 NIBP BP-Mean 86 Respiration from ECG 20 SpO2 98 I&O: 02/08/20 02/09/20 02/10/20 06:59 06:59 06:59 Intake Total 252 Output Total 1300 Balance -1048 Result Diagrams: 02/09/20 12:03 02/09/20 04:04 Additional Labs: Accuchecks 02/09/20 02/09/20 02/09/20 17:01 10:37 08:31 POC Glucose 245 H 161 H 94 02/09/20 02/08/20 02/08/20 05:34 20:20 16:38 POC Glucose 138 H 119 H 58 L* Hospitalist ROS - Review of Systems Constitutional: denies: fever, chills - Medication Medications: Active Medications Generic Name Dose Route Start Last Admin Trade Name Freq PRN Reason Stop Dose Admin Acetaminophen 650 mg 01/26/20 16:40 02/08/20 22:11 Acetaminophen 325 Mg Tab PO 650 mg Q6H PRN Administration Mild-Moderate Pain (1-5) Albuterol Sulfate 2.5 mg 01/24/20 15:14 02/09/20 11:31 Albuterol Sulfate 2.5 Mg/3 Ml Neb NEB 2.5 mg Q6H PRN Administration SOB &/or Wheezing Albuterol/Ipratropium 3 ml 02/04/20 11:54 02/09/20 02:41 Ipratropium/Albuterol Sulfate 3 Ml Neb NEB 3 ml [id number] PRN Administration SOB &/or Wheezing Amiodarone HCl 200 mg 02/07/20 21:00 02/09/20 08:38 Amiodarone 200 Mg Tab PO 200 mg BID CANDY Administration Apixaban 5 mg 01/30/20 21:00 02/09/20 08:37 Apixaban 5 Mg Tab PO 5 mg BID CANDY Administration Atorvastatin Calcium 40 mg 01/23/20 21:00 02/08/20 22:12 Atorvastatin Calcium 40 Mg Tab PO 40 mg HS CANDY Administration Camphor/Menthol/Eucalyptus 0 gm 01/30/20 04:35 01/30/20 05:16 Vicks Vaporub 50 Gm Jar TOP 1 applic PRN PRN Administration Chest Congestion/Secretions Cholecalciferol 2,000 units 02/04/20 09:00 02/09/20 08:37 Cholecalciferol 1,000 Units (25 Mcg) Tab PO 2,000 units DAILY CANDY Administration Clonazepam 1 mg 01/31/20 21:00 02/09/20 08:38 Clonazepam 1 Mg Tab PO 1 mg BID CANDY Administration Dextrose/Water 25 gm 01/30/20 14:22 02/09/20 05:04 Dextrose 50% Abboject 50 Ml Syringe SLOW IVP 25 gm PRN PRN Administration Hypoglycemia Diltiazem HCl 30 mg 02/09/20 09:00 02/09/20 11:30 Diltiazem Hcl 30 Mg Tablet PO 30 mg BID CANDY Administration Ferrous Sulfate 325 mg 02/06/20 08:00 02/09/20 08:37 Ferrous Sulfate 325 Mg Tab PO 325 mg BID-WM CANDY Administration Fluticasone Propionate 0 gm 01/28/20 09:00 02/09/20 08:38 Fluticasone Propionate Nasal [place] 16 Gm Bottle NASAL 2 spr DAILY CANDY Administration Hydralazine HCl 50 mg 01/24/20 21:00 02/09/20 15:07 Hydralazine 25 Mg Tab PO 50 mg TID CANDY Administration Levothyroxine Sodium 125 mcg 01/24/20 06:00 02/09/20 06:27 Levothyroxine Sodium 125 Mcg Tab PO 125 mcg 0600 CANDY Administration Lisinopril 5 mg 02/06/20 09:00 02/09/20 08:37 Lisinopril 5 Mg Tab PO 5 mg DAILY CANDY Administration Lorazepam 0.5 mg 01/31/20 21:09 02/09/20 15:07 Lorazepam 0.5 Mg Tab PO 0.5 mg TID PRN Administration Anxiety Mometasone Furoate/Formoterol Fumar 2 puff 01/24/20 18:30 02/09/20 11:33 Mometasone 200 Mcg/Formoterol 5 Mcg 120 Puff Inhaler INH 2 puff BID-RT CANDY Administration Ondansetron HCl 4 mg 01/23/20 16:12 02/03/20 00:17 Ondansetron Odt 4 Mg Tab PO 4 mg Q6H PRN Administration Nausea/Vomiting Pantoprazole Sodium 40 mg 02/03/20 21:00 02/09/20 08:39 Pantoprazole 40 Mg Vial IVP 40 mg BID CANDY Administration Throat Lozenges 1 laura 01/29/20 02:08 01/29/20 19:54 Cepastat Lozenges 1 Laura PO 1 laura Q2H PRN Administration Sore Throat - Exam General Appearance: NAD, awake alert Eye: PERRL, anicteric sclera ENT: normocephalic atraumatic, no oropharyngeal lesions Neck: no JVD Heart: RRR, no murmur, no gallops, no rubs Respiratory - other findings: decreased breath sounds at the left base Gastrointestinal: soft, non-tender, non-distended, normal bowel sounds Extremities: no cyanosis, no clubbing, no edema Hosp A/P - Plan CTA: moderate bilateral pleural effusions left larger than right. Moderate pericardial effusion. Left upper lobe pulmonary embolus. Venous doppler: no DVT CTA chest 02/01: resolution of left upper lobe pulmonary artery embolism. Bilateral pleural effusions. Superimposed pneumonia Chest X ray 02/07: pulmonary vascular congestion This is a 79 year old female with history of COPD, type II diabetes, hyperlipidemia, atrial fibrillation on amiodarone who presented to the ER with worsening shortness of breath . She was found to have pericardial effusion, left upper lobe PE. She is being diuresed currently and is pending placement Acute hypoxic respiratory failure secondary to pulmonary edema and pulmonary embolus - will increase lasix to 40 mg IV bid, and attempt to wean down oxygen - patient received eliquis 10 mg bid x 7 days, and transitioned to 5 mg bid. Repeat CTA chest 02/01 showed improving left upper lobe PE Hypoglycemia - patient's blood sugar was 38 this morning. Discontinued NPH 30 units bid Atrial fibrillation - continue amiodarone Hypothyroidism - continue levothyroxine Hypomagnesemia - magnesium 1.3. Will give 2 grams of magnesium and recheck
[2020-02-09] MEDS: Atorvastatin Calcium 40 MG TAB PO SCH (20:28)
[2020-02-09] MEDS: Acetaminophen 325 MG TAB PO PRN (20:37)
[2020-02-10] MEDS: Lorazepam 0.5 MG TAB PO PRN (01:50)
[2020-02-10 05:06] LABS: Anion Gap 16 mmol/L (10-20); BUN (Urea Nitrogen) 15 mg/dL (9.8-20.1); Calc. Creatinine Clearance 39 mL/min (70-130); Calcium 8.3 mg/dL (7.8-10.44); Carbon Dioxide 31 mmol/L (23-31); Chloride 90 mmol/L (98-107); Glucose 127 mg/dL (83-110); Potassium 4.3 mmol/L (3.5-5.1); Sodium 133 mmol/L (136-145)
[2020-02-10 05:17] LABS: Eosinophils 2 % (0-10); Hemoglobin 9.6 g/dL (12.0-16.0); Hypochromia SLIGHT = 6-15 cells (100X) (0-5/hpf); Lymphocytes 9 % (21-51); MDiff Complete? YES; Mean Corpuscular HGB CONC 29.7 g/dL (32.0-36.0); Mean Corpuscular Hemoglobin 23.8 pg (27.0-31.0); Mean Platelet Volume 8.5 fL (7.4-10.4); Monocytes 7 % (0-10); Neutrophil 79 % (42-75); Platelet Count 511 thou/uL (130-400); Platelet Morphology Comment Appears Decreased; RBC Distribution Width 21.5 % (11.5-14.5); Reactive Lymphocytes 3 % (0-10); Red Blood Cell (RBC) Count 4.02 mill/uL (4.20-5.40); White Blood Cell (WBC) Count 20.7 thou/uL (4.8-10.8)
[2020-02-10] MEDS: Levothyroxine Sodium 125 MCG TAB PO SCH (05:48)
[2020-02-10] MEDS ORDERED: Furosemide 40 MG/4 ML VIAL SLOW IVP SCH (06:00)
[2020-02-10] MEDS: Mometasone 200 MCG/Formoterol 5 MCG 120 PUFF INHALER INH SCH ×2 (06:39→18:41)
[2020-02-10] MEDS: Cholecalciferol 1,000 UNITS (25 MCG) TAB PO SCH (07:58)
[2020-02-10] MEDS: Amiodarone 200 MG TAB PO SCH ×2 (07:58→20:00)
[2020-02-10] MEDS: Ferrous Sulfate 325 MG TAB PO SCH ×2 (07:59→17:03)
[2020-02-10] MEDS: Apixaban 5 MG TAB PO SCH ×2 (07:59→20:01)
[2020-02-10] MEDS: hydrALAZINE 25 MG TAB PO SCH ×3 (07:59→20:00)
[2020-02-10] MEDS: clonazePAM 1 MG TAB PO SCH ×2 (07:59→20:00)
[2020-02-10] MEDS: Fluticasone Propionate Nasal Spray 16 gm Bottle NASAL SCH (07:59)
[2020-02-10] MEDS: Lisinopril 5 MG TAB PO SCH (07:59)
--- NOTE | 2020-02-10 08:47 | EKG ---
Test Reason : STAT Blood Pressure : / mmHG Vent. Rate : 112 BPM Atrial Rate : 107 BPM P-R Int : 000 ms QRS Dur : 114 ms QT Int : 368 ms P-R-T Axes : 000 036 222 degrees QTc Int : 502 ms Atrial fibrillation with rapid ventricular response Septal infarct , age undetermined Abnormal ECG When compared with ECG of 01-FEB-2020 10:13, (Unconfirmed) Septal infarct is now Present ST more depressed in Inferior leads Inverted T waves have replaced nonspecific T wave abnormality in Inferior leads Confirmed by MANDIE GONGORA, DR. Todd ([id number]) on 02/10/2020 8:46:39 AM Referred By: IVANIA Confirmed By:DR. Peyton LOCKWOOD MD
--- NOTE | 2020-02-10 09:51 | RAD ---
Exam: Chest one view HISTORY:Follow-up pulmonary edema Comparison: 02/08/2020 FINDINGS: Cardiac silhouette:Cardiomegaly. Limited evaluation the cardiac silhouette due to bilateral pleural a nd parenchymal changes. Aorta: Unremarkable Pulmonary vessels: Normal Costophrenic angles: Bilateral pleural effusions LUNGS: Bibasilar opacities, similar to the previous exam. Pneumothorax: None Osseous abnormalities: None Additional findings: Stable surgical clips projecting over the left axilla. IMPRESSION: Stable congestive heart failure.
[2020-02-10] MEDS: Albuterol Sulfate 2.5 mg/3 ml Neb NEB PRN (10:25)
--- NOTE | 2020-02-10 16:08 | PDOC.HOSPP ---
- Subjective Encounter Date: 02/10/20 Encounter Time: 09:00 Subjective: F/u: shortness of breath The patient states she still feels very short of breath. SHe is asking for her ventolin inhaler to be given prn. She was on 4L of oxygen when I saw her this am She still has a cough which is mildly productive - Objective Vital Signs & Weight: Vital Signs (12 hours) Temp Pulse Resp BP BP Pulse Ox 02/10/20 11:43 98.9 F 82 19 138/64 94 L 02/10/20 10:25 87 24 H 02/10/20 07:59 89 130/60 02/10/20 07:55 98.2 F 89 19 130/60 92 L 02/10/20 06:39 87 12 02/10/20 06:30 86 20 92 L 02/10/20 05:03 99.1 F 84 19 154/67 H 92 L Weight Admit Weight 173 lb 14.4 oz Weight 171 lb 8 oz Most Recent Monitor Data Heart Rate from ECG 72 NIBP 137/61 NIBP BP-Mean 86 Respiration from ECG 20 SpO2 98 I&O: 02/09/20 02/10/20 02/11/20 06:59 06:59 06:59 Intake Total 1140 Output Total 1000 Balance 140 Result Diagrams: 02/10/20 04:06 02/10/20 04:06 Additional Labs: Accuchecks 02/10/20 02/09/20 02/09/20 11:05 20:51 17:01 POC Glucose 156 H 158 H 245 H Hospitalist ROS - Medication Medications: Active Medications Generic Name Dose Route Start Last Admin Trade Name Freq PRN Reason Stop Dose Admin Acetaminophen 650 mg 01/26/20 16:40 02/09/20 20:37 Acetaminophen 325 Mg Tab PO 650 mg Q6H PRN Administration Mild-Moderate Pain (1-5) Albuterol/Ipratropium 3 ml 02/04/20 11:54 02/10/20 06:30 Ipratropium/Albuterol Sulfate 3 Ml Neb NEB 3 ml [id number] PRN Administration SOB &/or Wheezing Amiodarone HCl 200 mg 02/07/20 21:00 02/10/20 07:58 Amiodarone 200 Mg Tab PO 200 mg BID CANDY Administration Apixaban 5 mg 01/30/20 21:00 02/10/20 07:59 Apixaban 5 Mg Tab PO 5 mg BID CANDY Administration Atorvastatin Calcium 40 mg 01/23/20 21:00 02/09/20 20:28 Atorvastatin Calcium 40 Mg Tab PO 40 mg HS CANDY Administration Camphor/Menthol/Eucalyptus 0 gm 01/30/20 04:35 01/30/20 05:16 Vicks Vaporub 50 Gm Jar TOP 1 applic PRN PRN Administration Chest Congestion/Secretions Cholecalciferol 2,000 units 02/04/20 09:00 02/10/20 07:58 Cholecalciferol 1,000 Units (25 Mcg) Tab PO 2,000 units DAILY CANDY Administration Clonazepam 1 mg 01/31/20 21:00 02/10/20 07:59 Clonazepam 1 Mg Tab PO 1 mg BID CANDY Administration Dextrose/Water 25 gm 01/30/20 14:22 02/09/20 05:04 Dextrose 50% Abboject 50 Ml Syringe SLOW IVP 25 gm PRN PRN Administration Hypoglycemia Ferrous Sulfate 325 mg 02/06/20 08:00 02/10/20 07:59 Ferrous Sulfate 325 Mg Tab PO 325 mg BID-WM CANDY Administration Fluticasone Propionate 0 gm 01/28/20 09:00 02/10/20 07:59 Fluticasone Propionate Nasal [place] 16 Gm Bottle NASAL 2 spr DAILY CANDY Administration Hydralazine HCl 50 mg 01/24/20 21:00 02/10/20 07:59 Hydralazine 25 Mg Tab PO 50 mg TID CANDY Administration Levothyroxine Sodium 125 mcg 01/24/20 06:00 02/10/20 05:48 Levothyroxine Sodium 125 Mcg Tab PO 125 mcg 0600 CANDY Administration Lisinopril 5 mg 02/06/20 09:00 02/10/20 07:59 Lisinopril 5 Mg Tab PO 5 mg DAILY CANDY Administration Lorazepam 0.5 mg 01/31/20 21:09 02/10/20 01:50 Lorazepam 0.5 Mg Tab PO 0.5 mg TID PRN Administration Anxiety Mometasone Furoate/Formoterol Fumar 2 puff 01/24/20 18:30 02/10/20 06:39 Mometasone 200 Mcg/Formoterol 5 Mcg 120 Puff Inhaler INH 2 puff BID-RT CANDY Administration Ondansetron HCl 4 mg 01/23/20 16:12 02/03/20 00:17 Ondansetron Odt 4 Mg Tab PO 4 mg Q6H PRN Administration Nausea/Vomiting Pantoprazole Sodium 40 mg 02/09/20 21:00 02/10/20 07:58 Pantoprazole 40 Mg Tab PO 40 mg BID CANDY Administration Throat Lozenges 1 laura 01/29/20 02:08 01/29/20 19:54 Cepastat Lozenges 1 Laura PO 1 laura Q2H PRN Administration Sore Throat - Exam General Appearance: NAD, awake alert Eye: PERRL, anicteric sclera ENT: normocephalic atraumatic, no oropharyngeal lesions Neck: no JVD Heart: RRR, no murmur, no gallops, no rubs Respiratory - other findings: decreased breath sounds at the left lung base Gastrointestinal: soft, non-tender, non-distended, normal bowel sounds Extremities: no cyanosis, no clubbing, no edema Skin: normal turgor, no rashes Neurological: cranial nerve grossly intact, normal sensation to touch, no weakness Musculoskeletal: normal tone, normal strength, no muscle wasting Hosp A/P - Plan CTA: moderate bilateral pleural effusions left larger than right. Moderate pericardial effusion. Left upper lobe pulmonary embolus. Venous doppler: no DVT CTA chest 02/01: resolution of left upper lobe pulmonary artery embolism. Bilateral pleural effusions. Superimposed pneumonia Chest X ray 02/07: pulmonary vascular congestion Chest Xray 02/09: stable CHF This is a 79 year old female with history of COPD, type II diabetes, hyperlipidemia, atrial fibrillation on amiodarone who presented to the ER with worsening shortness of breath . She was found to have pericardial effusion, left upper lobe PE. She is being diuresed currently and is pending placement Acute hypoxic respiratory failure secondary to pulmonary embolus and possible pneumonia - still on 4L of oxygen. Chest X ray 02/09 showing stable CHF. Received IV lasix 20 mg initially , which was increased to 40 mg IV bid 02/08. Repeat chest xray showing persistent CHF, however due to increasing WBC from 10 to 20, I suspect this may be more of a pneumonia? -02/09: will start IV zosyn today for possible pneumonia. Discontinue lasix. Continue eliquis for pulmonary embolus 5 mg bid, she received 10 mg bid x 7 days Hypoglycemia- resolved Type II Diabetes - patient's blood sugar was 38 on 02/09. Discontinued NPH 30 units bid. Will resume sliding scale today Atrial fibrillation - continue amiodarone Hypothyroidism - continue levothyroxine Hypomagnesemia - resolved, repeat magnesium level 2
[2020-02-10] MEDS ORDERED: Dextrose 5% in Water 1,000 ML IV PRN (16:09)
[2020-02-10] MEDS ORDERED: Dextrose 50% Abboject 50 ML SYRINGE SLOW IVP PRN (16:09)
[2020-02-10] MEDS: HumaLOG 300 UNITS/3 ML VIAL SC PRN (17:02)
[2020-02-10] MEDS: Piperacillin/Tazobactam 3.375 GM in Sodium Chloride 0.9% 100 ML IVPB SCH (17:05)
[2020-02-10] MEDS: Atorvastatin Calcium 40 MG TAB PO SCH (20:00)
--- NOTE | 2020-02-11 00:13 | RAD ---
RADIOGRAPH CHEST 1 VIEW: DATE: 02/10/2020 TIME: 11:31 PM HISTORY: 79-year-old female with dyspnea and tachypnea COMPARISON: 02/10/2020 9:38 AM FINDINGS: Moderate right pleural effusion and moderate to large left pleural effusion. Underlying dense opacification of bilateral mid and lower lung zones. No pneumothorax. No interval change. IMPRESSION: 1. Moderate to large bilateral pleural effusions and dense opacification of underlying lung. 2. No interval change.
[2020-02-11] MEDS: Piperacillin/Tazobactam 3.375 GM in Sodium Chloride 0.9% 100 ML IVPB SCH ×5 (00:40→23:59)
[2020-02-11] MEDS: Mometasone 200 MCG/Formoterol 5 MCG 120 PUFF INHALER INH SCH ×2 (04:24→18:25)
[2020-02-11 04:54] LABS: #Eosinphils 0.2 thou/uL (0.0-0.7); #Lymphocytes 0.9 thou/uL (1.20-3.40); #Monocytes 1.7 thou/uL (0.11-0.59); #Neutrophils 14.8 thou/uL (1.40-6.50); %Basophils 0.1 % (0.0-1.0); %Eosinophils 0.9 % (0.0-10.0); %Lymphocytes 5.1 % (21.0-51.0); %Monocytes 9.8 % (0.0-10.0); Hemoglobin 9.4 g/dL (12.0-16.0); Mean Corpuscular HGB CONC 29.7 g/dL (32.0-36.0); Mean Corpuscular Hemoglobin 23.7 pg (27.0-31.0); Mean Corpuscular Volume 79.9 fL (78.0-98.0); Mean Platelet Volume 8.3 fL (7.4-10.4); Platelet Count 471 thou/uL (130-400); RBC Distribution Width 21.2 % (11.5-14.5); Red Blood Cell (RBC) Count 3.98 mill/uL (4.20-5.40); White Blood Cell (WBC) Count 17.6 thou/uL (4.8-10.8)
[2020-02-11 05:13] LABS: Anion Gap 16 mmol/L (10-20); BUN (Urea Nitrogen) 22 mg/dL (9.8-20.1); Calc. Creatinine Clearance 34 mL/min (70-130); Calcium 8.4 mg/dL (7.8-10.44); Carbon Dioxide 34 mmol/L (23-31); Chloride 89 mmol/L (98-107); Glucose 173 mg/dL (83-110); Potassium 4.5 mmol/L (3.5-5.1); Sodium 134 mmol/L (136-145)
[2020-02-11] MEDS: HumaLOG 300 UNITS/3 ML VIAL SC PRN ×3 (05:46→17:29)
[2020-02-11] MEDS: Levothyroxine Sodium 125 MCG TAB PO SCH (05:47)
[2020-02-11] MEDS: Albuterol 200 PUFF (6.7GM INHALER) INH PRN ×3 (08:41→22:24)
[2020-02-11] MEDS: Cholecalciferol 1,000 UNITS (25 MCG) TAB PO SCH (08:44)
[2020-02-11] MEDS: Amiodarone 200 MG TAB PO SCH ×2 (08:45→20:30)
[2020-02-11] MEDS: hydrALAZINE 25 MG TAB PO SCH ×3 (08:45→20:30)
[2020-02-11] MEDS: Apixaban 5 MG TAB PO SCH ×2 (08:45→20:30)
[2020-02-11] MEDS: Lisinopril 5 MG TAB PO SCH (08:45)
[2020-02-11] MEDS: Fluticasone Propionate Nasal Spray 16 gm Bottle NASAL SCH (08:45)
[2020-02-11] MEDS: Ferrous Sulfate 325 MG TAB PO SCH ×2 (08:45→18:16)
[2020-02-11] MEDS: Furosemide 40 MG/4 ML VIAL SLOW IVP SCH (14:08)
--- NOTE | 2020-02-11 15:25 | PDOC.HOSPP ---
- Subjective Encounter Date: 02/11/20 Encounter Time: 08:25 Subjective: has sob, is on nasal canula responds well to verbal stimuli and is oriented - Objective Vital Signs & Weight: Vital Signs (12 hours) Temp Pulse Resp BP Pulse Ox 02/11/20 12:00 97.5 F L 102 H 18 122/63 94 L 02/11/20 08:45 77 02/11/20 08:00 92 L 02/11/20 07:40 97.6 F 77 22 H 132/63 98 02/11/20 03:47 98.7 F 103 H 23 H 149/63 H 92 L Weight Admit Weight 173 lb 14.4 oz Weight 172 lb 1.6 oz Most Recent Monitor Data Heart Rate from ECG 72 NIBP 137/61 NIBP BP-Mean 86 Respiration from ECG 20 SpO2 98 I&O: 02/10/20 02/11/20 02/12/20 06:59 06:59 06:59 Intake Total 1140 1060 Output Total 1000 800 Balance 140 260 Result Diagrams: 02/11/20 04:34 02/11/20 04:34 Additional Labs: Accuchecks 02/11/20 02/11/20 02/10/20 10:40 05:25 19:47 POC Glucose 191 H 163 H 144 H 02/10/20 16:32 POC Glucose 155 H Hospitalist ROS - Medication Medications: Active Medications Generic Name Dose Route Start Last Admin Trade Name Freq PRN Reason Stop Dose Admin Acetaminophen 650 mg 01/26/20 16:40 02/09/20 20:37 Acetaminophen 325 Mg Tab PO 650 mg Q6H PRN Administration Mild-Moderate Pain (1-5) Albuterol Sulfate 2 puff 02/10/20 10:30 02/11/20 14:10 Albuterol 200 Puff (6.7gm Inhaler) INH 2 puff Q6H PRN Administration SOB &/or Wheezing Albuterol/Ipratropium 3 ml 02/04/20 11:54 02/11/20 01:46 Ipratropium/Albuterol Sulfate 3 Ml Neb NEB 3 ml [id number] PRN Administration SOB &/or Wheezing Amiodarone HCl 200 mg 02/07/20 21:00 02/11/20 08:45 Amiodarone 200 Mg Tab PO 200 mg BID CANDY Administration Apixaban 5 mg 01/30/20 21:00 02/11/20 08:45 Apixaban 5 Mg Tab PO 5 mg BID CANDY Administration Atorvastatin Calcium 40 mg 01/23/20 21:00 02/10/20 20:00 Atorvastatin Calcium 40 Mg Tab PO 40 mg HS CANDY Administration Camphor/Menthol/Eucalyptus 0 gm 01/30/20 04:35 01/30/20 05:16 Vicks Vaporub 50 Gm Jar TOP 1 applic PRN PRN Administration Chest Congestion/Secretions Cholecalciferol 2,000 units 02/04/20 09:00 02/11/20 08:44 Cholecalciferol 1,000 Units (25 Mcg) Tab PO 2,000 units DAILY CANDY Administration Diltiazem HCl 30 mg 02/10/20 15:00 02/11/20 14:07 Diltiazem Hcl 30 Mg Tablet PO 30 mg TID CANDY Administration Ferrous Sulfate 325 mg 02/06/20 08:00 02/11/20 08:45 Ferrous Sulfate 325 Mg Tab PO 325 mg BID-WM CANDY Administration Fluticasone Propionate 0 gm 01/28/20 09:00 02/11/20 08:45 Fluticasone Propionate Nasal [place] 16 Gm Bottle NASAL 2 spr DAILY CANDY Administration Furosemide 40 mg 02/11/20 14:00 02/11/20 14:08 Furosemide 40 Mg/4 Ml Vial SLOW IVP 40 mg 0600,1400 CANDY Administration Hydralazine HCl 50 mg 01/24/20 21:00 02/11/20 14:07 Hydralazine 25 Mg Tab PO 50 mg TID CANDY Administration Piperacillin Sod/Tazobactam 100 mls @ 200 mls/hr 02/10/20 18:00 02/11/20 12:17 Sod 3.375 gm/ Sodium Chloride IVPB 100 mls Q6HR CANDY Administration Insulin Human Lispro 0 units 02/10/20 16:09 02/11/20 11:55 Humalog 300 Units/3 Ml Vial SC 2 unit .MILD SLIDING SCALE PRN Administration Mild Correctional Scale Levothyroxine Sodium 125 mcg 01/24/20 06:00 02/11/20 05:47 Levothyroxine Sodium 125 Mcg Tab PO 125 mcg 0600 CANDY Administration Mometasone Furoate/Formoterol Fumar 2 puff 01/24/20 18:30 02/11/20 04:24 Mometasone 200 Mcg/Formoterol 5 Mcg 120 Puff Inhaler INH 2 puff BID-RT CANDY Administration Ondansetron HCl 4 mg 01/23/20 16:12 02/03/20 00:17 Ondansetron Odt 4 Mg Tab PO 4 mg Q6H PRN Administration Nausea/Vomiting Pantoprazole Sodium 40 mg 02/09/20 21:00 02/11/20 08:45 Pantoprazole 40 Mg Tab PO 40 mg BID CANDY Administration Throat Lozenges 1 laura 01/29/20 02:08 01/29/20 19:54 Cepastat Lozenges 1 Laura PO 1 laura Q2H PRN Administration Sore Throat - Exam General Appearance: awake alert, ill appearing Eye: PERRL, anicteric sclera ENT: no oropharyngeal lesions, dry oral mucosa Neck: supple, no JVD Heart: RRR, no murmur Respiratory: no wheezes, rales, rhonchi Gastrointestinal: soft, non-tender, non-distended, normal bowel sounds Extremities: no cyanosis, 1+ LE edema Neurological: cranial nerve grossly intact, no focal deficits Hosp A/P (1) Acute exacerbation of CHF (congestive heart failure) Code(s): I50.9 - HEART FAILURE, UNSPECIFIED Status: Acute Qualifiers: Heart failure type: diastolic Qualified Code(s): I50.33 - Acute on chronic diastolic (congestive) heart failure (2) JAMES (acute kidney injury) Code(s): N17.9 - ACUTE KIDNEY FAILURE, UNSPECIFIED Status: Acute (3) PNA (pneumonia) Code(s): J18.9 - PNEUMONIA, UNSPECIFIED ORGANISM Status: Acute Qualifiers: Pneumonia type: due to unspecified organism (4) Urinary retention Code(s): R33.9 - RETENTION OF URINE, UNSPECIFIED Status: Acute (5) Chronic anemia Code(s): D64.9 - ANEMIA, UNSPECIFIED Status: Chronic (6) Paroxysmal atrial fibrillation Code(s): I48.0 - PAROXYSMAL ATRIAL FIBRILLATION Status: Resolved (7) Breast CA Status: Chronic Qualifiers: Breast location: unspecified site of breast (8) COPD (chronic obstructive pulmonary disease) Status: Chronic Qualifiers: COPD type: chronic bronchitis (9) DMII (diabetes mellitus, type 2) Status: Chronic Qualifiers: Diabetes mellitus residential insulin use: without residential use Diabetes mellitus complication status: without complication Qualified Code(s): E11.9 - Type 2 diabetes mellitus without complications (10) HLD (hyperlipidemia) Code(s): E78.5 - HYPERLIPIDEMIA, UNSPECIFIED Status: Chronic Qualifiers: Hyperlipidemia type: unspecified Qualified Code(s): E78.5 - Hyperlipidemia, unspecified (11) HTN (hypertension) Code(s): I10 - ESSENTIAL (PRIMARY) HYPERTENSION Status: Chronic Qualifiers: Hypertension type: essential hypertension Qualified Code(s): I10 - Essential (primary) hypertension (12) Physical deconditioning Code(s): R53.81 - OTHER MALAISE Status: Acute - Plan is on 4lts nc and is sob, has anxiety issues as well co2 is high along with elevated bun/cr, watch for renal failure with active diuresis has b/l pleural effusion with volume overload, poor oral intake, james, needing increased O2, prognosis guarded, unable to reach family on numbers in [place] pt is intubate only as of now paroxysmal afib in sinus rhythm now continue eliquis, amiodarone, cardizem tid, hydralzine, lipitor, synthroid, zosyn and dulera echo shows ef of 50% with diastolic dysfunction has urinary retention with sapp in now mobilize as tolerated, encourage po intake palliative care consultation
[2020-02-11] MEDS ORDERED: Piperacillin/Tazobactam 3.375 GM VIAL ONE (16:55)
[2020-02-11] MEDS: Atorvastatin Calcium 40 MG TAB PO SCH (20:30)
[2020-02-11] MEDS: Acetaminophen 325 MG TAB PO PRN (23:58)
[2020-02-12 04:59] LABS: #Basophils 0.1 thou/uL (0.0-0.2); #Eosinphils 0.2 thou/uL (0.0-0.7); #Lymphocytes 0.8 thou/uL (1.20-3.40); #Monocytes 1.3 thou/uL (0.11-0.59); #Neutrophils 11.8 thou/uL (1.40-6.50); %Basophils 0.4 % (0.0-1.0); %Eosinophils 1.3 % (0.0-10.0); %Lymphocytes 5.9 % (21.0-51.0); %Monocytes 9.4 % (0.0-10.0); %Neutrophils 82.9 % (42.0-75.0); Hemoglobin 8.4 g/dL (12.0-16.0); Mean Corpuscular HGB CONC 29.4 g/dL (32.0-36.0); Mean Corpuscular Hemoglobin 23.5 pg (27.0-31.0); Mean Corpuscular Volume 79.8 fL (78.0-98.0); Mean Platelet Volume 8.2 fL (7.4-10.4); Platelet Count 453 thou/uL (130-400); RBC Distribution Width 20.9 % (11.5-14.5); Red Blood Cell (RBC) Count 3.59 mill/uL (4.20-5.40); White Blood Cell (WBC) Count 14.2 thou/uL (4.8-10.8)
[2020-02-12 05:02] LABS: Anion Gap 16 mmol/L (10-20); BUN (Urea Nitrogen) 25 mg/dL (9.8-20.1); Calc. Creatinine Clearance 32 mL/min (70-130); Calcium 8.2 mg/dL (7.8-10.44); Carbon Dioxide 32 mmol/L (23-31); Chloride 89 mmol/L (98-107); Glucose 149 mg/dL (83-110); Potassium 4.3 mmol/L (3.5-5.1); Sodium 133 mmol/L (136-145)
[2020-02-12] MEDS: Levothyroxine Sodium 125 MCG TAB PO SCH (05:16)
[2020-02-12] MEDS: Piperacillin/Tazobactam 3.375 GM in Sodium Chloride 0.9% 100 ML IVPB SCH ×3 (05:16→17:31)
[2020-02-12] MEDS: Furosemide 40 MG/4 ML VIAL SLOW IVP SCH ×2 (05:17→14:51)
[2020-02-12] MEDS: Mometasone 200 MCG/Formoterol 5 MCG 120 PUFF INHALER INH SCH ×2 (05:24→17:38)
[2020-02-12] MEDS: Ferrous Sulfate 325 MG TAB PO SCH ×2 (08:57→17:30)
[2020-02-12] MEDS: hydrALAZINE 25 MG TAB PO SCH ×2 (08:57→14:50)
[2020-02-12] MEDS: Cholecalciferol 1,000 UNITS (25 MCG) TAB PO SCH (08:57)
[2020-02-12] MEDS: Apixaban 5 MG TAB PO SCH (08:58)
[2020-02-12] MEDS: Fluticasone Propionate Nasal Spray 16 gm Bottle NASAL SCH (08:58)
[2020-02-12] MEDS: Amiodarone 200 MG TAB PO SCH (08:58)
[2020-02-12] MEDS ORDERED: Furosemide 40 MG/4 ML VIAL SLOW IVP SCH (09:00)
--- NOTE | 2020-02-12 13:19 | PDOC.HOSPP ---
- Subjective Encounter Date: 02/12/20 Encounter Time: 08:40 Subjective: no new complaints, has sob - Objective Vital Signs & Weight: Vital Signs (12 hours) Temp Pulse Resp BP BP Pulse Ox 02/12/20 12:02 98.4 F 78 19 146/67 H 91 L 02/12/20 08:57 78 133/59 L 02/12/20 08:15 97 02/12/20 07:50 78 18 02/12/20 07:35 97.5 F L 109 H 20 133/59 L 90 L 02/12/20 05:24 24 H 02/12/20 03:52 97.6 F 95 20 140/57 L 95 Weight Admit Weight 173 lb 14.4 oz Weight 173 lb 1.6 oz Most Recent Monitor Data Heart Rate from ECG 72 NIBP 137/61 NIBP BP-Mean 86 Respiration from ECG 20 SpO2 98 I&O: 02/11/20 02/12/20 02/13/20 06:59 06:59 06:59 Intake Total 1060 600 240 Output Total 800 670 Balance 260 -70 240 Result Diagrams: 02/12/20 04:06 02/12/20 04:06 Additional Labs: Accuchecks 02/12/20 02/12/20 02/11/20 10:21 06:02 20:41 POC Glucose 200 H 143 H 143 H 02/11/20 16:45 POC Glucose 160 H Hospitalist ROS - Medication Medications: Active Medications Generic Name Dose Route Start Last Admin Trade Name Freq PRN Reason Stop Dose Admin Acetaminophen 650 mg 01/26/20 16:40 02/11/20 23:58 Acetaminophen 325 Mg Tab PO 650 mg Q6H PRN Administration Mild-Moderate Pain (1-5) Albuterol Sulfate 2 puff 02/10/20 10:30 02/11/20 22:24 Albuterol 200 Puff (6.7gm Inhaler) INH 2 puff Q6H PRN Administration SOB &/or Wheezing Albuterol/Ipratropium 3 ml 02/04/20 11:54 02/12/20 07:50 Ipratropium/Albuterol Sulfate 3 Ml Neb NEB 3 ml [id number] PRN Administration SOB &/or Wheezing Amiodarone HCl 200 mg 02/07/20 21:00 02/12/20 08:58 Amiodarone 200 Mg Tab PO 200 mg BID CANDY Administration Apixaban 5 mg 01/30/20 21:00 02/12/20 08:58 Apixaban 5 Mg Tab PO 5 mg BID CANDY Administration Atorvastatin Calcium 40 mg 01/23/20 21:00 02/11/20 20:30 Atorvastatin Calcium 40 Mg Tab PO 40 mg HS CANDY Administration Camphor/Menthol/Eucalyptus 0 gm 01/30/20 04:35 01/30/20 05:16 Vicks Vaporub 50 Gm Jar TOP 1 applic PRN PRN Administration Chest Congestion/Secretions Cholecalciferol 2,000 units 02/04/20 09:00 02/12/20 08:57 Cholecalciferol 1,000 Units (25 Mcg) Tab PO 2,000 units DAILY CANDY Administration Diltiazem HCl 60 mg 02/12/20 09:00 02/12/20 10:18 Diltiazem Hcl 30 Mg Tablet PO 60 mg TID CANDY Administration Ferrous Sulfate 325 mg 02/06/20 08:00 02/12/20 08:57 Ferrous Sulfate 325 Mg Tab PO 325 mg BID- CANDY Administration Fluticasone Propionate 0 gm 01/28/20 09:00 02/12/20 08:58 Fluticasone Propionate Nasal [place] 16 Gm Bottle NASAL 1 spr DAILY CANDY Administration Furosemide 40 mg 02/11/20 14:00 02/12/20 05:17 Furosemide 40 Mg/4 Ml Vial SLOW IVP 40 mg 0600,1400 CANDY Administration Hydralazine HCl 50 mg 01/24/20 21:00 02/12/20 08:57 Hydralazine 25 Mg Tab PO 50 mg TID CANDY Administration Piperacillin Sod/Tazobactam 100 mls @ 200 mls/hr 02/10/20 18:00 02/12/20 11:56 Sod 3.375 gm/ Sodium Chloride IVPB 100 mls Q6HR CANDY Administration Insulin Human Lispro 0 units 02/10/20 16:09 02/11/20 17:29 Humalog 300 Units/3 Ml Vial SC 2 unit .MILD SLIDING SCALE PRN Administration Mild Correctional Scale Levothyroxine Sodium 125 mcg 01/24/20 06:00 02/12/20 05:16 Levothyroxine Sodium 125 Mcg Tab PO 125 mcg 0600 CANDY Administration Mometasone Furoate/Formoterol Fumar 2 puff 01/24/20 18:30 02/12/20 05:24 Mometasone 200 Mcg/Formoterol 5 Mcg 120 Puff Inhaler INH 2 puff BID-RT CANDY Administration Ondansetron HCl 4 mg 01/23/20 16:12 02/03/20 00:17 Ondansetron Odt 4 Mg Tab PO 4 mg Q6H PRN Administration Nausea/Vomiting Pantoprazole Sodium 40 mg 02/09/20 21:00 02/12/20 08:58 Pantoprazole 40 Mg Tab PO 40 mg BID CANDY Administration Throat Lozenges 1 laura 01/29/20 02:08 01/29/20 19:54 Cepastat Lozenges 1 Laura PO 1 laura Q2H PRN Administration Sore Throat - Exam General Appearance: awake alert Eye: PERRL, anicteric sclera ENT: no oropharyngeal lesions, dry oral mucosa Neck: supple, no JVD Heart: no murmur, irregular Respiratory: no wheezes, rales, rhonchi Gastrointestinal: soft, non-tender, non-distended, normal bowel sounds Extremities: no cyanosis, 1+ LE edema Neurological: cranial nerve grossly intact, no focal deficits Hosp A/P (1) Acute exacerbation of CHF (congestive heart failure) Code(s): I50.9 - HEART FAILURE, UNSPECIFIED Status: Acute Qualifiers: Heart failure type: diastolic Qualified Code(s): I50.33 - Acute on chronic diastolic (congestive) heart failure (2) JAMES (acute kidney injury) Code(s): N17.9 - ACUTE KIDNEY FAILURE, UNSPECIFIED Status: Acute (3) PNA (pneumonia) Code(s): J18.9 - PNEUMONIA, UNSPECIFIED ORGANISM Status: Acute Qualifiers: Pneumonia type: due to unspecified organism (4) Urinary retention Code(s): R33.9 - RETENTION OF URINE, UNSPECIFIED Status: Acute (5) Chronic anemia Code(s): D64.9 - ANEMIA, UNSPECIFIED Status: Chronic (6) Paroxysmal atrial fibrillation Code(s): I48.0 - PAROXYSMAL ATRIAL FIBRILLATION Status: Resolved (7) Breast CA Status: Chronic Qualifiers: Breast location: unspecified site of breast (8) COPD (chronic obstructive pulmonary disease) Status: Chronic Qualifiers: COPD type: chronic bronchitis (9) DMII (diabetes mellitus, type 2) Status: Chronic Qualifiers: Diabetes mellitus watermelon harvesting supervisor insulin use: without half-way use Diabetes mellitus complication status: without complication Qualified Code(s): E11.9 - Type 2 diabetes mellitus without complications (10) HLD (hyperlipidemia) Code(s): E78.5 - HYPERLIPIDEMIA, UNSPECIFIED Status: Chronic Qualifiers: Hyperlipidemia type: unspecified Qualified Code(s): E78.5 - Hyperlipidemia, unspecified (11) HTN (hypertension) Code(s): I10 - ESSENTIAL (PRIMARY) HYPERTENSION Status: Chronic Qualifiers: Hypertension type: essential hypertension Qualified Code(s): I10 - Essential (primary) hypertension (12) Physical deconditioning Code(s): R53.81 - OTHER MALAISE Status: Acute - Plan is on nc Oxygen and is sob, has anxiety issues as well co2 is high along with elevated bun/cr, watch for renal failure with active diuresis has b/l pleural effusion with volume overload, poor oral intake, james, needing in creased O2, prognosis guarded, unable to reach family on numbers in [employer] and patient cant provide one as her phone is not working well. pt is intubate only as of now paroxysmal afib in sinus rhythm now continue eliquis, amiodarone, cardizem tid, hydralzine, lipitor, synthroid, zosyn and dulera echo shows ef of 50% with diastolic dysfunction has urinary retention with sapp in now mobilize as tolerated, encourage po intake palliative care consultation
[2020-02-12] MEDS ORDERED: Calcium Carbonate 500 MG ChewTAB PO PRN (15:01)
[2020-02-12] MEDS: HumaLOG 300 UNITS/3 ML VIAL SC PRN (18:07)
[2020-02-12 22:26] VITALS: BP 98/50; TEMP 98.1
--- NOTE | 2020-02-14 08:46 | DIS ---
DATE OF ADMISSION: 01/23/2020 DATE OF DISCHARGE: 02/13/2020 DATE OF : 02/12/2020 at 8:50 p.m. PRIMARY CAUSE OF : CHF exacerbation with diastolic dysfunction, 21 days. Pulmonary embolus, 21 days. Acute respiratory failure with hypoxia on 4 L nasal cannula secondary to CHF exacerbation from last 21 days. FACTORS CONTRIBUTING TO : Acute kidney injury, pneumonia, severe deconditioning, atrial fibrillation, chronic anemia, diabetes, hypertension. BRIEF COURSE DURING HOSPITALIZATION: The patient initially got admitted on the January 22 with complaints of shortness of breath. Initial workup in the ER revealed pulmonary embolus with bilateral pleural effusions and CHF exacerbation and volume overload. The patient was placed on heparin drip along with empiric antibiotics for possible pneumonia along with gentle diuresis. The patient also had atrial fibrillation with RVR and medications were optimized for the same during her stay here. She has had acute kidney injury and off and on diuresis was done with close monitoring of renal function. The patient did not want chest compressions and was intubated only. During the course of her stay, Ms. Presley Abarca had severe deconditioning and was barely able to sit up in her bed with assistance. She continued on 4 L nasal cannula. Despite gentle diuresis, the patient continued to be hypoxic and needing 4 L oxygen. On the February 11, I was able to talk to her son, Mr. Lynn and gave full update including poor prognosis. The plan was to send her to a skilled unit closer to [place] if she were to recover. But on the night of , the patient's heart rate went down to 30s and she went into asystole. The patient was intubated only and no chest compressions were done. She was declared at 2049 on 02/12/2020. Body will be released to home per hospital protocol. Job ID: [id number]
== END 2020-02-13 00:08 | disposition expired | DRG 291 ==
LOC: ERS 12:44 → IMCU/EMU 15:53 → 2NO 01-26 19:54 → CCU 02-01 11:14 → IMCU/EMU 02-02 21:48 → 2NO 02-04 15:08
PROVIDERS: ADMIT Internal Medicine; ATTEND Internal Medicine
PROC: 5A09457 Assistance with Respiratory Ventilation, 24-96 Consecutive Hours, Continuous Positive Airway Pressure (ICD-10-PCS; principal; 2020-01-23)
DX: I13.0 Hypertensive heart and chronic kidney disease with heart failure and stage 1 through stage 4 chronic kidney disease, or unspecified chronic kidney disease (principal); I26.99 Other pulmonary embolism without acute cor pulmonale; I50.33 Acute on chronic diastolic (congestive) heart failure; J18.9 Pneumonia, unspecified organism; J96.01 Acute respiratory failure with hypoxia; J96.02 Acute respiratory failure with hypercapnia; I31.3 Pericardial effusion (noninflammatory); N17.9 Acute kidney failure, unspecified; E87.1 Hypo-osmolality and hyponatremia; R65.10 Systemic inflammatory response syndrome (SIRS) of non-infectious origin without acute organ dysfunction; R45.851 Suicidal ideations; I48.92 Unspecified atrial flutter; Z66 Do not resuscitate; Z20.828 Contact with and (suspected) exposure to other viral communicable diseases; E78.5 Hyperlipidemia, unspecified; J43.9 Emphysema, unspecified; E87.5 Hyperkalemia; E78.00 Pure hypercholesterolemia, unspecified; I25.10 Atherosclerotic heart disease of native coronary artery without angina pectoris; E66.9 Obesity, unspecified; N18.30 Chronic kidney disease, stage 3 unspecified; E11.65 Type 2 diabetes mellitus with hyperglycemia; D63.8 Anemia in other chronic diseases classified elsewhere; E88.09 Other disorders of plasma-protein metabolism, not elsewhere classified; E11.22 Type 2 diabetes mellitus with diabetic chronic kidney disease; I48.0 Paroxysmal atrial fibrillation; D72.829 Elevated white blood cell count, unspecified; F41.9 Anxiety disorder, unspecified; F32.9 Major depressive disorder, single episode, unspecified; E03.9 Hypothyroidism, unspecified; I49.5 Sick sinus syndrome; D50.9 Iron deficiency anemia, unspecified; E11.649 Type 2 diabetes mellitus with hypoglycemia without coma; E83.42 Hypomagnesemia; Z88.2 Allergy status to sulfonamides; Z85.3 Personal history of malignant neoplasm of breast; Z98.51 Tubal ligation status; Z87.891 Personal history of nicotine dependence; Z79.4 Long term (current) use of insulin; Z79.899 Other long term (current) drug therapy; Z79.890 Hormone replacement therapy; Z79.51 Long term (current) use of inhaled steroids; Z95.5 Presence of coronary angioplasty implant and graft; Z68.27 Body mass index [BMI] 27.0-27.9, adult; R33.9 Retention of urine, unspecified; I46.9 Cardiac arrest, cause unspecified; Z90.12 Acquired absence of left breast and nipple
CPT/HCPCS: 36415; 36416; 36600; 51702; 71045; 71275; 74230; 80048; 80053; 80202; 81003; 81015; 82274; 82306; 82607; 82728; 82746; 82805; 83036; 83735; 83880; 84100; 84443; 84484; 85025; 85379; 85730; 87040; 87086; 87635; 93005; 93010; 93306; 93970; 94640; 94660; 96365; 96366; 96375; C9113; J0456; J0692; J0696; J1644; J1815; J1940; J2060; J2543; J2930; J3370; J3475; J3490; J7050; J7611; J7620; Q0162; Q9967; U0003